=== PATIENT | female | born 1960 | race Caucasian/White ===

== ENCOUNTER 2019-11-30 13:36 | Outpatient (CLI) | payer OTHER, SELFPAY ==
--- NOTE | ~2019-11-30 | XR_ITS ---
XR thoracic spine 3V DATE: 11/30/2019 14:07 INDICATION: Chronic mid back pain TECHNIQUE: AP, lateral, swimmer views COMPARISON: None FINDINGS: No fracture or dislocation is evident. There is degenerative spurring of the thoracic spine . No paraspinal soft tissue thickening. Status post cholecystectomy. IMPRESSION: Degenerative spurring of the thoracic spine Reviewed, dictated and finalized at location A.
== END 2019-11-30 13:37 | disposition home or self-care (01) ==
LOC: CHSIMG 13:38
PROVIDERS: PCP Internal Medicine; Visit Provider Internal Medicine
DX: M54.6 Pain in thoracic spine (principal)
CPT/HCPCS: 72072

== ENCOUNTER 2019-12-07 12:53 | Outpatient (CLI) | payer OTHER, SELFPAY ==
--- NOTE | ~2019-12-07 | XR_ITS ---
XR chest 2V DATE: 12/07/2019 13:07 INDICATION: Posterior Central chest pain for 2 months. COPD. TECHNIQUE: PA and lateral views COMPARISON: 04/27/2019 2 view chest FINDINGS: Normal heart size. Aortic arch calcification. No hilar or mediastinal enlargement. No pulmo nary infiltrate or consolidation, pleural effusion or pulmonary vascular congestion or pneumothorax. Diffuse osteopenia. Degenerative spurring of the thoracic spine. Status post cholecystectomy. IMPRESSION: No active cardiopulmonary disease Reviewed, dictated and finalized at location B.
== END 2019-12-07 12:54 | disposition home or self-care (01) ==
LOC: CHSIMG 12:54
PROVIDERS: PCP Internal Medicine; Visit Provider Internal Medicine
DX: J44.9 Chronic obstructive pulmonary disease, unspecified (principal)
CPT/HCPCS: 71046

== ENCOUNTER 2019-12-24 10:38 | Emergency (ER) | payer OTHER, SELFPAY ==
--- NOTE | ~2019-12-24 | XR_ITS ---
EXAMINATION: XR chest 2V DATE: 12/24/2019 11:56 INDICATION: Cough and shortness of breath TECHNIQUE: PA and lateral views of the chest are obtained. COMPARISON: 12/07/2019 FINDINGS: The lungs are free of acute opacities. There is no pleural effusion or pneumothorax. The ca rdiomediastinal silhouette is normal. There is mild thoracic spondylosis. Surgical clips in the upper abdomen on the lateral view are likely from prior cholecystectomy. IMPRESSION: 1. No acute cardiopulmonary abnormality. Reviewed, dictated and finalized at location A.
[2019-12-24 11:36] VITALS: BP 127/77; PULSE 58; RESP 18; TEMP 36.3; O2SAT 99
[2019-12-24] MEDS: methylPREDNISolone ACETATE 40 MG/ML VIAL 80 MG IM (12:02)
[2019-12-24 12:27] LABS: Influenza Control Valid (Valid)
--- NOTE | 2019-12-24 12:35 | ED.URI ---
HPI - URI/Sore Throat General Chief Complaint: Upper Respiratory Infection Stated Complaint: SORE THROAT HARD TIME BREATHING Source: patient Mode of arrival: ambulatory Limitations: no limitations History of Present Illness HPI Narrative: Patient presents with a 2 week history of cough congestion with dyspnea, patient is a smoker apparently she says she quit 3 days ago, was seen by her primary care physician and started on inhalers and was given a Z-Marcin. Currently no sick contacts no travel history. Patient has a history of atrial fibrillation is on Xarelto, diabetes and hypertension. Currently there is no fever chills no nausea vomiting no abdominal pain no diarrhea constipation. MD elicited complaint: cough and nasal congestion Onset (ago): week(s) Consistency: intermittent Severity: mild Associated symptoms: nasal congestion Related Data Home Medications Medication Instructions Recorded Confirmed baclofen 10 mg PO DAILY PRN 09/24/19 12/24/19 famotidine 40 mg PO DAILY 09/24/19 12/24/19 pravastatin 10 mg PO HS 09/24/19 12/24/19 rivaroxaban [Xarelto] 20 mg PO DAILY 09/24/19 12/24/19 azithromycin 250 mg PO DAILY 12/24/19 12/24/19 fluticasone propion-salmeterol 1 inh INHALATION DAILY 12/24/19 12/24/19 [Wixela Inhub] [id number] [Creon] 1 cap PO BID 12/24/19 12/24/19 multivitamin [Multiple Vitamins] 1 tablet PO DAILY 12/24/19 12/24/19 sodium bicarbonate See Rx Instructions .ROUTE .COMPLEX 12/24/19 12/24/19 Allergies Allergy/AdvReac Type Severity Reaction Status Date / Time esomeprazole Allergy Mild Hives Verified 09/24/19 12:10 omeprazole Allergy Mild Hives Verified 09/24/19 12:10 ceftriaxone [From Rocephin] Allergy Hives Verified 09/24/19 12:10 Review of Systems Review of Systems: All systems reviewed & are unremarkable except as noted in HPI and below PMFSH Past Medical History Medical History Atrial fibrillation CVA (cerebral vascular accident) Dyslipidemia Fibromyalgia GERD (gastroesophageal reflux disease) Hypertension Osteoarthritis Surgical History Surgical History H/O: hysterectomy History of cholecystectomy Social History Social History Smoking status: Current every day smoker Exam Const: General: no acute distress and alert Nutritional Appearance: well nourished Orientation/consciousness: patient oriented x3 HENMT: Head: normal to inspection Eyes: Conjunctivae: conjunctivae normal Pupils: Equal, round and reactive pupils present Neck: Neck: normal visual inspection and no lymphadenopathy Chest: Chest palpation & inspection: normal inspection of the chest Resp: Effort & Inspection: normal respiratory effort Cardio: Rate: regular rate Rhythm: regular rhythm GI: GI Palp: Yes Soft to palpation Back/Spine/Pelvis: Back: no CVA tenderness Skin: General skin exam: normal color Rashes: no rashes Neuro: General: patient oriented x3 Extrem: General: normal to inspection Psych: Mental Status: mental status grossly normal Course Vital Signs Vital signs: Vital Signs Temperature 36.3 C L 12/24/19 11:36 Pulse Rate 58 L 12/24/19 11:36 Respiratory Rate 18 12/24/19 11:36 Blood Pressure 127/77 12/24/19 11:36 Pulse Oximetry 99 12/24/19 11:36 Temperature 36.3 C L 12/24/19 11:36 Pulse Rate 58 L 12/24/19 11:36 Respiratory Rate 18 12/24/19 11:36 Blood Pressure 127/77 12/24/19 11:36 Pulse Oximetry 99 12/24/19 11:36 MDM - URI/Sore Throat Lab Data Labs: Lab Results 12/24/19 Range/Units 12:01 Influenza Type A Ag Negative (Negative) Influenza Type B Ag Negative (Negative) Critical Care Time Critical Care Time Critical Care Time: No Discharge Plan Discharge Clinical Impression: Upper respiratory infection Patient Disposition: Home, Self
[2019-12-24 12:52] VITALS: RESP 18; O2SAT 99
== END 2019-12-24 12:53 | disposition home or self-care (01) ==
PROVIDERS: Emergency Provider Emergency Medicine; PCP Internal Medicine
DX: J06.9 Acute upper respiratory infection, unspecified (principal)
CPT/HCPCS: 71046; 87804; 96372; 99283; J1030

== ENCOUNTER 2020-01-21 17:36 | Observation (INO) | payer OTHER, SELFPAY ==
--- NOTE | ~2020-01-21 | XR_ITS ---
EXAMINATION: XR chest 1V portable 01/21/2020 17:53 INDICATION: Mid chest pain PROCEDURE: AP portable chest COMPARISON: Comparison to multiple prior studies sequentially, with oldest reviewed study dated 10/19. FINDINGS: The lungs are clear. The cardiomediastinal silhouette is within normal limits. There are no pleural effusions. There is no pneumothorax suspected. IMPRESSION: 1: NO ACUTE CARDIOPULMONARY DISEASE. Reviewed, dictated and finalized at location A.
[2020-01-21 17:37] VITALS: BP 161/70; PULSE 60; RESP 16; TEMP 36.6; O2SAT 100
--- NOTE | 2020-01-21 17:40 | ECG_ITS ---
Measurements Intervals [place] Rate: 56 P: 72 WV: 183 QRS: 75 QRSD: 98 T: 49 QT: 399 QTc: 386 Interpretive Statements SINUS BRADYCARDIA VENTRICULAR PREMATURE COMPLEX INCOMPLETE RIGHT BUNDLE BRANCH BLOCK BASELINE ARTIFACT- I, II, III, AVR, AVL, AVF BORDERLINE ECG Electronically Signed On 01-22-2020 7:16:29 CDT by iDaz Pruitt D.O.
[2020-01-21 17:41] VITALS: BP 111/65; PULSE 58; RESP 16; O2SAT 100; BMI 25.9
[2020-01-21 18:02] LABS: Basophils Absolute Auto 0.09 K/mm3 (0.00-0.10); Basophils Percent Auto 1.1 % (0.0-1.0); Eosinophils Percent Auto 1.2 % (1.0-6.0); Hematocrit 38.5 % (35.0-49.0); Immature Granulocyte Absolute 0.02 K/mm3 (0.00-0.00); Immature Granulocyte Percent A 0.2 % (0.0-0.0); Lymphocytes Absolute Auto 2.87 K/mm3 (1.10-4.50); Lymphocytes Percent Auto 34.5 % (18.0-42.0); Mean Corpuscular HGB Conc 33.8 g/dL (32.0-36.0); Mean Corpuscular Hemoglobin 30.4 pg (27.0-31.0); Mean Platelet Volume 9.2 fl (9.2-11.8); Monocytes Absolute Auto 0.43 K/mm3 (0.10-0.90); Monocytes Percent Auto 5.2 % (2.0-11.0); Neutrophils Absolute Auto 4.8 K/mm3 (1.7-7.2); Neutrophils Percent Auto 57.8 % (50.0-70.0); Platelet Count Result 264 K/mm3 (150-420); Red Blood Count 4.28 M/mm3 (4.20-5.40); Red Cell Distribution Width 12.3 % (11.6-14.4); White Blood Count 8.3 K/mm3 (4.8-10.8)
[2020-01-21 18:16] LABS: D Dimer 0.19 mg/L (0.19-0.50); INR 1.3; Partial Thromboplastin Time 42.7 SEC (22.3-31.6); Prothrombin Time 13.7 Seconds (9.64-11.0)
[2020-01-21 18:19] LABS: Alanine Aminotransferase 17 U/L (14-59); Alkaline Phosphatase 67 U/L (46-116); Anion Gap 16.6 mmol/L (7-16); Aspartate Amino Transferase 14 U/L (15-37); Bilirubin,Total 0.3 mg/dL (0.00-1.00); Blood Urea Nitrogen 6 mg/dL (7-18); Calcium 8.8 mg/dL (8.5-10.1); Carbon Dioxide 24 mmol/L (21-32); Chloride 102 mmol/L (98-108); Estimated CRCL calculation 65 ml/min; Estimated Glomerular Filt Rate > 60; Glucose 100 mg/dL (70-99); Lipase 81 U/L (73-393); Osmolality Calculated 285 mOsm/kg (285-295); Potassium 3.6 mmol/L (3.5-5.1); Sodium 139 mmol/L (136-145)
[2020-01-21 18:20] LABS: Troponin I < 0.02 ng/mL (0.00-0.056)
[2020-01-21 18:22] LABS: BNP 34.9 pg/mL (0-100)
[2020-01-21 18:25] VITALS: O2SAT 97
[2020-01-21] MEDS: methylPREDNISolone SOD SUCC 125 MG VIAL IV PUSH (18:30)
--- NOTE | 2020-01-21 18:32 | ED.GENADULT ---
HPI - General Adult General Chief complaint: Unspecified Stated complaint: Chest pain,numbness down arm Source: patient Mode of arrival: ambulatory Limitations: no limitations History of Present Illness HPI narrative: this is a 59-year-old female presents with chest pressure with radiation to her left arm started yesterday is intermittent off and on also has some throat discomfort with no diaphoresis does have a history of COPD and is feeling like she is short short of breath with no nausea or vomiting no fever chills no cough. The patient was started on Lexapro approximately 3 days ago by her primary care physician for anxiety and depression and since then feels like she may have had allergic reaction to Lexapro which she subsequently stopped. Patient has a past medical history of atrial fibrillation, COPD, hypertension, , status post CVA with left-sided weakness back in 2016. Her chest pain waxes and wanes rates it about a 6/10 which is off and on. Onset (ago): day(s) Location: chest Radiation: extremity Severity: moderate Severity scale (1-10): 5 Quality: dull Pain Consistency: intermittent Associated symptoms: chest pain and shortness of breath Treatments prior to arrival: none Related Data Home Medications Medication Instructions Recorded Confirmed baclofen 10 mg PO DAILY PRN 09/24/19 01/21/20 famotidine 40 mg PO BID 09/24/19 01/21/20 pravastatin 10 mg PO HS 09/24/19 01/21/20 fluticasone propion-salmeterol 1 inh INHALATION DAILY 12/24/19 01/21/20 [Wixela Inhub] [id number] [Creon] 1 cap PO BID 12/24/19 01/21/20 multivitamin [Multiple Vitamins] 1 tablet PO DAILY 12/24/19 01/21/20 sodium bicarbonate See Rx Instructions .ROUTE .COMPLEX 12/24/19 01/21/20 escitalopram oxalate [Lexapro] 20 mg PO DAILY 01/21/20 01/21/20 hydrocodone-acetaminophen [Lorcet 1 tablet PO Q4H PRN 01/21/20 01/21/20 (hydrocodone)] rivaroxaban [Xarelto] mg 01/21/20 Allergies Allergy/AdvReac Type Severity Reaction Status Date / Time esomeprazole Allergy Mild Hives Verified 09/24/19 12:10 omeprazole Allergy Mild Hives Verified 09/24/19 12:10 ceftriaxone [From Rocephin] Allergy Hives Verified 09/24/19 12:10 Review of Systems Review of Systems: All systems reviewed & are unremarkable except as noted in HPI and below PMFSH Social History Social History Smoking status: Current every day smoker Gender identity (if verbalized by the patient): Female Exam Const: General: no acute distress and alert Orientation/consciousness: patient oriented x3 HENMT: Head: normal to inspection Eyes: Conjunctivae: conjunctivae normal Pupils: Equal, round and reactive pupils present Neck: Neck: normal visual inspection and no lymphadenopathy Chest: Chest palpation & inspection: normal inspection of the chest Resp: Effort & Inspection: normal respiratory effort Auscultation: clear to auscultation bilaterally Cardio: Rate: regular rate Rhythm: regular rhythm GI: GI Palp: Yes Soft to palpation Percussion: Yes normal to percussion Auscultation: normal bowel sounds : General: Yes no CVA tenderness Skin: General skin exam: normal color Rashes: no rashes Neuro: General: patient oriented x3, moves all extremities, no meningeal signs and no focal motor deficits Extrem: General: normal to inspection Psych: Appearance: grossly normal Mental Status: mental status grossly normal Course Vital Signs Vital signs: Vital Signs Temperature 36.6 C 01/21/20 17:37 Pulse Rate 60 01/21/20 17:37 Respiratory Rate 16 01/21/20 17:37 Blood Pressure 161/70 H 01/21/20 17:37 Pulse Oximetry 100 01/21/20 17:37 Temperature 36.6 C 01/21/20 17:37 Pulse Rate 58 L 01/21/20 17:41 Respiratory Rate 16 01/21/20 17:41 Blood Pressure 111/65 01/21/20 17:41 Pulse Oximetry 100 01/21/20 17:41 Medical Decision Making Vital Signs Vital Signs: Vital Signs Tempera
[2020-01-21 18:34] LABS: Add Urine Microscopic? YES; Appearance Urine Clear (Clear); Bilirubin Urine Negative (Negative); Blood Urine 2+ (Negative); Color Urine Yellow (Yellow); Glucose Urine UA Negative (Negative); Ketones Urine Negative (Negative); Leukocyte Esterase Ur Negative LEU/UL (Negative); Nitrate Urine Negative (Negative); Protein Urine Negative (Negative); Specific Grav Ur <= 1.005 (1.010-1.020); Urobilinogen Urine 0.2 mg/dL (0.2-1.0)
[2020-01-21 18:40] LABS: Bacteria Urine Trace /hpf; Squamous Epithelial Cell Urine Rare /hpf (Few); WBC Urine 0-3 /hpf (0-3)
[2020-01-21 19:03] VITALS: BP 110/60; PULSE 58; RESP 18; TEMP 36.6; O2SAT 100
[2020-01-21 19:34] VITALS: BP 112/60; PULSE 57; RESP 16; TEMP 36.7; O2SAT 100
[2020-01-21 20:00] VITALS: PULSE 60
--- NOTE | 2020-01-21 20:10 | PC.NURSE ---
Patient arrived from ER in wheelchair. Oriented to room. Call light in reach. Placed on telemetry
[2020-01-21] MEDS: ALBUTEROL SULFATE (*SP) INHALER 2 PUFF INHALATION (20:35)
[2020-01-21] MEDS: SODIUM CHLORIDE 0.9% IV 1,000 ML 100 ML IV CONT (20:39)
--- NOTE | 2020-01-21 21:08 | PC.NURSE ---
Patient continues on sinus rhythm showing sinus michael and a-fib
[2020-01-21 21:31] LABS: Troponin I < 0.02 ng/mL (0.00-0.056)
--- NOTE | 2020-01-21 22:09 | PC.NURSE ---
Patient continues on telemetry showing sinus rhythm and a-fib
--- NOTE | 2020-01-21 23:20 | PC.NURSE ---
Patient continues on telemetry showing a-fib and sinus michael.
[2020-01-22] VITALS: BP 115/68; PULSE 52; PULSE 58; RESP 16; TEMP 36.9; O2SAT 98
--- NOTE | 2020-01-22 00:05 | PC.NURSE ---
Patient continues on telemetry showing sinus michael with a-fib.
[2020-01-22 00:45] LABS: Troponin I < 0.02 ng/mL (0.00-0.056)
--- NOTE | 2020-01-22 01:05 | PC.NURSE ---
Patient continues on telemetry showing sinus rhythm and a-fib
--- NOTE | 2020-01-22 02:55 | PC.NURSE ---
Patient remains on telemetry showing sinus tach with a-fib.
--- NOTE | 2020-01-22 03:03 | PC.NURSE ---
Patient remains on telemetry showing sinus michael and a-fib
[2020-01-22 04:00] VITALS: BP 100/39; PULSE 52; PULSE 67; RESP 20; TEMP 37.1; O2SAT 98
[2020-01-22] MEDS: ACETAMINOPHEN 325 MG TABLET 650 MG PO (04:31)
[2020-01-22] MEDS: SODIUM CHLORIDE 0.9% IV 1,000 ML 100 ML IV CONT (04:32)
--- NOTE | 2020-01-22 06:44 | PC.NURSE ---
Dr. Veloz notified of pt's low heart rate. No new orders at this time.
--- NOTE | 2020-01-22 06:51 | PC.NURSE ---
Dr. Veloz called for a TSH to be added to pt's labs for this AM.
[2020-01-22 07:55] VITALS: BP 110/60; PULSE 45; PULSE 51; RESP 18; TEMP 37; O2SAT 100
[2020-01-22 08:53] LABS: Basophils Absolute Auto 0.01 K/mm3 (0.00-0.10); Basophils Percent Auto 0.1 % (0.0-1.0); Eosinophils Absolute Auto 0.01 K/mm3 (0.02-0.50); Eosinophils Percent Auto 0.1 % (1.0-6.0); Hematocrit 39.1 % (35.0-49.0); Hemoglobin 13.2 g/dL (12.0-15.0); Immature Granulocyte Absolute 0.03 K/mm3 (0.00-0.00); Immature Granulocyte Percent A 0.3 % (0.0-0.0); Lymphocytes Absolute Auto 1.46 K/mm3 (1.10-4.50); Lymphocytes Percent Auto 15.9 % (18.0-42.0); Mean Corpuscular HGB Conc 33.8 g/dL (32.0-36.0); Mean Corpuscular Hemoglobin 30.6 pg (27.0-31.0); Mean Corpuscular Volume 90.7 fL (78.0-102.0); Mean Platelet Volume 9.1 fl (9.2-11.8); Monocytes Percent Auto 4.4 % (2.0-11.0); Neutrophils Absolute Auto 7.3 K/mm3 (1.7-7.2); Neutrophils Percent Auto 79.2 % (50.0-70.0); Platelet Count Result 258 K/mm3 (150-420); Red Blood Count 4.31 M/mm3 (4.20-5.40); Red Cell Distribution Width 12.3 % (11.6-14.4); White Blood Count 9.2 K/mm3 (4.8-10.8)
[2020-01-22] MEDS: FAMOTIDINE 20 MG TABLET 40 MG PO (08:53)
[2020-01-22] MEDS: ALBUTEROL SULFATE (*SP) INHALER 2 PUFF INHALATION (08:55)
--- NOTE | 2020-01-22 08:59 | PM.IMPN ---
Progress Note: A&P Assessment and Plan (1) Chest pain: Onset Date: ~01/20/20 Qualifiers: Chest pain type: unspecified Qualified Code(s): R07.9 - Chest pain, unspecified Code(s): R07.9 - Chest pain, unspecified Status: Acute Assessment and Plan: Patient denies having chest pain since last night. He denies shortness of breath, leg swelling, cough, cold symptoms, or fever. The numbness that affected the entirety of her left arm down to her fingertips that has resolved. Patient states that she had a stress test a few years ago after she had a CVA. Will discharge her home today to follow-up with her PCP. (2) Atrial fibrillation: Code(s): I48.91 - Unspecified atrial fibrillation Status: Chronic Assessment and Plan: Continue her current treatment strategies. (3) GERD (gastroesophageal reflux disease): Code(s): K21.9 - Gastro-esophageal reflux disease without esophagitis Status: Acute Assessment and Plan: Continue current treatment strategies. (4) Hypertension: Code(s): I10 - Essential (primary) hypertension Status: Acute Assessment and Plan: Continue current treatments that he has. (5) Bradycardia: Code(s): R00.1 - Bradycardia, unspecified Status: Chronic Assessment and Plan: Monitor showed a reading as low as 38 overnight however patient was asymptomatic. this is a chronic finding and is found on her EKGs as far back as October of 2015. (6) Dyspnea: Code(s): R06.00 - Dyspnea, unspecified Status: Acute Additional Plan Patient has a pending COVID test however she has been afebrile and denies shortness of breath this morning. Will encourage her to self distance at home until her test is back and she follows up with her primary care doctor. Time Spent With Patient Time with patient: less than 15 minutes Subjective Date/time seen: 01/22/20 0745 Patient states that she has no chest pain, shortness of breath, left arm numbness, tingling or pain, and feels better today. She is amenable to going home and having follow up with her primary care doctor. Patient states that she has had a stress test the last 2 years that was negative. Review of Systems Constitutional: Constitutional: Denies fatigue and Denies weakness ENT: Denies dysphagia, Denies nasal congestion and Denies nasal discharge Cardiovascular: Cardiovascular: Denies chest pain, Denies leg edema, Denies lightheadedness and Denies palpitations Respiratory: Respiratory: Denies cough, Denies dyspnea and Denies dyspnea on exertion Gastrointestinal: Gastrointestinal: Denies abdominal pain, Denies nausea and Denies vomiting Musculoskeletal: Musculoskeletal: Reports back pain Neurologic: Denies Abnormal speech present, Denies headache(s) and Denies numbness Psychiatric: Psychiatric: Denies anxiety, Denies confusion and Denies depression Exam Const: General: no acute distress HENMT: Mouth: Yes moist mucous membranes Eyes: Sclera: sclerae normal Pupils: Equal, round and reactive pupils present EOM: EOMs intact bilaterally Resp: Effort & Inspection: normal respiratory effort Auscultation: no crackles, no rales, no rhonchi and wheezes (Few late expiratory wheezes, no inc WOB, good air movement throughout) Cardio: Rate: bradycardic Rhythm: regular rhythm Heart sounds: no gallops and no murmurs GI: Inspection: non-distended Auscultation: normal bowel sounds Neuro: Speech: normal speech Motor exam (neuro): 5/5 motor strength present throughout and Normal motor muscle tone present throughout Extrem: General: normal exam except as noted and no edema Other: Warm, dry and pink Psych: Mental Status: mental status grossly normal Affect: normal affect Objective Data Vital Signs Vital Signs: Vital Signs - 24 hr 01/21/20 17:37 01/21/20 17:41 01/21/20 19:03 Temperature 36.6 C 36.6 C Pulse Rate 60 58 L 58 L Respi
[2020-01-22 09:21] LABS: Alanine Aminotransferase 15 U/L (14-59); Albumin Level 3.7 g/dL (3.4-5.0); Alkaline Phosphatase 59 U/L (46-116); Anion Gap 13.1 mmol/L (7-16); Aspartate Amino Transferase 12 U/L (15-37); Bilirubin,Total 0.5 mg/dL (0.00-1.00); Blood Urea Nitrogen 7 mg/dL (7-18); Calcium 8.9 mg/dL (8.5-10.1); Carbon Dioxide 25 mmol/L (21-32); Chloride 107 mmol/L (98-108); Estimated CRCL calculation 85 ml/min; Estimated Glomerular Filt Rate > 60; Glucose 113 mg/dL (70-99); Osmolality Calculated 291 mOsm/kg (285-295); Potassium 4.1 mmol/L (3.5-5.1); Sodium 141 mmol/L (136-145); Total Protein 6.7 g/dL (6.4-8.2)
[2020-01-22 12:00] VITALS: PULSE 48
--- NOTE | 2020-01-22 12:30 | PC.NURSE ---
Patient to be discharged home. IV fluids stopped. IV site removed, tip intact. Dressing applied to site and pressure held for 1 minnute. All discharge instructions and education reviewed with patient. Patient states understanding. Denies any questions at this time. All belongings sent home with patient. Patient accompanied to front door via wheelchair. Left in private vehicle with friend.
[2020-01-23 04:03] LABS: SARS-CoV-2 RNA PCR Negative
== END 2020-01-22 12:30 | disposition home or self-care (01) ==
LOC: CHSED 18:37 → CHS2ND 18:47
PROVIDERS: Admitting Provider Emergency Medicine; Emergency Provider Emergency Medicine; PCP Internal Medicine; Visit Provider Emergency Medicine
DX: R07.9 Chest pain, unspecified (principal); J44.9 Chronic obstructive pulmonary disease, unspecified; R06.02 Shortness of breath; F41.9 Anxiety disorder, unspecified; F32.9 Major depressive disorder, single episode, unspecified; I10 Essential (primary) hypertension; I48.20 Chronic atrial fibrillation, unspecified; K21.9 Gastro-esophageal reflux disease without esophagitis; R00.1 Bradycardia, unspecified; Z20.828 Contact with and (suspected) exposure to other viral communicable diseases; Z86.73 Personal history of transient ischemic attack (TIA), and cerebral infarction without residual deficits
CPT/HCPCS: 36415; 71045; 80053; 81001; 83690; 83735; 83880; 84443; 84484; 85025; 85380; 85610; 85730; 87635; 93005; 96360; 96361; 96374; 99285; A9270; C9803; G0378; G0379; J2930; J7030; U0003

== ENCOUNTER 2020-04-01 09:24 | Outpatient (CLI) | payer OTHER, SELFPAY ==
--- NOTE | ~2020-04-01 | US_ITS ---
EXAMINATION: US carotid duplex BI DATE: 04/01/2020 10:04 INDICATION: Carotid stenosis. TECHNIQUE: Grayscale, color Doppler, and pulsed Doppler images of the cervical carotid arteries were obtained. The degree of vessel stenosis is placed in one of the following categories: normal, <50%, 5 0-69%, >=70% but less than near-occlusion, near-occlusion, or total occlusion. Note that percent sten osis relative to normal distal artery lumen diameter is indirectly measured from velocity measurement s as described by Spenser, et al. Radiology 2003; 229:340-346. COMPARISON: Ultrasound 03/20/2019 FINDINGS: RIGHT: The right common carotid artery (CCA) peak systolic velocity (PSV) is 97 cm/s. The right internal car otid artery (ICA) PSV is 84 cm/s. The right ICA end-diastolic velocity (EDV) is 35 cm/s. The right IC A/CCA PSV ratio is 0.9. Grayscale and color Doppler images yield an estimate of <50% diameter reducti on from plaque in the ICA. There is antegrade flow in the right vertebral artery. LEFT: The left CCA PSV is 101 cm/s. The left ICA PSV is 84 cm/s. The left ICA EDV is 32 cm/s. The left ICA/ CCA PSV ratio is 0.8. Grayscale and color Doppler images yield an estimate of <50% diameter reduction from plaque in the ICA. There is antegrade flow in the left vertebral artery. IMPRESSION: 1. <50% stenosis in the right internal carotid artery. 2. <50% stenosis in the left internal carotid artery. Reviewed, dictated and finalized at location A.
== END 2020-04-01 09:25 | disposition home or self-care (01) ==
PROVIDERS: PCP Internal Medicine; Visit Provider Internal Medicine
DX: I65.29 Occlusion and stenosis of unspecified carotid artery (principal)
CPT/HCPCS: 93880

== ENCOUNTER 2020-06-30 14:46 | Outpatient (CLI) | payer OTHER, SELFPAY ==
--- NOTE | 2020-07-20 08:24 | WPDHOLTEREM ---
Holter/Event Monitor Holter/Event Monitor Date of procedure: 07/20/20 Procedure Type: 30 day event monitor Indications: Palpitations Conclusion: 1. 15 days event monitor between 06/30/20-07/18/20. There are 12 available transmissions for analysis. 2. Underlying rhythm is sinus rhythm. HR range 33-120 bpm; average HR 65 bpm. The slowest HR is at 02:33. 3. There are occasional premature supraventricular complexes with total burden of 1%. No supraventricular tachycardia. 4. There are occasional premature ventricular complexes with total burden of 2%. No ventricular tachycardia. 5. No significant pauses greater than 2 seconds. 6. Patient reports 1 episode of symptoms of symptom other than listed which demonstrate sinus rhythm at 67 bpm.
== END 2020-06-30 14:47 | disposition home or self-care (01) ==
LOC: CHSCARD 14:48
PROVIDERS: PCP Internal Medicine; Visit Provider Internal Medicine
DX: R00.2 Palpitations (principal)
CPT/HCPCS: 93270

== ENCOUNTER 2020-08-01 08:09 | Outpatient (CLI) | payer OTHER, SELFPAY ==
--- NOTE | ~2020-08-01 | MM_ITS ---
EXAMINATION: MM screening [facility] BI w kyara HISTORY: Screening mammogram TECHNIQUE: Craniocaudal and mediolateral oblique 3-D tomosynthesis images were obtained and synthetic 2-D images were generated. CAD analysis was submitted and interpreted. COMPARISON: 07/20/2019, 06/23/2018, 06/10/2017 BREAST PARENCHYMAL COMPOSITION: The breasts are almost entirely fatty. FINDINGS: There is no evidence of suspicious mass, calcification, or architectural distortion to sugg est malignancy in either breast. There has been no suspicious interval change. IMPRESSION: 1. No mammographic evidence of malignancy. 2. Recommend routine screening mammography in one year. BI-RADS Category 1: Negative Reviewed, dictated and finalized at location A. R SAFETY TEACHER
== END 2020-08-01 08:10 | disposition home or self-care (01) ==
LOC: CHSIMG 08:10
PROVIDERS: PCP Internal Medicine; Visit Provider Internal Medicine
DX: Z12.31 Encounter for screening mammogram for malignant neoplasm of breast (principal)
CPT/HCPCS: 77063; 77067

== ENCOUNTER 2020-08-08 14:31 | Outpatient (CLI) | payer OTHER, SELFPAY ==
--- NOTE | ~2020-08-08 | XR_ITS ---
EXAMINATION: XR knee LT min 4V DATE: 08/08/2020 15:00 INDICATION: Left knee pain. TECHNIQUE: 4 views of left knee were obtained. COMPARISON: Left knee radiographs 05/23/2009 FINDINGS: Bone alignment is normal. No fracture. There is moderate osteoarthritis of medial compartme nt and mild osteoarthritis of lateral and patellofemoral compartments. There is chondrocalcinosis of the [place]isci. There is a small knee joint effusion. There are dystrophic calcifications of the joint c apsule. IMPRESSION: 1. Moderate left knee osteoarthritis. 2. Small left knee joint effusion. Reviewed, dictated and finalized at location A. YST PROGRAMMER
== END 2020-08-08 14:32 | disposition home or self-care (01) ==
PROVIDERS: PCP Internal Medicine; Visit Provider Internal Medicine
DX: M25.562 Pain in left knee (principal); M17.12 Unilateral primary osteoarthritis, left knee
CPT/HCPCS: 73564

== ENCOUNTER 2020-08-12 15:49 | Outpatient (CLI) | payer OTHER, SELFPAY ==
[2020-08-15 16:41] LABS: SARS-CoV-2 RNA PCR Negative
== END 2020-08-12 15:50 | disposition home or self-care (01) ==
LOC: CHSLAB 15:52
PROVIDERS: PCP Internal Medicine; Visit Provider Internal Medicine
DX: Z20.828 Contact with and (suspected) exposure to other viral communicable diseases (principal)
CPT/HCPCS: 87635; C9803; U0003

== ENCOUNTER 2020-09-07 16:03 | Outpatient (CLI) | payer OTHER, SELFPAY ==
--- NOTE | ~2020-09-07 | XR_ITS ---
EXAMINATION: XR ribs BI 3V w CXR 2V EXAM DATE: 09/07/2020 16:28 INDICATION: Bilateral anterior/posterior rib pain s/p fall downstairs. Initial encounter. TECHNIQUE: Frontal projection of the upper left ribs, frontal projection of the lower left ribs, obli que projection of the left ribs. Frontal projection of the upper right ribs, frontal projection of t he lower right ribs, oblique projection of the right ribs, frontal and lateral chest x-ray(s) for int erpretation. Comparison is made to prior examination from 01/21/2020. FINDINGS: There are no displaced acute rib fractures identified. No confluent consolidation, pneumo thorax or pleural effusion suspected. There are cholecystectomy clips and also probably pneumobilia. IMPRESSION: No acute displaced rib fractures bilaterally. Reviewed, dictated and finalized at location A. ERECTOR AND REPAIRER
== END 2020-09-07 16:04 | disposition home or self-care (01) ==
LOC: CHSIMG 16:05
PROVIDERS: PCP Internal Medicine; Visit Provider Internal Medicine
DX: R07.89 Other chest pain (principal)
CPT/HCPCS: 71046; 71110

== ENCOUNTER 2020-09-26 15:36 | Outpatient (CLI) | payer OTHER, SELFPAY ==
--- NOTE | ~2020-09-26 | XR_ITS ---
EXAMINATION: XR abdomen obstructive series DATE: 09/26/2020 16:00 INDICATION: Right-sided abdominal pain. Constipation. TECHNIQUE: Upright and supine views of the abdomen on 3 radiographs were obtained. COMPARISON: CT abdomen and pelvis 11/12/2017 FINDINGS: There are no dilated loops of bowel. There is a moderate volume of stool in the colon. No f ree intraperitoneal gas. Calcifications in the pelvis are likely phleboliths. Surgical clips in the r ight upper quadrant are likely from cholecystectomy. There is a staple line in the rectosigmoid colon . IMPRESSION: 1. Normal bowel gas pattern. Reviewed, dictated and finalized at location A. LABORER
[2020-09-26 15:50] LABS: Basophils Percent Auto 1.1 % (0.0-1.0); Eosinophils Absolute Auto 0.25 K/mm3 (0.02-0.50); Eosinophils Percent Auto 2.6 % (1.0-6.0); Hematocrit 41.6 % (35.0-49.0); Hemoglobin 13.7 g/dL (12.0-15.0); Immature Granulocyte Absolute 0.02 K/mm3 (0.00-0.00); Immature Granulocyte Percent A 0.2 % (0.0-0.0); Lymphocytes Absolute Auto 3.17 K/mm3 (1.10-4.50); Lymphocytes Percent Auto 33.5 % (18.0-42.0); Mean Corpuscular HGB Conc 32.9 g/dL (32.0-36.0); Mean Corpuscular Hemoglobin 30.4 pg (27.0-31.0); Mean Corpuscular Volume 92.4 fL (78.0-102.0); Mean Platelet Volume 9.1 fl (9.2-11.8); Monocytes Absolute Auto 0.47 K/mm3 (0.10-0.90); Neutrophils Absolute Auto 5.5 K/mm3 (1.7-7.2); Neutrophils Percent Auto 57.6 % (50.0-70.0); Platelet Count Result 257 K/mm3 (150-420); Red Cell Distribution Width 11.9 % (11.6-14.4); White Blood Count 9.5 K/mm3 (4.8-10.8)
[2020-09-26 15:51] LABS: Add Urine Microscopic? YES; Appearance Urine Clear (Clear); Bilirubin Urine Negative (Negative); Blood Urine 1+ (Negative); Color Urine Yellow (Yellow); Glucose Urine UA Negative (Negative); Ketones Urine Negative (Negative); Leukocyte Esterase Ur Negative (Negative); Nitrate Urine Negative (Negative); Protein Urine Negative (Negative); Urobilinogen Urine 0.2 mg/dL (0.2-1.0)
[2020-09-26 15:56] LABS: RBC Urine 0-2 /hpf (0-2); Squamous Epithelial Cell Urine Few /hpf (Few); WBC Urine 0-3 /hpf (0-3)
[2020-09-26 15:57] LABS: Bacteria Urine Trace /hpf
[2020-09-26 16:07] LABS: Alanine Aminotransferase 15 U/L (14-59); Albumin Level 4.5 g/dL (3.4-5.0); Alkaline Phosphatase 64 U/L (46-116); Amylase 55 U/L (25-115); Anion Gap 7 mmol/L (8-16); Aspartate Amino Transferase < 10 U/L (15-37); Bilirubin,Total 0.3 mg/dL (0.00-1.00); Blood Urea Nitrogen 7 mg/dL (7-18); Calcium 9.3 mg/dL (8.5-10.1); Carbon Dioxide 28 mmol/L (21-32); Chloride 101 mmol/L (98-108); Estimated Glomerular Filt Rate > 60; Glucose 95 mg/dL (70-99); Lipase 74 U/L (73-393); Osmolality Calculated 280 mOsm/kg (285-295); Potassium 3.9 mmol/L (3.5-5.1); Sodium 136 mmol/L (136-145); Total Protein 7.8 g/dL (6.4-8.2)
== END 2020-09-26 15:37 | disposition home or self-care (01) ==
LOC: CHSLAB 15:37
PROVIDERS: PCP Internal Medicine; Visit Provider Internal Medicine
DX: R10.9 Unspecified abdominal pain (principal); R11.0 Nausea; K59.00 Constipation, unspecified
CPT/HCPCS: 36415; 74019; 80053; 81001; 82150; 83690; 85025; 87086

== ENCOUNTER 2020-10-25 15:28 | Outpatient (CLI) | payer OTHER, SELFPAY ==
[2020-10-25 16:19] LABS: SARS-CoV-2 Ag Negative (Negative)
== END 2020-10-25 15:29 | disposition home or self-care (01) ==
LOC: CHSLAB 15:31
PROVIDERS: PCP Internal Medicine; Visit Provider Internal Medicine
DX: Z20.822 Contact with and (suspected) exposure to COVID-19 (principal)
CPT/HCPCS: 87426; C9803

== ENCOUNTER 2021-01-16 14:23 | Outpatient (CLI) | payer OTHER, SELFPAY ==
[2021-01-16 14:40] LABS: Basophils Percent Auto 0.9 % (0.0-1.0); Eosinophils Absolute Auto 0.18 K/mm3 (0.02-0.50); Eosinophils Percent Auto 1.6 % (1.0-6.0); Hematocrit 40.9 % (35.0-49.0); Hemoglobin 13.7 g/dL (12.0-15.0); Immature Granulocyte Absolute 0.03 K/mm3 (0.00-0.00); Immature Granulocyte Percent A 0.3 % (0.0-0.0); Lymphocytes Absolute Auto 3.07 K/mm3 (1.10-4.50); Lymphocytes Percent Auto 27.4 % (18.0-42.0); Mean Corpuscular HGB Conc 33.5 g/dL (32.0-36.0); Mean Corpuscular Hemoglobin 30.5 pg (27.0-31.0); Mean Corpuscular Volume 91.1 fL (78.0-102.0); Mean Platelet Volume 8.8 fl (9.2-11.8); Monocytes Absolute Auto 0.65 K/mm3 (0.10-0.90); Monocytes Percent Auto 5.8 % (2.0-11.0); Neutrophils Absolute Auto 7.2 K/mm3 (1.7-7.2); Platelet Count Result 288 K/mm3 (150-420); Red Blood Count 4.49 M/mm3 (4.20-5.40); Red Cell Distribution Width 12.2 % (11.6-14.4); White Blood Count 11.2 K/mm3 (4.8-10.8)
== END 2021-01-16 14:24 | disposition home or self-care (01) ==
LOC: CHSLAB 14:25
PROVIDERS: PCP Internal Medicine; Visit Provider Internal Medicine
DX: J02.9 Acute pharyngitis, unspecified (principal)
CPT/HCPCS: 85025; 87081; 87880

== ENCOUNTER 2021-01-21 11:49 | Outpatient (CLI) | payer OTHER, SELFPAY | END 2021-01-21 11:50 | disposition home or self-care (01) | LOC: CHSCOVIDVC 11:49 | PROVIDERS: PCP Internal Medicine | DX: Z23 Encounter for immunization (principal) | CPT/HCPCS: 0011A; 91301 ==

== ENCOUNTER 2021-02-16 16:58 | Outpatient (CLI) | payer OTHER, SELFPAY ==
[2021-02-16 17:37] LABS: Basophils Absolute Auto 0.08 K/mm3 (0.00-0.10); Eosinophils Percent Auto 1.3 % (1.0-6.0); Hematocrit 40.1 % (35.0-49.0); Hemoglobin 13.3 g/dL (12.0-15.0); Immature Granulocyte Absolute 0.02 K/mm3 (0.00-0.00); Immature Granulocyte Percent A 0.3 % (0.0-0.0); Lymphocytes Absolute Auto 2.73 K/mm3 (1.10-4.50); Lymphocytes Percent Auto 35.5 % (18.0-42.0); Mean Corpuscular HGB Conc 33.2 g/dL (32.0-36.0); Mean Corpuscular Hemoglobin 30.6 pg (27.0-31.0); Mean Corpuscular Volume 92.2 fL (78.0-102.0); Mean Platelet Volume 9.1 fl (9.2-11.8); Monocytes Absolute Auto 0.41 K/mm3 (0.10-0.90); Monocytes Percent Auto 5.3 % (2.0-11.0); Neutrophils Absolute Auto 4.4 K/mm3 (1.7-7.2); Neutrophils Percent Auto 56.6 % (50.0-70.0); Platelet Count Result 277 K/mm3 (150-420); Red Blood Count 4.35 M/mm3 (4.20-5.40); Red Cell Distribution Width 12.1 % (11.6-14.4); White Blood Count 7.7 K/mm3 (4.8-10.8)
[2021-02-16 17:52] LABS: Partial Thromboplastin Time 29.4 SEC (23.90-30.70); Prothrombin Time 10.7 Seconds (9.50-12.10)
[2021-02-16 17:55] LABS: Alanine Aminotransferase 21 U/L (14-59); Albumin Level 4.1 g/dL (3.4-5.0); Alkaline Phosphatase 61 U/L (46-116); Anion Gap 9 mmol/L (8-16); Aspartate Amino Transferase 10 U/L (15-37); Bilirubin,Total 0.5 mg/dL (0.00-1.00); Blood Urea Nitrogen 7 mg/dL (7-18); Carbon Dioxide 27 mmol/L (21-32); Chloride 101 mmol/L (98-108); Estimated Glomerular Filt Rate > 60; Glucose 97 mg/dL (70-99); Magnesium 2.1 mg/dL (1.8-2.4); Osmolality Calculated 282 mOsm/kg (285-295); Potassium 3.6 mmol/L (3.5-5.1); Sodium 137 mmol/L (136-145); Total Protein 7.1 g/dL (6.4-8.2)
[2021-02-16 18:34] LABS: SARS-CoV-2 RNA PCR Negative (Negative)
[2021-02-16 18:42] LABS: SARS-CoV-2 Ag Negative (Negative)
== END 2021-02-16 16:59 | disposition home or self-care (01) ==
LOC: CHSLAB 17:01
PROVIDERS: PCP Internal Medicine; Visit Provider Internal Medicine
DX: R25.2 Cramp and spasm (principal); T14.8XXA Other injury of unspecified body region, initial encounter; Z20.822 Contact with and (suspected) exposure to COVID-19
CPT/HCPCS: 36415; 80053; 83735; 85025; 85610; 85730; 87426; C9803; U0003; U0005

== ENCOUNTER 2021-02-18 11:08 | Outpatient (CLI) | payer OTHER, SELFPAY | END 2021-02-18 11:09 | disposition home or self-care (01) | LOC: CHSCOVIDVC 11:08 | PROVIDERS: PCP Internal Medicine | DX: Z23 Encounter for immunization (principal) | CPT/HCPCS: 0012A; 91301 ==

== ENCOUNTER 2021-02-22 14:14 | Outpatient (CLI) | payer OTHER, SELFPAY ==
--- NOTE | 2021-02-22 14:26 | ECHO_ITS ---
Patient Info Name: Claudine Cruz Age: 60 years : 1960 Gender: Female Ht: 65 in Wt: 138 lbs BSA: 1.70 m2 HR: 65 bpm BP: 116 / 68 mmHg Technical Quality: Fair Exam Date: 02/22/2021 2:44 PM Exam Location: [facility] Patient Status: Outpatient Admit Date: 02/22/2021 Staff Ordering Physician: Diaz Pruitt DO Security Operations Specialist: Pearl Palm RDCS Attending Provider: Diaz Pruitt DO Referring Physician: Edmond APONTE; Exam Type: CA echo doppler color flow Study Info Indications I48.1 - Persistent atrial fibrillation Complete two-dimensional, color flow and Doppler transthoracic echocardiogram is performed. Strain analysis performed. History/Risk Factors Hypertension: No Dyslipidemia: Yes Peripheral Arterial Disease (PAD): No Obesity: No Renal Disease: No Diabetes Mellitus: No COPD: On Meds Tobacco Use: Current - Every Day If Any Current, Tobacco Type: Cigarettes If Current - Every Day \T\ Cigarettes, Amount: Heavy Tobacco Use (>=10/day) Family History: Diabetes Mellitus, Coronary Artery Disease DVT Treatment: Rivaroxaban Deep Vein Thrombosis (DVT): None Dialysis: None Frailty Scale (CSHA): 2: Well Summary 1. Complete two-dimensional, color flow and Doppler transthoracic echocardiogram is performed. 2. Left ventricular chamber dimension is normal. 3. Left ventricular systolic function is normal, estimated at 65-70%. 4. There is mildly increased left ventricular wall thickness. 5. The left ventricular diastolic function is normal. 6. E/e' 8 is minimally elevated. 7. Global longitudinal strain is normal at -22.7%. 8. Left atrial chamber dimension is moderately enlarged. 9. There is mild mitral valve regurgitation. 10. There is mild tricuspid valve regurgitation. 11. No pulmonary hypertension, estimated pulmonary arterial systolic pressure is 31 mmHg. Recommendations * Smoking cessation counseling is recommended for this patient. Left Ventricle E/e' 8 is minimally elevated. Global longitudinal strain is normal at -22.7%. Left ventricular chamber dimension is normal. Left ventricular systolic function is normal, estimated at 65-70%. There is mildly increased left ventricular wall thickness. The left ventricular diastolic function is normal. Right Ventricle Right ventricular systolic function is normal with normal TAPSE at 2.2 cm. Right ventricular chamber dimension is normal. Left Atria Left atrial chamber dimension is moderately enlarged. Right Atria Right atrial chamber dimension is normal. Aortic Valve The aortic valve is trileaflet. There is no aortic valve stenosis. There is no aortic valve regurgitation. Pulmonic Valve There is no pulmonic regurgitation. Mitral Valve There is no mitral valve stenosis. There is mild mitral valve regurgitation. Tricuspid Valve There is mild tricuspid valve regurgitation. No pulmonary hypertension, estimated pulmonary arterial systolic pressure is 31 mmHg. Pericardium/Pleural There is no pericardial effusion. Inferior Vena Cava Normal inferior vena cava with >50% collapse upon inspiration consistent with normal right atrial pressure, 5 mmHg. Aorta The aortic root size at the sinus of Valsalva is normal. Left Ventricular Outflow Tract Name Value Normal
== END 2021-02-22 14:15 | disposition home or self-care (01) ==
LOC: CHSIMG 14:15
PROVIDERS: PCP Internal Medicine; Visit Provider Internal Medicine Cardiovascular Disease
DX: I48.91 Unspecified atrial fibrillation (principal)
CPT/HCPCS: 93306

== ENCOUNTER 2021-03-30 01:07 | Day surgery (SDC) | payer OTHER, SELFPAY ==
[2021-03-21 16:25] VITALS: BMI 23.4
[2021-03-30] MEDS: LACTATED RINGERS 1,000 ML 30 ML IV CONT (06:10)
--- NOTE | 2021-03-30 06:44 | WPDANESEPPF ---
Anes - Initial Pre Proc Eval Procedure: Operation Date: 03/30/21 07:30 Proposed Procedures p Right Open Carpal Tunnel Release - Kyle Alicia MD Date/Time: 03/30/21 06:44 Surgeon: Kyle Alicia MD Pre Op Diagnosis: right carpal tunnel syndrome Patient Data Age: 60 Gender: F Height: 1.65 m Weight: 62.4 kg Allergies Allergy/AdvReac Type Severity Reaction Status Date / Time ceftriaxone [From Rocephin] Allergy Intermediate Hives Verified 03/30/21 06:02 esomeprazole Allergy Intermediate Hives Verified 03/30/21 06:02 omeprazole Allergy Intermediate Hives Verified 03/30/21 06:02 trazodone Allergy Intermediate Dizziness Verified 03/30/21 06:02 hydromorphone [From Dilaudid] AdvReac Intermediate Anxiety Verified 03/30/21 06:02 Home Medications Medication Instructions Recorded Confirmed Type baclofen 10 mg PO DAILY PRN 09/24/19 03/21/21 History famotidine 40 mg PO BID 09/24/19 03/21/21 History pravastatin 10 mg PO HS 09/24/19 03/21/21 History Creon 1 cap PO BID 12/24/19 03/21/21 History fluticasone propion-salmeterol 1 inh INHALATION DAILY PRN 12/24/19 03/21/21 History [Wixela Inhub] multivitamin [Multiple Vitamins] 1 tablet PO DAILY 12/24/19 03/21/21 History albuterol sulfate [ProAir HFA] 2 puff INHALATION QID PRN 01/21/20 03/21/21 History hyoscyamine sulfate [Levsin/SL] 0.125 mg SUBLINGUAL QID PRN 01/21/20 03/21/21 History ascorbate calcium (vitamin C) 500 500 mg PO DAILY 01/23/21 03/21/21 History mg tablet cholecalciferol (vitamin D3) 25 25 mcg PO DAILY 01/23/21 03/21/21 History mcg (1,000 unit) capsule vitamin B12 500 mcg-folic acid 400 1 tablet PO DAILY 01/23/21 03/21/21 History mcg tablet ondansetron HCl [Zofran] 4 mg PO PRN PRN 03/21/21 03/21/21 History potassium chloride 10 meq PO DAILY 03/21/21 03/21/21 History rivaroxaban [Xarelto] 20 mg PO HS 03/21/21 03/21/21 History Patient hx anesthesia problems: none Family hx anesthesia problems: none [facility] Past Medical History Medical History Atrial fibrillation CVA (cerebral vascular accident) Dyslipidemia Fibromyalgia GERD (gastroesophageal reflux disease) Hypertension Osteoarthritis Surgical History Surgical History H/O: hysterectomy History of cholecystectomy Social History Social History Smoking packs per day: 1 Smoking cigarettes per day: 20.0 Years smoked: 46 Smoking pack-years: 46.00 Smoking status: Current every day smoker Tobacco type: cigarettes Second hand tobacco smoke exposure: Yes Alcohol intake: former Gender identity (if verbalized by the patient): Female Spiritual care concerns: No Agree to blood products: Yes Anes - Eval Final PreProcedure Day of Procedure 03/30/21 06:44 Patient weight: normal Heart: regular rate and rhythm (hx of a-fib) Lungs: clear to auscultation Airway: Mallampati scale class 1 Neurological: alert and oriented Last oral intake: >/= 8 hours ASA classification: III Emergent: no Anesthetic plan: proceed Anesthesia type and monitoring: general GIVS and standard monitoring Informed Consent: The patient's anesthetic plan and its attendant risks and benefits were discussed with the patient/family/POA. Questions were solicited and answers provided to the satisfaction of the patient/family/POA.
--- NOTE | 2021-03-30 07:06 | WPDHPUPDATE1 ---
History and Physical Update Update Date/Time: 03/30/21 07:06 History and Physical has been reviewed, including an updated exam of the patient. There are NO changes in the patient's condition. Risks, benefits, and alternatives have been discussed and questions answered. Patient agrees to proceed with procedure.
[2021-03-30] MEDS: LIDO 1%/EPINEPHRINE 1:100,000 50 ML VIAL INFILTRATE (07:44)
[2021-03-30 07:53] VITALS: BP 91/46; PULSE 62; RESP 18; O2SAT 96
--- NOTE | 2021-03-30 08:11 | PM.OP ---
Procedure Note - Brief Procedure Note - Brief Date of procedure: 03/30/21 Pre-op diagnosis: right carpal tunnel syndrome Post-op diagnosis: same Procedure performed: Right open carpal tunnel release Anesthesia: MAC Surgeon: Kyle Alicia MD Estimated blood loss (mL): 0 Tourniquet time (min): 8 Drains: No Packing: No Pathology: none sent Complications: No immediate complications Condition: stable Disposition: same day
--- NOTE | 2021-03-30 08:13 | P.OP_ITS ---
Procedure Note - Detailed Date of Procedure 03/30/21 Pre-op Diagnosis right carpal tunnel syndrome Post-op Diagnosis same Procedure Performed right open carpal tunnel release Surgeon Kyle Alicia MD Anesthesia MAC Indications carpal tunnel syndrome failing conservative treatment Description of Procedure The right wrist was marked in the holding area. She was taken to the operating room and placed supine on the operating table. A time-out was held and c onfirmed. She was given IV sedation. The extremity was prepped and draped in usual fashion. The site was remarked and locally infiltrated with 1% lidocaine with epinephrine. The tourniquet inflated to 250 mmHg. The incision was made as marked and dissected through the subcutaneous tissue to the palmar aponeurosis. This and the transverse carpal ligament were incised with a 15. Blade. The carpal tunnel was visualized. Under 3 point retraction the ligament was divided distally and proximally to completely release it. There was no unusual anatomy. The skin was closed with interrupted 5 0 nylon suture. Small bandage was applied the tourniquet was released. She is discharge instructions in wound care and follow-up. She has a prescription for hydrocodone 5/325, 8.
[2021-03-30 08:30] VITALS: BP 97/46; PULSE 49; RESP 16
== END 2021-03-30 08:47 | disposition home or self-care (01) ==
PROVIDERS: PCP Internal Medicine; Visit Provider Plastic Surgery
PROC: (CPT 64721; principal; 2021-03-30 07:30)
DX: G56.01 Carpal tunnel syndrome, right upper limb (principal); I48.91 Unspecified atrial fibrillation; E78.5 Hyperlipidemia, unspecified; I10 Essential (primary) hypertension; K21.9 Gastro-esophageal reflux disease without esophagitis; M79.7 Fibromyalgia; M19.90 Unspecified osteoarthritis, unspecified site; Z86.73 Personal history of transient ischemic attack (TIA), and cerebral infarction without residual deficits; Z79.01 Long term (current) use of anticoagulants; Z79.51 Long term (current) use of inhaled steroids; F17.210 Nicotine dependence, cigarettes, uncomplicated
CPT/HCPCS: 64721; A9270; J2250; J2704; J3010; J7120

== ENCOUNTER 2021-05-01 12:20 | Outpatient (CLI) | payer OTHER, SELFPAY ==
--- NOTE | ~2021-05-01 | US_ITS ---
EXAMINATION: US carotid duplex BI DATE: 05/01/2021 12:44 INDICATION: Bilateral carotid stenosis. TECHNIQUE: Grayscale, color Doppler, and pulsed Doppler images of the cervical carotid arteries were obtained. The degree of vessel stenosis is placed in one of the following categories: normal, <50%, 5 0-69%, >=70% but less than near-occlusion, near-occlusion, or total occlusion. Note that percent sten osis relative to normal distal artery lumen diameter is indirectly measured from velocity measurement s as described by Spenser, et al. Radiology 2003; 229:340-346. COMPARISON: Ultrasound 04/01/2020 FINDINGS: RIGHT: The right common carotid artery (CCA) peak systolic velocity (PSV) is 105 cm/s. The right internal ca rotid artery (ICA) PSV is 89 cm/s. The right ICA end-diastolic velocity (EDV) is 27 cm/s. The right I CA/CCA PSV ratio is 0.9. Grayscale and color Doppler images yield an estimate of <50% diameter reduct ion from plaque in the ICA. There is antegrade flow in the right vertebral artery. LEFT: The left CCA PSV is 110 cm/s. The left ICA PSV is 105 cm/s. The left ICA EDV is 26 cm/s. The left ICA /CCA PSV ratio is 1.0. Grayscale and color Doppler images yield an estimate of <50% diameter reductio n from plaque in the ICA. There is antegrade flow in the left vertebral artery. IMPRESSION: 1. <50% stenosis in the right internal carotid artery. 2. <50% stenosis in the left internal carotid artery. Reviewed, dictated and finalized at location A.
== END 2021-05-01 12:21 | disposition home or self-care (01) ==
LOC: CHSIMG 12:21
PROVIDERS: PCP Internal Medicine; Visit Provider Internal Medicine
DX: I65.23 Occlusion and stenosis of bilateral carotid arteries (principal)
CPT/HCPCS: 93880

== ENCOUNTER 2021-06-05 10:56 | Outpatient (CLI) | payer OTHER, SELFPAY ==
[2021-06-05 12:05] LABS: SARS-CoV-2 RNA PCR Negative (Negative)
== END 2021-06-05 10:57 | disposition home or self-care (01) ==
LOC: CHSLAB 10:58
PROVIDERS: PCP Internal Medicine; Visit Provider Nurse Practitioner Family
DX: Z20.822 Contact with and (suspected) exposure to COVID-19 (principal)
CPT/HCPCS: C9803; U0003; U0005

== ENCOUNTER 2021-07-31 07:22 | Outpatient (CLI) | payer OTHER, SELFPAY ==
[2021-07-31 08:49] LABS: Cholesterol 214 mg/dL (0-200); HDL Direct 62 mg/dL (40-60); LDL Cholesterol Calculated 138 mg/dL (<130); Potassium 4.4 mmol/L (3.5-5.1); Triglycerides 69 mg/dL (0-150)
== END 2021-07-31 07:23 | disposition home or self-care (01) ==
LOC: CHSLAB 07:24
PROVIDERS: PCP Internal Medicine Cardiovascular Disease; Visit Provider Internal Medicine Cardiovascular Disease
DX: E87.6 Hypokalemia (principal); E78.5 Hyperlipidemia, unspecified
CPT/HCPCS: 36415; 80061; 84132

== ENCOUNTER 2021-08-07 07:47 | Outpatient (CLI) | payer OTHER, SELFPAY ==
--- NOTE | ~2021-08-07 | MM_ITS ---
EXAMINATION: MM screening [facility] BI w kyara HISTORY: Screening mammogram TECHNIQUE: Craniocaudal and mediolateral oblique 3-D tomosynthesis images were obtained and synthetic 2-D images were generated. CAD analysis was submitted and interpreted. COMPARISON: 08/01/2020, 07/12/2019 BREAST PARENCHYMAL COMPOSITION: There are scattered areas of fibroglandular density. FINDINGS: RIGHT BREAST: There is a possible mass in the middle third outer breast 7.5 cm from the nipple. LEFT BREAST: There is no evidence of suspicious mass, calcification, or architectural distortion to s uggest malignancy. There has been no significant interval change. IMPRESSION: 1. Possible right breast mass. 2. Additional mammographic views and possible breast ultrasound are recommended. BI-RADS Category 0: Incomplete: Needs additional imaging evaluation. Reviewed, dictated and finalized at location A. HER TRIMMER IMPRESSION: 1. Possible right breast mass. 2. Additional mammographic views and possible breast ultrasound are recommended . BI-RADS Category 0: Incomplete: Needs additional imaging evaluation.
== END 2021-08-07 07:48 | disposition home or self-care (01) ==
LOC: CHSIMG 07:47
PROVIDERS: PCP Internal Medicine; Visit Provider Internal Medicine
DX: Z12.31 Encounter for screening mammogram for malignant neoplasm of breast (principal)
CPT/HCPCS: 77063; 77067

== ENCOUNTER 2021-08-28 09:34 | Outpatient (CLI) | payer OTHER, SELFPAY ==
--- NOTE | ~2021-08-28 | MMUS_ITS ---
EXAMINATION: MM diagnostic [facility] RT w kyara, US breast RT limited HISTORY: Follow-up right breast asymmetry TECHNIQUE: Additional 3-D tomosynthesis images of the right breast were performed and synthetic 2-D i mages were generated. CAD analysis was submitted and interpreted. High resolution Limited right breas t ultrasound was performed. COMPARISON: Comparison to multiple prior studies sequentially, with oldest reviewed study dated 05/07. BREAST PARENCHYMAL COMPOSITION: Breast composed of scattered areas of fibroglandular density. FINDINGS: MAMMOGRAPHIC FINDINGS: There is a focal asymmetry in the lateral aspect of the right breast, although no discrete mass is id entified. No suspicious calcifications or architectural distortion. ULTRASOUND: Limited right breast ultrasound: Normal heterogeneous echotexture without focal solid or cystic mass. IMPRESSION: 1. Probable benign right breast asymmetry lateral aspect of the right breast on CC view. No sonograph ic correlate. 2. Recommend 6 month follow-up diagnostic right mammogram BI-RADS category 3, probably benign findings. Reviewed, dictated and finalized at location A. INE SHORTHAND REPORTER IMPRESSION: 1. Probable benign right breast asymmetry lateral aspect of the right breast on CC view. No sonographic correlate. 2. Recommend 6 month follow-up diagnostic right mammogram BI-RADS category 3, probably benign findings.
== END 2021-08-28 09:35 | disposition home or self-care (01) ==
LOC: CHSIMG 09:36
PROVIDERS: PCP Internal Medicine; Visit Provider Internal Medicine
DX: R92.8 Other abnormal and inconclusive findings on diagnostic imaging of breast (principal)
CPT/HCPCS: 76642; 77061; 77065; G0279

== ENCOUNTER 2021-09-05 16:04 | Outpatient (CLI) | payer OTHER, SELFPAY ==
[2021-09-05 17:01] LABS: SARS-CoV-2 RNA PCR Negative (Negative)
== END 2021-09-05 16:05 | disposition home or self-care (01) ==
LOC: CHSLAB 16:05
PROVIDERS: PCP Internal Medicine; Visit Provider Internal Medicine
DX: J06.9 Acute upper respiratory infection, unspecified (principal); Z20.822 Contact with and (suspected) exposure to COVID-19
CPT/HCPCS: C9803; U0003; U0005

== ENCOUNTER 2021-09-20 17:35 | Outpatient (CLI) | payer OTHER, SELFPAY ==
--- NOTE | ~2021-09-20 | XR_ITS ---
EXAMINATION: XR chest 2V DATE: 09/20/2021 17:46 INDICATION: Shortness of breath with chest tightness TECHNIQUE: PA and lateral views of the chest are obtained. COMPARISON: 09/07/2020 FINDINGS: The lungs are free of acute opacities. There is no pleural effusion or pneumothorax. The ca rdiomediastinal silhouette is normal. There is moderate thoracic spondylosis. Surgical clips in the r ight upper quadrant are likely from prior cholecystectomy. IMPRESSION: 1. No acute cardiopulmonary abnormality. Reviewed, dictated and finalized at location F. INSTRUCTOR
[2021-09-20 17:55] LABS: Hematocrit 42.7 % (35.0-49.0); Hemoglobin 14.2 g/dL (12.0-15.0); Mean Corpuscular HGB Conc 33.3 g/dL (32.0-36.0); Mean Corpuscular Hemoglobin 31.1 pg (27.0-31.0); Mean Corpuscular Volume 93.4 fL (78.0-102.0); Platelet Count Result 267 K/mm3 (150-420); Red Blood Count 4.57 M/mm3 (4.20-5.40); Red Cell Distribution Width 11.9 % (11.6-14.4); White Blood Count 10.6 K/mm3 (4.8-10.8)
[2021-09-20 18:34] LABS: Alanine Aminotransferase 22 U/L (14-59); Albumin Level 4.4 g/dL (3.4-5.0); Alkaline Phosphatase 64 U/L (46-116); Anion Gap 12 mmol/L (8-16); Aspartate Amino Transferase 13 U/L (15-37); Bilirubin,Total 0.4 mg/dL (0.00-1.00); Blood Urea Nitrogen 8 mg/dL (7-18); Calcium 9.3 mg/dL (8.5-10.1); Carbon Dioxide 28 mmol/L (21-32); Chloride 100 mmol/L (98-108); Estimated Glomerular Filt Rate > 60; Glucose 95 mg/dL (70-99); Osmolality Calculated 288 mOsm/kg (285-295); Sodium 140 mmol/L (136-145); Total Protein 7.2 g/dL (6.4-8.2)
== END 2021-09-20 17:36 | disposition home or self-care (01) ==
LOC: CHSLAB 17:36
PROVIDERS: PCP Internal Medicine; Visit Provider Internal Medicine
DX: J44.1 Chronic obstructive pulmonary disease with (acute) exacerbation (principal)
CPT/HCPCS: 36415; 71046; 80053; 85027

== ENCOUNTER 2021-10-09 14:39 | Outpatient (CLI) | payer OTHER, SELFPAY ==
--- NOTE | ~2021-10-09 | XR_ITS ---
EXAMINATION: XR ankle RT min 3V, XR foot RT min 3V DATE: 10/09/2021 15:08 INDICATION: Acute onset right foot and ankle pain with swelling and erythema TECHNIQUE: 1. Anteroposterior, mortise, additional oblique and lateral view of the right ankle were obtained. 2. Dorsoplantar, two oblique and lateral views of the right foot were obtained. COMPARISON: None. FINDINGS: Alignment of the foot and ankle is normal. No fracture. Mild polyarticular osteoarthritis at the firs t metatarsophalangeal and multiple tarsometatarsal and interphalangeal joints. Moderate-sized plantar calcaneal spur. Dystrophic calcifications at the anterior ossifications at the distal Achilles tendo n, along the proximal plantar aponeurosis, the medial hindfoot extending along the course of the post erior tibial artery and into the distal peroneus brevis tendon near its fifth metatarsal insertion. S oft tissues are otherwise unremarkable. No ankle joint effusion. IMPRESSION: 1. No acute osseous abnormality. 2. Extensive dystrophic soft tissue calcifications and ossifications associated with the plantar apon eurosis as well as the Achilles, tibialis posterior and peroneus brevis tendons which could be due to chronic trauma/degeneration, rheumatologic disease including autoimmune and inflammatory etiologies, crystal deposition diseases such as gout or hydroxyapatite or diffuse idiopathic skeletal hyperostos is (DISH). Reviewed, dictated and finalized at location A. DRAWING MACHINE TENDER IMPRESSION: 1. No acute osseous abnormality. 2. Extensive dystrophic soft tissue calcifications and ossifications associated with the plantar aponeurosis as well as the Achilles, tibialis posterior and p eroneus brevis tendons which could be due to chronic trauma/degeneration, rheum atologic disease including autoimmune and inflammatory etiologies, crystal depo sition diseases such as gout or hydroxyapatite or diffuse idiopathic skeletal h yperostosis (DISH).
[2021-10-09 15:03] LABS: Basophils Absolute Auto 0.06 K/mm3 (0.00-0.10); Basophils Percent Auto 0.6 % (0.0-1.0); Eosinophils Absolute Auto 0.01 K/mm3 (0.02-0.50); Eosinophils Percent Auto 0.1 % (1.0-6.0); Hematocrit 42.3 % (35.0-49.0); Immature Granulocyte Absolute 0.03 K/mm3 (0.00-0.00); Immature Granulocyte Percent A 0.3 % (0.0-0.0); Lymphocytes Percent Auto 9.4 % (18.0-42.0); Mean Corpuscular HGB Conc 33.1 g/dL (32.0-36.0); Mean Corpuscular Hemoglobin 30.9 pg (27.0-31.0); Mean Corpuscular Volume 93.4 fL (78.0-102.0); Mean Platelet Volume 9.6 fl (9.2-11.8); Monocytes Absolute Auto 0.13 K/mm3 (0.10-0.90); Monocytes Percent Auto 1.4 % (2.0-11.0); Neutrophils Absolute Auto 8.5 K/mm3 (1.7-7.2); Neutrophils Percent Auto 88.2 % (50.0-70.0); Platelet Count Result 256 K/mm3 (150-420); Red Blood Count 4.53 M/mm3 (4.20-5.40); White Blood Count 9.6 K/mm3 (4.8-10.8)
[2021-10-09 15:59] LABS: Anion Gap 12 mmol/L (8-16); Blood Urea Nitrogen 7 mg/dL (7-18); Calcium 9.3 mg/dL (8.5-10.1); Carbon Dioxide 25 mmol/L (21-32); Chloride 104 mmol/L (98-108); Estimated Glomerular Filt Rate > 60; Glucose 120 mg/dL (70-99); Osmolality Calculated 291 mOsm/kg (285-295); Potassium 4.3 mmol/L (3.5-5.1); Sodium 141 mmol/L (136-145); Uric Acid 2.5 mg/dL (2.6-6.0)
[2021-10-09 16:05] LABS: Rheumatoid Factor Screen Negative (Negative)
[2021-10-09 16:16] LABS: Erythrocyte Sedimentation Rate 5 mm/hr (0-20)
[2021-10-09 16:37] LABS: CRP < 0.2 mg/dL (0.0-0.9)
== END 2021-10-09 14:40 | disposition home or self-care (01) ==
LOC: CHSLAB 14:41
PROVIDERS: PCP Internal Medicine; Visit Provider Internal Medicine
DX: M25.571 Pain in right ankle and joints of right foot (principal); M79.671 Pain in right foot
CPT/HCPCS: 36415; 73610; 73630; 80048; 84550; 85025; 85652; 86140; 86430

== ENCOUNTER 2021-10-23 08:30 | Outpatient (CLI) | payer OTHER, SELFPAY ==
--- NOTE | ~2021-10-23 | XR_ITS ---
EXAMINATION: XR ankle RT min 3V, XR foot RT min 3V DATE: 10/23/2021 08:54 INDICATION: Right foot and ankle pain TECHNIQUE: 1. Standing anteroposterior, mortise, additional oblique and lateral view of the right ankle were obt ained. 2. Standing dorsal plantar, two oblique and lateral views of the right foot were obtained. COMPARISON: None. FINDINGS: Mild hindfoot valgus. Valgus. Alignment of the foot and ankle is otherwise normal. No fracture or ost eochondral lesion. Mild polyarticular osteoarthritis at the right ankle and majority of the joints th roughout the foot. No cortical erosions or periosteal reaction. No ankle joint effusion. Achilles and plantar calcaneal spurs. There is enthesopathic ossification along the distal Achilles tendon, the p lantar aponeurosis and along the distal tibialis posterior and peroneus brevis tendons. Additional dy strophic calcification medial to the head of the first metatarsal likely involving the medial collate ral ligament. IMPRESSION: 1. Mild polyarticular osteoarthritis throughout the right foot and ankle no acute osseous abnormality . 2. Extensive dystrophic calcifications/ossifications along ligaments and tendons in the right foot as detailed above which could be due to chronic trauma/degeneration, rheumatologic disease including au toimmune and inflammatory etiologies, diffuse idiopathic skeletal hyperostosis (DISH) or crystal depo sition diseases such as gout or hydroxyapatite. Reviewed, dictated and finalized at location A. X EDITOR IMPRESSION: 1. Mild polyarticular osteoarthritis throughout the right foot and ankle no acu te osseous abnormality. 2. Extensive dystrophic calcifications/ossifications along ligaments and tendon s in the right foot as detailed above which could be due to chronic trauma/dege neration, rheumatologic disease including autoimmune and inflammatory etiologie s, diffuse idiopathic skeletal hyperostosis (DISH) or crystal deposition diseas es such as gout or hydroxyapatite.
== END 2021-10-23 08:31 | disposition home or self-care (01) ==
LOC: CHSLAB 08:33
PROVIDERS: PCP Internal Medicine; Visit Provider Orthopaedic Surgery
DX: M79.671 Pain in right foot (principal); M25.571 Pain in right ankle and joints of right foot
CPT/HCPCS: 73610; 73630

== ENCOUNTER 2021-11-27 09:43 | Emergency (ER) | payer OTHER, SELFPAY ==
--- NOTE | ~2021-11-27 | XR_ITS ---
EXAMINATION: XR chest 2V DATE: 11/27/2021 10:42 INDICATION: Left anterior chest pain. TECHNIQUE: Frontal and lateral views of the chest were obtained. COMPARISON: Chest 2 views 09/20/2021 FINDINGS: The chest demonstrates clear lungs without pneumonia, pleural effusion, or pneumothorax. Th e heart size is normal. Surgical clips in the right upper quadrant are likely from cholecystectomy. IMPRESSION: 1. No acute cardiopulmonary disease. Reviewed, dictated and finalized at location A. TANT GENERAL
--- NOTE | 2021-11-27 09:49 | ECG_ITS ---
Measurements Intervals [place] Rate: 58 P: 24 [place]: 145 QRS: 105 QRSD: 108 T: 72 QT: 383 QTc: 376 Interpretive Statements SINUS BRADYCARDIA RIGHT AXIS DEVIATION COMPARED TO ECG 01/21/2020 17:44:22 NO SIGNIFICANT CHANGES Electronically Signed On 11-28-2021 12:14:39 MANUFACTURING ENGINEER MACHINING by Woody Mclean M.D.
--- NOTE | 2021-11-27 09:50 | ED.CHESTPAIN ---
HPI - Chest Pain General Chief Complaint: Chest Pain Stated Complaint: pain shooting from chest to neck, nausea, headache Time Seen by Provider: 11/27/21 09:53 Source: patient and RN notes reviewed Mode of arrival: ambulatory Limitations: no limitations History of Present Illness HPI narrative: Patient states that she has been having off and on left upper chest pain. Says it goes into her neck. She is not sure if it is coming from her neck because she has a history cervical spine issues. She states they wanted her to have surgery to decompress her spine and possibly put rods in. Said that she has been having some nausea sometimes feels short of breath. She has had a history of atrial fibrillation. MD complaint: chest pain Onset (ago): week(s) (1) Timing of current episode: episodic Onset: during rest Pain location: substernal Pain radiation: neck Severity: moderate Quality: aching and dull Relieving factors: nothing Exacerbating factors: exertion Associated symptoms: nausea, dyspnea and other (headache) Treatment prior to arrival: none Risk Factors Coronary artery disease risk factors: diabetes, smoking history and hyperlipidemia Related Data Home Medications Medication Instructions Recorded Confirmed baclofen 10 mg PO DAILY PRN 09/24/19 10/23/21 famotidine 40 mg PO BID 09/24/19 10/23/21 Creon 1 cap PO BID 12/24/19 10/23/21 multivitamin [Multiple Vitamins] 1 tablet PO DAILY 12/24/19 10/23/21 albuterol sulfate [ProAir HFA] 2 puff INHALATION QID PRN 01/21/20 10/23/21 hyoscyamine sulfate [Levsin/SL] 0.125 mg SUBLINGUAL QID PRN 01/21/20 10/23/21 ascorbate calcium (vitamin C) 500 500 mg PO DAILY 01/23/21 10/23/21 mg tablet cholecalciferol (vitamin D3) 25 25 mcg PO DAILY 01/23/21 10/23/21 mcg (1,000 unit) capsule vitamin B12 500 mcg-folic acid 400 1 tablet PO DAILY 01/23/21 10/23/21 mcg tablet ondansetron HCl [Zofran] 4 mg PO PRN PRN 03/21/21 10/23/21 potassium chloride 10 meq PO DAILY 03/21/21 10/23/21 Allergies Allergy/AdvReac Type Severity Reaction Status Date / Time ceftriaxone [From Rocephin] Allergy Intermediate Hives Verified 10/23/21 10:06 esomeprazole Allergy Intermediate Hives Verified 10/23/21 10:06 omeprazole Allergy Intermediate Hives Verified 10/23/21 10:06 trazodone Allergy Intermediate Dizziness Verified 10/23/21 10:06 hydromorphone [From Dilaudid] AdvReac Intermediate Anxiety Verified 10/23/21 10:06 Review of Systems Review of Systems: All systems reviewed & are unremarkable except as noted in HPI and below Constitutional: Constitutional: Denies chills and Denies fever(s) ENT: Denies sore throat Cardiovascular: Cardiovascular: Denies diaphoresis and Reports other Respiratory: Respiratory: Denies cough Gastrointestinal: Gastrointestinal: Denies diarrhea and Denies vomiting PMFSH Past Medical History Medical History (Updated 11/27/21 @ 11:10 by Ilya Justin MD) Anxiety Arthritis Arthritis of foot, right, degenerative Atrial fib/flutter, transient Atrial fibrillation COPD (chronic obstructive pulmonary disease) CVA (cerebral vascular accident) Dizziness Dyslipidemia Fibromyalgia GERD (gastroesophageal reflux disease) Hair loss Hypertension IBS (irritable bowel syndrome) Osteoarthritis Plantar fasciitis, bilateral Wears glasses Surgical History Surgical History (Updated 10/23/21 @ 11:25 by Isatu Mejias) H/O: hysterectomy History of carpal tunnel surgery 03/2021 per patient questionnaire History of cholecystectomy History of colon surgery History of knee surgery 32 years ago per patient questionnaire Family History Family History (Updated 10/23/21 @ 11:25 by Isatu Mejias) Other Arthritis Cerebrovascular accident Social History Social History (Updated 10/23/21 @ 11:26 by Isatu Mejias) Smoking packs per day: 0.5 Smoking cigarettes per day: 10.0 Years smoked: 46 Smoking pack-years: 23.00 Smoking status: Current every day smo
[2021-11-27 09:52] VITALS: BP 129/67; PULSE 83; RESP 18; TEMP 36.2; O2SAT 99
[2021-11-27 10:07] LABS: Basophils Absolute Auto 0.08 K/mm3 (0.00-0.10); Basophils Percent Auto 1.1 % (0.0-1.0); Eosinophils Absolute Auto 0.31 K/mm3 (0.02-0.50); Eosinophils Percent Auto 4.4 % (1.0-6.0); Hematocrit 42.6 % (35.0-49.0); Hemoglobin 14.1 g/dL (12.0-15.0); Immature Granulocyte Absolute 0.01 K/mm3 (0.00-0.00); Immature Granulocyte Percent A 0.1 % (0.0-0.0); Lymphocytes Absolute Auto 2.45 K/mm3 (1.10-4.50); Mean Corpuscular HGB Conc 33.1 g/dL (32.0-36.0); Mean Corpuscular Hemoglobin 30.9 pg (27.0-31.0); Mean Corpuscular Volume 93.4 fL (78.0-102.0); Mean Platelet Volume 9.2 fl (9.2-11.8); Monocytes Absolute Auto 0.43 K/mm3 (0.10-0.90); Monocytes Percent Auto 6.1 % (2.0-11.0); Neutrophils Absolute Auto 3.7 K/mm3 (1.7-7.2); Neutrophils Percent Auto 53.3 % (50.0-70.0); Platelet Count Result 259 K/mm3 (150-420); Red Blood Count 4.56 M/mm3 (4.20-5.40); Red Cell Distribution Width 12.1 % (11.6-14.4)
[2021-11-27 10:18] LABS: D Dimer 0.19 mg/L (0.19-0.50); Prothrombin Time 10.6 Seconds (9.50-12.10)
[2021-11-27 10:43] LABS: Alanine Aminotransferase 21 U/L (14-59); Alkaline Phosphatase 76 U/L (46-116); Anion Gap 14 mmol/L (8-16); Aspartate Amino Transferase < 10 U/L (15-37); Bilirubin,Total 0.3 mg/dL (0.00-1.00); Blood Urea Nitrogen 8 mg/dL (7-18); Calcium 8.8 mg/dL (8.5-10.1); Carbon Dioxide 23 mmol/L (21-32); Chloride 106 mmol/L (98-108); Estimated CRCL calculation 67 ml/min; Estimated Glomerular Filt Rate > 60; Glucose 99 mg/dL (70-99); Osmolality Calculated 294 mOsm/kg (285-295); Potassium 3.5 mmol/L (3.5-5.1); Sodium 143 mmol/L (136-145); Total Protein 7.5 g/dL (6.4-8.2)
[2021-11-27 10:54] LABS: Troponin I 6.1 ng/L (0.00-60.4)
[2021-11-27 11:00] VITALS: BP 103/53; PULSE 52; RESP 18; O2SAT 99
[2021-11-27] MEDS: KETOROLAC (*BKC) 60 MG/2 ML VIAL IM (11:09)
== END 2021-11-27 11:14 | disposition home or self-care (01) ==
PROVIDERS: Emergency Provider Emergency Medicine; PCP Internal Medicine
DX: R07.89 Other chest pain (principal); M54.2 Cervicalgia
CPT/HCPCS: 36415; 71046; 80053; 84484; 85025; 85380; 85610; 93005; 96372; 99284; J1885

== ENCOUNTER 2021-11-28 08:41 | Emergency (ER) | payer OTHER, SELFPAY ==
--- NOTE | ~2021-11-28 | CT_ITS ---
EXAMINATION: CT cervical spine wo con DATE: 11/28/2021 09:33 INDICATION: Neck pain. TECHNIQUE: Computed tomography (CT) of the cervical spine was performed without intravenous contrast. Automated exposure control and iterative reconstruction technique were employed. The dose-length pro duct was 183.31 mGy-cm. COMPARISON: None FINDINGS: Bone alignment is normal. Vertebral body heights are normal. There is mildly decreased disc height at C3-C4 and C4-C5. There is moderate osteoarthritis of anterior atlantoaxial joint. There is degenerative pseudopannus around the dens with mild central canal stenosis at C1. The following disc levels are specifically discussed: C2-C3: There is mild bilateral uncovertebral joint osteoarthritis. There is mild bilateral facet join t osteoarthritis. There is no neural foraminal stenosis. There is no central canal stenosis. C3-C4: There is moderate bilateral uncovertebral joint osteoarthritis. There is moderate right and mi ld left facet joint osteoarthritis. There is mild bilateral neural foraminal stenosis. There is mild central canal stenosis. C4-C5: There is severe bilateral uncovertebral joint osteoarthritis. There is severe right facet join t osteoarthritis. There is moderate right and mild left neural foraminal stenosis. There is mild cent ral canal stenosis. C5-C6: There is mild bilateral uncovertebral joint osteoarthritis. There is moderate right and mild l eft facet joint osteoarthritis. There is mild bilateral neural foraminal stenosis. There is mild cent ral canal stenosis. C6-C7: There is mild bilateral uncovertebral joint osteoarthritis. There is mild bilateral facet join t osteoarthritis. There is mild left neural foraminal stenosis. There is mild central canal stenosis. C7-T1: There is no uncovertebral joint osteoarthritis. There is severe bilateral facet joint osteoart hritis. There is mild bilateral neural foraminal stenosis. There is no central canal stenosis. IMPRESSION: 1. Moderate cervical spondylosis. Reviewed, dictated and finalized at location A. 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
--- NOTE | ~2021-11-28 | CT_ITS ---
EXAMINATION:CT diagnostic chest wo con DATE: 11/28/2021 09:34 INDICATION: Bilateral pleuritic chest pain. TECHNIQUE: Computed tomography (CT) of the chest was performed without intravenous contrast. Automate d exposure control and iterative reconstruction technique were employed. The dose-length product (DLP ) was 254.44 mGy-cm. COMPARISON: CT abdomen and pelvis 11/12/2017 FINDINGS: There is mild atelectasis bilaterally. No pleural effusion. The heart size is normal. There are coronary artery calcifications. No pericardial effusion. There are changes of cholecystectomy. T here are bridging endplate osteophytes at multiple levels in the spine, consistent with diffuse idiop athic skeletal hyperostosis (DISH). There is mild thoracic spondylosis. IMPRESSION: 1. No acute cardiopulmonary disease. Reviewed, dictated and finalized at location A. TICAL DIRECTOR
[2021-11-28 08:45] VITALS: BP 122/57; PULSE 73; RESP 20; TEMP 36.9; O2SAT 98
--- NOTE | 2021-11-28 08:52 | ECG_ITS ---
Measurements Intervals [place] Rate: 67 P: 12 [place]: 172 QRS: 115 QRSD: 95 T: 59 QT: 365 QTc: 387 Interpretive Statements SINUS RHYTHM WITH SINUS ARRHYTHMIA LOW QRS VOLTAGE IN PRECORDIAL LEADS LEFT POSTERIOR FASCICULAR BLOCK Electronically Signed On 11-28-2021 11:32:32 EVENT COORDINATOR MARKETING AND SALES by Woody Mclean M.D.
[2021-11-28 09:16] LABS: Basophils Absolute Auto 0.05 K/mm3 (0.00-0.10); Basophils Percent Auto 0.4 % (0.0-1.0); Eosinophils Absolute Auto 0.04 K/mm3 (0.02-0.50); Eosinophils Percent Auto 0.3 % (1.0-6.0); Hematocrit 43.1 % (35.0-49.0); Hemoglobin 14.4 g/dL (12.0-15.0); Immature Granulocyte Absolute 0.05 K/mm3 (0.00-0.00); Immature Granulocyte Percent A 0.4 % (0.0-0.0); Lymphocytes Absolute Auto 1.07 K/mm3 (1.10-4.50); Lymphocytes Percent Auto 7.8 % (18.0-42.0); Mean Corpuscular HGB Conc 33.4 g/dL (32.0-36.0); Mean Corpuscular Volume 92.9 fL (78.0-102.0); Monocytes Absolute Auto 0.47 K/mm3 (0.10-0.90); Monocytes Percent Auto 3.4 % (2.0-11.0); Neutrophils Absolute Auto 12.1 K/mm3 (1.7-7.2); Neutrophils Percent Auto 87.7 % (50.0-70.0); Platelet Count Result 237 K/mm3 (150-420); Red Blood Count 4.64 M/mm3 (4.20-5.40); Red Cell Distribution Width 12.1 % (11.6-14.4); White Blood Count 13.8 K/mm3 (4.8-10.8)
[2021-11-28] MEDS: ONDANSETRON INJ 4 MG/2 ML VIAL IV PUSH (09:23)
[2021-11-28] MEDS: KETOROLAC (*BKC) 60 MG/2 ML VIAL IM (09:23)
[2021-11-28 09:35] LABS: Alanine Aminotransferase 15 U/L (14-59); Alkaline Phosphatase 66 U/L (46-116); Anion Gap 12 mmol/L (8-16); Aspartate Amino Transferase < 10 U/L (15-37); Bilirubin,Total 0.7 mg/dL (0.00-1.00); Blood Urea Nitrogen 8 mg/dL (7-18); Carbon Dioxide 24 mmol/L (21-32); Chloride 104 mmol/L (98-108); Estimated CRCL calculation 80 ml/min; Estimated Glomerular Filt Rate > 60; Glucose 108 mg/dL (70-99); Osmolality Calculated 289 mOsm/kg (285-295); Potassium 4.2 mmol/L (3.5-5.1); Sodium 140 mmol/L (136-145); Total Protein 7.1 g/dL (6.4-8.2); Troponin I 6.1 ng/L (0.00-60.4)
--- NOTE | 2021-11-28 10:28 | ED.NECK ---
HPI - Neck Pain/Injury General Chief Complaint: Neck Pain/Injury Stated Complaint: AMBULANCE Time Seen by Provider: 11/28/21 08:43 Source: patient, EMS and RN notes reviewed Mode of arrival: EMS Limitations: no limitations History of Present Illness MD complaint: neck pain Onset (ago): day(s) (2) Severity: moderate Severity scale (1-10): 4 Quality: dull Relieving factors: none Exacerbating factors: none Associated symptoms: other (also mild pleuritic chest pain.) Treatments prior to arrival: none Related Data Home Medications Medication Instructions Recorded Confirmed baclofen 10 mg PO DAILY PRN 09/24/19 11/28/21 famotidine 40 mg PO BID 09/24/19 11/28/21 Creon 1 cap PO BID 12/24/19 11/28/21 multivitamin [Multiple Vitamins] 1 tablet PO DAILY 12/24/19 11/28/21 albuterol sulfate [ProAir HFA] 2 puff INHALATION QID PRN 01/21/20 11/28/21 hyoscyamine sulfate [Levsin/SL] 0.125 mg SUBLINGUAL QID PRN 01/21/20 11/28/21 ascorbate calcium (vitamin C) 500 500 mg PO DAILY 01/23/21 11/28/21 mg tablet cholecalciferol (vitamin D3) 25 25 mcg PO DAILY 01/23/21 11/28/21 mcg (1,000 unit) capsule vitamin B12 500 mcg-folic acid 400 1 tablet PO DAILY 01/23/21 11/28/21 mcg tablet ondansetron HCl [Zofran] 4 mg PO PRN PRN 03/21/21 11/28/21 potassium chloride 10 meq PO DAILY 03/21/21 11/28/21 Allergies Allergy/AdvReac Type Severity Reaction Status Date / Time ceftriaxone [From Rocephin] Allergy Intermediate Hives Verified 10/23/21 10:06 esomeprazole Allergy Intermediate Hives Verified 10/23/21 10:06 omeprazole Allergy Intermediate Hives Verified 10/23/21 10:06 trazodone Allergy Intermediate Dizziness Verified 10/23/21 10:06 hydromorphone [From Dilaudid] AdvReac Intermediate Anxiety Verified 10/23/21 10:06 Review of Systems Review of Systems: All systems reviewed & are unremarkable except as noted in HPI and below PMFSH Past Medical History Medical History Anxiety Arthritis Arthritis of foot, right, degenerative Atrial fib/flutter, transient Atrial fibrillation COPD (chronic obstructive pulmonary disease) CVA (cerebral vascular accident) Disc disorder of cervical region Dizziness Dyslipidemia Fibromyalgia GERD (gastroesophageal reflux disease) Hair loss Hypertension IBS (irritable bowel syndrome) Osteoarthritis Plantar fasciitis, bilateral Pleurisy Wears glasses Surgical History Surgical History H/O: hysterectomy History of carpal tunnel surgery 03/2021 per patient questionnaire History of cholecystectomy History of colon surgery History of knee surgery 32 years ago per patient questionnaire Family History Family History Other Arthritis Cerebrovascular accident Social History Social History Smoking packs per day: 0.5 Smoking cigarettes per day: 10.0 Years smoked: 46 Smoking pack-years: 23.00 Smoking status: Current every day smoker Tobacco type: cigarettes Second hand tobacco smoke exposure: Yes Alcohol intake: former Substance use: never Substance use type: does not use Gender identity (if verbalized by the patient): Female Spiritual care concerns: No Agree to blood products: Yes Exam Const: General: no acute distress and alert Nutritional Appearance: well nourished Orientation/consciousness: patient oriented x3 HENMT: Head: normal to inspection Ears: external ears normal, TM's normal bilaterally and EAC's normal General nose exam: Normal external nose present and Normal nares present Face and sinus: sinuses nontender Mouth: Yes lip normal and Yes moist mucous membranes Eyes: Conjunctivae: conjunctivae normal Pupils: Equal, round and reactive pupils present EOM: EOMs intact bilaterally Neck: Neck: normal visual inspection and no lymphadenopathy Saida
[2021-11-28] MEDS: MORPHINE SULFATE (*CRX) 4 MG/ML INJ IM (10:53)
[2021-11-28 11:09] VITALS: BP 104/58; PULSE 84; RESP 20; TEMP 37.1; O2SAT 98
== END 2021-11-28 11:17 | disposition home or self-care (01) ==
PROVIDERS: Emergency Provider Emergency Medicine; PCP Internal Medicine
DX: M50.80 Other cervical disc disorders, unspecified cervical region (principal); R09.1 Pleurisy; S16.1XXA Strain of muscle, fascia and tendon at neck level, initial encounter
CPT/HCPCS: 36415; 71250; 72125; 80053; 84484; 85025; 93005; 96372; 96374; 99284; J1885; J2270; J2405

== ENCOUNTER 2022-02-26 08:45 | Outpatient (CLI) | payer OTHER, SELFPAY ==
--- NOTE | ~2022-02-26 | MMUS_ITS ---
EXAMINATION: MM diagnostic nette RT w kyara, US breast RT limited HISTORY: Six-month follow-up for probably asymmetry of the right breast TECHNIQUE: Craniocaudal, mediolateral, and mediolateral oblique 3-D tomosynthesis images of the right breast were performed and synthetic 2-D images were generated. CAD analysis was submitted and interp reted. High resolution limited right breast ultrasound was performed. COMPARISON: 08/28/2021, 08/05/2021, 08/01/2020, 07/12/2019, 06/23/2018 BREAST PARENCHYMAL COMPOSITION: There are scattered areas of fibroglandular density. FINDINGS: MAMMOGRAPHIC FINDINGS: An asymmetry posterior third of the outer right breast is stable. No mass or suspicious calcification are identified. ULTRASOUND: There is no evidence of focal abnormal solid or cystic mass in the vicinity of the mammographic findi ng in question. IMPRESSION: 1. Stable, probably benign right breast asymmetry. 2. Recommend 6 month follow-up right diagnostic mammogram and possible ultrasound. BI-RADS category 3, probably benign findings. Reviewed, dictated and finalized at location A. IMPRESSION: 1. Stable, probably benign right breast asymmetry. 2. Recommend 6 month follow-up right diagnostic mammogram and possible ultrasou nd. BI-RADS category 3, probably benign findings.
== END 2022-02-26 08:46 | disposition home or self-care (01) ==
LOC: CHSIMG 08:47
PROVIDERS: PCP Internal Medicine; Visit Provider Internal Medicine
DX: R92.8 Other abnormal and inconclusive findings on diagnostic imaging of breast (principal)
CPT/HCPCS: 76642; 77061; 77065; G0279

== ENCOUNTER 2022-03-16 01:54 | Inpatient (IN) | payer OTHER, SELFPAY ==
[2022-03-16] VITALS (16 sets, daily range): BP systolic 92–126; BP diastolic 53–73; PULSE 62–124; RESP 15–66; TEMP 36.4–37.1; O2SAT 97–100; BMI 24.4
--- NOTE | ~2022-03-16 | NM_ITS ---
EXAMINATION: NM catie stress w perfusion DATE: 03/20/2022 12:34 INDICATION: Dyspnea on exertion TECHNIQUE: Rest images were obtained following intravenous administration of 9.7 mCi Tc99m tetrofosmi n (Myoview). The patient was infused intravenously with Lexiscan (Regadenoson). Then, 32.0 mCi Tc99m tetrofosmin (Myoview) was administered intravenously, and stress images were obtained in supine posit ion. Repeat post stress images were obtained in the prone position.. Data was reconstructed into shor t axis and horizontal and vertical long axis SPECT images. Gated SPECT images were also obtained. COMPARISON: None. FINDINGS: There is no definite reversible or fixed perfusion abnormality to suggest ischemia or infar ction. There is normal left ventricular chamber size, wall motion and ejection fraction. Left ventr icular ejection fraction measures 66%. IMPRESSION: 1. Normal myocardial perfusion at rest and during stress. 2. Left ventricular ejection fraction measuring 66%. Reviewed, dictated and finalized at location A.
--- NOTE | ~2022-03-16 | US_ITS ---
EXAMINATION: US carotid duplex BI DATE: 03/16/2022 09:35 INDICATION: Carotid stenosis. Syncope. TECHNIQUE: Grayscale, color Doppler, and pulsed Doppler images of the cervical carotid arteries were obtained. The degree of vessel stenosis is placed in one of the following categories: normal, <50%, 5 0-69%, >=70% but less than near-occlusion, near-occlusion, or total occlusion. Note that percent sten osis relative to normal distal artery lumen diameter is indirectly measured from velocity measurement s as described by Spenser, et al. Radiology 2003; 229:340-346. COMPARISON: 05/11/2021 FINDINGS: RIGHT: The right common carotid artery (CCA) peak systolic velocity (PSV) is 72 cm/s. The right internal car otid artery (ICA) PSV is 78 cm/s. The right ICA end-diastolic velocity (EDV) is 31 cm/s. The right IC A/CCA PSV ratio is 1.1. Grayscale and color Doppler images yield an estimate of <50% diameter reducti on from plaque in the ICA. The external carotid artery (ECA) PSV is 74 cm/s. There is antegrade flow in the right vertebral artery. LEFT: The left CCA PSV is 79 cm/s. The left ICA PSV is 73 cm/s. The left ICA EDV is 38 cm/s. The left ICA/C CA PSV ratio is 0.9. Grayscale and color Doppler images yield an estimate of <50% diameter reduction from plaque in the ICA. The ECA PSV is 76 cm/s. There is antegrade flow in the left vertebral artery. IMPRESSION: 1. <50% stenosis in the right internal carotid artery. 2. <50% stenosis in the left internal carotid artery. 3. Cardiac arrhythmias present. Correlate with EKG. Reviewed, dictated and finalized at location B.
--- NOTE | 2022-03-16 01:50 | PC.NURSE ---
This patient, Claudine Cruz, was admitted to IMU Room 207-01. Patient/family oriented to hospital policies and general routines including ID bracelet, bed and alarms, visiting hours, pain management, procedures, bathroom and other care routines, personal items, smoking policy, room service/diet, and visiting hours. Information on how to activate the Rapid Response Team has been discussed. Patient/Family are encouraged to report perceived risks to care and to ask questions if they do not understand what they are told or what they should do.
--- NOTE | 2022-03-16 05:37 | PM.IMHP ---
H&P: HPI History of Present Illness Date/Time: 03/16/22 05:37 Chief Complaint: Palpitations Narrative: Greater than 30 minutes spent reviewing chart, evaluating, counseling, treating patient. Anticipate less than 48 hours of admission, will admit under observation. Past medical history of anxiety, stroke (TIA in 2016, suspected secondary to atrial fibrillation also found to have greater than 60% stenosis of carotid arteries), paroxysmal AFib on Xarelto, COPD, GERD, IBS (primarily diarrhea), history of colon resection secondary to diverticulitis, hypertension/hyperlipidemia. Presented to outside hospital with palpitations. Patient reports she was sitting at home watching TV when all the sudden she felt like her heart was racing. Admits to some shortness of breath with the vent. States she has chronic pain in her neck that sometimes radiates to her upper chest, so she was unclear whether not she had chest pain. Admits to nausea, but no vomiting. States she typically has diarrhea, however since starting [place] she has been having more constipation. Denies dysuria, hematuria. Denies blood in stool. Patient reports the day prior to this event, she had an episode where she was nauseous and felt like she was going to have an episode of diarrhea. When she got to the restroom, she passed out. States she thinks she was down for about 10 minutes. States this has only happened once before. At outside hospital, patient was found to be in AFib with RVR heart rate in 140s. Patient was started on diltiazem drip with good response. Lab workup at outside hospital grossly unremarkable, including normal TSH, troponin. Patient was transferred to [place] for further evaluation. By the time she arrived here, she was taken off the diltiazem drip with heart rate and 60s. Patient still and atrial fibrillation on tele. Review of Systems Review of Systems: Ten point review of systems performed, negative unless otherwise specified per HPI [facility] Past Medical History Medical History (Updated 03/16/22 @ 05:53 by Joe Reyes DO) Anxiety Arthritis Arthritis of foot, right, degenerative Atrial fib/flutter, transient Atrial fibrillation COPD (chronic obstructive pulmonary disease) CVA (cerebral vascular accident) Disc disorder of cervical region Dizziness Dyslipidemia Fibromyalgia GERD (gastroesophageal reflux disease) Hair loss Hypertension IBS (irritable bowel syndrome) Osteoarthritis Plantar fasciitis, bilateral Pleurisy Wears glasses Surgical History Surgical History H/O: hysterectomy History of carpal tunnel surgery 03/2021 per patient questionnaire History of cholecystectomy History of colon surgery History of knee surgery 32 years ago per patient questionnaire Family History Family History Other Arthritis Cerebrovascular accident Social History Social History Smoking packs per day: 0.5 Smoking cigarettes per day: 10.0 Years smoked: 44 Smoking pack-years: 22.00 Smoking status: Current every day smoker Tobacco type: cigarettes Second hand tobacco smoke exposure: Yes Alcohol intake: never Substance use: never Substance use type: does not use Gender identity (if verbalized by the patient): Female Spiritual care concerns: No Agree to blood products: Yes Meds Home Medications and Allergies Home Medications Medication Instructions Recorded Confirmed Type baclofen 10 mg tablet 20 mg PO DAILY PRN Pain 09/24/19 03/16/22 History famotidine 40 mg tablet 40 mg PO BID 09/24/19 03/16/22 History mrlylq-[id number]-emsnqxj 2 cap PO TIDWMEAL 12/24/19 03/16/22 History 36,000-114,000-180,000 unit capsule,delay rel (Creon) multivitamin (Multiple Vitamins 1 tablet PO BID 12/24/19 03/16/22 History tablet) albuterol sulfate 90 mcg/act
[2022-03-16] MEDS: HYDROcodone/acetaminophen (*CRX) 5-325 MG TABLET 1 TAB PO ×3 (05:53→21:10)
[2022-03-16 06:24] LABS: Anion Gap 3 mmol/L (8-16); Blood Urea Nitrogen 7 mg/dL (7-17); Calcium 8.9 mg/dL (8.4-10.2); Carbon Dioxide 24 mmol/L (22-30); Chloride 113 mmol/L (98-107); Cholesterol 197 mg/dL (0-200); Estimated CRCL calculation 79 ml/min; Estimated Glomerular Filt Rate > 60; Glucose 96 mg/dL (65-110); HDL Direct 49 mg/dL; Potassium 3.8 mmol/L (3.4-5.0); Sodium 140 mmol/L (137-145); Triglycerides 120 mg/dL (<150)
[2022-03-16 06:34] LABS: LDL Cholesterol Direct 112 mg/dL
--- NOTE | 2022-03-16 08:26 | PM.IMPN ---
Progress Note: A&P Assessment and Plan (1) Atrial fibrillation: Code(s): I48.91 - Unspecified atrial fibrillation Status: Chronic (2) GERD (gastroesophageal reflux disease): Code(s): K21.9 - Gastro-esophageal reflux disease without esophagitis Status: Acute (3) Hypertension: Code(s): I10 - Essential (primary) hypertension Status: Acute Additional Plan See h&p for complete note. H&P completed after midnight. Subjective Date/time seen: 03/16/22 08:26 Patient denies chest pain. She says she always has shortness of breath related to her neck pain. Denies palpitations since ED. Denies lightheadedness. Review of Systems Cardiovascular: Cardiovascular: Denies chest pain, Denies lightheadedness and Denies palpitations Respiratory: Respiratory: Reports dyspnea Exam Narrative: GENERAL: NAD, cooperative HEENT: Normocephalic, atraumatic, anicteric, nares clear, oropharynx moist and clear, dentition normal NECK:Supple CV: Normal S1, S2, RRR, No MRG RESP: CTAB, No wheezes or rhonchi EXTREMITIES: Warm and well perfused, no clubbing, cyanosis, or edema. +2 Distal pulses bilaterally. SKIN: warm, dry and intact. NEURO: CN 2-12 grossly intact Objective Data Vital Signs Vital Signs: Vital Signs - 24 hr 03/16/22 01:50 03/16/22 02:00 03/16/22 02:30 Temperature 97.8 F Pulse Rate 68 77 Respiratory Rate 18 Blood Pressure 108/57 L Pulse Oximetry 100 Oxygen Delivery Room Air 03/16/22 04:00 03/16/22 04:00 03/16/22 04:00 Temperature 98 F Pulse Rate 98 68 Respiratory Rate 66 H Blood Pressure 101/58 L Pulse Oximetry 99 Oxygen Delivery Room Air 03/16/22 06:00 03/16/22 07:54 03/16/22 07:55 Temperature 98.7 F Pulse Rate 62 80 Respiratory Rate 16 Blood Pressure 109/53 L 109/53 L Pulse Oximetry 99 Oxygen Delivery 03/16/22 07:54 03/16/22 07:54 Temperature Pulse Rate Respiratory Rate Blood Pressure 102/70 113/73 Pulse Oximetry Oxygen Delivery Intake/Output Intake/Output: Intake & Output 03/13/22 03/14/22 03/15/2224/22 23:59 23:59 23:59 23:59 Intake Total 100 Output Total 700 Balance -600 Meds/Results Medications: Active Medications Generic Name Dose Route Start Last Admin Trade Name Freq PRN Reason Stop Dose Admin Hydrocodone Bitart/Acetaminophen 1 tab 03/16/22 05:28 03/16/22 05:53 Hydrocodone/Acetaminophen (*Crx) 5-325 Mg Tablet PO 1 tab Q4H PRN Administration Moderate Pain (4-6) Albuterol 2.5 mg 03/16/22 05:32 Albuterol Sulfate Neb 2.5 Mg/3 Ml Inh INHALATION Q6HRT PRN Shortness Of Breath Lipase/Protease/Amylase 6 cap 03/16/22 08:00 Lipase/Amylase/Protease 12,000 Units Cap PO TIDWM [facility] Aspirin 81 mg 03/16/22 09:00 Aspirin 81 Mg Enteric Tablet PO QAM [facility] Atorvastatin Calcium 40 mg 03/16/22 09:00 Atorvastatin 40 Mg Tablet PO DAILY [facility] Baclofen 20 mg 03/16/22 05:36 Baclofen 10 Mg Tablet PO DAILY PRN Muscle Pain/tightness Cyanocobalamin 500 mcg 03/16/22 09:00 Cyanocobalamin 500 Mcg Tablet PO QAM [facility] Famotidine 40 mg 03/16/22 09:00 Famotidine 20 Mg Tablet PO BID [facility] Folic Acid 0.4 mg 03/16/22 09:00 Folic Acid 0.4 Mg Tablet PO QAM [facility] Ipratropium [place] 0.5 mg 03/16/22 05:32 Ipratropium Br 0.02% Inh Soln 0.5 Mg/2.5 Ml Vial INHALATION Q6HRT PRN Shortness Of Breath Rivaroxaban 20 mg 03/16/22 17:00 Rivaroxaban 20 Mg Tablet PO DAILY@1700 [facility] Labs Labs: Laboratory Results - last 24 hr 03/16/22 03/16/22 05:55 05:55 Sodium 140 Potassium 3.8 Chloride 113 H Carbon Dioxide 24 Anion Gap 3 L BUN 7 Creatinine 0.60 L Estim Creat Clear Calc 79 Estimated GFR > 60 Glucose 96 Calcium 8.9 Triglycerides 120 Cancelled Cholesterol 197 Cancelled LDL Cholesterol Direct 112 Cancelled HDL Direct 49 Cancelled
[2022-03-16] MEDS: ASPIRIN 81 MG ENTERIC TABLET PO (09:45)
[2022-03-16] MEDS: FOLIC ACID 0.4 MG TABLET PO (09:45)
[2022-03-16] MEDS: ATORVASTATIN 40 MG TABLET PO (09:46)
[2022-03-16] MEDS: FAMOTIDINE 20 MG TABLET 40 MG PO ×2 (09:46→17:55)
[2022-03-16] MEDS: CYANOCOBALAMIN 500 MCG TABLET PO (09:46)
--- NOTE | 2022-03-16 13:24 | ECG_ITS ---
Measurements Intervals [place] Rate: 65 P: [place]: 0 QRS: 71 QRSD: 99 T: 38 QT: 359 QTc: 374 Interpretive Statements ATRIAL FIBRILLATION LOW QRS VOLTAGE IN EXTREMITY LEADS [QRS DEFLECTION < 0.5 mV IN LIMB LEADS] ABNORMAL RHYTHM ECG COMPARED TO ECG 11/28/2021 09:04:43 ATRIAL FIBRILLATION NOW PRESENT Electronically Signed On 03-16-2022 16:53:28 CDT by Ari Nieves M.D.
--- NOTE | 2022-03-16 13:25 | PM.CNCAR ---
Assessment and Plan Assessment and plan (1) Atrial fibrillation: Code(s): I48.91 - Unspecified atrial fibrillation Status: Chronic Plan This is a 61-year-old woman with longstanding history of smoking who had an episode of atrial fibrillation in 2016. She now has an episode that symptomatic Kya began yesterday afternoon and persists at this time. She is currently not tachycardic she is anticoagulated with Xarelto and has been faithful with her doses of that. I am going to start her on antiarrhythmic therapy in the form of sotalol at this time and observe her telemetry. Hopefully she will medically convert back to sinus rhythm. If she does not she will need to be elective he converted before discharge. I will cover for Dr. Pruitt today and through the weekend. Hopefully she will medically convert before Saturday Ari Nieves MD [facility] History of Present Illness History of Present Illness Consult date/time: 03/16/22 13:25 Consult reason: atrial fibrillation Reason For Visit: CP & Atrial Fib with RVR Narrative: This is a 61-year-old woman I am seeing at the request of the hospitalist for assistance with the management of atrial fibrillation. This is a patient that I do not have any previous contact with but she does follow actively with Dr. Pruitt and has a diagnosis of paroxysmal atrial fibrillation. According to his notes that are in the record she had an episode of atrial fibrillation in 2016 that was presumed to be the reason for a stroke at that time. Since then she has been systemically anticoagulated. First she has been on apixaban and now she is taking Xarelto. She takes her Xarelto regularly and does not miss doses. Without any specific antiarrhythmic medication she has been successfully maintaining sinus rhythm in follow-up with him in the office. She does have electrocardiograms as recently as November of this year that I see in the record that demonstrate sinus rhythm. She has not had any other car react problem she is not known to have coronary heart disease or significant valvular heart disease. She does have a history of hypertension, dyslipidemia and previous history of obesity although she has lost a lot of weight. Her current BMI is normal. The patient states that she was in her usual state of health yesterday and in the middle of the afternoon about 3:00 p.m. she noticed the abrupt onset of tachycardia/palpitations while she was sitting at home watching television. She was not exerting herself and other than the palpitation she did not have any other symptoms. She came to the emergency room in [place] where apparently she was found to be in atrial fib and placed on diltiazem. She was transferred to [facility] for further evaluation and management. She says the diltiazem infusion was stopped after she got here because of hypotension. She is currently in atrial fibrillation with a heart rate in the 80s and is aware of her arrhythmia but otherwise in no distress of any kind. Her only complaint now is being held NPO. She is a cigarette smoker and continues to smoke although she has cut down from 2 packs per day down to currently about 2 packs per week. 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 Her neurosurgeon is up in [place] Review of Systems Constitutional: Constitutional: Reports no additional constitutional complaints Eyes: Eyes: Reports no additional eye complaints ENT: Reports system reviewed and no additional complaints, except as documented Cardiovascular: Cardiovascular: Reports as per HPI Respiratory: Respiratory: Reports no additional respiratory complaints Gastrointestinal: Gastrointestinal: Reports no additional gastrointestinal complaints Musculoskeletal: Musculoskeletal: Reports no additional musculoskeletal complaints Integumentary
[2022-03-16] MEDS: LIPASE/AMYLASE/PROTEASE 12,000 UNITS CAP 6 CAP PO (14:25)
[2022-03-16] MEDS: SOTALOL HCL 80 MG TABLET PO ×2 (14:25→21:05)
--- NOTE | 2022-03-16 16:30 | ECG_ITS ---
Measurements Intervals [place] Rate: 66 P: [place]: 0 QRS: 71 QRSD: 97 T: 23 QT: 386 QTc: 407 Interpretive Statements ATRIAL FIBRILLATION LOW QRS VOLTAGE IN EXTREMITY LEADS [QRS DEFLECTION < 0.5 mV IN LIMB LEADS] ABNORMAL RHYTHM ECG COMPARED TO ECG 03/16/2022 13:46:54 NO SIGNIFICANT CHANGES Electronically Signed On 03-16-2022 16:59:10 CDT by Ari Nieves M.D.
[2022-03-16] MEDS: RIVAROXABAN 20 MG TABLET PO (17:55)
--- NOTE | 2022-03-16 23:11 | ECG_ITS ---
Measurements Intervals [place] Rate: 66 P: [place]: 0 QRS: 38 QRSD: 90 T: 28 QT: 364 QTc: 381 Interpretive Statements ATRIAL FIBRILLATION LOW QRS VOLTAGE [QRS DEFLECTION < 0.5/1.0 mV IN LIMB/CHEST LEADS] COMPARED TO ECG 03/16/2022 16:26:57 NO SIGNIFICANT CHANGES Electronically Signed On 03-17-2022 7:52:29 CDT by Ari Nieves M.D.
[2022-03-17] VITALS (13 sets, daily range): BP systolic 82–92; BP diastolic 44–58; PULSE 40–71; RESP 15–16; TEMP 36.1–36.7; O2SAT 97–100
[2022-03-17 05:20] LABS: Basophils Absolute Auto 0.1 K/mm3 (0.0-0.1); Basophils Percent Auto 1.6 % (0.2-1.2); Eosinophils Absolute Auto 0.4 K/mm3 (0-0.3); Eosinophils Percent Auto 5.1 % (0-4.4); Hematocrit 41.9 % (37.0-47.0); Immature Granulocyte Absolute 0.01 K/mm3 (0.00-0.031); Immature Granulocyte Percent A 0.1 % (0-0.5); Lymphocytes Absolute Auto 3.53 K/mm3 (0.9-3.2); Lymphocytes Percent Auto 42.9 % (18.3-44.2); Mean Corpuscular HGB Conc 33.4 g/dl (32-36); Mean Corpuscular Hemoglobin 30.7 pg (26-34); Mean Corpuscular Volume 91.9 fl (80-100); Mean Platelet Volume 9.5 fl (7.4-10.4); Monocytes Absolute Auto 0.6 K/mm3 (0.1-0.6); Monocytes Percent Auto 7.8 % (2.6-8.5); Neutrophils Absolute Auto 3.5 K/mm3 (1.3-6.7); Neutrophils Percent Auto 42.5 % (45.5-73.1); Platelet Count Result 278 k/mm3 (150-375); Red Blood Count 4.56 M/mm3 (4.2-5.4); Red Cell Distribution Width 12.2 % (11.5-14.5); White Blood Count 8.2 K/mm3 (4.5-10.0)
[2022-03-17 05:30] LABS: Anion Gap 4 mmol/L (8-16); Blood Urea Nitrogen 12 mg/dL (7-17); Carbon Dioxide 25 mmol/L (22-30); Chloride 110 mmol/L (98-107); Estimated CRCL calculation 69 ml/min; Estimated Glomerular Filt Rate > 60; Glucose 93 mg/dL (65-110); Potassium 4.3 mmol/L (3.4-5.0); Sodium 139 mmol/L (137-145)
[2022-03-17] MEDS: HYDROcodone/acetaminophen (*CRX) 5-325 MG TABLET 1 TAB PO ×4 (06:19→22:18)
[2022-03-17] MEDS: SOTALOL HCL 80 MG TABLET PO (08:23)
[2022-03-17] MEDS: FAMOTIDINE 20 MG TABLET 40 MG PO ×2 (08:24→17:22)
[2022-03-17] MEDS: LIPASE/AMYLASE/PROTEASE 12,000 UNITS CAP 6 CAP PO ×3 (08:24→17:34)
[2022-03-17] MEDS: CYANOCOBALAMIN 500 MCG TABLET PO (08:24)
[2022-03-17] MEDS: FOLIC ACID 0.4 MG TABLET PO (08:24)
[2022-03-17] MEDS: ASPIRIN 81 MG ENTERIC TABLET PO (08:24)
[2022-03-17] MEDS: ATORVASTATIN 40 MG TABLET PO (08:24)
--- NOTE | 2022-03-17 08:47 | PM.IMPN ---
Progress Note: A&P Assessment and Plan (1) Atrial fibrillation: Code(s): I48.91 - Unspecified atrial fibrillation Status: Chronic Assessment and Plan: Patient now rate controlled off diltiazem drip. Started sotalol per Cardiology yesterday. Still rate controlled. -Continue sotalol -Appreciate recommendations for Cardiology -Continue rivaroxaban (2) GERD (gastroesophageal reflux disease): Code(s): K21.9 - Gastro-esophageal reflux disease without esophagitis Status: Acute Assessment and Plan: Continue Pepcid (3) Hypertension: Code(s): I10 - Essential (primary) hypertension Status: Acute Assessment and Plan: Continue sotalol. (4) Dyslipidemia: Code(s): E78.5 - Hyperlipidemia, unspecified Status: Acute Assessment and Plan: Continue statin and ASA. (5) CVA (cerebral vascular accident): Code(s): I63.9 - Cerebral infarction, unspecified Status: Acute Assessment and Plan: Hx of CVA 2/2 to atrial fibrillation in the past. On rivaroxban at home. Continue rivaroxaban and sotalol. (6) COPD (chronic obstructive pulmonary disease): Code(s): J44.9 - Chronic obstructive pulmonary disease, unspecified Status: Acute Assessment and Plan: Ipratropium and albuterol PRN. Subjective Date/time seen: 03/17/22 08:47 Patient denies having any episodes of palpitations overnight. Says her BP is normal 110s/60s. Denies feeling lightheadedness, chest pain, sob. Exam Narrative: GENERAL: NAD, cooperative HEENT: Normocephalic, atraumatic, anicteric, nares clear, oropharynx moist and clear, dentition normal NECK:Supple CV: Normal S1, S2, RRR, No MRG RESP: CTAB, No wheezes or rhonchi EXTREMITIES: Warm and well perfused, no clubbing, cyanosis, or edema. +2 Distal pulses bilaterally. SKIN: warm, dry and intact. NEURO: CN 2-12 grossly intact Objective Data Vital Signs Vital Signs: Vital Signs - 24 hr 03/16/22 12:00 03/16/22 12:00 03/16/22 10:00 Temperature 98.4 F Pulse Rate 117 H 70 Respiratory Rate 20 Blood Pressure 126/70 Pulse Oximetry 99 Oxygen Delivery Room Air 03/16/22 12:00 03/16/22 14:00 03/16/22 16:00 Temperature Pulse Rate 65 89 Respiratory Rate Blood Pressure Pulse Oximetry Oxygen Delivery Room Air 03/16/22 16:00 03/16/22 16:00 03/16/22 18:00 Temperature 98.5 F Pulse Rate 67 82 92 Respiratory Rate 16 Blood Pressure 94/58 L Pulse Oximetry 97 Oxygen Delivery 03/16/22 20:00 03/16/22 21:05 03/16/22 20:00 Temperature 98.2 F Pulse Rate 64 80 Respiratory Rate 15 Blood Pressure 92/56 L Pulse Oximetry 99 Oxygen Delivery Room Air 03/16/22 20:00 03/16/22 22:00 03/16/22 23:47 Temperature 97.5 F L Pulse Rate 124 H 62 72 Respiratory Rate 15 Blood Pressure 93/54 L Pulse Oximetry 98 Oxygen Delivery 03/17/22 02:00 03/17/22 00:00 03/17/22 00:00 Temperature Pulse Rate 46 L 71 Respiratory Rate Blood Pressure Pulse Oximetry Oxygen Delivery Room Air 03/17/22 04:00 03/17/22 04:00 03/17/22 04:00 Temperature 97.4 F L Pulse Rate 63 52 L Respiratory Rate 15 Blood Pressure 92/52 L Pulse Oximetry 97 Oxygen Delivery Room Air 03/17/22 06:00 03/17/22 08:00 Temperature 98.1 F Pulse Rate 52 L 47 L Respiratory Rate 16 Blood Pressure 82/58 L Pulse Oximetry 98 Oxygen Delivery Intake/Output Intake/Output: Intake & Output 03/14/22 03/15/22 03/16/22 03/17/22 23:59 23:59 23:59 23:59 Intake Total 110 500 Output Total 1025 1500 Balance -915 -1000 Meds/Results Medications: Active Medications Generic Name Dose Route Start Last Admin Trade Name Freq PRN Reason Stop Dose Admin Hydrocodone Bitart/Acetaminophen 1 tab 03/16/22 05:28 03/17/22 06:19 Hydrocodone/Acetaminophen (*Crx) 5-325 Mg Tablet PO 1 tab Q4H PRN Administration Moderate Pain (4-6)
--- NOTE | 2022-03-17 10:37 | ECG_ITS ---
Measurements Intervals [place] Rate: 46 P: 52 CA: 198 QRS: 76 QRSD: 93 T: 8 QT: 450 QTc: 394 Interpretive Statements SINUS BRADYCARDIA LOW QRS VOLTAGE IN EXTREMITY LEADS [QRS DEFLECTION < 0.5 mV IN LIMB LEADS] NONSPECIFIC T-WAVE ABNORMALITY COMPARED TO ECG 03/16/2022 22:16:58 SINUS RHYTHM REPLACES ATRIAL FIBRILLATION Electronically Signed On 03-18-2022 7:05:56 CDT by Ari Nieves M.D.
[2022-03-17] MEDS: RIVAROXABAN 20 MG TABLET PO (17:22)
[2022-03-17] MEDS: SOTALOL HCL 40 MG TABLET PO (20:32)
--- NOTE | 2022-03-17 22:30 | ECG_ITS ---
Measurements Intervals [place] Rate: 44 P: 43 [place]: 205 QRS: 76 QRSD: 101 T: 38 QT: 470 QTc: 404 Interpretive Statements SINUS BRADYCARDIA COMPARED TO ECG 03/17/2022 11:10:53 NO SIGNIFICANT CHANGES Electronically Signed On 03-18-2022 7:12:42 CDT by Ari Nieves M.D.
[2022-03-18] VITALS (13 sets, daily range): BP systolic 82–102; BP diastolic 43–65; PULSE 43–59; RESP 12–18; TEMP 36.1–37.1; O2SAT 98–100
[2022-03-18] MEDS: HYDROcodone/acetaminophen (*CRX) 5-325 MG TABLET 1 TAB PO ×4 (03:53→20:11)
[2022-03-18 04:48] LABS: Basophils Absolute Auto 0.1 K/mm3 (0.0-0.1); Basophils Percent Auto 1.1 % (0.2-1.2); Eosinophils Absolute Auto 0.5 K/mm3 (0-0.3); Eosinophils Percent Auto 5.6 % (0-4.4); Hematocrit 37.8 % (37.0-47.0); Hemoglobin 12.6 g/dL (12.0-15.0); Immature Granulocyte Absolute 0.02 K/mm3 (0.00-0.031); Immature Granulocyte Percent A 0.2 % (0-0.5); Lymphocytes Absolute Auto 3.68 K/mm3 (0.9-3.2); Lymphocytes Percent Auto 43.6 % (18.3-44.2); Mean Corpuscular HGB Conc 33.3 g/dl (32-36); Mean Corpuscular Hemoglobin 30.7 pg (26-34); Mean Corpuscular Volume 92.2 fl (80-100); Mean Platelet Volume 9.4 fl (7.4-10.4); Monocytes Absolute Auto 0.6 K/mm3 (0.1-0.6); Monocytes Percent Auto 7.5 % (2.6-8.5); Neutrophils Absolute Auto 3.6 K/mm3 (1.3-6.7); Platelet Count Result 237 k/mm3 (150-375); Red Cell Distribution Width 12.3 % (11.5-14.5); White Blood Count 8.5 K/mm3 (4.5-10.0)
[2022-03-18 05:01] LABS: Anion Gap 3 mmol/L (8-16); Blood Urea Nitrogen 16 mg/dL (7-17); Calcium 8.6 mg/dL (8.4-10.2); Carbon Dioxide 24 mmol/L (22-30); Chloride 110 mmol/L (98-107); Estimated CRCL calculation 69 ml/min; Estimated Glomerular Filt Rate > 60; Glucose 87 mg/dL (65-110); Potassium 3.9 mmol/L (3.4-5.0); Sodium 137 mmol/L (137-145)
--- NOTE | 2022-03-18 08:27 | PM.IMPN ---
Progress Note: A&P Assessment and Plan (1) Atrial fibrillation: Code(s): I48.91 - Unspecified atrial fibrillation Status: Chronic Assessment and Plan: Patient now rate controlled off diltiazem drip. Started sotalol per Cardiology yesterday. NSR on EKG. -Sotalol may need adjusting again as patient reporting some lightheadedness -Appreciate recommendations for Cardiology -Continue rivaroxaban (2) GERD (gastroesophageal reflux disease): Code(s): K21.9 - Gastro-esophageal reflux disease without esophagitis Status: Acute Assessment and Plan: Continue Pepcid (3) Hypertension: Code(s): I10 - Essential (primary) hypertension Status: Acute Assessment and Plan: Continue sotalol. (4) Dyslipidemia: Code(s): E78.5 - Hyperlipidemia, unspecified Status: Acute Assessment and Plan: Continue statin and ASA. (5) CVA (cerebral vascular accident): Code(s): I63.9 - Cerebral infarction, unspecified Status: Acute Assessment and Plan: Hx of CVA 2/2 to atrial fibrillation in the past. On rivaroxban at home. Continue rivaroxaban and sotalol. (6) COPD (chronic obstructive pulmonary disease): Code(s): J44.9 - Chronic obstructive pulmonary disease, unspecified Status: Acute Assessment and Plan: Ipratropium and albuterol PRN. Additional Plan See h&p for complete note. H&P completed after midnight. Subjective Date/time seen: 03/18/22 08:27 Patient reporting some lightheadedness when standing. Says she is ready to go home as she is starting to feel depressed. Denies chest pain, shortness of breath, palpitations. Review of Systems Cardiovascular: Cardiovascular: Denies chest pain, Reports lightheadedness and Denies palpitations Respiratory: Respiratory: Denies dyspnea Exam Narrative: GENERAL: NAD, cooperative HEENT: Normocephalic, atraumatic, anicteric, nares clear, oropharynx moist and clear, dentition normal NECK:Supple CV: Normal S1, S2, RRR, No MRG HR in the 40s RESP: CTAB, No wheezes or rhonchi EXTREMITIES: Warm and well perfused, no clubbing, cyanosis, or edema. SKIN: warm, dry and intact. NEURO: CN 2-12 grossly intact Objective Data Vital Signs Vital Signs: Vital Signs - 24 hr 03/17/22 10:00 03/17/22 12:00 03/17/22 12:00 Temperature 97 F L Pulse Rate 47 L 44 L 45 L Respiratory Rate 16 Blood Pressure 90/57 L Pulse Oximetry 98 Oxygen Delivery 03/17/22 14:00 03/17/22 16:00 03/17/22 16:00 Temperature 97.3 F L Pulse Rate 41 L 40 L 44 L Respiratory Rate 16 Blood Pressure 90/51 L Pulse Oximetry 100 Oxygen Delivery 03/17/22 18:00 03/17/22 20:32 03/17/22 20:00 Temperature 97.5 F L Pulse Rate 44 L 53 L 44 L Respiratory Rate 16 Blood Pressure 85/44 L Pulse Oximetry 97 Oxygen Delivery 03/17/22 20:00 03/17/22 20:00 03/17/22 22:00 Temperature Pulse Rate 45 L 45 L 47 L Respiratory Rate Blood Pressure Pulse Oximetry 98 Oxygen Delivery Room Air 03/18/22 00:00 03/18/22 00:00 03/18/22 00:00 Temperature 98.0 F Pulse Rate 43 L 46 L 46 L Respiratory Rate 14 Blood Pressure 82/53 L Pulse Oximetry 98 99 Oxygen Delivery Room Air 03/18/22 02:00 03/18/22 04:00 03/18/22 04:00 Temperature Pulse Rate 48 L 48 L 48 L Respiratory Rate Blood Pressure Pulse Oximetry Oxygen Delivery Room Air 03/18/22 04:00 03/18/22 06:00 03/18/22 08:00 Temperature 97.8 F 97 F L Pulse Rate 48 L 47 L 46 L Respiratory Rate 12 16 Blood Pressure 100/46 L 91/43 L Pulse Oximetry 99 99 Oxygen Delivery Intake/Output Intake/Output: Intake & Output 03/15/22 03/16/22 03/17/22 03/18/22 23:59 23:59 23:59 23:59 Intake Total 110 1060 300 Output Total 1025 1500 Balance -917 -412 300 Meds/Results Medications: Active Medications Generic Name Dose Route Start Last Admin Trade Name Freq PRN Reason Stop Do
[2022-03-18] MEDS: LIPASE/AMYLASE/PROTEASE 12,000 UNITS CAP 2 CAP PO ×3 (09:20→17:29)
[2022-03-18] MEDS: SOTALOL HCL 40 MG TABLET PO ×2 (09:20→20:13)
[2022-03-18] MEDS: FOLIC ACID 0.4 MG TABLET PO (09:21)
[2022-03-18] MEDS: ASPIRIN 81 MG ENTERIC TABLET PO (09:21)
[2022-03-18] MEDS: ATORVASTATIN 40 MG TABLET PO (09:21)
[2022-03-18] MEDS: CYANOCOBALAMIN 500 MCG TABLET PO (09:21)
[2022-03-18] MEDS: FAMOTIDINE 20 MG TABLET 40 MG PO ×2 (09:21→17:30)
[2022-03-18] MEDS: POTASSIUM CHLORIDE 10 MEQ TABLET 20 MEQ PO (09:22)
[2022-03-18] MEDS: RIVAROXABAN 20 MG TABLET PO (17:30)
--- NOTE | 2022-03-18 22:00 | ECG_ITS ---
Measurements Intervals [place] Rate: 43 P: 25 [place]: 172 QRS: 79 QRSD: 94 T: 33 QT: 457 QTc: 391 Interpretive Statements SINUS BRADYCARDIA LOW QRS VOLTAGE IN PRECORDIAL LEADS [QRS DEFLECTION < 1.0 mV IN CHEST LEADS] COMPARED TO ECG 03/17/2022 21:34:34 NO SIGNIFICANT CHANGES Electronically Signed On 03-19-2022 7:17:08 CDT by Ari Nieves M.D.
[2022-03-19] VITALS (17 sets, daily range): BP systolic 87–121; BP diastolic 44–62; PULSE 39–62; RESP 12–18; TEMP 36.1–37; O2SAT 96–100
[2022-03-19 04:45] LABS: Basophils Absolute Auto 0.1 K/mm3 (0.0-0.1); Basophils Percent Auto 1.3 % (0.2-1.2); Eosinophils Absolute Auto 0.4 K/mm3 (0-0.3); Eosinophils Percent Auto 5.3 % (0-4.4); Hematocrit 36.1 % (37.0-47.0); Hemoglobin 12.2 g/dL (12.0-15.0); Immature Granulocyte Absolute 0.01 K/mm3 (0.00-0.031); Immature Granulocyte Percent A 0.1 % (0-0.5); Lymphocytes Absolute Auto 3.69 K/mm3 (0.9-3.2); Lymphocytes Percent Auto 46.8 % (18.3-44.2); Mean Corpuscular HGB Conc 33.8 g/dl (32-36); Mean Corpuscular Volume 91.9 fl (80-100); Mean Platelet Volume 9.6 fl (7.4-10.4); Monocytes Absolute Auto 0.6 K/mm3 (0.1-0.6); Monocytes Percent Auto 7.6 % (2.6-8.5); Neutrophils Absolute Auto 3.1 K/mm3 (1.3-6.7); Neutrophils Percent Auto 38.9 % (45.5-73.1); Platelet Count Result 217 k/mm3 (150-375); Red Blood Count 3.93 M/mm3 (4.2-5.4); White Blood Count 7.9 K/mm3 (4.5-10.0)
[2022-03-19] MEDS: HYDROcodone/acetaminophen (*CRX) 5-325 MG TABLET 1 TAB PO ×3 (06:20→19:15)
[2022-03-19] MEDS: FAMOTIDINE 20 MG TABLET 40 MG PO ×2 (09:16→17:08)
[2022-03-19] MEDS: LIPASE/AMYLASE/PROTEASE 12,000 UNITS CAP 2 CAP PO ×3 (09:16→17:10)
[2022-03-19] MEDS: FOLIC ACID 0.4 MG TABLET PO (09:19)
[2022-03-19] MEDS: ATORVASTATIN 40 MG TABLET PO (09:19)
[2022-03-19] MEDS: CYANOCOBALAMIN 500 MCG TABLET PO (09:19)
[2022-03-19] MEDS: ASPIRIN 81 MG ENTERIC TABLET PO (09:19)
--- NOTE | 2022-03-19 11:58 | PM.PNCARD ---
Progress Note: A&P Assessment and Plan (1) PAF (paroxysmal atrial fibrillation): Code(s): I48.0 - Paroxysmal atrial fibrillation Status: Acute Assessment and Plan: Decrease Sotalol 40 mg daily given bradycardia with HR 39-50 bpm. On Xarelto. (2) Bradycardia: Code(s): R00.1 - Bradycardia, unspecified Status: Acute (3) Preop cardiovascular exam: Code(s): Z01.810 - Encounter for preprocedural cardiovascular examination Status: Acute Assessment and Plan: Obtain lexiscan myoview stress test in AM. (4) Dyslipidemia: Code(s): E78.5 - Hyperlipidemia, unspecified Status: Acute Assessment and Plan: On Pravastatin. (5) Tobacco abuse: Code(s): Z72.0 - Tobacco use Status: Acute Assessment and Plan: Counseled regarding smoking cessation. Subjective Date/time seen: 03/19/22 11:58 61 yr old woman who is my regular cardiology patient and a patient of Dr. Sullivan presented to ER at [place] for rapid HR and found to be in rapid atrial fib. She was then transferred to [facility]. [facility] was covering for me. She has a history of atrial fibrillation, dyslipidemia, fibromyalgia, COPD, TIA where she could not move at all in 2016 when she had episode of atrial fib and found she had left carotid stenosis per patient. She has been receiving Sotalol loading. She would like to have neck surgery with debra placement for arthritis. Reports she can walk 1 block then she would have HOOKER. She smokes 1/2 pp week. Denies chest pain, sob, orthopnea, PND, edema, palpitations, dizziness. Cardiovascular Procedures Echo/MUGA:: 02/22/21 Echo: EF 65-70%, mild LVH, mod LAE, mild MR/TR. Electrophysiology:: 11/28/21 EKG: Sinus rhythm with sinus arrhythmia, LPFB, low voltage- precordial leads. 07/07/20 15 days event monitor: Sinus rhythm, HR range 33-120 bpm; (HR at 33 bpm was at 02:33)average 65 bpm, 1% PAC's and 2% PVC;s. 01/21/20 EKG: Sinus bradycardia at 56 bpm, PVC, IRBBB. Stress Tests:: 11/28/21 CTA of chest: Coronary calcifications. 05/01/21 Carotid duplex: <50% bilateral ICA stenosis. 04/01/20 Carotid duplex: <50% bilateral ICA stenosis. Exam Const: General: cooperative, healthy appearing and comfortable Resp: Auscultation: clear to auscultation bilaterally, no crackles, no rales, no rhonchi and no wheezes Cardio: Jugular venous distension: no JVD Rate: bradycardic Rhythm: regular rhythm Heart sounds: no murmurs Peripheral pulses: dorsalis pedis present GI: GI Palp: No abdominal tenderness and Yes Soft to palpation Neuro: General: oriented to person, oriented to place and oriented to time Extrem: Right lower extremity: no edema Left lower extremity: no edema Objective Data Vital Signs Vital Signs: Vital Signs - 24 hr 03/18/22 12:00 03/18/22 16:00 03/18/22 12:00 Temperature 98.8 F 98.4 F Pulse Rate 43 L 43 L 51 L Respiratory Rate 16 18 Blood Pressure 98/53 L 94/65 L Pulse Oximetry 100 100 Oxygen Delivery 03/18/22 14:00 03/18/22 16:00 03/18/22 18:00 Temperature Pulse Rate 48 L 45 L 48 L Respiratory Rate Blood Pressure Pulse Oximetry Oxygen Delivery 03/18/22 20:13 03/18/22 20:00 03/18/22 20:00 Temperature 96.9 F L Pulse Rate 59 L 43 L 56 L Respiratory Rate 16 Blood Pressure 102/51 L Pulse Oximetry 100 Oxygen Delivery 03/18/22 21:59 03/19/22 00:00 03/19/22 00:00 Temperature 97.0 F L Pulse Rate 44 L 44 L 44 L Respiratory Rate 16 16 Blood Pressure 87/44 L Pulse Oximetry 100 100 Oxygen Delivery Room Air 03/19/22 00:00 03/19/22 02:00 03/19/22 04:00 Temperature Pulse Rate 39 L 40 L 56 L Respiratory Rate Blood Pressure Pulse Oximetry Oxygen Delivery 03/19/22 04:00 03/19/22 04:00 03/19/22 06:00 Temperature 97.2 F L Pulse Rate 56 L 48 L 44 L Respiratory Rate 16 18 Blood Pressure 97/49 L Pulse Oximetry 100 98 Oxygen Delivery Room Air 03/19/22 07:38 03/19/22 08:
[2022-03-19] MEDS: polyethylene glycoL 3350 17 GM POWD.PACK PO (12:23)
--- NOTE | 2022-03-19 15:10 | PM.IMPN ---
Progress Note: A&P Assessment and Plan (1) Atrial fibrillation: Code(s): I48.91 - Unspecified atrial fibrillation Status: Chronic Assessment and Plan: Patient now rate controlled off diltiazem drip. Started sotalol per Cardiology yesterday. NSR on EKG. -Sotalol may need adjusting again as patient reporting some lightheadedness -Appreciate recommendations for Cardiology -Continue rivaroxaban 03/19/2022 interval history: patient stats she feels somewhat dizzy, most likely due to bradycardia HR 30-40, Dr Pruitt her receiving clerk reduce Sotalol 40mg to once a day and on Xarelto, will monitor, patient is scheduled for Lexiscan test tomorrow, will follow up (2) GERD (gastroesophageal reflux disease): Code(s): K21.9 - Gastro-esophageal reflux disease without esophagitis Status: Acute Assessment and Plan: Continue Pepcid (3) Hypertension: Code(s): I10 - Essential (primary) hypertension Status: Acute Assessment and Plan: Continue sotalol. (4) Dyslipidemia: Code(s): E78.5 - Hyperlipidemia, unspecified Status: Acute Assessment and Plan: Continue statin and ASA. (5) CVA (cerebral vascular accident): Code(s): I63.9 - Cerebral infarction, unspecified Status: Acute Assessment and Plan: Hx of CVA 2/2 to atrial fibrillation in the past. On rivaroxban at home. Continue rivaroxaban and sotalol. (6) COPD (chronic obstructive pulmonary disease): Code(s): J44.9 - Chronic obstructive pulmonary disease, unspecified Status: Acute Assessment and Plan: Ipratropium and albuterol PRN. Additional Plan See h&p for complete note. H&P completed after midnight. Subjective Date/time seen: 03/19/22 15:10 Patient now rate controlled off diltiazem drip. Started sotalol per Cardiology yesterday. NSR on EKG. -Sotalol may need adjusting again as patient reporting some lightheadedness -Appreciate recommendations for Cardiology -Continue rivaroxaban 03/19/2022 interval history: patient stats she feels somewhat dizzy, most likely due to bradycardia HR 30-40, Dr Pruitt her receiving clerk reduce Sotalol 40mg to once a day and on Xarelto, will monitor, patient is scheduled for Lexiscan test tomorrow, will follow up Review of Systems Cardiovascular: Cardiovascular: Denies chest pain, Denies palpitations and Denies dyspnea Respiratory: Respiratory: Denies dyspnea Exam Narrative: Patient is comfortable, NAD HEENT: eyes are clear and none icteric LUNGS: normal respiratory effort ABD: not distended Lower extremities: no edema SKIN: nonjaundiced Neuro: grossly intact. Objective Data Vital Signs Vital Signs: Vital Signs - 24 hr 03/18/22 16:00 03/18/22 16:00 03/18/22 18:00 Temperature 98.4 F Pulse Rate 43 L 45 L 48 L Respiratory Rate 18 Blood Pressure 94/65 L Pulse Oximetry 100 Oxygen Delivery 03/18/22 20:13 03/18/22 20:00 03/18/22 20:00 Temperature 96.9 F L Pulse Rate 59 L 43 L 56 L Respiratory Rate 16 Blood Pressure 102/51 L Pulse Oximetry 100 Oxygen Delivery 03/18/22 21:59 03/19/22 00:00 03/19/22 00:00 Temperature 97.0 F L Pulse Rate 44 L 44 L 44 L Respiratory Rate 16 16 Blood Pressure 87/44 L Pulse Oximetry 100 100 Oxygen Delivery Room Air 03/19/22 00:00 03/19/22 02:00 03/19/22 04:00 Temperature Pulse Rate 39 L 40 L 56 L Respiratory Rate Blood Pressure Pulse Oximetry Oxygen Delivery 03/19/22 04:00 03/19/22 04:00 03/19/22 06:00 Temperature 97.2 F L Pulse Rate 56 L 48 L 44 L Respiratory Rate 16 18 Blood Pressure 97/49 L Pulse Oximetry 100 98 Oxygen Delivery Room Air 03/19/22 07:38 03/19/22 08:00 03/19/22 09:20 Temperature 98.1 F Pulse Rate 48 L 43 L 43 L Respiratory Rate 12 Blood Pressure 92/44 L Pulse Oximetry 99 Oxygen Delivery 03/19/22 12:00 03/19/22 10:00 03/19/22 12:00 Temperature 98.2 F Pulse R
[2022-03-19] MEDS: RIVAROXABAN 20 MG TABLET PO (17:10)
[2022-03-20] VITALS (7 sets, daily range): BP systolic 94–115; BP diastolic 50–64; PULSE 41–56; RESP 14–16; TEMP 36.1–36.9; O2SAT 100
--- NOTE | 2022-03-20 08:00 | EST_ITS ---
Patient Info Name: Claudine Cruz Age: 61 years : 1960 Gender: Female Ht: 66 in Wt: 152 lbs BSA: 1.80 m2 HR: 49 bpm BP: 102 / 75 mmHg Heart Rhythm: Sinus Rhythm Exam Date: 03/20/2022 11:11 AM Exam Location: [facility] Stress Patient Status: Inpatient Admit Date: 03/17/2022 Staff Ordering Physician: Diaz Pruitt DO Attending Provider: Arik Nieto MD Exercise Technologist: Hansa Hernandez CT Exercise Physician: Diaz Pruitt DO Exam Type: CA stress catie w NM Study Info Indications Z01.810 - Encounter for preprocedural cardiovascular examination R06.09 - Other forms of dyspnea A regadenoson stress test was performed. History/Risk Factors Hypertension: No Dyslipidemia: Yes Peripheral Arterial Disease (PAD): No Obesity: No Renal Disease: No Diabetes Mellitus: No COPD: On Meds Tobacco Use: Current - Every Day If Any Current, Tobacco Type: Cigarettes If Current - Every Day \T\ Cigarettes, Amount: Heavy Tobacco Use (>=10/day) Family History: Diabetes Mellitus, Coronary Artery Disease DVT Treatment: Rivaroxaban Deep Vein Thrombosis (DVT): None Dialysis: None Frailty Scale (CSHA): 2: Well Summary 1. 1. Negative lexiscan stress test for ischemic ST changes by ECG criteria. 2. 2. Stable hemodynamics throughout the test. 3. 3. Nuclear scan to follow and will be reported separately. Please correlate with it. 4. 4. Patient informed of the above results. Protocol: Lexiscan Stress ECG Details Stage: REST Duration (min): 1 min : 4 sec HR (bpm): 47 SBP (mmHg): 102 DBP (mmHg): 75 Stage: REST Duration (min): 8 min : 57 sec HR (bpm): 54 SBP (mmHg): 102 DBP (mmHg): 75 Stage: STAGE 1 Duration (min): 1 min : 0 sec HR (bpm): 79 SBP (mmHg): 152 DBP (mmHg): 66 Stage: RECOVERY Duration (min): 1 min : 0 sec HR (bpm): 84 SBP (mmHg): 152 DBP (mmHg): 66 Stage: RECOVERY Duration (min): 2 min : 0 sec HR (bpm): 81 SBP (mmHg): 152 DBP (mmHg): 66 Stage: RECOVERY Duration (min): 3 min : 0 sec HR (bpm): 74 SBP (mmHg): 131 DBP (mmHg): 72 Stage: RECOVERY Duration (min): 3 min : 7 sec HR (bpm): 71 SBP (mmHg): 131 DBP (mmHg): 72 Rest HR: 54 bpm Peak HR: 84 bpm Rest Sys BP: 102 mmHg Peak Sys BP: 152 mmHg Max Pred HR: 160 bpm % Max Pred HR: 53 % Target HR: 136 bpm Max RPP: 12,768 bpm*mmHg Termination Reason: Completed protocol Cardiac Symptoms: Shortness of breath Total Time: 1 min : 0 sec Rest Luna BP: 75 mmHg Peak Luna BP: 66 mmHg Total Dose: 0.4 mg Resting ECG Sinus bradycardia. Stress ECG No ST changes. Arrhythmias None. Report Signatures
[2022-03-20] MEDS: HYDROcodone/acetaminophen (*CRX) 5-325 MG TABLET 1 TAB PO ×2 (08:59→12:59)
[2022-03-20] MEDS: CYANOCOBALAMIN 500 MCG TABLET PO (08:59)
[2022-03-20] MEDS: SOTALOL HCL 40 MG TABLET PO (09:00)
[2022-03-20] MEDS: ASPIRIN 81 MG ENTERIC TABLET PO (09:00)
[2022-03-20] MEDS: FAMOTIDINE 20 MG TABLET 40 MG PO (09:00)
[2022-03-20] MEDS: FOLIC ACID 0.4 MG TABLET PO (09:01)
[2022-03-20] MEDS: ATORVASTATIN 40 MG TABLET PO (09:01)
--- NOTE | 2022-03-20 11:49 | PM.PNCARD ---
Progress Note: A&P Assessment and Plan (1) PAF (paroxysmal atrial fibrillation): Code(s): I48.0 - Paroxysmal atrial fibrillation Status: Acute Assessment and Plan: Decrease Sotalol 40 mg daily given bradycardia with HR 39-50 bpm. On Xarelto. May d/c home from cardiology standpoint and f/u with me in 1 week. (2) Bradycardia: Code(s): R00.1 - Bradycardia, unspecified Status: Acute (3) Preop cardiovascular exam: Code(s): Z01.810 - Encounter for preprocedural cardiovascular examination Status: Acute Assessment and Plan: Obtain lexiscan myoview stress test in AM. If negative may proceed to neck surgery without further cardiac workup. (4) Dyslipidemia: Code(s): E78.5 - Hyperlipidemia, unspecified Status: Acute Assessment and Plan: On Pravastatin. (5) Tobacco abuse: Code(s): Z72.0 - Tobacco use Status: Acute Assessment and Plan: Counseled regarding smoking cessation. Subjective Date/time seen: 03/20/22 11:49 No chest pain or sob. Exam Const: General: cooperative, healthy appearing and comfortable Resp: Auscultation: clear to auscultation bilaterally, no crackles, no rales, no rhonchi and no wheezes Cardio: Jugular venous distension: no JVD Rate: bradycardic Rhythm: regular rhythm Heart sounds: no murmurs Peripheral pulses: dorsalis pedis present GI: GI Palp: No abdominal tenderness and Yes Soft to palpation Neuro: General: oriented to person, oriented to place and oriented to time Extrem: Right lower extremity: no edema Left lower extremity: no edema Objective Data Vital Signs Vital Signs: Vital Signs - 24 hr 03/19/22 12:00 03/19/22 12:00 03/19/22 14:00 Temperature 98.2 F Pulse Rate 49 L 62 46 L Respiratory Rate 12 Blood Pressure 121/60 Pulse Oximetry 100 Oxygen Delivery 03/19/22 12:00 03/19/22 16:26 03/19/22 16:00 Temperature Pulse Rate 43 L Respiratory Rate Blood Pressure Pulse Oximetry Oxygen Delivery Room Air Room Air 03/19/22 16:00 03/19/22 16:00 03/19/22 18:03 Temperature 98.6 F Pulse Rate 53 L 49 L Respiratory Rate 12 Blood Pressure 94/62 L Pulse Oximetry 99 96 Oxygen Delivery Room Air 03/19/22 18:00 03/19/22 20:00 03/19/22 20:00 Temperature 97.0 F L Pulse Rate 56 L 53 L 51 L Respiratory Rate 18 Blood Pressure 98/47 L Pulse Oximetry 100 Oxygen Delivery 03/19/22 20:00 03/19/22 22:00 03/19/22 23:29 Temperature 97.9 F Pulse Rate 45 L 53 L Respiratory Rate 16 Blood Pressure 99/56 L Pulse Oximetry 100 Oxygen Delivery Room Air 03/20/22 00:00 03/20/22 04:00 03/20/22 04:00 Temperature 97.0 F L Pulse Rate 44 L Respiratory Rate 14 Blood Pressure 104/64 Pulse Oximetry 100 Oxygen Delivery Room Air Room Air 03/20/22 00:00 03/20/22 04:00 03/20/22 06:00 Temperature Pulse Rate 41 L 49 L 48 L Respiratory Rate Blood Pressure Pulse Oximetry Oxygen Delivery 03/20/22 08:00 03/20/22 08:00 03/20/22 09:00 Temperature 98.5 F Pulse Rate 53 L 56 L Respiratory Rate 16 Blood Pressure 94/53 L Pulse Oximetry 100 Oxygen Delivery Room Air Intake/Output Intake/Output: Intake & Output 03/17/22 03/18/22 03/19/22 03/20/22 23:59 23:59 23:59 23:59 Intake Total 1060 1740 1790 300 Output Total 1500 Balance -440 1740 1790 300 Meds/Results Medications: Active Medications Generic Name Dose Route Start Last Admin Trade Name Freq PRN Reason Stop Dose Admin Hydrocodone Bitart/Acetaminophen 1 tab 03/16/22 05:28 03/20/22 08:59 Hydrocodone/Acetaminophen (*Crx) 5-325 Mg Tablet PO 1 tab Q4H PRN Administration Moderate Pain (4-6) Albuterol 2.5 mg 03/16/22 05:32 Albuterol Sulfate Neb 2.5 Mg/3 Ml Inh INHALATION Q6HRT PRN Shortness Of Breath Lipase/Protease/Amylase 2 cap 03/18/22 08:30 03/20/22 11:33 Lipase/Amylase/Protease 12,000 Units Cap
[2022-03-20] MEDS: LIPASE/AMYLASE/PROTEASE 12,000 UNITS CAP 2 CAP PO (12:58)
--- NOTE | 2022-03-20 13:09 | PM.DS ---
DS: Admitting Diagnosis Discharge Date 03/20/2022 Admitting Diagnosis palpitation DS: Discharge Diagnosis Discharge Diagnosis (1) Atrial fibrillation: Code(s): I48.91 - Unspecified atrial fibrillation Status: Chronic Assessment and Plan: Patient now rate controlled off diltiazem drip. Started sotalol per Cardiology yesterday. NSR on EKG. -Sotalol may need adjusting again as patient reporting some lightheadedness -Appreciate recommendations for Cardiology -Continue rivaroxaban 03/19/2022 interval history: patient stats she feels somewhat dizzy, most likely due to bradycardia HR 30-40, Dr Pruitt her robot operator reduce Sotalol 40mg to once a day and on Xarelto, will monitor, patient is scheduled for Lexiscan test tomorrow, will follow up (2) GERD (gastroesophageal reflux disease): Code(s): K21.9 - Gastro-esophageal reflux disease without esophagitis Status: Acute Assessment and Plan: Continue Pepcid (3) Hypertension: Code(s): I10 - Essential (primary) hypertension Status: Acute Assessment and Plan: Continue sotalol. (4) Dyslipidemia: Code(s): E78.5 - Hyperlipidemia, unspecified Status: Acute Assessment and Plan: Continue statin and ASA. (5) CVA (cerebral vascular accident): Code(s): I63.9 - Cerebral infarction, unspecified Status: Acute Assessment and Plan: Hx of CVA 2/2 to atrial fibrillation in the past. On rivaroxban at home. Continue rivaroxaban and sotalol. (6) COPD (chronic obstructive pulmonary disease): Code(s): J44.9 - Chronic obstructive pulmonary disease, unspecified Status: Acute Assessment and Plan: Ipratropium and albuterol PRN. DS: Summary Hospital Course Reason for hospitalization: Chief Complaint: Palpitations Narrative: Greater than 30 minutes spent reviewing chart, evaluating, counseling, treating patient.? Anticipate less than 48 hours of admission, will admit under observation. Past medical history of anxiety, stroke (TIA in 2016, suspected secondary to atrial fibrillation also found to have greater than 60% stenosis of carotid arteries), paroxysmal AFib on Xarelto, COPD, GERD, IBS (primarily diarrhea), history of colon resection secondary to diverticulitis, hypertension/hyperlipidemia.? Presented to outside hospital with palpitations.? Patient reports she was sitting at home watching TV when all the sudden she felt like her heart was racing.? Admits to some shortness of breath with the vent.? States she has chronic pain in her neck that sometimes radiates to her upper chest, so she was unclear whether not she had chest pain.? Admits to nausea, but no vomiting.? States she typically has diarrhea, however since starting [place] she has been having more constipation.? Denies dysuria, hematuria.? Denies blood in stool.? Patient reports the day prior to this event, she had an episode where she was nauseous and felt like she was going to have an episode of diarrhea.? When she got to the restroom, she passed out.? States she thinks she was down for about 10 minutes.? States this has only happened once before. At outside hospital, patient was found to be in AFib with RVR heart rate in 140s.? Patient was started on diltiazem drip with good response.? Lab workup at outside hospital grossly unremarkable, including normal TSH, troponin.? Patient was transferred to [place] for further evaluation.? By the time she arrived here, she was taken off the diltiazem drip with heart rate and 60s.? Patient still and atrial fibrillation on tele. Hospital Course: patient stats she feels somewhat dizzy, most likely due to bradycardia HR 30-40, Dr Pruitt her robot operator reduce Sotalol 40mg to once a day and on Xarelto,? will monitor, patient is scheduled for Lexiscan test tomorrow, will follow up today patient is seen by her robot operator patient remains clinically stable and not as dizzy, will discharge the patient t
== END 2022-03-20 15:44 | disposition home or self-care (01) | DRG 201 ==
PROVIDERS: Family Medicine; Internal Medicine; Admitting Provider Family Medicine; PCP Internal Medicine; Visit Provider Family Medicine
DX: I48.0 Paroxysmal atrial fibrillation (principal); Z72.0 Tobacco use; K21.9 Gastro-esophageal reflux disease without esophagitis; E78.5 Hyperlipidemia, unspecified; K58.9 Irritable bowel syndrome, unspecified; Z79.899 Other long term (current) drug therapy; Z86.73 Personal history of transient ischemic attack (TIA), and cerebral infarction without residual deficits; J44.9 Chronic obstructive pulmonary disease, unspecified; F41.9 Anxiety disorder, unspecified; M79.7 Fibromyalgia; M19.91 Primary osteoarthritis, unspecified site; I10 Essential (primary) hypertension; Z79.01 Long term (current) use of anticoagulants; R00.1 Bradycardia, unspecified
CPT/HCPCS: 36415; 78452; 80048; 80061; 85025; 93005; 93017; 93880; A9270; A9502; G0378; G0379; J2310; J2785

== ENCOUNTER 2022-05-08 13:03 | Outpatient (CLI) | payer OTHER, SELFPAY ==
--- NOTE | ~2022-05-08 | XR_ITS ---
EXAMINATION: XR cervical spine 4-5V DATE: 05/08/2022 13:43 INDICATION: Cervical spinal cord compression. TECHNIQUE: 5 views of cervical spine were obtained. COMPARISON: CT cervical spine 11/28/2021 FINDINGS: Bone alignment is normal. Vertebral body heights are normal. There is mildly decreased disc height at C3-C4. There is multilevel mild facet joint osteoarthritis. On the right, there is mild ne ural foraminal stenosis at C4-C5. No central canal stenosis or prevertebral soft tissue swelling. IMPRESSION: 1. Mild cervical spondylosis. Reviewed, dictated and finalized at location A.
== END 2022-05-08 13:04 | disposition home or self-care (01) ==
LOC: CHSLAB 13:07
PROVIDERS: PCP Internal Medicine
DX: G95.20 Unspecified cord compression (principal)
CPT/HCPCS: 72050

== ENCOUNTER 2022-05-15 10:41 | Outpatient (CLI) | payer OTHER, SELFPAY ==
[2022-05-15 10:55] LABS: Basophils Percent Auto 1.3 % (0.0-1.0); Eosinophils Percent Auto 2.6 % (1.0-6.0); Hematocrit 39.1 % (35.0-49.0); Hemoglobin 12.9 g/dL (12.0-15.0); Immature Granulocyte Absolute 0.03 K/mm3 (0.00-0.00); Immature Granulocyte Percent A 0.4 % (0.0-0.0); Lymphocytes Absolute Auto 2.23 K/mm3 (1.10-4.50); Lymphocytes Percent Auto 28.6 % (18.0-42.0); Mean Corpuscular Hemoglobin 30.5 pg (27.0-31.0); Mean Corpuscular Volume 92.4 fL (78.0-102.0); Mean Platelet Volume 8.9 fl (9.2-11.8); Monocytes Absolute Auto 0.61 K/mm3 (0.10-0.90); Monocytes Percent Auto 7.8 % (2.0-11.0); Neutrophils Absolute Auto 4.6 K/mm3 (1.7-7.2); Neutrophils Percent Auto 59.3 % (50.0-70.0); Platelet Count Result 274 K/mm3 (150-420); Red Blood Count 4.23 M/mm3 (4.20-5.40); Red Cell Distribution Width 12.2 % (11.6-14.4); White Blood Count 7.8 K/mm3 (4.8-10.8)
[2022-05-15 10:59] LABS: Add Urine Microscopic? YES; Appearance Urine Clear (Clear); Bilirubin Urine Negative (Negative); Blood Urine 2+ (Negative); Color Urine Light Yellow (Yellow); Glucose Urine UA Negative (Negative); Ketones Urine Negative (Negative); Leukocyte Esterase Ur Trace LEU/UL (Negative); Nitrate Urine Negative (Negative); Protein Urine Negative (Negative); Urobilinogen Urine 0.2 mg/dL (0.2-1.0); pH Urine 6.5 (5.0-8.0)
[2022-05-15 11:08] LABS: Bacteria Urine None seen /hpf; D Dimer 0.26 mg/L (0.19-0.50); RBC Urine 0-2 /hpf (0-2); Squamous Epithelial Cell Urine Rare /hpf (Few); WBC Urine 0-3 /hpf (0-3)
[2022-05-15 11:33] LABS: Alanine Aminotransferase 17 U/L (14-59); Albumin Level 4.1 g/dL (3.4-5.0); Alkaline Phosphatase 73 U/L (46-116); Amylase 51 U/L (25-115); Anion Gap 7 mmol/L (8-16); Aspartate Amino Transferase 14 U/L (15-37); Bilirubin,Total 0.2 mg/dL (0.00-1.00); Blood Urea Nitrogen 9 mg/dL (7-18); Calcium 8.9 mg/dL (8.5-10.1); Carbon Dioxide 27 mmol/L (21-32); Chloride 102 mmol/L (98-108); Creatine Kinase 44 U/L (26-192); Estimated Glomerular Filt Rate > 60; Glucose 88 mg/dL (70-99); Lipase 66 U/L (73-393); Osmolality Calculated 279 mOsm/kg (285-295); Potassium 4.8 mmol/L (3.5-5.1); Sodium 136 mmol/L (136-145); Total Protein 7.1 g/dL (6.4-8.2); Troponin I 5.6 ng/L (0.00-60.4)
[2022-05-15 11:35] LABS: CRP < 0.2 mg/dL (0.0-0.9)
== END 2022-05-15 10:42 | disposition home or self-care (01) ==
LOC: CHSLAB 10:43
PROVIDERS: PCP Internal Medicine; Visit Provider Internal Medicine
DX: R10.9 Unspecified abdominal pain (principal); R06.02 Shortness of breath; R07.9 Chest pain, unspecified; R31.9 Hematuria, unspecified
CPT/HCPCS: 36415; 80053; 81001; 82150; 82550; 82553; 83690; 84484; 85025; 85380; 86140; 87086; 88112

== ENCOUNTER 2022-05-21 09:16 | Outpatient (CLI) | payer OTHER, SELFPAY ==
--- NOTE | ~2022-05-21 | CT_ITS ---
EXAMINATION: CT abdomen pelvis wo/w con DATE: 05/21/2022 09:57 INDICATION: Right-sided abdominal pain. Hematuria. Nausea and vomiting, constipation and diarrhea. TECHNIQUE: Computed tomography (CT) of the abdomen and pelvis was performed without and subsequently with 130 CC Omnipaque 350 intravenous contrast. Automated exposure control and iterative reconstructi on technique were employed. Exam dose: 1067.47 mGy-cm total exam DLP. COMPARISON: None. FINDINGS: There is minimal discoid atelectasis or scarring at the lung bases. No pulmonary infiltrat e or consolidation. Status post cholecystectomy, which likely accounts for mild pneumobilia. No bile duct dilatation. No hepatic, splenic or pancreatic space-occupying mass lesion is evident. There is minimal pancreatic calcifications suggesting chronic pancreatitis. No pancreatic duct dilatation. Normal morphology of the adrenal glands. 7 mm upper pole right renal cyst. No other renal space occupying mass lesion or intraluminal filling defect of the renal collecting systems, ureters or urinary bladder is detected. An approximately 2 mm nonobstructing lower pole right renal calculus. No other urinary tract calculus or hydroureteronephrosis. The urinary bladder is unremarkable. Status post hysterectomy. There is atherosclerotic calcification of the abdominal aorta, prominent calcification at the origin of the left renal and to a lesser extent right renal arteries. No abdominal aortic aneurysm. No intra peritoneal or retroperitoneal or pelvic mass lesion or adenopathy or ascites is detected. There is a suture line of the sigmoid colon Normal appendix. No bowel obstruction, bowel wall thickening, pneumatosis or intraperitoneal free air . Prominent bilateral hip osteoarthritis. Chronic appearing mild anterior wedging and loss of height at T11, T12 and L1. Hemangioma of L3 verte bral body. No suspicious osteolytic or osteoblastic lesions are noted. IMPRESSION: No appendicitis or urinary tract obstruction or hydronephrosis Approximately 2 mm lower pole nonobstructing right renal calculus Status post cholecystectomy Chronic pancreatitis 7 mm upper pole right renal cyst. Status post sigmoid colon resection Status post hysterectomy Reviewed, dictated and finalized at Location [facility]. Reviewed, dictated and finalized at location B.
== END 2022-05-21 09:17 | disposition home or self-care (01) ==
LOC: CHSIMG 09:18
PROVIDERS: PCP Internal Medicine; Visit Provider Nurse Practitioner Family
DX: R10.9 Unspecified abdominal pain (principal); R31.9 Hematuria, unspecified
CPT/HCPCS: 74178; Q9967

== ENCOUNTER 2022-06-02 06:55 | Outpatient (CLI) | payer OTHER, SELFPAY ==
[2022-06-02 07:16] LABS: Basophils Absolute Auto 0.09 K/mm3 (0.00-0.10); Basophils Percent Auto 1.3 % (0.0-1.0); Eosinophils Absolute Auto 0.47 K/mm3 (0.02-0.50); Eosinophils Percent Auto 6.8 % (1.0-6.0); Hematocrit 41.2 % (35.0-49.0); Hemoglobin 12.9 g/dL (12.0-15.0); Immature Granulocyte Absolute 0.01 K/mm3 (0.00-0.00); Immature Granulocyte Percent A 0.1 % (0.0-0.0); Lymphocytes Absolute Auto 3.11 K/mm3 (1.10-4.50); Lymphocytes Percent Auto 44.9 % (18.0-42.0); Mean Corpuscular HGB Conc 31.3 g/dL (32.0-36.0); Mean Corpuscular Hemoglobin 29.5 pg (27.0-31.0); Mean Corpuscular Volume 94.1 fL (78.0-102.0); Mean Platelet Volume 9.3 fl (9.2-11.8); Monocytes Absolute Auto 0.58 K/mm3 (0.10-0.90); Monocytes Percent Auto 8.4 % (2.0-11.0); Neutrophils Absolute Auto 2.7 K/mm3 (1.7-7.2); Neutrophils Percent Auto 38.5 % (50.0-70.0); Platelet Count Result 261 K/mm3 (150-420); Red Blood Count 4.38 M/mm3 (4.20-5.40); Red Cell Distribution Width 12.1 % (11.6-14.4); White Blood Count 6.9 K/mm3 (4.8-10.8)
[2022-06-02 07:23] LABS: Add Urine Microscopic? YES; Appearance Urine Clear (Clear); Bilirubin Urine Negative (Negative); Blood Urine 2+ (Negative); Color Urine Light Yellow (Yellow); Glucose Urine UA Negative (Negative); Ketones Urine Negative (Negative); Leukocyte Esterase Ur Negative (Negative); Nitrate Urine Negative (Negative); Protein Urine Negative (Negative); Specific Grav Ur 1.015 (1.010-1.020); Urobilinogen Urine 0.2 mg/dL (0.2-1.0); pH Urine 7.5 (5.0-8.0)
[2022-06-02 07:39] LABS: Alanine Aminotransferase 19 U/L (14-59); Albumin Level 3.9 g/dL (3.4-5.0); Alkaline Phosphatase 70 U/L (46-116); Anion Gap 9 mmol/L (8-16); Aspartate Amino Transferase 13 U/L (15-37); Bilirubin,Total 0.4 mg/dL (0.00-1.00); Blood Urea Nitrogen 8 mg/dL (7-18); Carbon Dioxide 27 mmol/L (21-32); Chloride 106 mmol/L (98-108); Cholesterol 194 mg/dL (0-200); Estimated Glomerular Filt Rate > 60; Free T4 Free Thyroxine 0.86 ng/dL (0.76-1.46); Glucose 95 mg/dL (70-99); HDL Direct 54 mg/dL (40-60); LDL Cholesterol Calculated 120 mg/dL (<130); Magnesium 2.2 mg/dL (1.8-2.4); Osmolality Calculated 292 mOsm/kg (285-295); Sodium 142 mmol/L (136-145); Thyroid Stimulating Hormone 1.75 uIU/mL (0.36-3.74); Total Protein 6.9 g/dL (6.4-8.2); Triglycerides 101 mg/dL (0-150)
[2022-06-02 07:54] LABS: Bacteria Urine 1+ /hpf; Squamous Epithelial Cell Urine Few /hpf (Few); WBC Urine None seen /hpf (0-3)
== END 2022-06-02 06:56 | disposition home or self-care (01) ==
LOC: CHSLAB 06:55
PROVIDERS: PCP Internal Medicine; Visit Provider Internal Medicine
DX: E78.2 Mixed hyperlipidemia (principal); I48.0 Paroxysmal atrial fibrillation; I63.233 Cerebral infarction due to unspecified occlusion or stenosis of bilateral carotid arteries
CPT/HCPCS: 36415; 80053; 80061; 81001; 83735; 84439; 84443; 85025

== ENCOUNTER 2022-06-04 12:10 | Outpatient (CLI) | payer OTHER, SELFPAY ==
--- NOTE | ~2022-06-04 | DEXA_ITS ---
Bone Density Report Name: RENO AMARO Age: 61 Sex: Female Ethnicity: White Date of : 1960 Indication: postmenopausal; screening for osteoporosis; height loss; inflammatory bowel disease; cancer; hysterectomy; rheumatoid arthritis; Referring Provider: Yasmany Sullivan Study: Bone densitometry was performed. Exam Date: June 04, 2022 Accession number: [id number] Bone Density: Region BMD T-score Z-score Classification AP Spine(L1-L4) 0.889 -1.4 0.0 Osteopenia Femoral Neck (Left) 0.644 -1.8 -0.5 Osteopenia Total Hip (Left) 0.695 -2.0 -1.0 Osteopenia Femoral Neck (Right) 0.659 -1.7 -0.4 Osteopenia Total Hip (Right) 0.716 -1.9 -0.9 Osteopenia Femoral Neck Mean 0.651 -1.8 -0.5 Osteopenia Total Hip Mean 0.705 -1.9 -0.9 Osteopenia World Health Organization criteria for BMD impression classify patients as: Normal (T-score at or above -1.0), Osteopenia (T-score between -1.0 and -2.5), or Osteoporosis (T-score at or below -2.5). 10-year Fracture Risk(1): Major Osteoporotic Fracture 12% Hip Fracture 2.4% Reported Risk Factors: [place] (), Neck BMD=0.644, BMI=28.5, smoking, rheumatoid arthritis (1) FRAX(R) Version 3.08. Fracture probability calculated for an untreated patient. Fracture probability may be lower if the patient has received treatment. Clinical Information Provided by Patient: Smokes Has rheumatoid arthritis Has used the following medications: Vitamin D, multi vit Has the following medical conditions: Cancer, Inflammatory bowel diseases, Hysterectomy Patient maximum height was 65 Menopause Age: 29 No regular weight bearing exercise Does not regularly consume dairy products Drinks caffeinated beverages Onset of menses at age 13 Number of children 1 Impression: The patient has low bone mass, based on the Left Total Hip T-score. The patient has risk factors, including: smoking. Discussion: BONE DENSITY IS LOW AT ONE OR MORE SKELETAL SITES. This patient's lowest T-score is low at one or more skeletal sites. It meets the World Health Organization's (WHO) criteria for ?low bone mass? (T-score between -1.0 and -2.5). The patient's 10-year risk of fracture as calculated by FRAX is less than the threshold where pharmacological therapy is recommended by the National Osteoporosis Foundation (NOF). However, all treatment decisions require clinical judgment and consideration of individual patient factors, including patient preferences, comorbidities, previous drug use, risk factors not captured in the FRAX model (e.g., frailty, falls, vitamin D deficiency, increased bone turnover, interval significant decline in bone density) and possible under or overestimation of fracture risk by FRAX. The patient should follow a healthful lifestyle (good nutri
== END 2022-06-04 12:11 | disposition home or self-care (01) ==
LOC: CHSIMG 12:12
PROVIDERS: PCP Internal Medicine; Visit Provider Internal Medicine
DX: M81.0 Age-related osteoporosis without current pathological fracture (principal)
CPT/HCPCS: 77080

== ENCOUNTER 2022-07-19 10:36 | Outpatient (CLI) | payer OTHER, SELFPAY ==
--- NOTE | ~2022-07-19 | XR_ITS ---
EXAMINATION: XR chest 2V 07/19/2022 10:56 INDICATION: Acute upper respiratory infection PROCEDURE: 2 view chest COMPARISON: Comparison to multiple prior studies sequentially, with oldest reviewed study dated 01/20. FINDINGS: The lungs are clear. The cardiomediastinal silhouette is within normal limits. There are no pleural effusions. There is no pneumothorax suspected. IMPRESSION: 1: NO ACUTE CARDIOPULMONARY DISEASE. Reviewed, dictated and finalized at location B.
[2022-07-19 11:03] LABS: Basophils Absolute Auto 0.09 K/mm3 (0.00-0.10); Eosinophils Absolute Auto 0.15 K/mm3 (0.02-0.50); Eosinophils Percent Auto 1.7 % (1.0-6.0); Hematocrit 41.1 % (35.0-49.0); Hemoglobin 13.5 g/dL (12.0-15.0); Immature Granulocyte Absolute 0.02 K/mm3 (0.00-0.00); Immature Granulocyte Percent A 0.2 % (0.0-0.0); Lymphocytes Absolute Auto 3.07 K/mm3 (1.10-4.50); Lymphocytes Percent Auto 33.8 % (18.0-42.0); Mean Corpuscular HGB Conc 32.8 g/dL (32.0-36.0); Mean Corpuscular Hemoglobin 29.7 pg (27.0-31.0); Mean Corpuscular Volume 90.3 fL (78.0-102.0); Mean Platelet Volume 9.2 fl (9.2-11.8); Monocytes Absolute Auto 0.51 K/mm3 (0.10-0.90); Monocytes Percent Auto 5.6 % (2.0-11.0); Neutrophils Absolute Auto 5.2 K/mm3 (1.7-7.2); Neutrophils Percent Auto 57.7 % (50.0-70.0); Platelet Count Result 267 K/mm3 (150-420); Red Blood Count 4.55 M/mm3 (4.20-5.40); Red Cell Distribution Width 12.2 % (11.6-14.4); White Blood Count 9.1 K/mm3 (4.8-10.8)
[2022-07-19 11:26] LABS: Alanine Aminotransferase 20 U/L (14-59); Alkaline Phosphatase 79 U/L (46-116); Anion Gap 9 mmol/L (8-16); Aspartate Amino Transferase 12 U/L (15-37); Bilirubin,Total 0.3 mg/dL (0.00-1.00); Blood Urea Nitrogen 6 mg/dL (7-18); Calcium 8.8 mg/dL (8.5-10.1); Carbon Dioxide 24 mmol/L (21-32); Chloride 106 mmol/L (98-108); Estimated Glomerular Filt Rate > 60; Glucose 101 mg/dL (70-99); Osmolality Calculated 285 mOsm/kg (285-295); Potassium 4.1 mmol/L (3.5-5.1); Sodium 139 mmol/L (136-145); Total Protein 7.3 g/dL (6.4-8.2)
[2022-07-19 11:28] LABS: Strep Group A RT-PCR Negative (Negative)
[2022-07-19 11:40] LABS: Influenza A QL RT-PCR Negative (Negative); Influenza B QL RT-PCR Negative (Negative); SARS-CoV-2 RNA PCR Negative (Negative)
== END 2022-07-19 10:37 | disposition home or self-care (01) ==
LOC: CHSLAB 10:37
PROVIDERS: PCP Internal Medicine; Visit Provider Internal Medicine
DX: J06.9 Acute upper respiratory infection, unspecified (principal); Z20.822 Contact with and (suspected) exposure to COVID-19
CPT/HCPCS: 36415; 71046; 80053; 85025; 87502; 87651; U0003; U0005

== ENCOUNTER 2022-07-30 09:04 | Outpatient (RCR) | payer OTHER, SELFPAY ==
--- NOTE | 2022-07-30 09:43 | PTOPEVAL1 ---
Assessment and note entered by Ari Crenshaw Evaluation Information Assessment Status Evaluation Diagnosis cervical facet syndrome, cervical spinal compression Onset 04/05/22 Subjective Information Pt. reports she underwent surgery on April 05. She states that prior to surgery she was having pain down the left arm, but it has stopped. Since surgery she has noticed increased neck pain and numbness in the right side of the face. She reports that she was informed by her doctor that she did have some sensory nerves cut during surgery that resulted in the facial numbness. She reports that since surgery her main complication is pain up the neck. She notes some stiffness with turning the head to the left and right. 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 She is doing some light lifting. She reports that her goal for therapy is to decrease neck and fatigue. Reported Pain Level Pain Score 5: Self Report Assessment PT Clinical Summary Pt. is a 62 year old female who enters the clinic with neck pain post surgery. She presents with impaired ROM, impaired strength, impaired psotural awareness, and pain. continued treatment is indicated in order to improve these areas to allow the pt. to be able to complete all IADL's with improved comfort. Plan of Care Interventions Electrical Stimulation,Hot Pack/Cold Pack,Manual Therapy,Neuro Re-education,Patient/Caregiver Educati,Therapeutic Activities,Therapeutic Exercise,Self-Care/Home Management,Ultrasound PT Services Indicated Yes Treatment Frequency and 2x/week x 10 visits Duration These treatments will address the objective and functional deficits as defined above. The patient will be advanced safely and appropriately in order for the patient to progress towards his/her prior level of function. Additional exercises will be introduced and as well as a comprehensive home exercise program upon discharge, if needed, ?to ensure carryover of functional gains achieved in the clinic. This treatment plan has been reviewed and agreement upon by the patient.
== END 2022-08-13 15:20 | disposition home or self-care (01) ==
LOC: CHSPT 09:04
DX: M47.812 Spondylosis without myelopathy or radiculopathy, cervical region (principal); G95.20 Unspecified cord compression
CPT/HCPCS: 97014; 97110; 97161; G0283

== ENCOUNTER 2022-07-30 12:31 | Emergency (ER) | payer OTHER, SELFPAY ==
[2022-07-30 12:39] VITALS: BP 126/84; PULSE 61; RESP 13; TEMP 36.6; O2SAT 100
--- NOTE | 2022-07-30 13:04 | ECG_ITS ---
Measurements Intervals [place] Rate: 52 P: 40 MI: 175 QRS: 47 QRSD: 92 T: 19 QT: 404 QTc: 377 Interpretive Statements SINUS BRADYCARDIA LOW QRS VOLTAGE IN PRECORDIAL LEADS BASELINE ARTIFACT- I, II, III, AVR, AVL, AVF, V1-V2 BORDERLINE ECG COMPARED TO ECG 03/18/2022 21:08:55 NO SIGNIFICANT CHANGES HEART RATE HAS INCREASED Electronically Signed On 07-30-2022 13:30:33 PLANNING MANAGER by Diaz Pruitt D.O.
--- NOTE | 2022-07-30 13:05 | ED.ARRPALP ---
HPI - Arrhythmia/Palpitations General Chief Complaint: Arrhythmia/Palpitations Stated Complaint: HEART RATE 30 AND BLOOD PRESSURE LOW Time Seen by Provider: 07/30/22 12:53 Source: patient Mode of arrival: ambulatory Limitations: no limitations History of Present Illness HPI narrative: 62-year-old female, ex-smoker with a history of hypertension, dyslipidemia,COPD, CVA, Flecainide, fibromyalgia, IBS, anxiety, atrial fibrillation with intermittent flecainide, intermittent bradycardia was noted to have -- bradycardia with a heart rate in the 30 and blood pressure as low as 74/44 this morning. On presentation to the ER the patient was noted to have a pulse of 61 and a blood pressure of 126/84. The patient is not on any rate limiting drugs. The patient denied any chest pain or shortness of breath. Onset (ago): hour(s) ( Transient episode 2 hours ago) Severity: mild Context: occurred during rest Arrhythmia history: other ( bradycardia and hypotension at rest.) Associated symptoms: denies other symptoms Related Data Home Medications Medication Instructions Recorded Confirmed baclofen 10 mg tablet 20 mg PO DAILY PRN Pain 09/24/19 07/02/22 famotidine 40 mg tablet 40 mg PO BID 09/24/19 07/02/22 multivitamin (Multiple Vitamins 1 tablet PO BID 12/24/19 07/02/22 tablet) ascorbate calcium (vitamin C) 500 500 mg PO DAILY 01/23/21 07/02/22 mg tablet cholecalciferol (vitamin D3) 25 25 mcg PO DAILY 01/23/21 07/02/22 mcg (1,000 unit) capsule vitamin B12 500 mcg-folic acid 400 1 tablet PO DAILY 01/23/21 07/02/22 mcg tablet ondansetron HCl 4 mg tablet 4 mg PO PRN PRN Nausea 03/21/21 07/02/22 (Zofran) acetaminophen 325 mg capsule 650 mg PO Q8H PRN Pain (Scale 03/16/22 07/02/22 (Tylenol) Score 1-3) hydrocodone 5 mg-acetaminophen 325 1 tablet PO QID PRN Pain 03/16/22 07/02/22 mg tablet pravastatin 20 mg tablet 10 mg PO DAILY 03/16/22 07/02/22 rivaroxaban 20 mg tablet (Xarelto) 20 mg PO DAILY 03/16/22 07/02/22 womdfq-[id number]-[id number] 2 cap PO TIDWMEAL 03/18/22 07/02/22 12,000-38,000-60,000 unit capsule,delayed rel (Creon) polyethylene glycol 3350 17 gram 17 g PO DAILY 03/19/22 07/02/22 oral powder packet (Miralax) albuterol sulfate 90 mcg/actuation 2 inh inhalation Q4H PRN Shortness 07/30/22 07/30/22 aerosol inhaler Of Breath diphenoxylate-atropine 2.5 1 tablet PO QID PRN Atrial 07/30/22 07/30/22 mg-0.025 mg tablet Fibrillation Allergies Allergy/AdvReac Type Severity Reaction Status Date / Time ceftriaxone [From Rocephin] Allergy Intermediate Hives Verified 07/30/22 13:23 esomeprazole Allergy Intermediate Hives Verified 07/30/22 13:23 omeprazole Allergy Intermediate Hives Verified 07/30/22 13:23 hydromorphone [From Dilaudid] AdvReac Intermediate Anxiety Verified 07/30/22 13:23 trazodone AdvReac Intermediate Dizziness Verified 07/30/22 13:23 Review of Systems Review of Systems: All systems reviewed & are unremarkable except as noted in HPI and below Constitutional: Constitutional: Reports as per HPI and Reports no additional constitutional complaints Eyes: Eyes: Reports as per HPI and Reports no additional eye complaints ENT: Reports system reviewed and no additional complaints, except as documented and Reports as per HPI Cardiovascular: Cardiovascular: Reports as per HPI and Reports no additional cardiovascular complaints Comments: Transient bradycardia/ hypotension which was asymptomatic Respiratory: Respiratory: Reports as per HPI and Reports no additional respiratory complaints Gastrointestinal: Gastrointestinal: Reports as per HPI and Reports no additional gastrointestinal complaints Genitourinary: Genitourinary: Reports no additional female genitourinary complaints and Reports as per HPI Musculoskeletal: Musculoskeletal: Reports no additional musculoskeletal complaints and Reports as per HPI Integumentary/Breasts: Skin/Breast: Reports system reviewed and no additional complaints, except as docu
[2022-07-30 13:13] VITALS: BP 126/84; PULSE 61; RESP 20; TEMP 36.6; O2SAT 100
[2022-07-30 13:27] LABS: Basophils Absolute Auto 0.09 K/mm3 (0.00-0.10); Basophils Percent Auto 1.1 % (0.0-1.0); Eosinophils Absolute Auto 0.22 K/mm3 (0.02-0.50); Eosinophils Percent Auto 2.7 % (1.0-6.0); Hematocrit 38.3 % (35.0-49.0); Hemoglobin 12.7 g/dL (12.0-15.0); Immature Granulocyte Absolute 0.02 K/mm3 (0.00-0.00); Immature Granulocyte Percent A 0.2 % (0.0-0.0); Lymphocytes Absolute Auto 2.72 K/mm3 (1.10-4.50); Mean Corpuscular HGB Conc 33.2 g/dL (32.0-36.0); Mean Corpuscular Hemoglobin 30.2 pg (27.0-31.0); Mean Corpuscular Volume 91.2 fL (78.0-102.0); Mean Platelet Volume 9.4 fl (9.2-11.8); Monocytes Absolute Auto 0.47 K/mm3 (0.10-0.90); Monocytes Percent Auto 5.7 % (2.0-11.0); Neutrophils Absolute Auto 4.7 K/mm3 (1.7-7.2); Neutrophils Percent Auto 57.3 % (50.0-70.0); Platelet Count Result 273 K/mm3 (150-420); Red Cell Distribution Width 12.4 % (11.6-14.4); White Blood Count 8.3 K/mm3 (4.8-10.8)
[2022-07-30 13:52] LABS: Alanine Aminotransferase 17 U/L (14-59); Albumin Level 3.7 g/dL (3.4-5.0); Alkaline Phosphatase 70 U/L (46-116); Anion Gap 6 mmol/L (8-16); Aspartate Amino Transferase < 10 U/L (15-37); Bilirubin,Total 0.2 mg/dL (0.00-1.00); Blood Urea Nitrogen 8 mg/dL (7-18); Calcium 8.6 mg/dL (8.5-10.1); Carbon Dioxide 27 mmol/L (21-32); Chloride 106 mmol/L (98-108); Estimated CRCL calculation 72 ml/min; Estimated Glomerular Filt Rate > 60; Glucose 98 mg/dL (70-99); NT Pro B Type Natriuretic Pept 145 pg/mL (0-125); Osmolality Calculated 286 mOsm/kg (285-295); Sodium 139 mmol/L (136-145); Total Protein 6.7 g/dL (6.4-8.2); Troponin I 4.4 ng/L (0.00-60.4)
[2022-07-30 14:37] VITALS: BP 110/65; PULSE 56; RESP 17; TEMP 37; O2SAT 98
== END 2022-07-30 14:45 | disposition home or self-care (01) ==
PROVIDERS: Emergency Provider Internal Medicine Critical Care Medicine; PCP Internal Medicine
DX: R00.1 Bradycardia, unspecified (principal); Z87.891 Personal history of nicotine dependence
CPT/HCPCS: 36415; 80053; 83880; 84443; 84484; 85025; 93005; 99284

== ENCOUNTER 2022-09-27 16:59 | Outpatient (CLI) | payer OTHER, SELFPAY ==
--- NOTE | ~2022-09-27 | XR_ITS ---
EXAMINATION: XR chest 2V 09/27/2022 17:33 INDICATION: Covid infection PROCEDURE: PA and lateral views of the chest COMPARISON: 07/19/2022 FINDINGS: The lungs are clear. The cardiomediastinal silhouette is within normal limits. There are no pleural effusions. There is no pneumothorax suspected. IMPRESSION: 1: NO ACUTE CARDIOPULMONARY DISEASE. Reviewed, dictated and finalized at location A. EWATER DESIGN ENGINEER
[2022-09-27 17:16] LABS: Basophils Absolute Auto 0.09 K/mm3 (0.00-0.10); Eosinophils Absolute Auto 0.19 K/mm3 (0.02-0.50); Eosinophils Percent Auto 2.1 % (1.0-6.0); Hematocrit 38.9 % (35.0-49.0); Hemoglobin 13.1 g/dL (12.0-15.0); Immature Granulocyte Absolute 0.01 K/mm3 (0.00-0.00); Immature Granulocyte Percent A 0.1 % (0.0-0.0); Lymphocytes Absolute Auto 3.57 K/mm3 (1.10-4.50); Lymphocytes Percent Auto 40.1 % (18.0-42.0); Mean Corpuscular HGB Conc 33.7 g/dL (32.0-36.0); Mean Corpuscular Hemoglobin 30.3 pg (27.0-31.0); Mean Platelet Volume 9.4 fl (9.2-11.8); Monocytes Absolute Auto 0.58 K/mm3 (0.10-0.90); Monocytes Percent Auto 6.5 % (2.0-11.0); Neutrophils Absolute Auto 4.5 K/mm3 (1.7-7.2); Neutrophils Percent Auto 50.2 % (50.0-70.0); Platelet Count Result 252 K/mm3 (150-420); Red Blood Count 4.32 M/mm3 (4.20-5.40); Red Cell Distribution Width 12.3 % (11.6-14.4); White Blood Count 8.9 K/mm3 (4.8-10.8)
[2022-09-27 17:32] LABS: Alanine Aminotransferase 17 U/L (14-59); Albumin Level 4.1 g/dL (3.4-5.0); Alkaline Phosphatase 78 U/L (46-116); Anion Gap 7 mmol/L (8-16); Aspartate Amino Transferase 13 U/L (15-37); Bilirubin,Total 0.4 mg/dL (0.00-1.00); Blood Urea Nitrogen 7 mg/dL (7-18); Calcium 8.9 mg/dL (8.5-10.1); Carbon Dioxide 28 mmol/L (21-32); Chloride 101 mmol/L (98-108); Estimated Glomerular Filt Rate > 60; Glucose 89 mg/dL (70-99); Osmolality Calculated 279 mOsm/kg (285-295); Potassium 3.9 mmol/L (3.5-5.1); Sodium 136 mmol/L (136-145); Total Protein 7.1 g/dL (6.4-8.2)
== END 2022-09-27 17:00 | disposition home or self-care (01) ==
LOC: CHSLAB 17:01
PROVIDERS: PCP Internal Medicine; Visit Provider Internal Medicine
DX: J06.9 Acute upper respiratory infection, unspecified (principal); U07.1 COVID-19
CPT/HCPCS: 36415; 71046; 80053; 85025

== ENCOUNTER 2022-10-22 08:53 | Outpatient (CLI) | payer OTHER, SELFPAY ==
--- NOTE | ~2022-10-22 | MM_ITS ---
EXAMINATION: MM diagnostic nette BI w kyara HISTORY: Follow-up right breast asymmetry TECHNIQUE: Additional 3-D tomosynthesis images of the breasts were performed and synthetic 2-D images were generated. CAD analysis was submitted and interpreted. COMPARISON: Comparison to multiple prior studies sequentially, with oldest reviewed study dated 09/2017. BREAST PARENCHYMAL COMPOSITION: Breast composed of scattered areas of fibroglandular density FINDINGS: The breasts are stable. No suspicious masses, calcifications or architectural distortion in either breast to suggest malignancy. Stable asymmetry of the right breast. IMPRESSION: 1. No mammographic evidence for malignancy in either breast. 2. Routine yearly screening mammogram and regular clinical breast examination are recommended. BI-RADS Category 1: Negative Reviewed, dictated and finalized at location A. UNTS PAYABLE LEAD IMPRESSION: 1. No mammographic evidence for malignancy in either breast. 2. Routine yearly screening mammogram and regular clinical breast examination a re recommended. BI-RADS Category 1: Negative
== END 2022-10-22 08:54 | disposition home or self-care (01) ==
LOC: CHSIMG 08:53
PROVIDERS: PCP Internal Medicine; Visit Provider Internal Medicine
DX: R92.8 Other abnormal and inconclusive findings on diagnostic imaging of breast (principal)
CPT/HCPCS: 77062; 77066; G0279

== ENCOUNTER 2023-01-01 09:29 | Emergency (ER) | payer OTHER, SELFPAY ==
[2023-01-01] VITALS (19 sets, daily range): BP systolic 99–138; BP diastolic 51–80; PULSE 44–62; RESP 12–30; TEMP 36–36.2; O2SAT 96–100
--- NOTE | ~2023-01-01 | CT_ITS ---
EXAMINATION: CT brain wo con DATE: 01/01/2023 10:22 INDICATION: Dizziness. Syncope. Left-sided chest pain. TECHNIQUE: Computed tomography (CT) of the head was performed without intravenous contrast. The dose- length product was 605.33 mGy-cm. Automated exposure control and iterative reconstruction technique w ere employed. COMPARISON: CT dated 03/05/2009 and MRI dated 04/16/2018 FINDINGS: Generalized brain parenchymal volume loss. There are scattered mild periventricular and sub cortical white matter changes, most likely related to small vessel ischemic disease (microangiopathy) . No ventriculomegaly or midline shift. Basilar cisterns are patent. Paranasal sinuses and mastoids a re pneumatized. No depressed skull fractures. IMPRESSION: 1. No acute intracranial abnormality. 2: Chronic age-related findings. Reviewed, dictated and finalized at location L.
--- NOTE | ~2023-01-01 | XR_ITS ---
EXAMINATION: XR chest 1V portable 01/01/2023 10:21 INDICATION: Shortness of breath. COPD. PROCEDURE: AP portable chest COMPARISON: Comparison to multiple prior studies sequentially, with oldest reviewed study dated 08/24. FINDINGS: The lungs are clear. The cardiomediastinal silhouette is within normal limits. There are no pleural effusions. There is no pneumothorax suspected. There is osteoarthritis of the left gleno humeral joint. IMPRESSION: 1: NO ACUTE CARDIOPULMONARY DISEASE. Reviewed, dictated and finalized at location L.
--- NOTE | 2023-01-01 09:34 | ED.SYNCOPE ---
HPI - Syncope General Chief Complaint: Syncope Stated Complaint: syncope Time Seen by Provider: 01/01/23 09:34 Source: patient Mode of arrival: ambulatory Limitations: no limitations History of Present Illness HPI narrative: 62-year-old female, ex-smoker with a history of CVA, hypertension, COPD, atrial fibrillation on Xarelto and p.r.n. flecainide, Negative stress test on 03/14 fibromyalgia, osteoarthritis, plantar fascitis, arthritis, IBS presents to the ER with -- syncopal spell this morning. patient was making breakfast when she felt lightheaded. She went and sat on the couch. No loss of consciousness. No urinary incontinence. currently the patient does not have any dizziness -- palpitation with bradycardia /tachycardia -- burning sensation in her chest -- chronic shortness of breath -- Numbness in left leg MD complaint: felt faint and almost passed out Onset (ago): hour(s) ( 3 hours ago) Duration of episode: 30 -: minutes(s) Prodromal symptoms: lightheaded Witnessed: No Context: at rest Injuries sustained associated with event: none Current symptoms: none History: previous syncopal episode ( previous episodes of dizziness) Treatments prior to arrival: none Related Data Home Medications Medication Instructions Recorded Confirmed baclofen 10 mg tablet 20 mg PO DAILY PRN Pain 09/24/19 10/01/22 famotidine 40 mg tablet 40 mg PO BID 09/24/19 10/01/22 multivitamin (Multiple Vitamins 1 tablet PO BID 12/24/19 10/01/22 tablet) ascorbate calcium (vitamin C) 500 500 mg PO DAILY 01/23/21 10/01/22 mg tablet cholecalciferol (vitamin D3) 25 25 mcg PO DAILY 01/23/21 10/01/22 mcg (1,000 unit) capsule vitamin B12 500 mcg-folic acid 400 1 tablet PO DAILY 01/23/21 10/01/22 mcg tablet ondansetron HCl 4 mg tablet 4 mg PO PRN PRN Nausea 03/21/21 10/01/22 (Zofran) acetaminophen 325 mg capsule 650 mg PO Q8H PRN Pain (Scale 03/16/22 10/01/22 (Tylenol) Score 1-3) hydrocodone 5 mg-acetaminophen 325 1 tablet PO QID PRN Pain 03/16/22 10/01/22 mg tablet pravastatin 20 mg tablet 10 mg PO DAILY 03/16/22 10/01/22 rivaroxaban 20 mg tablet (Xarelto) 20 mg PO DAILY 03/16/22 10/01/22 olaghg-eapkcede-cchugsq 2 cap PO TIDWMEAL 03/18/22 10/01/22 12,000-38,000-60,000 unit capsule,delayed rel (Creon) polyethylene glycol 3350 17 gram 17 g PO DAILY 03/19/22 10/01/22 oral powder packet (Miralax) albuterol sulfate 90 mcg/actuation 2 inh inhalation Q4H PRN Shortness 07/30/22 10/01/22 aerosol inhaler Of Breath diphenoxylate-atropine 2.5 1 tablet PO QID PRN Diarrhea 01/01/23 01/01/23 mg-0.025 mg tablet Allergies Allergy/AdvReac Type Severity Reaction Status Date / Time ceftriaxone [From Rocephin] Allergy Intermediate Hives Verified 01/01/23 10:00 esomeprazole Allergy Intermediate Hives Verified 01/01/23 10:00 omeprazole Allergy Intermediate Hives Verified 01/01/23 10:00 hydromorphone [From Dilaudid] AdvReac Intermediate Anxiety Verified 01/01/23 10:00 trazodone AdvReac Intermediate Dizziness Verified 01/01/23 10:00 Review of Systems Review of Systems: All systems reviewed & are unremarkable except as noted in HPI and below Constitutional: Constitutional: Reports as per HPI and Reports no additional constitutional complaints Eyes: Eyes: Reports as per HPI and Reports no additional eye complaints ENT: Reports system reviewed and no additional complaints, except as documented and Reports as per HPI Cardiovascular: Cardiovascular: Reports as per HPI and Reports no additional cardiovascular complaints Comments: chest discomfort fluctuating heart rates bradycardia alternating with tachyca Respiratory: Respiratory: Reports no additional respiratory complaints and Reports dyspnea Comments: chronic shortness of breath Gastrointestinal: Gastrointestinal: Reports as per HPI Genitourinary: Comments: had flushing this morning. History of hysterectomy with oophorectomy secondary to endometriosis Musculoskeletal: Musculosk
--- NOTE | 2023-01-01 09:37 | ECG_ITS ---
Measurements Intervals [place] Rate: 47 P: 30 LA: 177 QRS: 109 QRSD: 96 T: 1 QT: 398 QTc: 353 Interpretive Statements SINUS BRADYCARDIA RIGHT AXIS DEVIATION LOW QRS VOLTAGE IN PRECORDIAL LEADS BORDERLINE ECG COMPARED TO ECG 07/30/2022 13:24:43 NO SIGNIFICANT CHANGES Electronically Signed On 01-01-2023 15:48:13 CDT by Rickie Cunningham M.D.
[2023-01-01 10:38] LABS: Basophils Absolute Auto 0.07 K/mm3 (0.00-0.10); Basophils Percent Auto 0.6 % (0.0-1.0); Eosinophils Absolute Auto 0.24 K/mm3 (0.02-0.50); Eosinophils Percent Auto 2.2 % (1.0-6.0); Hematocrit 39.8 % (35.0-49.0); Immature Granulocyte Absolute 0.03 K/mm3 (0.00-0.00); Immature Granulocyte Percent A 0.3 % (0.0-0.0); Lymphocytes Absolute Auto 2.78 K/mm3 (1.10-4.50); Lymphocytes Percent Auto 25.8 % (18.0-42.0); Mean Corpuscular HGB Conc 32.7 g/dL (32.0-36.0); Mean Corpuscular Hemoglobin 30.1 pg (27.0-31.0); Mean Corpuscular Volume 92.1 fL (78.0-102.0); Monocytes Absolute Auto 0.74 K/mm3 (0.10-0.90); Monocytes Percent Auto 6.9 % (2.0-11.0); Neutrophils Absolute Auto 6.9 K/mm3 (1.7-7.2); Neutrophils Percent Auto 64.2 % (50.0-70.0); Platelet Count Result 265 K/mm3 (150-420); Red Blood Count 4.32 M/mm3 (4.20-5.40); Red Cell Distribution Width 12.5 % (11.6-14.4); White Blood Count 10.8 K/mm3 (4.8-10.8)
[2023-01-01 10:54] LABS: D Dimer 0.19 mg/L (0.19-0.50); Partial Thromboplastin Time 28.8 SEC (23.90-30.70); Prothrombin Time 10.9 Seconds (9.50-12.10)
[2023-01-01 11:02] LABS: Lactic Acid Reflex 0.9 mmol/L (0.4-2.0)
[2023-01-01 11:05] LABS: Alanine Aminotransferase 24 U/L (14-59); Albumin Level 3.8 g/dL (3.4-5.0); Alkaline Phosphatase 76 U/L (46-116); Anion Gap 8 mmol/L (8-16); Aspartate Amino Transferase 13 U/L (15-37); Bilirubin,Total 0.3 mg/dL (0.00-1.00); Blood Urea Nitrogen 10 mg/dL (7-18); Calcium 8.7 mg/dL (8.5-10.1); Carbon Dioxide 27 mmol/L (21-32); Chloride 106 mmol/L (98-108); Estimated Glomerular Filt Rate > 60; Glucose 95 mg/dL (70-99); NT Pro B Type Natriuretic Pept 71 pg/mL (0-125); Osmolality Calculated 291 mOsm/kg (285-295); Potassium 4.2 mmol/L (3.5-5.1); Sodium 141 mmol/L (136-145); Total Protein 6.9 g/dL (6.4-8.2); Troponin I 4.6 ng/L (0.00-60.4)
[2023-01-01 11:54] LABS: Appearance Urine Clear (Clear); Bilirubin Urine Negative (Negative); Blood Urine 1+ (Negative); Color Urine Light Yellow (Yellow); Glucose Urine UA Negative (Negative); Ketones Urine Negative (Negative); Leukocyte Esterase Ur Negative LEU/UL (Negative); Nitrate Urine Negative (Negative); Protein Urine Negative (Negative); Specific Grav Ur <= 1.005 (1.010-1.020); Urobilinogen Urine 0.2 mg/dL (0.2-1.0)
[2023-01-01 11:57] LABS: Add Urine Microscopic? YES; Bacteria Urine Trace /hpf; Squamous Epithelial Cell Urine Rare /hpf (Few); WBC Urine None seen /hpf (0-3)
== END 2023-01-01 12:10 | disposition home or self-care (01) ==
PROVIDERS: Emergency Provider Internal Medicine Critical Care Medicine; PCP Internal Medicine
DX: I48.0 Paroxysmal atrial fibrillation (principal); R55 Syncope and collapse; F41.9 Anxiety disorder, unspecified; J44.9 Chronic obstructive pulmonary disease, unspecified; I10 Essential (primary) hypertension; E78.5 Hyperlipidemia, unspecified; Z79.01 Long term (current) use of anticoagulants; Z86.73 Personal history of transient ischemic attack (TIA), and cerebral infarction without residual deficits; Z87.891 Personal history of nicotine dependence
CPT/HCPCS: 36415; 70450; 71045; 80053; 81001; 83605; 83880; 84443; 84484; 85025; 85380; 85610; 85730; 93005; 99284

== ENCOUNTER 2023-02-12 14:14 | Outpatient (CLI) | payer OTHER, SELFPAY ==
--- NOTE | ~2023-02-12 | CT_ITS ---
EXAMINATION: CT abdomen pelvis wo con DATE: 02/12/2023 14:39 INDICATION: Pelvic pain and hematuria TECHNIQUE: Computed tomography (CT) of the abdomen and pelvis was performed without intravenous contr ast. The dose-length product was 194.87 mGy-cm. Automated exposure control and iterative reconstruction technique were employed. COMPARISON: CT dated 05/21/2022 FINDINGS: Lung bases are unremarkable. Heart size normal. No significant pleural or pericardial effus ion. Status post cholecystectomy with subtle pneumobilia. The liver, spleen, pancreas, adrenal glands and kidneys are unremarkable. There is a 2 mm nonobstructing right renal stone. No ureteral stones o r hydronephrosis. There is a punctate nonobstructing left renal stone. There is atherosclerosis of th e aorta without areas. Nonobstructive bowel pattern. Bladder is unremarkable. No free air or free flu id. There is a colorectal anastomosis. There is a hemangioma of L3. Mild lumbar spondylosis. Moderate bilateral hip osteoarthritis. There are punctate calcifications of the pancreas suggesting chronic p ancreatitis. Status post hysterectomy. IMPRESSION: 1. Nonobstructing bilateral nephrolithiasis. Reviewed, dictated and finalized at location L.
== END 2023-02-12 14:15 | disposition home or self-care (01) ==
PROVIDERS: PCP Internal Medicine; Visit Provider Internal Medicine
DX: R10.2 Pelvic and perineal pain (principal); R31.9 Hematuria, unspecified; M54.50 Low back pain, unspecified; N20.0 Calculus of kidney
CPT/HCPCS: 74176

== ENCOUNTER 2023-03-27 05:50 | Day surgery (SDC) | payer OTHER, SELFPAY ==
[2023-03-25 09:21] VITALS: BMI 27.4
--- NOTE | 2023-03-25 09:31 | PC.NURSE ---
Report to the Outpatient Waiting Room, entrance under the green pavilion located off [facility], at time 6:00 on date 03/27/23. Planned Procedure Time: 7:30. Time changes happen often and if your time is changed the preop area will call you the afternoon before. - You and your visitor will be asked to self-screen and do not enter if you have any COVID symptoms. - A mask is optional within the hospital at this time. Patients may have clear liquids (water, carbonated beverages, clear teas, apple juice) until 3 hours prior to surgery with a maximum of 20 ounces. - No food from midnight until time of surgery Take the following medications with a SIP of water the morning of surgery: IF NEEDED: INHALER, FLECAINIDE, PAIN PILL DO NOT STOP ANY OF YOUR OTHER PRESCRIPTION MEDICATIONS PRIOR TO SURGERY ?EXCEPT THE FOLLOWING Medications to discontinue per physician: VITAMINS/SUPPLEMENTS Date to take last dose: NO MORE UNTIL AFTER SURGERY Please no make-up, nail [place] citizen, hairspray, perfume, deodorant, or body powder the day of surgery. No jewelry (including any body piercings) or valuables the day of surgery, leave them at home. Please take a shower or bath the night before, or the morning of, surgery with an antibacterial soap. Wear comfortable, loose fitting clothing. - Jewelry must be removed prior to entering the operating room. Rings and piercings that are not removed may be cut off. - The hospital will not accept responsibility for valuables. - Please leave all valuables, including medications, at home the day of surgery. If you are going home after surgery, a licensed hammer driver must drive you home. - NO public transportation without another adult if you receive anesthesia. - We recommend that an adult stay with you for 24 hours following discharge. - We also recommend that you do not drive, make important decision, drink alcoholic beverages, or take any drugs that were not prescribed by your health care provider for at least 24 hours after your discharge time. Follow any additional instructions given to you from your surgeon. If you or anyone in your household have experienced Covid symptoms in the past week, please notify your surgeon or the nurse liaison at the phone number below for possible testing. Telephone instructions given to PT - CHOLO AMARO and asked if any additional questions and then verbalized understanding. Patient advised to call surgeon office or pre surgery nurse liaison [phone] if any additional questions.
--- NOTE | 2023-03-25 13:32 | WPDANESEPPF ---
Anes - Initial Pre Proc Eval Procedure: Operation Date: 03/27/23 07:30 Proposed Procedures p Left Open Carpal Tunnel Release - Kyle Alicia MD Date/Time: 03/25/23 13:32 Surgeon: Kyle Alicia MD Pre Op Diagnosis: Lt Carpal Tunnel Syndrome Patient Data Age: 62 Gender: F Height: 1.63 m Weight: 72.6 kg Allergies Allergy/AdvReac Type Severity Reaction Status Date / Time ceftriaxone [From Rocephin] Allergy Intermediate Hives Verified 03/27/23 06:16 esomeprazole Allergy Intermediate Hives Verified 03/27/23 06:16 omeprazole Allergy Intermediate Hives Verified 03/27/23 06:16 hydromorphone [From Dilaudid] AdvReac Intermediate Anxiety Verified 03/27/23 06:16 trazodone AdvReac Intermediate Dizziness Verified 03/27/23 06:16 Home Medications Medication Instructions Recorded Confirmed Type baclofen 10 mg tablet 20 mg PO DAILY PRN Pain 09/24/19 03/27/23 History famotidine 40 mg tablet 40 mg PO BID 09/24/19 03/27/23 History multivitamin (Multiple Vitamins 1 tablet PO BID 12/24/19 03/27/23 History tablet) ascorbate calcium (vitamin C) 500 500 mg PO DAILY 01/23/21 03/27/23 History mg tablet cholecalciferol (vitamin D3) 25 25 mcg PO DAILY 01/23/21 03/27/23 History mcg (1,000 unit) capsule vitamin B12 500 mcg-folic acid 400 1 tablet PO DAILY 01/23/21 03/27/23 History mcg tablet ondansetron HCl 4 mg tablet 4 mg PO PRN PRN Nausea 03/21/21 03/27/23 History (Zofran) acetaminophen 325 mg capsule 650 mg PO Q8H PRN Pain (Scale 03/16/22 03/27/23 History (Tylenol) Score 1-3) hydrocodone 5 mg-acetaminophen 325 1 tablet PO QID PRN Pain 03/16/22 03/27/23 History mg tablet pravastatin 20 mg tablet 10 mg PO DAILY 03/16/22 03/27/23 History rivaroxaban 20 mg tablet (Xarelto) 20 mg PO DAILY 03/16/22 03/27/23 History [id number]-[id number] 2 cap PO TIDWMEAL 03/18/22 03/27/23 History 12,000-38,000-60,000 unit capsule,delayed rel (Creon) polyethylene glycol 3350 17 gram 17 g PO DAILY 03/19/22 03/25/23 History oral powder packet (Miralax) albuterol sulfate 90 mcg/actuation 2 inh inhalation Q4H PRN Shortness 07/30/22 03/25/23 History aerosol inhaler Of Breath flecainide 100 mg tablet 100 mg PO .prn #30 tabs 11/12/22 03/27/23 Rx diphenoxylate-atropine 2.5 1 tablet PO QID PRN Diarrhea 01/01/23 03/25/23 History mg-0.025 mg tablet Lactobacillus 1 cap PO DAILY 03/25/23 03/27/23 History acidophilus-Bifidobac.animalis 2.5 billion cell capsule (Daily Probiotic) hydrocodone 5 mg-acetaminophen 325 1 tablet PO Q6H PRN pain #6 tabs 03/27/23 Rx mg tablet Patient hx anesthesia problems: none Family hx anesthesia problems: none Results Review: All pre-operative results and documents have been reviewed as part of the pre-operative evaluation. FORMERLY [facility], [facility] Past Medical History Medical History Anxiety Arthritis Arthritis of foot, right, degenerative Atrial fib/flutter, transient Atrial fibrillation COPD (chronic obstructive pulmonary disease) CVA (cerebral vascular accident) Disc disorder of cervical region Dizziness Dyslipidemia Fibromyalgia GERD (gastroesophageal reflux disease) Hair loss Hypertension IBS (irritable bowel syndrome) Osteoarthritis Plantar fasciitis, bilateral Pleurisy Wears glasses Surgical History Surgical History H/O: hysterectomy History of carpal tunnel surgery 03/2021 per patient questionnaire History of cholecystectomy History of colon surgery History of knee surgery 32 years ago per patient questionnaire Family History Family History Other Arthritis Cerebrovascular accident Social History Social History Smoking packs per day: 0.5 Smoking cigarettes per day: 10.0 Years smoked: 44 Smoking pack-years: 22.00 Smoking status:
[2023-03-27 06:05] VITALS: BP 131/47; PULSE 76; RESP 16; TEMP 36.3; O2SAT 100
[2023-03-27] MEDS: LACTATED RINGERS 1,000 ML 30 ML IV CONT (06:42)
--- NOTE | 2023-03-27 07:12 | WPDHPUPDATE1 ---
History and Physical Update Update Date/Time: 03/27/23 07:12 History and Physical has been reviewed, including an updated exam of the patient. There are NO changes in the patient's condition. Risks, benefits, and alternatives have been discussed and questions answered. Patient agrees to proceed with procedure.
--- NOTE | 2023-03-27 07:13 | WPDANESEPPF ---
Anes - Initial Pre Proc Eval Procedure: Operation Date: 03/27/23 07:30 Proposed Procedures p Left Open Carpal Tunnel Release - Kyle Alicia MD Date/Time: 03/27/23 07:13 Surgeon: Kyle Alicia MD Pre Op Diagnosis: Lt Carpal Tunnel Syndrome Patient Data Age: 62 Gender: F Height: 1.63 m Weight: 70.2 kg Last Vital Signs Temp 36.3 C L 03/27/23 06:05 Pulse 76 03/27/23 06:05 Resp 16 03/27/23 06:05 BP 131/47 L 03/27/23 06:05 Pulse Ox 100 03/27/23 06:05 O2 Del Method Room Air 03/27/23 06:05 Allergies Allergy/AdvReac Type Severity Reaction Status Date / Time ceftriaxone [From Rocephin] Allergy Intermediate Hives Verified 03/27/23 06:16 esomeprazole Allergy Intermediate Hives Verified 03/27/23 06:16 omeprazole Allergy Intermediate Hives Verified 03/27/23 06:16 hydromorphone [From Dilaudid] AdvReac Intermediate Anxiety Verified 03/27/23 06:16 trazodone AdvReac Intermediate Dizziness Verified 03/27/23 06:16 Home Medications Medication Instructions Recorded Confirmed Type baclofen 10 mg tablet 20 mg PO DAILY PRN Pain 09/24/19 03/27/23 History famotidine 40 mg tablet 40 mg PO BID 09/24/19 03/27/23 History multivitamin (Multiple Vitamins 1 tablet PO BID 12/24/19 03/27/23 History tablet) ascorbate calcium (vitamin C) 500 500 mg PO DAILY 01/23/21 03/27/23 History mg tablet cholecalciferol (vitamin D3) 25 25 mcg PO DAILY 01/23/21 03/27/23 History mcg (1,000 unit) capsule vitamin B12 500 mcg-folic acid 400 1 tablet PO DAILY 01/23/21 03/27/23 History mcg tablet ondansetron HCl 4 mg tablet 4 mg PO PRN PRN Nausea 03/21/21 03/27/23 History (Zofran) acetaminophen 325 mg capsule 650 mg PO Q8H PRN Pain (Scale 03/16/22 03/27/23 History (Tylenol) Score 1-3) hydrocodone 5 mg-acetaminophen 325 1 tablet PO QID PRN Pain 03/16/22 03/27/23 History mg tablet pravastatin 20 mg tablet 10 mg PO DAILY 03/16/22 03/27/23 History rivaroxaban 20 mg tablet (Xarelto) 20 mg PO DAILY 03/16/22 03/27/23 History [id number]-[id number]-ehnzrwt 2 cap PO TIDWMEAL 03/18/22 03/27/23 History 12,000-38,000-60,000 unit capsule,delayed rel (Creon) polyethylene glycol 3350 17 gram 17 g PO DAILY 03/19/22 03/25/23 History oral powder packet (Miralax) albuterol sulfate 90 mcg/actuation 2 inh inhalation Q4H PRN Shortness 07/30/22 03/25/23 History aerosol inhaler Of Breath flecainide 100 mg tablet 100 mg PO .prn #30 tabs 11/12/22 03/27/23 Rx diphenoxylate-atropine 2.5 1 tablet PO QID PRN Diarrhea 01/01/23 03/25/23 History mg-0.025 mg tablet Lactobacillus 1 cap PO DAILY 03/25/23 03/27/23 History acidophilus-Bifidobac.animalis 2.5 billion cell capsule (Daily Probiotic) Patient hx anesthesia problems: none Family hx anesthesia problems: none Results Review: All pre-operative results and documents have been reviewed as part of the pre-operative evaluation. FORMERLY [facility] & [facility] Past Medical History Medical History Anxiety Arthritis Arthritis of foot, right, degenerative Atrial fib/flutter, transient Atrial fibrillation COPD (chronic obstructive pulmonary disease) CVA (cerebral vascular accident) Disc disorder of cervical region Dizziness Dyslipidemia Fibromyalgia GERD (gastroesophageal reflux disease) Hair loss Hypertension IBS (irritable bowel syndrome) Osteoarthritis Plantar fasciitis, bilateral Pleurisy Wears glasses Surgical History Surgical History H/O: hysterectomy History of carpal tunnel surgery 03/2021 per patient questionnaire History of cholecystectomy History of colon surgery History of knee surgery 32 years ago per patient questionnaire Family History Family History Other Arthritis Cerebrovascular accident Social History Social History Smoking pack
[2023-03-27] MEDS: LIDO 1%/EPINEPHRINE 1:100,000 20 ML VIAL 5 ML INFILTRATE (07:34)
[2023-03-27 07:57] VITALS: BP 97/56; PULSE 86; RESP 12; O2SAT 94
--- NOTE | 2023-03-27 08:07 | W.PM.PROC2 ---
Procedure Note - Detailed Date of Procedure 03/27/23 Pre-op Diagnosis Lt Carpal Tunnel Syndrome Post-op Diagnosis Same Procedure Performed Left open carpal tunnel release Surgeon Kyle Alicia MD Anesthesia MAC Description of Procedure The left carpal tunnel site was marked on the patient with her consent. She was taken to the operating room where she was placed supine on the operating table. Time-out was held confirmed. She was given IV sedation. The left upper extremity was prepped and draped in usual fashion. The site was remarked for the incision and locally infiltrated with 1% lidocaine with epinephrine. The tourniquet was inflated to 250 mmHg. The incision was made as marked and blunt dissection revealed the palmar fascia. This and the transverse retinaculum were incised with a 15. Blade. Under 3 point retraction the ligament was visualized and released in both directions. No unusual anatomy was noted. The skin was closed with interrupted 5 0 nylon suture. The usual bandage was applied. She has instructions in wound care and follow-up and a prescription for hydrocodone 5/325 6. Estimated Blood Loss 0 Tourniquet Time 8 Drains No Packing No Pathology None sent Complications No immediate complications Condition Stable Disposition Same day
[2023-03-27 08:20] VITALS: BP 121/88; PULSE 68; RESP 16; O2SAT 98
[2023-03-27 08:40] VITALS: BP 111/58; PULSE 59; RESP 16
== END 2023-03-27 08:54 | disposition home or self-care (01) ==
PROVIDERS: PCP Internal Medicine; Visit Provider Plastic Surgery
PROC: (CPT 64721; principal; 2023-03-27 07:30)
DX: G56.02 Carpal tunnel syndrome, left upper limb (principal); J44.9 Chronic obstructive pulmonary disease, unspecified; E78.5 Hyperlipidemia, unspecified; I10 Essential (primary) hypertension; M79.7 Fibromyalgia; I48.0 Paroxysmal atrial fibrillation; K21.9 Gastro-esophageal reflux disease without esophagitis; F41.9 Anxiety disorder, unspecified; K58.9 Irritable bowel syndrome, unspecified; Z86.73 Personal history of transient ischemic attack (TIA), and cerebral infarction without residual deficits; Z79.01 Long term (current) use of anticoagulants; Z79.51 Long term (current) use of inhaled steroids; Z79.891 Long term (current) use of opiate analgesic; F17.210 Nicotine dependence, cigarettes, uncomplicated
CPT/HCPCS: 64721; A9270; J2250; J2405; J2704; J3010; J7120

== ENCOUNTER 2023-06-25 16:15 | Outpatient (CLI) | payer OTHER, SELFPAY ==
[2023-06-25 16:54] LABS: Influenza Control Valid (Valid); SARS-CoV-2 Ag Negative (Negative)
[2023-06-25 17:14] LABS: SARS-CoV-2 RNA PCR Negative (Negative)
[2023-06-25 17:16] LABS: Strep Group A RT-PCR NOT DETECTED (Negative)
== END 2023-06-25 16:16 | disposition home or self-care (01) ==
LOC: CHSLAB 16:17
PROVIDERS: PCP Internal Medicine; Visit Provider Nurse Practitioner Family
DX: J06.9 Acute upper respiratory infection, unspecified (principal); R50.9 Fever, unspecified; J02.9 Acute pharyngitis, unspecified
CPT/HCPCS: 87426; 87635; 87651; 87804; C9803

== ENCOUNTER 2023-07-05 15:33 | Outpatient (CLI) | payer OTHER, SELFPAY ==
--- NOTE | ~2023-07-05 | CT_ITS ---
EXAMINATION: CT abdomen pelvis w con DATE: 07/05/2023 16:32 INDICATION: Abdominal pain, diarrhea and nausea TECHNIQUE: Computed tomography (CT) of the abdomen and pelvis was performed with 100 cc Omnipaque 350 intravenous contrast. The dose-length product was 454.02 mGy-cm. Automated exposure control and iter ative reconstruction technique were employed. COMPARISON: 02/12/2023. FINDINGS: Lung bases unremarkable. Size normal. No significant pleural or pericardial effusion. There is atherosclerosis of the aorta without aneurysm. There is a distal colonic anastomosis at the recto sigmoid junction. Status post cholecystectomy. Normal appendix. No evidence for diverticulitis. Nonob structive bowel pattern. No free air or free fluid. No lymphadenopathy. Small amount of pneumobilia noted, likely from prior sphincterotomy. The liver, spleen, pancreas, adr enal glands and kidneys are unremarkable. There is severe osteoarthritis of the hips. There is modera te lower thoracic and upper lumbar spondylosis. There is a hemangioma of L3. IMPRESSION: 1. No acute abdominal abnormality. Reviewed, dictated and finalized at location A.
[2023-07-05 15:48] LABS: Basophils Absolute Auto 0.07 K/mm3 (0.00-0.10); Basophils Percent Auto 0.8 % (0.0-1.0); Eosinophils Absolute Auto 0.24 K/mm3 (0.02-0.50); Eosinophils Percent Auto 2.6 % (1.0-6.0); Hematocrit 38.5 % (35.0-49.0); Immature Granulocyte Absolute 0.02 K/mm3 (0.00-0.00); Immature Granulocyte Percent A 0.2 % (0.0-0.0); Lymphocytes Absolute Auto 3.17 K/mm3 (1.10-4.50); Lymphocytes Percent Auto 34.1 % (18.0-42.0); Mean Corpuscular HGB Conc 33.8 g/dL (32.0-36.0); Mean Corpuscular Hemoglobin 31.9 pg (27.0-31.0); Mean Corpuscular Volume 94.6 fL (78.0-102.0); Mean Platelet Volume 9.1 fl (9.2-11.8); Monocytes Absolute Auto 0.69 K/mm3 (0.10-0.90); Monocytes Percent Auto 7.4 % (2.0-11.0); Neutrophils Absolute Auto 5.1 K/mm3 (1.7-7.2); Neutrophils Percent Auto 54.9 % (50.0-70.0); Platelet Count Result 235 K/mm3 (150-420); Red Blood Count 4.07 M/mm3 (4.20-5.40); Red Cell Distribution Width 12.9 % (11.6-14.4); White Blood Count 9.3 K/mm3 (4.8-10.8)
[2023-07-05 16:04] LABS: Alanine Aminotransferase 17 U/L (14-59); Albumin Level 3.8 g/dL (3.4-5.0); Alkaline Phosphatase 71 U/L (46-116); Amylase 40 U/L (25-115); Anion Gap 9 mmol/L (8-16); Aspartate Amino Transferase 10 U/L (15-37); Bilirubin,Total 0.4 mg/dL (0.00-1.00); Blood Urea Nitrogen 4 mg/dL (7-18); Calcium 9.4 mg/dL (8.5-10.1); Carbon Dioxide 27 mmol/L (21-32); Chloride 104 mmol/L (98-108); Estimated Glomerular Filt Rate > 60; Glucose 86 mg/dL (70-99); Lipase 15 U/L (16-77); Osmolality Calculated 285 mOsm/kg (285-295); Potassium 4.2 mmol/L (3.5-5.1); Sodium 140 mmol/L (136-145); Total Protein 6.9 g/dL (6.4-8.2)
== END 2023-07-05 15:34 | disposition home or self-care (01) ==
PROVIDERS: PCP Internal Medicine; Visit Provider Nurse Practitioner Family
DX: R10.9 Unspecified abdominal pain (principal); R19.7 Diarrhea, unspecified
CPT/HCPCS: 36415; 74177; 80053; 82150; 83690; 85025; Q9967

== ENCOUNTER 2023-09-03 15:24 | Outpatient (CLI) | payer OTHER, SELFPAY ==
--- NOTE | ~2023-09-03 | XR_ITS ---
EXAMINATION: XR foot RT min 3V DATE: 09/03/2023 15:54 INDICATION: Right foot pain TECHNIQUE: Dorsoplantar, lateral, and 2 oblique views of the right foot were obtained. COMPARISON: 10/23/2021 FINDINGS: There is no fracture. There is moderate osteoarthritis of multiple interphalangeal joints. There is mild osteoarthritis of the midfoot. Posterior and plantar calcaneal enthesophytes are noted. There is calcification of the plantar fascia. IMPRESSION: 1. No acute osseous abnormality. Reviewed, dictated and finalized at location L. LASS INSPECTOR
--- NOTE | ~2023-09-03 | XR_ITS ---
EXAMINATION: XR ankle RT min 3V INDICATION: Right ankle pain TECHNIQUE: Four views of the right ankle are obtained. COMPARISON: 10/23/2021 FINDINGS: Bone alignment is normal. There is no acute fracture. There is chronic heterotopic ossifica tion projecting distal to the bilateral malleoli. There is mild osteoarthritis ankle and midfoot. Pos terior and plantar calcaneal enthesophytes are noted. There is also a calcification of the plantar fa scia. IMPRESSION: 1. No acute osseous abnormality. 2. Chronic extensive dystrophic ligamentous and tendinous calcifications with differential as previou sly described. Reviewed, dictated and finalized at location L. SHADE ASSEMBLER IMPRESSION: 1. No acute osseous abnormality. 2. Chronic extensive dystrophic ligamentous and tendinous calcifications with d ifferential as previously described.
== END 2023-09-03 15:25 | disposition home or self-care (01) ==
LOC: CHSIMG 15:27
PROVIDERS: PCP Internal Medicine; Visit Provider Internal Medicine
DX: M25.571 Pain in right ankle and joints of right foot (principal); M77.31 Calcaneal spur, right foot
CPT/HCPCS: 73610; 73630

== ENCOUNTER 2023-11-04 14:40 | Outpatient (CLI) | payer OTHER, SELFPAY ==
--- NOTE | 2023-11-04 14:45 | ECG_ITS ---
Measurements Intervals [place] Rate: 52 P: 60 MI: 171 QRS: 80 QRSD: 100 T: 52 QT: 405 QTc: 378 Interpretive Statements SINUS BRADYCARDIA LOW QRS VOLTAGE IN PRECORDIAL LEADS [QRS DEFLECTION < 1.0 mV IN CHEST LEADS] BORDERLINE ECG COMPARED TO ECG 01/01/2023 09:45:31 NO SIGNIFICANT CHANGES Electronically Signed On 11-04-2023 15:19:43 TAPER AND FLOATER by Ari Nieves M.D.
== END 2023-11-04 14:41 | disposition home or self-care (01) ==
LOC: CHSCARD 14:42
PROVIDERS: PCP Internal Medicine; Visit Provider Internal Medicine Cardiovascular Disease
DX: R07.9 Chest pain, unspecified (principal); R00.1 Bradycardia, unspecified
CPT/HCPCS: 93005

== ENCOUNTER 2023-11-18 12:04 | Outpatient (CLI) | payer OTHER, SELFPAY ==
--- NOTE | ~2023-11-18 | CT_ITS ---
EXAMINATION: CT lung screening DATE: 11/18/2023 12:36 INDICATION: Personal history of nicotine dependence, current smoker with 44 pack year history TECHNIQUE: Computed tomography (CT) of the chest was performed without intravenous contrast. The dose -length product (DLP) was 83.64 mGy-cm. Automated exposure control and iterative reconstruction techn ique were employed. COMPARISON: 11/28/2021 FINDINGS: There is mild emphysema. No suspicious pulmonary nodules are identified. The lungs are free of focal airspace opacities. No pleural effusion or pneumothorax. There is calcified coronary artery atherosclerosis. There are bridging osteophytes at multiple levels in the spine, consistent with dif fuse idiopathic skeletal hyperostosis (DISH). Changes of cholecystectomy are noted. IMPRESSION: 1. Lung-RADS category 1: Negative. Continue annual screening with noncontrast low-dose chest CT in 12 months. Reviewed, dictated and finalized at location B. AGE PICK UP IMPRESSION: 1. Lung-RADS category 1: Negative. Continue annual screening with noncontrast l ow-dose chest CT in 12 months.
--- NOTE | ~2023-11-18 | MM_ITS ---
EXAMINATION: MM screening [facility] BI w kyara HISTORY: Screening TECHNIQUE: Craniocaudal and mediolateral oblique 3-D tomosynthesis images were obtained and synthetic 2-D images were generated. CAD analysis was submitted and interpreted. COMPARISON: Comparison to multiple prior studies sequentially, with oldest reviewed study dated 06/24. BREAST PARENCHYMAL COMPOSITION: Not dense: There are scattered areas of fibroglandular density. FINDINGS: There is no evidence of suspicious mass, calcification, or architectural distortion to sugg est malignancy in either breast. There has been no suspicious interval change. IMPRESSION: 1. No mammographic evidence of malignancy. 2. Recommend routine screening mammography in one year. BI-RADS Category 1: Negative Reviewed, dictated and finalized at location A. CAR OPERATOR
== END 2023-11-18 12:05 | disposition home or self-care (01) ==
LOC: CHSIMG 12:07
PROVIDERS: PCP Internal Medicine; Visit Provider Internal Medicine
DX: Z12.2 Encounter for screening for malignant neoplasm of respiratory organs (principal); Z12.31 Encounter for screening mammogram for malignant neoplasm of breast; Z87.891 Personal history of nicotine dependence
CPT/HCPCS: 71271; 77063; 77067

== ENCOUNTER 2023-11-25 15:08 | Outpatient (CLI) | payer OTHER, SELFPAY ==
[2023-11-25 16:00] LABS: CRP < 0.5 mg/dL (0.0-0.9)
[2023-11-25 16:26] LABS: Erythrocyte Sedimentation Rate 11 mm/hr (0-20)
== END 2023-11-25 15:09 | disposition home or self-care (01) ==
LOC: CHSLAB 15:09
PROVIDERS: PCP Internal Medicine; Visit Provider Internal Medicine
DX: R51.9 Headache, unspecified (principal)
CPT/HCPCS: 36415; 85652; 86140

== ENCOUNTER 2024-01-27 10:17 | Outpatient (CLI) | payer OTHER, SELFPAY ==
--- NOTE | ~2024-01-27 | XR_ITS ---
Left Shoulder Technique: AP and scapular Y views were obtained. Clinical History: Arthritis Findings: No fracture or dislocation is seen. Osseous alignment is anatomic. The glenohumeral and acr omioclavicular joint spaces are preserved. There is mild amorphous soft tissue calcification the yoly on of the labrum or rotator cuff. Impression: No fracture or dislocation. No significant degenerative change. Probable chondrocalcinosis of the labrum versus other nonspecific soft tissue constipation. Reviewed, dictated and finalized at location M. Impression: No fracture or dislocation. No significant degenerative change. Probable chondrocalcinosis of the labrum versus other nonspecific soft tissue c onstipation.
== END 2024-01-27 10:18 | disposition home or self-care (01) ==
LOC: CHSIMG 10:19
PROVIDERS: PCP Internal Medicine; Visit Provider Internal Medicine
DX: M25.512 Pain in left shoulder (principal)
CPT/HCPCS: 73030

== ENCOUNTER 2024-02-28 15:31 | Outpatient (CLI) | payer OTHER, SELFPAY ==
--- NOTE | ~2024-02-28 | XR_ITS ---
XR hip RT 2V w AP pelvis Ordering provider: Yasmany Sullivan MD History: . Rt. hip/groin pain x2 weeks . Comparison: July 09, 2016 FINDINGS: BONES: No acute fracture or dislocation. HIP JOINT SPACES: Bilateral hip osteoarthritic changes. SACROILIAC JOINT SPACES/LUMBAR SPINE: The sacroiliac joint spaces are normal. Mild degenerative taylor es of the visualized lower lumbar spine. PUBIC SYMPHYSIS: Pubic symphysitis. SOFT TISSUES: Normal. IMPRESSION: No acute osseous abnormality pelvis and right hip. Bilateral hip osteoarthritic changes. Reviewed, dictated and finalized at location A.
--- NOTE | ~2024-02-28 | XR_ITS ---
3 VIEWS LUMBAR SPINE Ordering provider: Yasmany Sullivan MD History: . low back pain x2 weeks . Comparison: None. FINDINGS: VERTEBRAL BODIES:Degenerative spine. No visible fracture or subluxation. Chronic anterior loss of vo lume is seen in L1 and T12. DISK SPACES: Normal. Facet degenerative disease seen at the level of L5-S1. SOFT TISSUES: Normal. IMPRESSION: No acute osseous abnormality lumbar spine. Reviewed, dictated and finalized at location A.
== END 2024-02-28 15:32 | disposition home or self-care (01) ==
LOC: CHSIMG 15:33
PROVIDERS: PCP Internal Medicine; Visit Provider Internal Medicine
DX: M54.50 Low back pain, unspecified (principal); M25.551 Pain in right hip
CPT/HCPCS: 72100; 73502

== ENCOUNTER 2024-03-02 11:39 | Emergency (ER) | payer OTHER, SELFPAY ==
--- NOTE | ~2024-03-02 | CT_ITS ---
EXAMINATION: CT abd pelvis lumbar wo con DATE: 03/02/2024 12:20 INDICATION: Right lower quadrant abdominal pain and right leg radiculopathy TECHNIQUE: Computed tomography (CT) of the abdomen, pelvis and lumbar spine was performed without int ravenous contrast. Automated exposure control and iterative reconstruction technique were employed. T he dose-length product was 499.68 mGy-cm. COMPARISON: CT abdomen and pelvis dated 07/05/2023 and lumbar spine radiographs dated 02/28/2024 FINDINGS: Abdomen and pelvis: Lung bases are clear. Heart size is normal. Atherosclerotic coronary artery calcification. No pericar dial or pleural effusion. Again seen is pneumobilia in the common bile duct and small amount in the n ondependent intrahepatic biliary tree of the left hepatic lobe likely related to prior sphincterotomy and cholecystectomy with surgical clips at the gallbladder fossa. Spleen, pancreas and bilateral adr enal glands are normal. 2 mm nonobstructing stone at a lower pole calyx of the right kidney. Left kid jorge is normal. No other urolithiasis or hydronephrosis. Postoperative change of prior partial colecto my with anastomotic suture line at the sigmoid colon. Small bowel and appendix are normal. Bladder is normal. The uterus is not identified and has likely been surgically resected. No free intraperitonea l gas or fluid. No pathologically enlarged abdominal or pelvic lymphadenopathy. Chondrocalcinosis and moderate osteoarthritis at the bilateral hips. Lumbar spine: 2 mm retrolisthesis L1 on L2. Lucent L3 hemangioma with central fat attenuation and thickened vertica l trabecula pattern. Chronic mild anterior wedging with up to 20% anterior vertebral body height loss at T11, T12 and L1 which could be either physiologic or sequela of chronic compression fractures. No acute fractures. There are chronic Schmorl's nodes involving the endplates of both sides of the T10- T11 through L1-L2 disc spaces. Moderate disc space loss at T10-T11 and mild disc space loss at T11-T1 2, T12-L1 and L1-L2. Degenerative changes at the abutting superior and inferior margins of the L2-L5 spinous processes consistent with Rowan's disease. The following disc levels are specifically discu ssed: T10-T11: There is mild bilateral facet joint osteoarthritis. There is mild bilateral neural foraminal stenosis. There is no central canal stenosis. T11-T12: There is moderate bilateral facet joint osteoarthritis. There is minimal left neural foramin al stenosis. There is no central canal stenosis. T12-L1: There is mild bilateral facet joint osteoarthritis. There is minimal bilateral neural foramin al stenosis. There is no central canal stenosis. L1-L2: There is mild left and moderate right facet joint osteoarthritis. There is mild left and mild to moderate right neural foraminal stenosis. There is mild central canal stenosis. L2-L3: Disc is mildly bulging. There is mild bilateral facet joint osteoarthritis. There is mild left and mild to moderate right neural foraminal stenosis. There is mild central canal stenosis. L3-L4: Disc is mildly bulging. There is mild bilateral facet joint osteoarthritis. There is mild bila teral neural foraminal stenosis. There is minimal central canal stenosis. L4-L5: Disc is mildly bulging. There is mild bilateral facet joint osteoarthritis. There is moderate bilateral neural foraminal stenosis. There is mild central canal stenosis. L5-S1: Disc is mildly bulging. There is moderate left and severe right facet joint osteoarthritis. Th ere is mild bilateral neural foraminal stenosis. There is no central canal stenosis. IMPRESSION: 1. 2 mm nonobstructing right renal stone. No acute abdominal/pelvic process. 2. Chronic mild anterior wedging at T11-L1 which could be either physiologic or sequela of chronic co mpression fractures. 3. Mild to moderate lower thoracic and mild lumbar spondylosis with Rowan's disease.
[2024-03-02 11:39] VITALS: BP 139/66; PULSE 59; RESP 18; TEMP 36.5; O2SAT 99
--- NOTE | 2024-03-02 11:53 | ED.ABDPAIN ---
HPI - Abdominal Pain General Chief Complaint: Abdominal Pain Stated Complaint: rlq pain Time Seen by Provider: 03/02/24 11:52 please see history of present illness. History of Present Illness HPI narrative: History of present illness: Informed this patient. Patient reports for the past week she has had pain shooting down into her right hip and leg. And has also developed some right lower quadrant abdominal pain. She has had no vomiting but some slight diarrhea. Some nausea. She denies any dark or bloody stool. She thought she might have had some chills. Problem located right lower abdomen and also in the back going down into the right leg like sciatica. First occurrence. His last about a week. Moderate severity. Cause uncertain. Associated symptoms: No reported cough or fever. Past medical history: Kidney stone, AFib, COPD social history: Smokes/ encouraged to stop, denies alcohol and street drugs. Family history: Positive for heart disease/diabetes/cancer past surgical history: Hysterectomy, gallbladder, C-spine, wrist . Related Data Home Medications Medication Instructions Recorded Confirmed famotidine 40 mg tablet 40 mg PO BID 09/24/19 03/02/24 multivitamin (Multiple Vitamins 1 tablet PO BID 12/24/19 03/02/24 tablet) ascorbate calcium (vitamin C) 500 500 mg PO DAILY 01/23/21 03/02/24 mg tablet cholecalciferol (vitamin D3) 25 25 mcg PO DAILY 01/23/21 03/02/24 mcg (1,000 unit) capsule vitamin B12 500 mcg-folic acid 400 1 tablet PO DAILY 01/23/21 03/02/24 mcg tablet ondansetron HCl 4 mg tablet 4 mg PO PRN PRN Nausea 03/21/21 03/02/24 (Zofran) acetaminophen 325 mg capsule 650 mg PO Q8H PRN Pain (Scale 03/16/22 03/02/24 (Tylenol) Score 1-3) hydrocodone 5 mg-acetaminophen 325 1 tablet PO QID PRN Pain 03/16/22 03/02/24 mg tablet pravastatin 20 mg tablet 10 mg PO DAILY 03/16/22 03/02/24 rivaroxaban 20 mg tablet (Xarelto) 20 mg PO DAILY 03/16/22 03/02/24 polyethylene glycol 3350 17 gram 17 g PO DAILY 03/19/22 03/02/24 oral powder packet (Miralax) albuterol sulfate 90 mcg/actuation 2 inh inhalation Q4H PRN Shortness 07/30/22 03/02/24 aerosol inhaler Of Breath diphenoxylate-atropine 2.5 1 tablet PO QID PRN Diarrhea 01/01/23 03/02/24 mg-0.025 mg tablet Lactobacillus 1 cap PO DAILY 03/25/23 03/02/24 acidophilus-Bifidobac.animalis 2.5 billion cell capsule (Daily Probiotic) Allergies Allergy/AdvReac Type Severity Reaction Status Date / Time ceftriaxone [From Rocephin] Allergy Intermediate Hives Verified 03/02/24 12:25 esomeprazole Allergy Intermediate Hives Verified 03/02/24 12:25 omeprazole Allergy Intermediate Hives Verified 03/02/24 12:25 hydromorphone [From Dilaudid] AdvReac Intermediate Anxiety Verified 03/02/24 12:25 trazodone AdvReac Intermediate Dizziness Verified 03/02/24 12:25 Review of Systems Review of Systems: REVIEW OF SYSTEMS- constitutional: No fevers, Questionable chills, no sweats eye: No recent visual problems ENT: No ear pain, no nasal congestion, no sore throat respiratory: No shortness of breath, no cough cardiovascular: No chest pain, no palpitations, no syncope gastrointestinal: some nausea, no vomiting, some diarrhea, no dark or bloody stool. bronson/lymph: No bruising tendency, no swollen lymph glands endocrine: No excessive thirst, no excessive hunger muscle skeletal: denies neck pain, does complain of some low back pain that radiates into the right thigh and into her leg like sciatica. integumentary: No rash, no pruritus, no abrasions neurologic: Alert and oriented x4 psychiatric: No anxiety, no depression PMFSH Past Medical History Medical History Anxiety Arthritis Arthritis of foot, right, degenerative Atrial fib/flutter, transient Atrial fibrillation COPD (chronic obstructive pulmonary disease) CVA (cerebral vascular accident) Disc disorder of
[2024-03-02 12:55] LABS: Basophils Absolute Auto 0.09 K/mm3 (0.00-0.10); Eosinophils Absolute Auto 0.12 K/mm3 (0.02-0.50); Eosinophils Percent Auto 1.3 % (1.0-6.0); Hematocrit 40.7 % (35.0-49.0); Hemoglobin 13.5 g/dL (12.0-15.0); Immature Granulocyte Absolute 0.03 K/mm3 (0.00-0.00); Immature Granulocyte Percent A 0.3 % (0.0-0.0); Lymphocytes Absolute Auto 2.58 K/mm3 (1.10-4.50); Lymphocytes Percent Auto 27.5 % (18.0-42.0); Mean Corpuscular HGB Conc 33.2 g/dL (32-36); Mean Corpuscular Hemoglobin 29.9 pg (27.0-31.0); Mean Corpuscular Volume 90.2 fL (78.0-102.0); Mean Platelet Volume 8.8 fl (9.2-11.8); Monocytes Absolute Auto 0.54 K/mm3 (0.10-0.90); Monocytes Percent Auto 5.8 % (2.0-11.0); Neutrophils Absolute Auto 6.02 K/mm3 (1.70-7.20); Neutrophils Percent Auto 64.1 % (50.0-70.0); Platelet Count Result 268 K/mm3 (150-420); Red Blood Count 4.51 M/mm3 (4.20-5.40); Red Cell Distribution Width 12.3 % (11.6-14.4); White Blood Count 9.4 K/mm3 (4.8-10.8)
[2024-03-02] MEDS: SODIUM CHLORIDE 0.9% IV 1,000 ML 150 ML IV CONT (12:57)
[2024-03-02] MEDS: ONDANSETRON INJ 4 MG/2 ML VIAL IV PUSH (12:58)
[2024-03-02] MEDS: KETOROLAC 15 MG/ML VIAL (*BKC) IV PUSH (12:58)
[2024-03-02 13:01] VITALS: BP 123/71; PULSE 50; RESP 18; O2SAT 98
[2024-03-02 13:10] LABS: Alanine Aminotransferase 20 U/L (14-59); Albumin Level 3.6 g/dL (3.4-5.0); Alkaline Phosphatase 64 U/L (46-116); Anion Gap 11 mmol/L (4-12); Aspartate Amino Transferase 12 U/L (15-37); Bilirubin,Total 0.3 mg/dL (0.00-1.00); Blood Urea Nitrogen 10 mg/dL (7-18); Calcium 8.8 mg/dL (8.5-10.1); Carbon Dioxide 26 mmol/L (21-32); Chloride 101 mmol/L (98-108); Estimated CRCL calculation 75 ml/min; Estimated Glomerular Filt Rate > 60; Glucose 106 mg/dL (70-99); Osmolality Calculated 285 mOsm/kg (285-295); Potassium 4.1 mmol/L (3.5-5.1); Sodium 138 mmol/L (136-145)
[2024-03-02 13:16] LABS: Appearance Urine Clear (Clear); Bilirubin Urine Negative (Negative); Blood Urine 2+ (Negative); Color Urine Light Yellow (Yellow); Glucose Urine UA Negative (Negative); Ketones Urine Negative (Negative); Leukocyte Esterase Ur Negative LEU/UL (Negative); Nitrate Urine Negative (Negative); Protein Urine Negative (Negative); Specific Grav Ur <= 1.005 (1.010-1.020); Urobilinogen Urine 0.2 mg/dL (0.2-1.0); pH Urine 6.5 (5.0-8.0)
[2024-03-02 13:18] LABS: Amylase 44 U/L (25-115); Lipase 21 U/L (16-77)
[2024-03-02 13:27] LABS: Add Urine Microscopic? YES; Bacteria Urine Trace /hpf; Squamous Epithelial Cell Urine Few /hpf (Few); WBC Urine None seen /hpf (0-3)
--- NOTE | 2024-03-02 13:42 | PC.NURSE ---
PT REPORTS NAUSEA HAS IMPROVED AND PAIN IS BETTER POST MEDICATION ADMINISTRATION. IVF INFUSING ORDERED WITHOUT DIFFICULTY. NAD NOTED. WILL CONTINUE TO MONITOR.
[2024-03-02 14:02] VITALS: BP 116/58; PULSE 52; RESP 18; O2SAT 96
== END 2024-03-02 14:20 | disposition home or self-care (01) ==
PROVIDERS: Emergency Provider Emergency Medicine; PCP Internal Medicine
DX: S32.000A Wedge compression fracture of unspecified lumbar vertebra, initial encounter for closed fracture (principal); M54.30 Sciatica, unspecified side; M51.36 Other intervertebral disc degeneration, lumbar region; R31.9 Hematuria, unspecified; I48.91 Unspecified atrial fibrillation; J44.9 Chronic obstructive pulmonary disease, unspecified; I10 Essential (primary) hypertension; Z79.899 Other long term (current) drug therapy; Z79.891 Long term (current) use of opiate analgesic; Z86.73 Personal history of transient ischemic attack (TIA), and cerebral infarction without residual deficits; Z87.891 Personal history of nicotine dependence; X58.XXXA Exposure to other specified factors, initial encounter
CPT/HCPCS: 36415; 72131; 74176; 80053; 81001; 82150; 83605; 83690; 85025; 96361; 96374; 96375; 99284; J1885; J2405; J7030

== ENCOUNTER 2024-05-11 13:16 | Outpatient (CLI) | payer OTHER, SELFPAY ==
--- NOTE | ~2024-05-11 | XR_ITS ---
EXAMINATION: XR lg joint inject/asp w image DATE: 05/11/2024 14:03 INDICATION: Right hip arthritis. TECHNIQUE: A time-out was performed to verify the patient's name, date of , and procedure to b e performed. The procedure including the risks, benefits, and alternatives was discussed with the pat ient. Risks discussed included bleeding and infection. The patient understood the risks and agreed to proceed. The skin overlying the right hip joint was prepped and draped in usual sterile fashion. A nesthetic was administered with 1% lidocaine subcutaneously. A 22 G needle was advanced under fluoro scopic guidance into the joint. Subsequently, injectate consisting of 2 mL 0.5% bupivacaine and 1 mL 80 mg/mL Depo-Medrol was instilled. The needle was removed and the entry site was cleaned and dresse d. There were no immediate complications. Fluoroscopy exposure time was 0.1 minutes. The total numbe r of images was 1. FINDINGS: Real-time fluoroscopy demonstrates the needle in the right hip joint. Patient's pain prior to procedure:05/02. Patient's pain following the procedure: 11/30. IMPRESSION: 1. Fluoroscopy guided right hip joint injection of local anesthetic and steroid with decrease in the patient's presenting pain. Reviewed, dictated and finalized at location A.
== END 2024-05-11 13:17 | disposition home or self-care (01) ==
PROVIDERS: PCP Internal Medicine; Visit Provider Orthopaedic Surgery
DX: M16.11 Unilateral primary osteoarthritis, right hip (principal)
CPT/HCPCS: 20610; 77002; J1010

== ENCOUNTER 2024-06-24 08:03 | Outpatient (CLI) | payer OTHER, SELFPAY ==
--- NOTE | ~2024-06-24 | DEXA_ITS ---
Bone Density Report Name: RENO AMARO Age: 64 Sex: Female Ethnicity: White Date of : 1960 Indication: osteopenia; inflammatory bowel disease; cancer; hysterectomy; Referring Provider: Yasmany Sullivan Study: Bone densitometry was performed. Exam Date: June 24, 2024 Accession number: [id number] Bone Density: Region BMD T-score Z-score Classification AP Spine(L1-L4) 0.865 -1.7 0.0 Osteopenia Femoral Neck (Left) 0.594 -2.3 -0.9 Osteopenia Total Hip (Left) 0.741 -1.6 -0.5 Osteopenia Femoral Neck (Right) 0.611 -2.1 -0.7 Osteopenia Total Hip (Right) 0.734 -1.7 -0.6 Osteopenia Femoral Neck Mean 0.603 -2.2 -0.8 Osteopenia Total Hip Mean 0.738 -1.7 -0.6 Osteopenia World Health Organization criteria for BMD impression classify patients as: Normal (T-score at or above -1.0), Osteopenia (T-score between -1.0 and -2.5), or Osteoporosis (T-score at or below -2.5). 10-year Fracture Risk(1): Major Osteoporotic Fracture 12% Hip Fracture 3.0% Reported Risk Factors: [place] (), Neck BMD=0.594, BMI=29.3, smoking (1) FRAX(R) Version 3.08. Fracture probability calculated for an untreated patient. Fracture probability may be lower if the patient has received treatment. Previous Exams: Region Exam Age BMD T-score BMD Change BMD Change Date g/cm2 vs Baseline vs Previous AP Spine (L1-L4) 06/24/2024 64 0.865 -1.7 -0.024 (-2.7%) -0.024 (-2.7%) 06/04/2022 61 0.889 -1.4 Total Hip(Left) 06/24/2024 64 0.741 -1.6 0.046 (6.6%)* 0.046 (6.6%)* 06/04/2022 61 0.695 -2.0 Total Hip(Right) 06/24/2024 64 0.734 -1.7 0.019 (2.6%) 0.019 (2.6%) 06/04/2022 61 0.716 -1.9 *Denotes significance at 95% confidence level, LSC for AP Spine = 0.022 g/cm2, LSC for Total Hip = 0.027 g/cm2 Clinical Information Provided by Patient: Smokes Has used the following medications: Vitamin D, multi vit Has the following medical conditions: Cancer, Inflammatory bowel diseases, Hysterectomy Patient maximum height was 65 Menopause Age: 29 No regular weight bearing exercise Drinks caffeinated beverages Onset of menses at age 15 Number of children 1 Impression: The patient has low bone mass, based on the Left Femoral Neck T-score. The patient has risk factors, including: smoking. The BMD for the AP Spine (L1-L4) decreased, changing by -2.7% since the last DXA exam. Discussion: BONE DENSITY IS LOW AT ONE OR MORE
== END 2024-06-24 08:04 | disposition home or self-care (01) ==
PROVIDERS: PCP Internal Medicine; Visit Provider Internal Medicine
DX: Z78.0 Asymptomatic menopausal state (principal); M85.89 Other specified disorders of bone density and structure, multiple sites
CPT/HCPCS: 77080

== ENCOUNTER 2024-07-07 09:15 | Outpatient (CLI) | payer OTHER, SELFPAY ==
--- NOTE | ~2024-07-07 | US_ITS ---
EXAMINATION: US carotid duplex BI DATE: 07/07/2024 10:06 INDICATION: Cerebral infarction. Vertigo. TECHNIQUE: Grayscale, color Doppler, and pulsed Doppler images of the cervical carotid arteries were obtained. The degree of vessel stenosis is placed in one of the following categories: normal, <50%, 5 0-69%, >=70% but less than near-occlusion, near-occlusion, or total occlusion. Note that percent sten osis relative to normal distal artery lumen diameter is indirectly measured from velocity measurement s as described by Spenser, et al. Radiology 2003; 229:340-346. COMPARISON: None. FINDINGS: RIGHT: The right common carotid artery (CCA) peak systolic velocity (PSV) is 100 cm/s. The right internal ca rotid artery (ICA) PSV is 70 cm/s. The right ICA end-diastolic velocity (EDV) is 21 cm/s. The right I CA/CCA PSV ratio is 0.9. Grayscale and color Doppler images yield an estimate of <50% diameter reduct ion from plaque in the ICA. The external carotid artery (ECA) PSV is 86 cm/s. There is antegrade flow in the right vertebral artery. LEFT: The left CCA PSV is 98 cm/s. The left ICA PSV is 79 cm/s. The left ICA EDV is 30 cm/s. The left ICA/C CA PSV ratio is 1.0. Grayscale and color Doppler images yield an estimate of <50% diameter reduction from plaque in the ICA. The ECA PSV is 97 cm/s. There is antegrade flow in the left vertebral artery. IMPRESSION: 1. <50% stenosis in the right internal carotid artery. 2. <50% stenosis in the left internal carotid artery. Reviewed, dictated and finalized at location A.
== END 2024-07-07 09:16 | disposition home or self-care (01) ==
PROVIDERS: PCP Internal Medicine; Visit Provider Internal Medicine Cardiovascular Disease
DX: I63.9 Cerebral infarction, unspecified (principal); I65.23 Occlusion and stenosis of bilateral carotid arteries
CPT/HCPCS: 93880

== ENCOUNTER 2024-07-29 08:50 | Outpatient (CLI) | payer OTHER, SELFPAY ==
--- NOTE | ~2024-07-29 | XR_ITS ---
XR cervical spine 4-5V Ordering provider: Alice Bender, MANAGER GIFT History: . rheumatoid nodule/vertebrae,SURG X2YR AGO . Comparison: None. FINDINGS: VERTEBRAL BODIES: Normal height and alignment. No visible fracture or subluxation. The dens is intact . Degenerative changes of the spine. DISK SPACES: Well maintained. Multilevel uncovertebral joint osteoarthritic changes. PARASPINOUS SOFT TISSUES: No prevertebral soft tissue swelling. IMPRESSION: No acute osseous abnormality cervical spine. Reviewed, dictated and finalized at location A. OZOOLOGY TEACHER
[2024-07-29 09:29] LABS: Amphetamine Screen Urine Negative (Negative); Barbiturate Screen Urine Negative (Negative); Benzodiazepines Screen Urine Negative (Negative); Cannabinoid Screen Urine Negative (Negative); Cocaine Screen Urine Negative (Negative); Methadone Screen Urine Negative (Negative); Opiate Screen Urine Positive (Negative); Phencyclidine Screen Urine Negative (Negative)
== END 2024-07-29 08:51 | disposition home or self-care (01) ==
PROVIDERS: PCP Internal Medicine; Visit Provider Nurse Practitioner Family
DX: Z79.899 Other long term (current) drug therapy (principal); M06.38 Rheumatoid nodule, vertebrae
CPT/HCPCS: 72050; 80307

== ENCOUNTER 2024-10-05 07:52 | Outpatient (CLI) | payer OTHER, SELFPAY ==
--- NOTE | ~2024-10-05 | CT_ITS ---
CT brain wo con Ordering provider: Chey Napoles, DO History: 64 years Female with . communicating hydrocephalus X6MO FOLLOW UP,SMITH,DIZZY . Comparison: January 01, 2023 Technique: CT of the head without contrast. Radiation reduction technique utilized.The dose-length product was 605.33 mGy-cm. FINDINGS: BRAIN PARENCHYMA AND CSF SPACES: Mild leukoaraiosis and diffuse cortical atrophy. Mild atheromatous d isease. No midline shift, mass effect or hemorrhage. The brain parenchyma and CSF spaces are otherwi se normal. VISUALIZED PARANASAL SINUSES: Well aerated. MASTOIDS: Well aerated. BONES: The bones appear intact. SOFT TISSUES: Visualized nasopharynx is normal. Superficial soft tissues are normal. IMPRESSION: No acute intracranial findings. Reviewed, dictated and finalized at location A. SORSHIP COORDINATOR
== END 2024-10-05 07:53 | disposition home or self-care (01) ==
LOC: CHSIMG 07:54
PROVIDERS: PCP Internal Medicine; Visit Provider Psychiatry & Neurology Neurology
DX: G91.0 Communicating hydrocephalus (principal)
CPT/HCPCS: 70450

== ENCOUNTER 2024-11-07 11:49 | Emergency (ER) | payer OTHER, SELFPAY ==
[2024-11-07] VITALS (12 sets, daily range): BP systolic 108–147; BP diastolic 53–72; PULSE 56–70; RESP 16–17; TEMP 36.6–36.7; O2SAT 98–100
--- NOTE | ~2024-11-07 | CT_ITS ---
EXAMINATION: CT cervical spine wo con DATE: 11/07/2024 12:14 INDICATION: Neck pain and posterior headache TECHNIQUE: Computed tomography (CT) of the cervical spine was performed without intravenous contrast. The dose-length product was 324.96 mGy-cm. COMPARISON: None FINDINGS: Alignment is normal. Moderate atlantoaxial osteoarthritis with surrounding calcified pannus. Cystic c hanges about the base of the dens. Vertebral body heights are normal. No fracture. There is discogeni c calcific location throughout the cervical spine. Mild disc height loss at C3-C4. Remaining disc hei ghts are normal. There are disc bulges resulting in mild central canal stenosis at C3-C4 through C5-C 6 and with minimal stenosis at C6-C7 and C7-T1. Mild to moderate cervical uncovertebral osteoarthriti s most prominent bilaterally at C3-C4 and C4-C5. Multilevel facet osteoarthritis, moderate severity b ilaterally at C7-T1 and in the visualized upper thoracic spine and mild in the cervical spine. This c ontributes to moderate neural foraminal stenosis bilaterally at C3-C4 and on the right at C4-C5. Mild neural foraminal stenosis at a few additional cervical levels. Atherosclerotic calcifications at the bilateral carotid bulbs. Cervical soft tissues are otherwise unremarkable. Visualized apices of lung s are clear. IMPRESSION: 1. Mild cervical spondylosis. No acute osseous abnormality. Reviewed, dictated and finalized at location A. AND MACHINE MAINTAINER
--- NOTE | ~2024-11-07 | CT_ITS ---
EXAMINATION: CT brain wo con DATE: 11/07/2024 12:14 INDICATION: Dizziness and posterior headache TECHNIQUE: Computed tomography (CT) of the head was performed without intravenous contrast. Sagittal and coronal reconstructions were performed. The mA was adjusted according to patient size. Iterative reconstruction technique was employed. The dose-length product was 605.33 mGy-cm. COMPARISON: head CT dated 10/05/2024 FINDINGS: No acute intracranial hemorrhage, acute infarction or abnormal extra axial fluid collection. There is mild scattered white matter hypoattenuation consistent with chronic small vessel ischemic disease. S ymmetric prominence of the sulci and subarachnoid spaces overlying the convexities consistent with mi ld age-appropriate diffuse cerebral volume loss. Ventricles are normal and symmetric. No mass/mass ef fect. The orbits, paranasal sinuses and mastoid air cells are normal. IMPRESSION: 1. No acute intracranial process. 2. Age-related changes including mild diffuse volume loss and mild scattered white matter hypoattenua tion consistent with chronic small vessel ischemic disease. Reviewed, dictated and finalized at location A. L OFFICER IMPRESSION: 1. No acute intracranial process. 2. Age-related changes including mild diffuse volume loss and mild scattered wh ite matter hypoattenuation consistent with chronic small vessel ischemic diseas e.
--- OUTSIDE RECORDS SUMMARY | 2024-11-07 11:51 | XMS_ITS | Clinical Summary ---
Author Organization [facility] Address [address] [place] [address] Care Team Providers Care Film And Video Editor Name Role Phone Rey Wadsworth MD Unavailable Yasmany Be MD Primary Care Provider [phone] Erin Mead NP Unavailable Unavailable Allergies Active Allergy Reactions Criticality Noted Date Comments Aspirin GI Upset 02/16/2020 Esomeprazole Other (see comment) 02/16/2020 Patient states it makes her feel loopy Hydromorphone Shortness of Breath High 03/15/2022 Omeprazole Other (see comment) 02/16/2020 Patient states it makes her feel loopy Ceftriaxone Rash Low 02/16/2020 Medications hyoscyamine 0.125 MG SL tablet as needed. 01/20/2010 Active Multiple Vitamin (ONCE DAILY) Tab Take 1 tablet by mouth daily. 11/09/2015 Active pravastatin 10 MG tablet Take 1 tablet by mouth daily. 11/09/2015 Active PROAIR HFA 108 (90 Base) MCG/ACT inhaler Inhale 2 puffs into the lungs as needed. 03/13/2018 Active Pancrelipase, Try-Lpey-Mvyy, (CREON) 47464 units CAPSULE ENTERIC COATED PARTICLES Take 36,000 Units by mouth. Take 2 tablets with each meal Active famotidine 40 MG tablet Take 1 tablet by mouth 2 (two) times daily. 06/09/2018 Active vitamin C 500 MG tablet Take 500 mg by mouth daily. Active Cholecalciferol (VITAMIN D) 50 MCG (2000 UT) Tab Active rivaroxaban 20 MG Tab tablet Take 1 tablet (20 mg total) by mouth daily with supper. Take with food 30 tablet 5 07/04/2020 Active Lactobacillus Acid-Pectin (ACIDOPHILUS/CI TRUS PECTIN) Tab Take 1 tablet by mouth daily. Active HYDROcodone-brigida taminophen 5-325 MG tablet Take 1 tablet by mouth every 6 (six) hours as needed for Pain. Active baclofen 20 MG tablet Take 20 mg by mouth every 8 (eight) hours as needed. Active Active Problems Problem Noted Date Diagnosed Date Tendinitis of left rotator cuff 11/10/2018 Shoulder pain, left 11/07/2018 Cervicalgia 11/18/2017 Enlarged thyroid 11/18/2017 Right hip pain 11/18/2017 Sacroiliac joint dysfunction of right side 11/18 Atrial fibrillation, persistent ([facility] ) 03/14/2017 Facial paresthesia 10/08/2016 Overview (03/25/2019): Impression - 08Oct2016 Rafael Ricardo: Exact etiology unclear, but I don't think this is due to cerebrovascular issues. There is a history of left ICA stenosis, but this should not cause left face symptoms. There is no evidence for an intracranial process (mass, demyelination) on MRI that would explain this complaint. Stenosis of left carotid artery without cerebral infarction 10/08/2016 Hyperlipidemia 12/08/2015 TIA (transient ischemic attack) 12/08/2015 Bilateral arm pain 07/27/2015 Carpal tunnel syndrome, bilateral 07/27/2015 Numbness and tingling in both hands 07/27/2015 Resolved Problems Problem Noted Date Diagnosed Date Resolved Date Encounter for preventive health examination 07/25/2015 06/03/2020 Family History Medical History Relation Comments No Known Problems Brother 1 No Known Problems Brother 2 No Known Problems Brother 3 Heart Attack Father No Known Problems Maternal Grandfather No Known Problems Maternal Grandmother CABG Mother Cancer Mother Open Heart Mother No Known Problems Paternal Grandfather No Known Problems Paternal Grandmother Diabetes Sister 1 No Known Problems Sister 2 No Known Problems Sister 3 Coronary artery disease Neg Hx Family h istory is negative for coronary artery disease. Relation Status Comments Brother 1 Alive Brother 2 Alive Brother 3 Alive Father Maternal Grandfather Maternal Grandmother Mother Paternal Grandfather Paternal Grandmother Sister 1 Alive Sister 2 Alive Sister 3 Alive Social History Tobacco Use Types Packs/Day Years Used Date Smoking Tobacco: Every Day Cigarettes 0.3 40 Smokeless Tobacco: Never Alcohol Use Standard Drinks/Week Comments No 0 (1 standard drink = 0.6 oz pur e alcohol) Comments No Sex and Gender Information Value Date Recorded Sex Assigned at Not on file Legal Sex Female 6:18 PM CDT Gender Identity Not on file Sexual Orientation Not on file 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 Not on file Not on file Last Filed Vital Signs Vital Sign Reading Time Taken Comments Blood Pressure 94/70 03/16/2022 1:00 AM CDT Pulse 65 03/16/2022 1:00 AM CDT Temperature 36.9 C (98.4 F) 03/15/2022 4:11 PM CDT Respiratory Rate 14 03/16/2022 1:00 AM CDT Oxygen Saturation 100% 03/16/2022 1:00 AM CDT Inhaled Oxygen Concentration - - Weight 69.9 kg (154 lb) 03/15/2022 4:11 PM CDT Height 165.1 cm (5' 5 ) 03/15/2022 4:11 PM CDT Body Mass Index 25.63 03/15/2022 4:11 PM CDT Plan of Treatment Health Maintenance Due Date Last Done Comments ASCVD LDL 1960 ASCVD Statin 1960 Colorectal Cancer Screening Colonoscopy (10 Years) 1960 Annual Physical 1964 Pneumococcal Vaccine: Pediatrics (0 to 5 Years) and At-Risk Patients (6 to 64 Years) (1 of 2 - PCV) 1967 Hepatitis C 1979 DTaP, Tdap and Td Vaccines ( 1 - Tdap) 1980 Mammogram Screening 2001 Zoster Vaccines (1 of 2) 2011 RSV Immunization or 60+ Years (1 - Risk 60-74 years 1-dose series) 2021 COVID-19 Vaccine (2023-2 5 season) 2024 10/20/2021, 02/18/2021, 01/21/2021 Influenza Adult (#1) 2024 Meningococcal B Vaccine Aged Out No l onger eligible based on patient's age to complete this topic Meningococcal Vaccine Aged Out No nupur nikia eligible based on patient's age to complete this topic RSV Immunizations Under 20 Months Aged Out No longer eligible b ased on patient's age to complete this topic Insurance Advance Directives Documents on File Type Date Recorded Patient Gsa Coordinator Expl anation Advance Directives and Living Will 02/19/2019 12:00 AM POWER OF INTRAMURAL DIRECTOR Advance Directives and Living Will 12/01/2018 12:00 AM POWER OF INTRAMURAL DIRECTOR Advance Directives and Living Will 11/10/2018 12:00 AM POWER OF INTRAMURAL DIRECTOR Advance Directives and Living Will 09/02/2018 12:00 AM POWER OF INTRAMURAL DIRECTOR Advance Directives and Living Will 03/11/2018 12:00 AM POWER OF INTRAMURAL DIRECTOR Advance Directives and Living Will 03/11/2018 12:00 AM POWER OF INTRAMURAL DIRECTOR Advance Directives and Living Will 01/15/2017 12:00 AM POWER OF INTRAMURAL DIRECTOR Care Teams Film And Video Editor Relationship Specialty Start Date End Date Yasmany Sullivan MD [address] [place] [phone] PCP - General INTERNAL MEDICINE 03/11/17 Rey Wadsworth MD [place] Inside Sales Executive CLINICAL CARDIAC ELECTROPHYSIOLOGY 03/11/17 Erin Mead NP [address] [place] [address] Nurse Practitioner Electrophysiology 03/13/18
--- OUTSIDE RECORDS SUMMARY | 2024-11-07 11:51 | XMS_ITS | Encounter Summary ---
Author Organization [facility] Address [address] [place] [address] Care Team Providers Care Spud Grader Name Role Phone Rey Wadsworth MD Unavailable Unavailabl e Yasmany Sullivan MD Primary Care Provider [phone] Erin Mead FRESH [employer] CAKE DECORATOR Unavailable Unavailable Encounter Details Date Type Department Care Team (Late st Contact Info) Description 12/27/2015 Abstract [facility] [address] [place] [address] Rey Wadsworth MD Social History Tobacco Use Types Packs/Day Years Used Date Smoking Tobacco: Former Comments Unknown Sex and Gender Information Value Date Recorded Sex Assigned at Not on file Legal Sex Female 6:18 PM CDT Gender Identity Not on file Sexual Orientation Not on file 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 Not on file Not on file documented as of this encounter Plan of Treatment Not on file documented as of this encounter Visit Diagnoses Not on filedocumented in this encounter Additional Health Concerns Infection Onset Date Last Indicated Resolved Time COVID-19 Rule Out 03/26/2020 03/26/2020 03/27/2020 10:24 PM CDT COVID-19 Rule Out 03/15/2022 03/15/2022 03/15/2022 8:45 PM CDT documented as of this encounter Care Teams Spud Grader Relationship Specialty Start Date End Date Yasmany Sullivan MD [address] [place] [phone] PCP - General INTERNAL MEDICINE 03/11/17 Rey Wadsworth MD [place] Internet Marketing Intern CLINICAL CARDIAC ELECTROPHYSIOLOGY 03/11/17 Erin Mead NP [address] [place] [address] Nurse Practitioner Electrophysiology 03/13/18 documented as of this encounter
--- OUTSIDE RECORDS SUMMARY | 2024-11-07 11:51 | XMS_ITS | Data Portability ---
Author Organization [facility], [address] [place] ([place]) Address [address] [place] [address] Care Team Providers Care Plug Machine Operator Name Role Phone JACQUELINE MATTSON Primary Care Provider JACQUELINE MATTSON Referring Provider Assessment Encounter Date Assessment Date Assessment LastModified by Organization Details LastModified Time 03/23/2024 03/23/2024 PLAN: Obtain CT Head without contrast in 6 months at [facility] F/U 6 months ASSESSMENT AND PLAN: Claudine Cruz is a 63-year-old female with past medical history significant for COPD, cervical spinal stenosis, history of tobacco abuse, coronary artery stenosis, gastroesophageal reflux disorder, irritable bowel syndrome, hypercholesterolem ia, paroxysmal atrial fibrillation with RVR, rheumatoid arthritis who presents today to discuss abnormal MRI. She has a greater than expected degree of diffuse atrophy which creates an appearance larger than normal ventricles. I suspect this is related to hydrocephalus ex-vacuo. I do not think this is related to MPH. We discussed her tobacco abuse is likely in part responsible for greater than appearance brain. At this point, I recommend discontinuation of tobacco. For now, she is asymptomatic we can monitor over the next 6 months. We will obtain a repeat CT head without contrast in 6 months at [facility] and have her follow up to again monitor for any occurrence of clinical symptoms. If she has any changes in the interim, she understands to call the office. I personally spent a total of 20 minutes on the patient on this date of service including both iudk-ng-cvnw and eoe-jffx-zq-face time excluding any separately reportable services. anastasia [email or web address] Not available 03/23/2024 12:36:48 04/13/2024 04/13/2024 Ms. Cruz is here for assessment regarding bilateral lower extremity symptomatic varicose veins involving right ankle and left area. We discussed the importance of intermittent leg elevation and compression therapy. Her circulation is adequate with palpable pulses at both posterior tibial artery with triphasic signals. PLAN: Will get baseline circulation assessment and bilateral Doppler exam. Will also get venous reflux study involving both lower extremities for venous insufficiency/refl ux assessment. I will see her 3 months after for reevaluation. [facility] [email or web address] Not available 04/13/2024 18:59:43 05/21/2024 05/21/2024 Ms. Cruz is here for assessment regarding bilateral lower extremity symptomatic varicose veins involving right ankle and left area. We discussed the importance of intermittent leg elevation and compression therapy. Her circulation is adequate with palpable pulses at both posterior tibial artery with triphasic signals. PLAN: Will get baseline circulation assessment and bilateral Doppler exam. Will also get venous reflux study involving both lower extremities for venous insufficiency/refl ux assessment. I will see her 3 months after for reevaluation. [facility] [email or web address] Not available 05/21/2024 18:41:17 06/01/2024 06/01/2024 Ms. Claudine Cruz is here for assessment regarding bilateral lower extremity varicose vein. Symptoms are well controlled with elevation and compression therapy. No evidence of cellulitis. Venous reflux exam shows borderline reflux at both great saphenous vein. Would be reluctant to offer laser ablation at this point. Her symptoms are well controlled at this point. No evidence of cellulitis or infection. PLAN: I will see her after [address] reassessment[address] [facility] [email or web address] Not available 06/04/2024 07:07:27 06/01/2024 06/01/2024 In terms of her chronic right sided abdominal discomfort she may take 2 of the hyoscyamine as needed, she was not aware that she will try to take 2 of these at a time when she does get the abdominal discomfort. This has been chronic as outlined in the below. Given that the dysphagia is something new since her last EGD we will set her up for repeat EGD evaluation. She is a chronic smoker as well. For her known reflux, her dyspepsia, she will continue on the famotidine 40 mg twice daily. I explained the EGD procedure in full detail. We also did provide them with a copy of the informed consent. On this form, the possible risks that are associated with doing this examination are listed on this form. This is getting scheduled at this time. Did forget to mention that she does take Xarelto chronically for history of peripheral vascular disease she does see vascular surgery for this. This will be safe to hold for just 2 days for her procedure. These instructions will be written on her prep sheet. [email or web address] Not available 06/01/2024 12:43:27 Plan of Treatment Reminders Order Date Submit Date Provider Last Modified By Organization Details Last Modified Time Details Appointments New Patient Visit 30.NEW 2024 10:00A M Hellen Ulloa Not available Not available Not available Establish ed Patient 15.EST 2024 11:00A M Dr. Karson Bright Not available Not available Not available Lab None recorded. Referral None recorded. Procedures None recorded. Surgeries None recorded. Imaging CT, head, w/o contrast 09/07/ 024 [facility], [address] [place], [address], 10/05/2024 10:49:27 Medication Orders None recorded. Patient TargetsNo targets recorded. Patient InstructionsNo instructions recorded. Reason for Referral None Reported. Results Created Date Observation Date Name Description Value Unit Range Abnormal Flag Note LastModifiedBy Organization Detail LastModifiedTime 06/10/20 24 08/05/2023 MRI, cervi benito spine , w/o contr ast No observ ation record ed. [facility] Not Available 2023 11:01:52 08/19/20 24 XR, cervi benito spine , 4 or 5 view No observ ation record ed. [facility] [address] [place], [address], 08/19/2024 17:11:19 10/05/19 25 10/05/2024 CT, head, w/o contr ast No observ ation record ed. [facility] [address] [place], [address], 10/07/2024 11:45:19 Result Notes None recorded. Problems Name Problem SNOMED Code Status Onset Date Resolution Date Notes Provider Name and Address Organization Details Recorded Time Dysphagia 45107915 Active 2023 Neva Mcdowell [facility] 4 08:59:27 Chronic abdominal pain 665234593 Active 2023 Khang Shetty APRN, DIRECTOR OF FIELD COORDINATION [address] [place] [address], [phone], [facility] 4 12:43:41 Nonulcer dyspepsia 4359136 Active 2023 Khang Shetty APRN, DIRECTOR OF FIELD COORDINATION [address] [place] [address], [address], [facility] 4 12:43:50 Peripheral vascular disease 604450762 Active 2023 Khang Shetty APRN, DIRECTOR OF FIELD COORDINATION [address] [place] [address], [address], [facility] 4 12:44:08 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 485167447 Active 2023 Lorelei Boudreaux [facility] 4 07:07:41 Compression of cervical spinal cord 0142172379 Active 2023 Irina Coyle [facility] 4 15:04:56 Spinal cord compression 79103309 Active 2023 Irina Coyle [facility] 4 15:05:09 Rheumatoid arthritis of cervical spine 759704992 Active 2023 Monse Calloway [facility] 4 14:02:00 Hydrocephalus ex vacuo 78725599 Active 2023 Chey Napoles MD [address] [place] [address], [address], [facility] 4 10:53:13 Pain due to varicose veins of lower extremity 621465396 Active 2023 Sobeida Sherman [facility] 4 08:48:52 Edema of lower extremity 478444705 Active 2023 Tiff Dillard [facility] 4 12:13:53 Problem Notes None recorded. Procedures Surgical History Date Name Laterality Status Provider Name and Address Organization Details Recorded Time 07/23 esophagogastroduodenoscopy completed Neva Mcdowell [facility] 4 08:58:52 04/05 cervical laminectomy completed Irina Coyle [facility] 4 15:01:26 Colonoscopy with biopsy completed N ot Available [facility] 4 14:23:30 Removal of gallbladder completed No t Available Health Note 4 14:23:30 Total hysterectomy completed Not Available Health Note 4 14:23:30 Imaging Results Imaging Date Name Status LastModified by Organiz ation Details LastModified Time 08/05/2023 MRI, cervical spine, w/o contrast completed [facility] Information not available 06/10/2024 11:01:52 08/19/2024 XR, cervical spine, 4 or 5 view completed [facility] [address] [place], [address], 08/19/2024 17:11:19 10/05/2024 CT, head, w/o contrast completed [facility] [address] [place], [address], 10/07/2024 11:45:19 Procedure Notes None recorded. Medical Equipment None Reported. Allergies Allergen ID Allergen Name Allergen Category Reaction Reaction Severity Criticality Documentation Date Start Date Code Code System Note Provider Name and Address Organization Details Recorded Time 9273656 Dilaudid medicatio n anaphylax is Not available Not available 10/23/20232021 95535 3 RxNorm React ion: Anaph ylaxi s; Not Available Not Available Not Available 7518828 esomepraz ole magnesium medicatio n dizziness Not available Not available 10/23/20232010 30568 2 RxNorm React ion: Dizzi ness; Not Available Not Available Not Available 407929 omeprazol e magnesium medicatio n nausea Not available Not available 10/21/20232014 38940 6 RxNorm React ion: Nause a; Other ; Not Available Not Available Not Available 405342 Rocephin medicatio n rash Not available Not available 10/21/20232016 9449 RxNorm React ion: Rash; Not Available Not Available Not Available Medications Name Sig Start Date Stop Date Status Note LastModified by Organization Details LastModified Time nystatin 100,000 unit/mL oral suspension 04/13 completed Not Available Not Available Not Available nicotine 14 mg/24 hr daily transdermal patch 04/13 completed Not Available Not Available Not Available azithromyci n 250 mg tablet active Not Available Not Available Not Available nystatin 100,000 unit/gram topical ointment active Not Available Not Available Not Available fluconazole 150 mg tablet TAKE 1 TABLET BY MOUTH AT ONSET OF SYMPTOMS MAY REPEAT IN 72 HOURS NEEDED active Not Available Not Available No t Available valacyclovi r 1 gram tablet 03/23 completed Not Available Not Available Not Available hydrocodone 5 mg-acetamin ophen 325 mg tablet active Not Available Not Available No t Available Nystop 100,000 unit/gram topical powder APPLY TO THE AFFECTED AREA TWICE DAILY active Not Available Not Available No t Available ondansetron HCl 4 mg tablet active Not Available Not Available Not Available famotidine 40 mg tablet active Not Available Not Available Not Available diphenoxyla te-atropine 2.5 mg-0.025 mg tablet active Not Available Not Available Not Available metronidazo le 500 mg tablet 03/23 completed Not Available Not Available Not Available valacyclovi r 500 mg tablet 03/23 completed Not Available Not Available Not Available ciprofloxac in 500 mg tablet 03/23 completed Not Available Not Available Not Available tramadol 50 mg tablet 03/23 completed Not Available Not Available Not Available pravastatin 10 mg tablet active Not Available Not Available Not Available baclofen 10 mg tablet active Not Available Not Available No t Available flecainide 100 mg tablet Take 1 tablet every 12 hours by oral route. active Not Available Not Available No t Available nicotine 21 mg/24 hr daily transdermal patch 04/13 completed Not Available Not Available Not Available lidocaine HCl 2 % mucosal solution active Not Available Not Available Not Available estradiol 0.01% (0.1 mg/gram) vaginal cream active Not Available Not Available Not Available methylpredn isolone 4 mg tablets in a dose pack 03/23 completed Not Available Not Available Not Available albuterol sulfate HFA 90 mcg/actuati on aerosol inhaler active Not Available Not Available Not Available cefdinir 300 mg capsule 03/23 completed Not Available Not Available Not Available amoxicillin 875 mg-potassiu m clavulanate 125 mg tablet 05/21 completed Not Available Not Available Not Available nicotine 7 mg/24 hr daily transdermal patch 04/13 completed Not Available Not Available Not Available nitrofurant oin monohydrate /macrocryst als 100 mg capsule 03/23 completed Not Available Not Available Not Available varenicline tartrate 0.5 mg (11)-1 mg (42) tablets in a dose pack 05/21 completed Not Available Not Available Not Available Creon 12,000-38,0 00-60,000 unit capsule,del ayed release active Not Available Not Available Not Available Xarelto 20 mg tablet active Not Available Not Available No t Available Vitals Date Recorded Body height Body mass index (BMI) Body weight Heart rate Respiratory rate Oxygen saturation Oxygen saturation in Arterial blood by Pulse oximetry Systolic blood pressure Diastolic blood pressure Provider Name and Address Organization Details Last Updated DateTime 4 162.56 cm 29.1 kg/m2 22598.9 1 g 64 /min 20 /min 100 % 100 % 150 mm[Hg] 82 mm[Hg] [facility] 4 10:33:09 Date Recorded Body height Body mass index (BMI) Body weight Heart rate Respiratory rate Oxygen saturation Oxygen saturation in Arterial blood by Pulse oximetry Systolic blood pressure Diastolic blood pressure Provider Name and Address Organization Details Last Updated DateTime 4 162.56 cm 29.4 kg/m2 81022.3 g 70 /min 20 /min 95 % 95 % 140 mm[Hg] 80 mm[Hg] [facility] 4 15:41:04 Date Recorded Body height Respiratory rate Oxygen saturation Oxygen saturation in Arterial blood by Pulse oximetry Systolic blood pressure Diastolic blood pressure Provider Name and Address Organization Details Last Updated DateTime 4 162.56 cm 20 /min 97 % 97 % 148 mm[Hg] 60 mm[Hg] [facility] 4 16:16:16 Date Recorded Body height Body mass index (BMI) Body weight Systolic blood pressure Diastolic blood pressure Provider Name and Address Organization Details Last Updated DateTime 06/01/2024 162.56 cm 29.9 kg/m2 67503.07 g 105 mm[Hg] 70 mm[Hg] Khang Shetty, SUPREME COURT JUDGE, DIRECTOR OF FIELD COORDINATION [address] [place] [address], [phone] [place] [address] 4 12:38:55 Date Recorded Body height Respiratory rate Heart rate Oxygen saturation Oxygen saturation in Arterial blood by Pulse oximetry Systolic blood pressure Diastolic blood pressure Provider Name and Address Organization Details Last Updated DateTime 4 162.56 cm 18 /min 52 /min 96 % 96 % 120 mm[Hg] 54 mm[Hg] [facility] 4 13:43:16 Social History Question Answer Notes LastModified by Organizat ion Details LastModified Time Tobacco Smoking Status Current Every Day Smoker [facility] 06/01/2024 13:43:55 Do You Have An Advance Directive? Yes [email or web address] Information not available 04/06/2024 What Is Your Level Of Alcohol Consumption? None [email or web address] Information not available 04/06/2024 What Is Your Level Of Caffeine Consumption? Moderate [email or web address] Information not available 04/06/2024 What Is Your Code Status? Other [email or web address] Information not available 04/06/2024 Are You Currently Employed? No [email or web address] Information not available 04/06/2024 What Is Your Occupation? Retired [email or web address] Information not available 04/06/2024 How Many Times Per Week Do You Exercise? Less Than 1 Time Per Week [email or web address] Information not available 04/06/2024 How Many Packs Per Day (PPD)? 3-5 Per Day [email or web address] Information not available 05/21/2024 How Long Have You Smoked? Since I Was 17 [email or web address] Information not available 04/06/2024 Do You Have A Medical Power Of Fancy Sewer? Yes [email or web address] Information not available 04/06/2024 What Was The Date Of Your Most Recent Tobacco Screening? 04/13/2024 [email or web address] Information not available 04/06/2024 What Is Your Relationship Status? Single [email or web address] Information not available 04/06/2024 Do You Use Any Illicit Or Recreational Drugs? No [email or web address] Information not available 04/06/2024 Sex: Unknown Functional Status Question Answer Note LastModified by Organizat ion Details LastModified Time What is your exercise level? Occasional [email or web address] Information not available 04/06/2024 Mental Status None recorded. Family History Relationship Description Onset Age of this Age Resolved Age Notes LastModified by Organization Details LastModified Time Mother Arthritis [email or web address] Not available 03/16/2024 14:23:29 Mother Family history of malignant neoplasm [email or web address] Not available 2023 14:23:29 Mother Chronic obstructive pulmonary disease [email or web address] Not available 2023 14:23:29 Mother Diabetes mellitus [email or web address] Not available 2023 14:23:29 Mother Heart disease [email or web address] Not available 2023 14:23:29 Mother Kidney disease [email or web address] Not available 2023 14:23:29 Sister Diabetes mellitus [email or web address] Not available 2023 14:23:29 Sister Kidney disease [email or web address] Not available 2023 14:23:29 Sister Arthritis [email or web address] Not available 04/06/2024 17:46:10 Sister Family history of malignant neoplasm [email or web address] Not available 2023 17:46:10 Sister Hypertensive disorder [email or web address] Not available 2023 17:46:10 Paternal Grandmother Diabetes mellitus [email or web address] Not available 2023 14:23:29 Father Heart disease [email or web address] Not available 2023 14:23:29 Father Hypertensive disorder [email or web address] Not available 2023 14:23:29 Father Cerebrovascu lar accident [email or web address] Not available 14:23:29 Unspecified Relation Alzheimer's disease [email or web address] Not available 2023 17:46:10 Paternal Grandfather Heart disease [email or web address] Not available 2023 17:46:10 Notes:Mother has arthritis M other has cancer Mother has copd (chronic obstructive lung disease) Mother has diabetes Mother has heart disease Mother has kidney disease Mother has liver disease Medical History Condition Response Anxiety Disorder N Diabetes N Bleeding Disorder N Attention-deficit Hyperactivity Disorder N High Blood Pressure N Arthritis Y Hyperlipidemia N Cancer Y Stroke Y Thyroid Problems N Asthma N COPD Y Depression N Seizures N Anemia N Heart Disease N Fibromyalgia Y Osteoporosis N Kidney Disease N Gynecological HistoryNo gynecological history recorded. Obstetrics History GPAL:G 0 P 0 0 0 0 Past Encounters Encounter ID Performer Location Encounter Start Date Encounter Closed Date Diagnosis/Indication Diagnosis SNOMED-CT Code Diagnosis ICD10 Code Diagnosis Note [id number] [facility] [place] ([place]) [facility] [place] [address] 03/23/2024 10:30:59 03/25/2024 08:33:26 Hydrocephalus ex vacuo 61793696 G91.0 [id number] Karson Bright MD [address] [place] [address] [place] ([place]) [address] [place] [address],[address] [place] [phone] 04/13/2024 15:24:08 04/13/2024 16:46:06 Pain due to varicose veins of lower extremity 826853634 I83.138 [id number] Karson Bright MD [address] [place] [address] [facility] [place] ([place]) [address] [place] [address] [address] 05/21/2024 16:02:16 05/21/2024 17:03:25 Pain due to varicose veins of lower extremity 110686591 I83.538 [id number] Khang Shetty APRN, DIRECTOR OF FIELD COORDINATION [address] [facility] ([place]) [address] [address] 06/01/2024 12:06:40 06/01/2024 15:02:22 Dysphagia 60246908 R13.10 Chronic ab dominal pain 450681604 R10.9 Nonulcer dyspepsia 39991 07 K30 Peripheral vascular disease 707040956 I73.9 [id number] Karson Bright MD [address] [facility] ([place]) [address] [place] [phone] 06/01/2024 13:21:13 06/01/2024 14:04:42 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 085313716 I83.11 I83.12 Additional diagnosis detail: Varicose veins of lower extremity with inflammati on, bilateral Health Concerns Section Related Observation LastModified by Organization Detai ls LastModified Time None Recorded Concern Status LastModified by Organization Details LastModified Time None Recorded Advance Directives Directive Y: Payers Encounter Date Sequence Insurance Name Policy Number Policy Sandoval Covered Member ID Sandoval Member ID Guarantor Name 03/23/2024 1 [facility] ON OR AFTER 03/23/21 (MEDICAID REPLACEMENT - HMO) Claudine L Nancy [id number] Claudine L Nancy 04/13/2024 1 [facility] ON OR AFTER 03/23/21 (MEDICAID REPLACEMENT - HMO) Claudine L Nancy [id number] Claudine L Nancy 05/21/2024 1 [facility] ON OR AFTER 03/23/21 (MEDICAID REPLACEMENT - HMO) Claudine L Nancy [id number] Claudine L Nancy 06/01/2024 1 [facility] ON OR AFTER 03/23/21 (MEDICAID REPLACEMENT - HMO) Claudine L Nancy [id number] Claudine L Nancy 06/01/2024 1 [facility] ON OR AFTER 03/23/21 (MEDICAID REPLACEMENT - HMO) Claudine L Nancy [id number] Claudine L Nancy Notes Date Note Type Note Provider Name and Address Organization Details Recorded Time 03/23/2024 text/html Claudine Cruz is a 63-year-old female who presents today to establish care for an abnormal MRI. She has past medical history significant for cervical myelopathy status post release in 2022, irritable bowel syndrome, paroxysmal atrial fibrillation with RVR, rheumatoid arthritis, gastroesophageal reflux disorder, coronary artery disease and newer concerns for peripheral vascular disease for which she has an upcoming vascular appointment who presents today out of concern for abnormal MRI of the internal auditory canal without contrast on December 09, 2023. This was largely unremarkable with the exception of noted prominent ventricular system and subarachnoid spaces due to diffuse cerebral atrophy. She currently does not report any neurologic symptoms that could correlate. No cognitive concerns. No gait instability. She denies bowel or urinary incontinence. When she was dealing with the cervical myelopathy, she was having a lot of gait instability with weakness within the lower extremities that resolved following her procedure. She reports some tingling and pain within the right foot. This is suspected potentially related to peripheral vascular disease for which she is seeing a vascular specialist. She has a long-term history of tobacco abuse. She has posterior aspect headaches with radiation in the neck and back of the head. She does not report additional concerns at this point. Chey Napoles MD [facility] [place] [address], [phone], [facility] 03/24/2024 12:34:04 04/13/2024 text/html This is a 63-yea r-old female who is here for assessment regarding bilateral lower extremity symptomatic varicose veins. The patient has been dealing with intermittent right ankle area swelling with heaviness, aching, pain and discoloration over last few years. She also has symptomatic moderate to large size varicose vein involving left calf area causing cramping pain. She has been wearing compression stockings with some symptom control. She continues to have some intermittent heaviness, aching, pain, irritation around varicose vein. She has longstanding history of about pack a day smoking over last 40+ years. Surgical history includes neck decompression by Dr. Marin in March 2022. Atrial fibrillation. She has also has atrial fibrillation on Xarelto. Rheumatoid arthritis, CAD, peripheral artery disease, normal pressure hydrocephalus, carpal tunnel release and cholecystectomy. She claims that she is working on quitting smoking in next few weeks. She also suffers from IBS and fibromyalgia.She denies any lower extremity ulceration or intervention in the past. Denies any previous history of [place], DVT, PE, stroke.ronny Bright MD [address] [place] [address], [phone], [facility] 04/19/2024 21:13:02 06/01/2024 text/html 63-year-old delmi n here to discuss some upper GI issues.Upon going through her chart she has chronic abdominal pain problems, we have seen her for acid reflux before, dyspeptic type of issues, epigastric pain.In 2020 I saw her for some right upper quadrant pain which she continues to have intermittently, IBS-C, GERD she had a CT scan done of the abdomen and pelvis that time which was negative.I saw her for the same exact problem in April 2022 CT scan was ordered at that time once again this was negative.She does take hyoscyamine for the chronic right-sided pain, sounds like she has to buy this [id number] because her insurance does not cover as many of them as she needs, she takes 0.125 mg sometimes this seems to help, sometimes not. She was not aware that she could take 2 of these at a time.Primary reason that she is being seen is since her last EGD which was done at the same time of a colonoscopy in March 2020 she is having some dysphagia to solids as well as liquids. She had an EGD which was her last EGD in March 2020 for epigastric pain and the reflux history. She does take famotidine 40 mg twice daily.Here in the last couple of months she is having to do a GI cocktail as needed that is being given to her by her PCP. This does seem to help when she gets the heartburn. She is on max dose of famotidine 40 mg twice daily. She has taken this chronically for a while.In terms of the dysphagia this can happen with solids as well as liquids. This is intermittent. She feels as if the eye becomes stuck in her neck area she definitely has to stop eating or drinking when this occurs. Does not sound like she ever has had to regurgitate items up because of this. She perceives this problem to be in her lower neck area. She is not too sure if she is having some spasm , causing the dysphagia.No unintentional weight loss with this. No overt blood in her stool. No vomiting. No abdominal discomfort anywhere else.She does have a history of cholecystectomy. Khang Shetty, SUPREME COURT JUDGE, DIRECTOR OF FIELD COORDINATION [address] [place] [address], [phone], [facility] 06/01/2024 12:44:24 06/01/2024 text/html This is a 63-yea r-old female who is here for assessment regarding bilateral lower extremity swelling and symptomatic varicose vein. The patient was last seen on 04/13/2024 and asked for compression stockings along with intermittent leg elevation. She underwent bilateral lower extremity venous reflux exam, which showed evidence of no deep venous or small saphenous vein reflux bilaterally. Evidence of right great saphenous vein reflux at mid thigh and knee level. Left great saphenous vein reflux at knee and ankle level as per ultrasound exam done on 05/21/2024, which I personally reviewed and discussed with the patient at a great length. The patient does not take any antiplatelet agents at this point. She takes Xarelto for A fib management. She does have evidence of cluster of small varicose vein at right ankle, mid calf level, which is not symptomatic. The swelling is very much controlled. She thinks she had a couple of episodes of cellulitis involving right foot and distal leg area, which is likely related to ingrown toenail. Cellulitis is controlled with round of antibiotic/penicillin leading to complete resolution. Denies any current symptoms at this point.[facility] Karson Bright MD [address] [place] [address], [phone], [facility] 06/04/2024 18:05:45 OBGyn Episode No OBEpisode recorded.
--- OUTSIDE RECORDS SUMMARY | 2024-11-07 11:51 | XMS_ITS | Encounter Summary ---
Author Organization [facility] Address [address] [place] [address] Care Team Providers Care Game Master Name Role Phone Rey Wadsworth MD Unavailable Yasmany Be MD Primary Care Provider [phone] Erin Mead NP Unavailable Unavailable Encounter Details Date Type Department Care Team (Late st Contact Info) Description 02/28/2019 Abstract SFL CONVERSION [address] [place] [address] , Generic Conversion, Social History Tobacco Use Types Packs/Day Years Used Date Smoking Tobacco: Every Day Cigarettes 0.3 40 Smokeless Tobacco: Never Alcohol Use Standard Drinks/Week Comments No 0 (1 standard drink = 0.6 oz pur e alcohol) Comments Unknown Sex and Gender Information Value Date Recorded Sex Assigned at Not on file Legal Sex Female 6:18 PM CDT Gender Identity Not on file Sexual Orientation Not on file 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
--- OUTSIDE RECORDS SUMMARY | 2024-11-07 11:51 | XMS_ITS | Data Portability ---
Author Organization 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 Plan of Treatment Reminders Order Date Submit Date Provider Last Modified By Organization Details Last Modified Time Details Appointments None recorded. Lab None recorded. Referral None recorded. Procedures None recorded. Surgeries None recorded. Imaging None recorded. Medication Orders Estrace 0.01% (0.1 mg/gram) vaginal cream 2024 025 [email or web address] [address], [address], [place], [address], 5 10:20:41 clotrimazol e-betametha sone 1 %-0.05 % topical cream 2023 024 [email or web address] [address], [address], [place], [address], 4 10:20:34 clindamycin 2 % vaginal cream 2023 024 [facility], [address], [place], [id number], 4 10:18:18 hydrocortis one acetate 25 mg rectal suppository 2023 024 [facility], [address], [place], [id number], 4 10:18:20 clobetasol 0.05 % topical cream 2023 024 [facility] [address] [facility], [address], [place], [address], 4 11:26:51 Estrace 0.01% (0.1 mg/gram) vaginal cream 2023 024 [email or web address] 1 [facility], [address], [place], [id number], 4 10:02:50 Patient TargetsNo targets recorded. Patient InstructionsNo instructions recorded. Reason for Referral None Reported. Results Created Date Observation Date Name Description Value Unit Range Abnormal Flag Note LastModifiedBy Organization Detail LastModifiedTime 10/28/19 24 10/28/2023 MOBIL UNCUS MULIE RIS/C URTIS SHIRLENE, RT-PC R, ONE SWAB mobiluncus mulieris and mobiluncus curtisii by RT-PCR Negati ve Swab- 1 Vag/C erv Not Available [facility] (Lab) [address] [place], [address], 11/11/2023 15:40:30 10/28/19 24 10/28/2023 BACTE RIAL VAGIN OSIS PANEL RT-PC R, ONESW AB gardnerella vaginalis PCR Negati ve Swab- 1 Vag/C erv Not Available [facility] (Lab) [address] [place], [address], 11/11/2023 15:40:30 10/28/19 24 10/28/2023 BACTE RIAL VAGIN OSIS PANEL RT-PC R, ONESW AB atopobium vaginae PCR Negati ve Swab- 1 Vag/C erv Not Available [facility] (Lab) [address], [place], [address], 11/11/2023 15:40:30 10/28/19 24 10/28/2023 BACTE RIAL VAGIN OSIS PANEL RT-PC R, ONESW AB bacterial vaginosis associated bacteria 2 (bvab2) Negati ve Swab- 1 Vag/C erv Not Available [facility] (Lab) [address] [place], [address], 11/11/2023 15:40:30 10/28/19 24 10/28/2023 BACTE RIAL VAGIN OSIS PANEL RT-PC R, ONESW AB megasphaera species (type 1 and type 2) PCR Negati ve (Type1 ,Type2 ) Swab- 1 Vag/C erv Type1 :Nega tive Type2 :Nega tive. Not Available [facility] (Lab) [address] [place], [address], 11/11/2023 15:40:30 10/28/19 24 10/28/2023 BACTE RIAL VAGIN OSIS PANEL RT-PC R, ONESW AB lactobacillu s (bvpanel) PCR See Commen t Swab- 1 Vag/C erv L.cri spatu s: Negat oliver L.lili senii : Negat oliver L.gas seri : Negat oliver L.ine rs : Negat oliver. Not Available [facility] (Lab) [address] [place], [address], 11/11/2023 15:40:30 10/28/19 24 10/28/2023 VIK DA VAGIN ITIS PANEL RT-PC R, ONESW AB radhika albicans PCR Negati ve Swab- 1 Vag/C erv Not Available [facility] (Lab) [address] [place], [address], 11/11/2023 15:40:31 10/28/19 24 10/28/2023 VIK DA VAGIN ITIS PANEL RT-PC R, ONESW AB radhika tropicalis PCR Negati ve Swab- 1 Vag/C erv Not Available [facility] (Lab) [address] [place], [address], 11/11/2023 15:40:31 02/05/20 24 10/28/2023 VIK DA VAGIN ITIS PANEL RT-PC R, ONESW AB radhika parapsilosis PCR Negati ve Swab- 1 Vag/C erv Not Available [facility] (Lab) [address] [facility], [place], [address], 11/11/2023 15:40:31 10/28/19 24 10/28/2023 VIK DA VAGIN ITIS PANEL RT-PC R, ONESW AB radhika glabrata PCR Negati ve Swab- 1 Vag/C erv Not Available [facility] (Lab) [address] [place], [address], 11/11/2023 15:40:31 10/28/19 24 10/28/2023 VIK DA VAGIN ITIS PANEL RT-PC R, ONESW AB radhika krusei by RT-PCR Negati ve Swab- 1 Vag/C erv Not Available [facility] (Lab) [address] [facility], [place], [address], 11/11/2023 15:40:31 10/28/19 24 10/28/2023 UROGE NITAL MYCOP LASMA /UREA PLASM A PANEL RT-PC R, ONESW AB mycoplasma genitalium by RT-PCR Negati ve Swab- 1 Vag/C erv Not Available [facility] (Lab) [address] [place], [address], 11/11/2023 15:40:31 10/28/19 24 10/28/2023 UROGE NITAL MYCOP LASMA /UREA PLASM A PANEL RT-PC R, ONESW AB mycoplasma hominis by RT-PCR Negati ve Swab- 1 Vag/C erv Not Available [facility] (Lab) [address] [place], [address], 11/11/2023 15:40:31 10/28/19 24 10/28/2023 UROGE NITAL MYCOP LASMA /UREA PLASM A PANEL RT-PC R, ONESW AB ureaplasma urealyticum by RT-PCR Negati ve Swab- 1 Vag/C erv Not Available [facility] (Lab) [address] [place], [address], 11/11/2023 15:40:31 10/28/19 24 10/28/2023 VIK DA SNEHAL I BY RT-PC R radhika krusei by RT-PCR CANCEL LED Juvenal zahida Not Available [facility] (Lab) [address] [facility], [place], [address], 11/11/2023 15:40:32 09/14/20 24 09/14/2024 MOBIL UNCUS MULIE RIS/C URTIS LI, RT-PC R, ONE SWAB mobiluncus mulieris and mobiluncus curtisii by RT-PCR Negati ve Swab- 1 Cerv End Not Available [facility] (Lab) [address] [facility], [place], [address], 09/29/2024 14:21:25 09/14/20 24 09/14/2024 UROGE NITAL MYCOP LASMA /UREA PLASM A PANEL RT-PC R, ONESW AB mycoplasma genitalium by RT-PCR Negati ve Swab- 1 Cerv End Not Available [facility] (Lab) [address] [place], [address], 09/29/2024 14:21:26 09/14/20 24 09/14/2024 UROGE NITAL MYCOP LASMA /UREA PLASM A PANEL RT-PC R, ONESW AB mycoplasma hominis by RT-PCR Negati ve Swab- 1 Cerv End Not Available [facility] (Lab) [address] [place], [address], 09/29/2024 14:21:26 09/14/20 24 09/14/2024 UROGE NITAL MYCOP LASMA /UREA PLASM A PANEL RT-PC R, ONESW AB ureaplasma urealyticum by RT-PCR Negati ve Swab- 1 Cerv End Not Available [facility] (Lab) [address] [place], [address], 09/29/2024 14:21:26 09/14/20 24 09/14/2024 VIK DA VAGIN ITIS PANEL RT-PC R, ONESW AB radhika albicans PCR Negati ve Swab- 1 Cerv End Not Available [facility] (Lab) [address] [facility], [place], [address], 09/29/2024 14:21:26 09/14/20 24 09/14/2024 VIK DA VAGIN ITIS PANEL RT-PC R, ONESW AB radhika glabrata PCR Negati ve Swab- 1 Cerv End Not Available [facility] (Lab) [address] [place], [address], 09/29/2024 14:21:26 09/14/20 24 09/14/2024 VIK DA VAGIN ITIS PANEL RT-PC R, ONESW AB radhika krusei by RT-PCR Negati ve Swab- 1 Cerv End Not Available [facility] (Lab) [address] [place], [address], 09/29/2024 14:21:26 09/14/20 24 09/14/2024 VIK DA VAGIN ITIS PANEL RT-PC R, ONESW AB radhika parapsilosis PCR Negati ve Swab- 1 Cerv End Not Available [facility] (Lab) [address] [place], [address], 09/29/2024 14:21:26 09/14/20 24 09/14/2024 VIK DA VAGIN ITIS PANEL RT-PC R, ONESW AB radhika tropicalis PCR Negati ve Swab- 1 Cerv End Not Available [facility] (Lab) [address] [place], [address], 09/29/2024 14:21:26 09/14/20 24 09/14/2024 BACTE RIAL VAGIN OSIS PANEL (WITH LACTO BACIL ABRAHAN PROFI LING) BY QRT PRC, ONESW AB (MDL) atopobium vaginae PCR Negati ve Swab- 1 Cerv End Not Available [facility] (Lab) [address] [place], [address], 09/29/2024 14:21:27 09/14/20 24 09/14/2024 BACTE RIAL VAGIN OSIS PANEL (WITH LACTO BACIL ABRAHAN PROFI LING) BY QRT PRC, EVELYNE MARTINEZ (L) bacterial vaginosis associated bacterium 1 (bvab1) RT PCR Negati ve Swab- 1 Cerv End Not Available [facility] (Lab) [address] [place], [address], 09/29/2024 14:21:27 09/14/20 24 09/14/2024 BACTE RIAL VAGIN OSIS PANEL (WITH LACTO BACIL ABRAHAN PROFI LING) BY QRT LALA, EVELYNE MARTINEZ (L) bacterial vaginosis associated bacteria 2 (bvab2) Negati ve Swab- 1 Cerv End Not Available [facility] (Lab) [address] [place], [address], 09/29/2024 14:21:27 09/14/20 24 09/14/2024 BACTE RIAL VAGIN OSIS PANEL (WITH LACTO BACIL ABRAHAN PROFI LING) BY QRT LALA, EVELYNE MARTINEZ (L) bacterial vaginosis associated bacterium 3 (bvab3) RT PCR Negati ve Swab- 1 Cerv End Not Available [facility] (Lab) [address] [place], [address], 09/29/2024 14:21:27 09/14/20 24 09/14/2024 BACTE RIAL VAGIN OSIS PANEL (WITH LACTO BACIL ABRAHAN PROFI LING) BY QRT LALA, EVELYNE MARTINEZ (L) bacteroides fragilis by real - time PCR Negati ve Swab- 1 Cerv End Not Available [facility] (Lab) [address] [place], [address], 09/29/2024 14:21:27 09/14/20 24 09/14/2024 BACTE RIAL VAGIN OSIS PANEL (WITH LACTO BACIL ABRAHAN PROFI LING) BY QRT LALA, EVELYNE MARTINEZ (MDL) bifidobacter ium breve by real-time PCR Negati ve Swab- 1 Cerv End Not Available [facility] (Lab) [address] [facility], [place], [address], 09/29/2024 14:21:27 09/14/20 24 09/14/2024 BACTE RIAL VAGIN OSIS PANEL (WITH LACTO BACIL ABRAHAN PROFI LING) BY QRT PRC, EVELYNE MARTINEZ (JASWANT) gardnerella vaginalis PCR Positi ve abnormal Swab- 1 Cerv End Not Available [facility] (Lab) [address] [facility], [place], [address], 09/29/2024 14:21:27 09/14/20 24 09/14/2024 BACTE RIAL VAGIN OSIS PANEL (WITH LACTO BACIL ABRAHAN PROFI LING) BY QRT PRC, EVELYNE MARTINEZ (JASWANT) lactobacillu s (bvpanel) PCR See Commen t Swab- 1 Cerv End L.cri spatu s: Negat oliver L.lili senii : Posit oliver L.gas seri : Posit oliver L.ine rs : Negat oliver. Not Available [facility] (Lab) [address] [place], [address], 09/29/2024 14:21:27 09/14/20 24 09/14/2024 BACTE RIAL VAGIN OSIS PANEL (WITH LACTO BACIL ABRAHAN PROFI LING) BY QRT PRC, EVELYNE MARTINEZ (JASWANT) lactobacillu s acidophilus by real-time PCR Negati ve Swab- 1 Cerv End Not Available [facility] (Lab) [address] [facility], [place], [address], 09/29/2024 14:21:27 09/14/20 24 09/14/2024 BACTE RIAL VAGIN OSIS PANEL (WITH LACTO BACIL ABRAHAN PROFI LING) BY QRT PRC, EVELYNE MARTINEZ (JASWANT) megasphaera species (type 1 and type 2) PCR Negati ve (Type1 ,Type2 ) Swab- 1 Cerv End Type1 :Nega tive Type2 :Nega tive. Not Available [facility] (Lab) [address] [place], [address], 09/29/2024 14:21:27 09/14/20 24 09/14/2024 BACTE RIAL VAGIN OSIS PANEL (WITH LACTO BACIL ABRAHAN PROFI LING) BY QRT PRC, EVELYNE MARTINEZ (MDL) mobiluncus curtisii by real-time PCR Negati ve Swab- 1 Cerv End Not Available [facility] (Lab) [address] [place], [address], 09/29/2024 14:21:27 09/14/20 24 09/14/2024 BACTE RIAL VAGIN OSIS PANEL (WITH LACTO BACIL ABRAHAN PROFI LING) BY QRT PRC, EVELYNE MARTINEZ (MDL) mobiluncus mulieris by real-time PCR Negati ve Swab- 1 Cerv End Not Available [facility] (Lab) [address] [place], [address], 09/29/2024 14:21:27 09/14/20 24 09/14/2024 BACTE RIAL VAGIN OSIS PANEL (WITH LACTO BACIL ABRAHAN PROFI LING) BY QRT PRC, EVELYNE MARTINEZ (L) prevotella bivia by real-time PCR Negati ve Swab- 1 Cerv End Not Available [facility] (Lab) [address] [place], [address], 09/29/2024 14:21:27 09/14/20 24 09/14/2024 BACTE RIAL VAGIN OSIS PANEL (WITH LACTO BACIL ABRAHAN PROFI LING) BY QRT PRC, EVELYNE MARTINEZ (L) sneathia sanguinegens real-time PCR Negati ve Swab- 1 Cerv End Not Available [facility] (Lab) [address] [place], [address], 09/29/2024 14:21:27 09/14/20 24 09/14/2024 BACTE RIAL VAGIN OSIS PANEL (WITH LACTO BACIL ABRAHAN PROFI LING) BY QRT EVELYNE REEVES (JASWANT) streptococcu s anginosus by real-time PCR Negati ve Swab- 1 Cerv End Not Available [facility] (Lab) [address] [place], [address], 09/29/2024 14:21:27 09/14/20 24 09/14/2024 VIK DA SNEHAL I BY RT-PC R radhika krusei by RT-PCR CANCEL LED Kindrali zahida Not Available [facility] (Lab) [address] [place], [address], 09/29/2024 14:21:27 11/05/19 24 07/05/2023 CT, abdom en + pelvi s, w/ contr ast No observ ation record ed. [email or web address] [facility] [address] [place], [address], 11/05/2023 20:42:59 Result Notes None recorded. Problems Name Problem SNOMED Code Status Onset Date Resolution Date Notes Provider Name and Address Organization Details Recorded Time History of cerebrovascul ar accident without residual deficits 074526615 Active 2023 Lian delgado [facility] 4 10:04:19 History of deep vein thrombosis 246249908 Active 2023 Lian delgado [facility] 4 10:04:50 Problem Notes None recorded. Procedures Surgical History Date Name Laterality Status Provider Name and Address Organization Details Recorded Time 07/23/20 24 endoscopy completed Lian Melgar [facility] 09/12/2024 09:57:49 06/02/20 24 Most Recent Bone Density completed Kiana Crook [facility] 10/26/2024 09:53:02 11/12/19 23 Date of Last Mammogram completed Lian Melgar [facility] 09/12/2024 09:49:37 09/23/19 23 Carpal tunnel surgery completed [facility] 11/11/2023 10:08:24 04/05/20 22 procedure on neck completed Lian [facility] 11/11/2023 10:09:22 01/05/20 22 completed Kiana Crook [facility] 10/26/2024 09:53:02 04/03/20 20 Date of Last Colonoscopy completed [facility] 09/12/2024 09:49:37 09/23/19 20 Carpal tunnel surgery completed [facility] 11/11/2023 10:08:41 09/23/19 20 Colonoscopy completed [facility] 09/12/2024 09:57:35 09/23/19 17 partial resection of colon completed [facility] 11/11/2023 10:08:55 09/23/19 17 Colonoscopy completed [facility] 11/11/2023 10:09:02 09/23/19 07 Cholecystectomy completed [facility] 11/11/2023 10:08:48 09/23/18 89 Total Hysterectomy completed [facility] 11/11/2023 10:09:08 Imaging Results Imaging Date Name Status LastModified by Organiz ation Details LastModified Time 07/05/2023 CT, abdomen + pelvis, w/ contrast completed [email or web address] [facility] [address] [place], [address], 11/05/2023 20:42:59 Procedure Notes None recorded. Medical Equipment None Reported. Allergies Allergen ID Allergen Name Allergen Category Reaction Reaction Severity Criticality Documentation Date Start Date Code Code System Note Provider Name and Address Organization Details Recorded Time 70113 Prilosec medicatio n dizziness Not available Not available 10/28/2023 71534 5 RxNorm Amanda delgado, [facility] 4 10:05:06 88907 Rocephin medicatio n hives Not available Not available 10/28/2023 9449 [facility] 10:20:03 85635 Nexium medicatio n dizziness Not available Not available 10/28/2023 58539 9 RxNorm Amanda delgado, [facility] 4 10:20:27 89353 Dilaudid medicatio n anaphylax is Not available Not available 10/28/2023 26234 3 RxNorm Amanda Harmon [facility] 4 10:20:57 Medications Name Sig Start Date Stop Date Status Note LastModified by Organization Details LastModified Time nystatin 100,000 unit/mL oral suspension 09/12 completed Not Available Not Available Not Available nicotine 14 mg/24 hr daily transdermal patch 09/12 completed Not Available Not Available Not Available atorvastati n 10 mg tablet 09/12 completed Not Available Not Available Not Available azithromyci n 250 mg tablet 09/12 completed Not Available Not Available Not Available nystatin 100,000 unit/gram topical ointment active Not Available Not Available Not Available fluconazole 150 mg tablet TAKE 1 TABLET BY MOUTH AT ONSET OF SYMPTOMS MAY REPEAT IN 72 HOURS NEEDED 09/12 completed Not Available Not Available Not Available valacyclovi r 1 gram tablet 09/12 completed Not Available Not Available Not Available [...] active Not Available Not Available Not Available clobetasol 0.05 % topical cream APPLY 1 g per vagina q.h.s. active Not Available Not Available No t Available diphenoxyla te-atropine 2.5 mg-0.025 mg tablet 09/12 completed Not Available Not Available Not Available metronidazo le 500 mg tablet 11/11 completed Not Available Not Available Not Available valacyclovi r 500 mg tablet Take 1 tablet every day by oral route. 09/12 completed Not Available Not Available Not Available ciprofloxac in 500 mg tablet 11/11 completed Not Available Not Available Not Available tramadol 50 mg tablet 09/12 completed Not Available Not Available Not Available hydrocortis one acetate 25 mg rectal suppository 2023 active Not Available Not Available Not Avai lable pravastatin 10 mg tablet active Not Available Not Available Not Available baclofen 10 mg tablet active Not Available Not Available No t Available clotrimazol e-betametha sone 1 %-0.05 % topical cream APPLY TO THE AFFECTED AND SURROUNDI NG AREAS OF SKIN BY TOPICAL ROUTE 2 TIMES PER DAY IN THE MORNING AND EVENING FOR 2 WEEKS 2023 active Not Available Not Available Not Avai lable nicotine 21 mg/24 hr daily transdermal patch 09/12 completed Not Available Not Available Not Available lidocaine HCl 2 % mucosal solution active Not Available Not Available Not Available clindamycin 2 % vaginal cream Insert 1 applicato rful every day by vaginal route at bedtime, for 6 weeks. active Not Available Not Available No t Available methylpredn isolone 4 mg tablets in a dose pack 09/12 completed Not Available Not Available Not Available albuterol sulfate HFA 90 mcg/actuati on aerosol inhaler active Not Available Not Available Not Available cefdinir 300 mg capsule 11/11 completed Not Available Not Available Not Available amoxicillin 875 mg-potassiu m clavulanate 125 mg tablet 09/12 completed Not Available Not Available Not Available nicotine 7 mg/24 hr daily transdermal patch 09/12 completed Not Available Not Available Not Available Estrace 0.01% (0.1 mg/gram) vaginal cream Insert 1 applicato rful every other day by vaginal route. 2024 active Not Available Not Available Not Avai lable nitrofurant oin monohydrate /macrocryst als 100 mg capsule 09/12 completed Not Available Not Available Not Available Vitamin C active Not Available Not Indu ilable Not Available albuterol 09/12 completed Not Available Not Available Not Available diphenoxyla te-atropine 11/11 completed Not Available Not Available Not Available baclofen 11/11 completed Not Available Not Available Not Available famotidine 11/11 completed Not Available Not Available Not Available flecainide 09/12 completed Not Available Not Available Not Available pravastatin 11/11 completed Not Available Not Available Not Available Vitamin D3 active Not Available Not Av ailable Not Available multivitami n active Not Available Not Available Not Available Hydrocodone 11/11 completed Not Available Not Available Not Available Vitamin B12 active Not Available Not A vailable Not Available varenicline tartrate 0.5 mg (11)-1 mg (42) tablets in a dose pack 09/12 completed Not Available Not Available Not Available Creon 12,000-38,0 00-60,000 unit capsule,del ayed release active Not Available Not Available Not Available Creon 11/11 completed Not Available Not Available Not Available Probiotic active Not Available Not Indu ilable Not Available Xarelto 11/11 completed Not Available Not Available Not Available Xarelto 20 mg tablet active Not Available Not Available No t Available Vitals Date Recorded Body height Body mass index (BMI) Body weight Systolic blood pressure Diastolic blood pressure Provider Name and Address Organization Details Last Updated DateTime 10/28/2023 162.56 cm 26.8 kg/m2 19517.41 g 121 mm[Hg] 75 mm[Hg] Amanda Harmon [facility] 4 10:19:45 Date Recorded Body height Body mass index (BMI) Body weight Systolic blood pressure Diastolic blood pressure Provider Name and Address Organization Details Last Updated DateTime 11/11/2023 162.56 cm 27.1 kg/m2 28948.59 g 112 mm[Hg] 76 mm[Hg] Lian Melgar [facility] 4 10:01:35 Date Recorded Body height Body mass index (BMI) Body weight Systolic blood pressure Diastolic blood pressure Provider Name and Address Organization Details Last Updated DateTime 09/12/2024 162.56 cm 30.6 kg/m2 26735.44 g 124 mm[Hg] 68 mm[Hg] Lian Melgar [facility] 4 09:48:24 Date Recorded Body height Body mass index (BMI) Body weight Systolic blood pressure Diastolic blood pressure Provider Name and Address Organization Details Last Updated DateTime 10/26/2024 162.56 cm 30.9 kg/m2 69493.63 g 126 mm[Hg] 76 mm[Hg] Kiana Armaan [facility] 5 09:52:49 Social History Question Answer Notes LastModified by Organizat ion Details LastModified Time Tobacco Smoking Status Current Every Day Smoker Amanda Eden delgado, [facility] 10/28/2023 10:06:25 Do You Have An Advance Directive? Yes [email or web address] Information n ot available 09/12/2024 What Is Your Level Of Alcohol Consumption? None [email or web address] Information not available 09/12/2024 Are You Blind Or Do You Have Difficulty Seeing? No Information n ot available 11/11/2023 What Is Your Level Of Caffeine Consumption? Moderate [email or web address] Information not available 11/11/2023 In The 14 Days Before Symptom Onset, Have You Had Close Contact With A Laboratory-confirm ed COVID-19 While That Case Was Ill? No [email or web address] Information n ot available 11/11/2023 In The 14 Days Before Symptom Onset, Have You Had Close Contact With A Person Who Is Under Investigation For COVID-19 While That Person Was Ill? No [email or web address] Information not available 11/11/2023 Have You Been To An Area Known To Be High Risk For COVID-19? No [email or web address] Information not available 11/11/2023 Are You Deaf Or Do You Have Serious Difficulty Hearing? No [email or web address] Information not available 11/11/2023 What Type Of Diet Are You Following? CARDIAC [email or web address] Information n ot available 11/11/2023 What Is The Highest Grade Or Level Of School You Have Completed Or The Highest Degree You Have Received? [id number] [email or web address] Information not available 09/12/2024 What Is Your Occupation? Retired [email or web address] Information not available 09/12/2024 Are There Any Guns Present In Your Home? No [email or web address] Information not available 09/12/2024 Have You Ever Been Counseled For Unhealthy Alcohol Use? No [email or web address] Information not available 11/11/2023 Do You Use Protection During Sex? Usually [email or web address] Information not available 09/12/2024 Do You Use Your Seat Belt Or Car Seat Routinely? Yes Information not available 09/12/2024 Do You Have Smoke And Carbon Monoxide Detectors In Your Home? Yes [email or web address] Information not available 11/11/2023 At What Age Did You Start Smoking Tobacco? 17 [email or web address] Information not available 09/12/2024 Do You Feel Stressed (tense, Restless, Nervous, Or Anxious, Or Unable To Sleep At Night)? [id number] [email or web address] Information not available 09/12/2024 Do You Use Any Illicit Or Recreational Drugs? No [email or web address] Information not available 11/11/2023 Do You Use Sunscreen Routinely? Yes [email or web address] Information not available 11/11/2023 Has Tobacco Cessation Counseling Been Provided? No Information not available 11/11/2023 Have You Used IV Drugs? No [email or web address] Information not available 09/12/2024 Do You Or Have You Ever Used Any Other Forms Of Tobacco Or Nicotine? No [email or web address] Information not available 11/11/2023 Sex: Unknown Functional Status Question Answer Note LastModified by Organizat ion Details LastModified Time Do you have difficulty walking or climbing stairs? No [email or web address] Information not available 11/11/2023 Are you able to walk? YESWOREST Information not available 11/11/2023 Are you able to care for yourself? Yes [email or web address] Information not available 11/11/2023 Do you have difficulty dressing or bathing? No [email or web address] Information not available 11/11/2023 What is your exercise level? Occasional [email or web address] Information not available 11/11/2023 Mental Status None recorded. Family History Relationship Description Onset Age of this Age Resolved Age Notes LastModified by Organization Details LastModified Time Father Heart disease [email or web address] Not available 2023 10:50:39 Father Hypertensive disorder [email or web address] Not available 2023 10:51:08 Sister Diabetes mellitus [email or web address] Not available 2023 10:50:54 Sister Hypertensive disorder [email or web address] Not available 2023 10:51:08 Mother Diabetes mellitus [email or web address] Not available 2023 10:50:54 Mother Malignant tumor of lung [email or web address] Not available 2023 10:51:18 Mother Malignant neoplasm of liver Not available 2024 09:39:40 Medical History Condition Response Allergies (Food, seasonal, environmental ) Y Other N Breast Cancer N Drug/Latex Allergies/Reactions Y Blood Transfusion N Dermatologic Disorders N Lung Disease N Defects or Inherited Disease N Breast Problem N Gestational Diabetes N Hematologic disorders N Anesthesia Complications N History of STI Y Deep Vein Thrombosis Y Polycystic ovary syndrome N Anxiety Disorder Y Autoimmune disease N Arthritis Y Infertility N Polyps N Acid Reflux (GERD) Y History of abnormal pap N Cancer N Stroke Y Varicosities N Neurologic/Epilepsy Y Endometriosis N High Cholesterol Y Headaches N Fibromyalgia N Kidney Disease N Heart Problems Y Kidney or Bladder Problems N Thyroid Problems N GI Problems Y Eating Disorder N Anemia N Art (IVF or FET) N Psychiatric Illness N Ovarian Cancer N Diabetes N Pulmonary (TB, Asthma) N Hepatitis/Liver Disease N No Past Medical History N Eczema N Urinary Tract Infection N Abuse/Domestic Violence N Asthma Y Trauma/Violence N Depression/ depression Y Heart Disease Y Pre-Eclampsia N Hypertension N Osteoporosis N Thrombophilias N Gynecological History Statement/Question Response Date of Last Mammogram 11/12/2022 Date of LMP 09/23/1989 N STIs/STDs Y HPV Vaccine N Current Control Method Hysterectom y Age at First Child 19 Date of Last Colonoscopy 04/03/2020 Most Recent Bone Density 06/02/2024 Sexually Active? N Date of DEXA bone scan 03/24/2024 Age of first menstrual cycle 14 Date of Last Pap Smear Sexual Problems? N LMP Approximate 01/04/2022 N Obstetrics History GPAL:G 1 P 1 0 0 1 Type Value Full Term 1 Living 1 Total 1 Past Encounters Encounter ID Performer Location Encounter Start Date Encounter Closed Date Diagnosis/Indication Diagnosis SNOMED-CT Code Diagnosis ICD10 Code Diagnosis Note [id number] Avtar Perez MD [facility] [address] [address] 10/28/2023 09:46:57 10/28/2023 11:22:37 Atrophic vulva [id number] N90.5 this patient is a 63-year-ol d female who presents for vulvar pain. Patient has been treated for over a year by primary care nurse practition er.r vulvar pain. Patient had a hospital procedure about uterine half ago. After catheter was placed she started having problems with the urogenital tract distally. This worsened over time. She continued to have vulvar pain. Primary care nurse practition er was treating her with for herpes and also did some cautery with silver nitrate on the vulva. Last procedure on the vulva was 6 months ago. She is significan t pressure in the pelvis. She is miserable with the pain and pressure. Exam, - severely atrophic and inflamed vulva. Normal-johana earing vagina. Dryness of the vagina. Tender throughout the distal vulva. And vagina. Patient had hysterecto my at age 29 with bilateral salpingo-o ophorectom y. She has taken very little estrogen replacemen t therapy. She has had decades of atrophy of the vagina. We spent over 40 minutes face-to-fa ce. More than 50% was counseling . We agreed to treat with vaginal estrogen and topical estrogen on the vulvar area of interest. She will return in 2 weeks. Vulval pain [id number] R1 0.2 [id number] Avtar Perez MD [facility] [address] [address] 11/11/2023 09:34:50 11/11/2023 14:49:04 Atrophic vulvovaginitis [id number] N95.2 63-year-ol d female who presents for follow-up on severe vulvovagin itis /atrophic vulvovagin itis. . Patient did not tolerate vaginal estrogen. After some discussion , it was revealed that she was using a whole applicator of Premarin cream. 1 g as a small portion of the entire applicator . We discussed continued treatment. She will continue with some vaginal ovules. This will fill the gap between prescripti ons. She went through the Premarin cream very quickly. We spent over 20 minutes face-to-fa ce. More than 50% was counseling . She was re-examine d. The vulva appears improved. She was using some in the vagina and some over the vulva. To follow-up in 1 month. 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 No excessive discharge. Some itching at the introitus. No vaginal bleeding. Has been treated previously . That was 9 months ago. Re-examine d today. Has desquamati ve erosions. Likely has the desquamati ve inflammato ry vaginitis. To treat with antibiotic s and steroids. She will use vaginal clindamyci n and vaginal clobetasol . I described usage of these and medication s. She was given precaution s and instructio ns. We talked about the risks, benefits, and alternativ es. She will follow up in 6 weeks. Patient was also treated for tinea corpus in the creases of her medial legs. /Thigh. Tinea corporis [id number] B35.4 [id number] Avtar Perez MD [facility] [address],[place] [address] 10/26/2024 09:39:36 10/26/2024 10:27:47 Atrophic vulva [id number] N90.5 64-year-ol d female with a severe case of vulvovagin itis. She has noticed marked improvemen t since our treatment started. She was treated with clindamyci n for vaginal dicharge. She was treated with vaginal estrogen. Vaginal clindamyci n, topical clobetasol , topical clotrimazo le / betamethas one. The latter for tinea corporis. She has noticed much improved symptoms. We discussed the medication s. We discussed treatment going forward. She is going to use the vaginal estrogen twice weekly. She will continue using the topical antifungal / steroid cream. She will continue to use clobetasol on the vulva twice a week. She will follow up as needed. Health Concerns Section Related Observation LastModified by Organization [facility] LastModified Time None Recorded Concern Status LastModified by Organization Details LastModified Time None Recorded Advance Directives Directive Y: Payers Encounter Date Sequence Insurance Name Policy Number Policy Sandoval Covered Member ID Sandoval Member ID Guarantor Name 10/28/2023 1 [facility] ON OR AFTER 03/23/21 (MEDICAID REPLACEMENT - HMO) Claudine Nancy [id number] Claudine Nancy 11/11/2023 1 [facility] ON OR AFTER 03/23/21 (MEDICAID REPLACEMENT - HMO) Claudine Nancy [id number] Claudine Nancy 09/12/2024 1 [facility] ON OR AFTER 03/23/21 (MEDICAID REPLACEMENT - HMO) Claudine Nancy [id number] Claudine Nancy 10/26/2024 1 [facility] ON OR AFTER 03/23/21 (MEDICAID REPLACEMENT - HMO) Claudine Nancy [id number] Claudine Nancy Notes Date Note Type Note Provider Name and Address Organization Details Recorded Time 10/28/2023 text/html this patient is a 63-year-old female who presents for vulvar pain. Patient has been treated for over a year by primary care nurse practitioner.r vulvar pain. Patient had a hospital procedure about uterine half ago. After catheter was placed she started having problems with the urogenital tract distally. This worsened over time. She continued to have vulvar pain. Primary care nurse practitioner was treating her with for herpes and also did some cautery with silver nitrate on the vulva. Last procedure on the vulva was 6 months ago. She is significant pressure in the pelvis. She is miserable with the pain and pressure. Exam, - severely atrophic and inflamed vulva. Normal-appearing vagina. Dryness of the vagina. Tender throughout the distal vulva. And vagina. Patient had hysterectomy at age 29 with bilateral salpingo-oophorectom y. She has taken very little estrogen replacement therapy. She has had decades of atrophy of the vagina. We spent over 40 minutes [id number]. More than 50% was counseling. We agreed to treat with vaginal estrogen and topical estrogen on the vulvar area of interest. She will return in 2 weeks. Avtar Perez MD [address], [place], [address], [facility] 10/28/2023 11:00:18 11/11/2023 text/html 63-year-old fema le who presents for follow-up on severe vulvovaginitis /atrophic vulvovaginitis. . Patient did not tolerate vaginal estrogen. After some discussion, it was revealed that she was using a whole applicator of Premarin cream. 1 g as a small portion of the entire applicator. We discussed continued treatment. She will continue with some vaginal ovules. This will fill the gap between prescriptions. She went through the Premarin cream very quickly. We spent over 20 minutes [id number]. More than 50% was counseling. She was re-examined. The vulva appears improved. She was using some in the vagina and some over the vulva. To follow-up in 1 month. Avtar Perez MD [address], [place], [address], [facility] 11/11/2023 14:19:59 09/12/2024 text/html 64-year-old fema le with longstanding vaginal irritation and pain. No excessive discharge. Some itching at the introitus. No vaginal bleeding. Has been treated previously. That was 9 months ago. Re-examined today. Has desquamative erosions. Likely has the desquamative inflammatory vaginitis. To treat with antibiotics and steroids. She will use vaginal clindamycin and vaginal clobetasol. I described usage of these and medications. She was given precautions and instructions. We talked about the risks, benefits, and alternatives. She will follow up in 6 weeks. Avtar Perez MD [address], [place], [address], [facility] 09/12/2024 11:46:56 10/26/2024 text/html 64-year-old fema le with a severe case of vulvovaginitis. She has noticed marked improvement since our treatment started. She was treated with clindamycin for vaginal dicharge. She was treated with vaginal estrogen. Vaginal clindamycin, topical clobetasol, topical clotrimazole / betamethasone. The latter for tinea corporis. She has noticed much improved symptoms. We discussed the medications. We discussed treatment going forward. She is going to use the vaginal estrogen twice weekly. She will continue using the topical antifungal / steroid cream. She will continue to use clobetasol on the vulva twice a week. She will follow up as needed. Avtar Perez MD [address], [place], [address], [facility] 10/26/2024 10:24:29 OBGyn Episode Ob Episode Information Episode Created Date Number of Fetuses Patient Bloodtype Patient rh Status Prepregnancy Weight lbs Domestic Partner Domestic Partner Phone Father Name Digital Producer Status 10/28/19 24 1 CLOSED Fetus Data First Name Last Name Admitted to NICU Weight (g) Sex Living Outcome Pediatric Complications Fetus ID Race Codes Race Delivery Type 3940.35 3704 M Full Term [id number] Vaginal Delivery Riaz Calculation Initial Riaz Date Initial Exam Date Initial Exam Provider Initial Ultrasound Date Last Menstrual Period Date Ultra Sound Weeks Gestation 0 Eighteen To Twenty Week Riaz Update Ultra Sound Date Fundal Height At Umbil Quickening Date Ultra Sound Latest Weeks Gestation Final Riaz Confirmed By Final Riaz Confirmed Date Final Riaz Date Ultra Sound Latest Days Gestation 0 0 Menstrual History Last Menstrual Date Menses Monthly On Bcp Conception Prior Menses Frequency Hcg Plus Date Menarche Onset Age Delivery Information Delivery Date Delivery Type Labor Anesthesia Weeks Gestation Incision Type Labor Labor Length Hrs Delivered By Post Complications Tubal Sterilization Discharge Date Comments 0 40 José Luis Discharge Information Feeding Method Contraceptive Method Maternal HG B and HCT Levels
--- NOTE | 2024-11-07 12:00 | PC.NURSE ---
patient taken down to Ct.
[2024-11-07] MEDS: MORPHINE SULFATE (*CRX) 4 MG/ML INJ IM (12:10)
[2024-11-07] MEDS: ONDANSETRON HCL ODT 4 MG TABLET PO (12:20)
[2024-11-07 13:04] LABS: SARS-CoV-2 RNA PCR Negative (Negative)
[2024-11-07 13:07] LABS: Influenza A QL RT-PCR Negative (Negative); Influenza B QL RT-PCR Negative (Negative); RSV RNA, RT-PCR Negative (Negative)
--- NOTE | 2024-11-07 13:14 | ED.HA ---
HPI - Headache General Chief Complaint: Headache Stated Complaint: headache Time Seen by Provider: 11/07/24 11:56 Source: patient Mode of arrival: ambulatory Limitations: no limitations History of Present Illness HPI Narrative: this is a 64-year-old female with history of cervical spondylosis and has had fusion surgery other cervical spine presents with a headache with some no fever chills no neck stiffness no shortness of breath no chest pain no neurological deficits. MD elicited complaint: headache Onset (ago): day(s) Onset description: gradually Location: right Severity: moderate Pain scale (0-10): 8 Quality & Timing: aching Related Data Home Medications ?Medication ?Instructions ?Recorded ?Confirmed ?Last Taken ?Type famotidine 40 mg tablet 40 mg PO BID 09/24/19 11/02/24 03/26/23 History multivitamin (Multiple Vitamins 1 tablet PO BID 12/24/19 11/02/24 03/25/23 History tablet) ascorbate calcium (vitamin C) 500 500 mg PO DAILY 01/23/21 11/02/24 03/25/23 History mg tablet cholecalciferol (vitamin D3) 25 25 mcg PO DAILY 01/23/21 11/02/24 03/25/23 History mcg (1,000 unit) capsule vitamin B12 500 mcg-folic acid 400 1 tablet PO DAILY 01/23/21 11/02/24 03/25/23 History mcg tablet ondansetron HCl 4 mg tablet 4 mg PO PRN PRN Nausea 03/21/21 11/02/24 03/25/23 History (Zofran) acetaminophen 325 mg capsule 650 mg PO Q8H PRN Pain (Scale 03/16/22 11/02/24 03/26/23 History (Tylenol) Score 1-3) hydrocodone 5 mg-acetaminophen 325 1 tablet PO QID PRN Pain 03/16/22 11/02/24 03/26/23 History mg tablet pravastatin 20 mg tablet 10 mg PO DAILY 03/16/22 11/02/24 03/26/23 History rivaroxaban 20 mg tablet (Xarelto) 20 mg PO DAILY 03/16/22 11/02/24 03/26/23 History polyethylene glycol 3350 17 gram 17 g PO DAILY 03/19/22 11/02/24 03/14/22 History oral powder packet (Miralax) albuterol sulfate 90 mcg/actuation 2 inh inhalation Q4H PRN Shortness 07/30/22 11/02/24 Unknown History aerosol inhaler Of Breath diphenoxylate-atropine 2.5 1 tablet PO QID PRN Diarrhea 01/01/23 11/02/24 Unknown History mg-0.025 mg tablet Lactobacillus 1 cap PO DAILY 03/25/23 11/02/24 03/25/23 History acidophilus-Bifidobac.animalis 2.5 billion cell capsule (Daily Probiotic) omega 0-qqd-eoc-fish oil 1,000 mg 1 cap PO DAILY 11/02/24 11/02/24 Unknown History (120 mg-180 mg) capsule (Fish Oil) Allergies Allergy/AdvReac Type Severity Reaction Status Date / Time ceftriaxone (From Rocephin) Allergy Intermediate Hives Verified 11/07/24 11:50 esomeprazole Allergy Intermediate Hives Verified 11/07/24 11:50 omeprazole Allergy Intermediate Hives Verified 11/07/24 11:50 hydromorphone (From Dilaudid) AdvReac Intermediate Anxiety Verified 11/07/24 11:50 trazodone AdvReac Intermediate Dizziness Verified 11/07/24 11:50 Review of Systems Review of Systems: All systems reviewed & are unremarkable except as noted in HPI and below PMFSH Past Medical History Medical History Pleurisy Disc disorder of cervical region Arthritis Anxiety Hair loss IBS (irritable bowel syndrome) Atrial fib/flutter, transient COPD (chronic obstructive pulmonary disease) Wears glasses Dizziness Plantar fasciitis, bilateral Arthritis of foot, right, degenerative CVA (cerebral vascular accident) Atrial fibrillation Dyslipidemia GERD (gastroesophageal reflux disease) Hypertension Osteoarthritis Fibromyalgia Surgical History Surgical History History of carpal tunnel surgery 03/2021 per patient questionnaire History of colon surgery History of knee surgery 32 years ago per patient questionnaire H/O: hysterectomy History of cholecystectomy Family History Family History Other Arthritis Cerebrovascular accident Social History Social History Smoking packs per day: 0.5 Smoking cigarettes per day: 10.0 Years smoked: 44 Smoking pack-years: 22.00 Smoking status: Current some day smoker Tobacco type: cigarettes Second hand tobacco smoke exposure: Yes Alcohol intake: former Alcohol use details: LAST 2016 Substance use: never Substance use type: does not use Lack of Transportation: No Lack of Food: Never True Current Housing: I Have Housing Concerned About Future Housing: No Difficulty Paying Gas/Electric Bills: No Difficulty Paying for Meds: No Education: High School Diploma/GED Difficulty w/ Childcare or Family Care: No Living arrangements: with family Additional living arrangements comments: SISTER SOMETIMES Gender identity (if verbalized by the patient): Female Spiritual care concerns: No Agree to blood products: Yes Exam Const: General: healthy appearing Nutritional Appearance: well nourished Orientation/consciousness: patient oriented x3 Limitations: no limitations HENMT: Head: normal to inspection Eyes: Conjunctivae: conjunctivae normal Pupils: Equal, round and reactive pupils present Neck: Neck: normal visual inspection, no lymphadenopathy and no meningeal signs Chest: Chest palpation & inspection: normal inspection of the chest Resp: Effort & Inspection: normal respiratory effort Auscultation: clear to auscultation bilaterally Cardio: Rate: regular rate Rhythm: regular rhythm GI: GI Palp: Yes Soft to palpation Auscultation: normal bowel sounds Skin: General skin exam: normal color Rashes: no rashes Wounds: no wounds Neuro: General: patient oriented x3, moves all extremities, no meningeal signs and no focal motor deficits Extrem: General: normal to inspection Course Course Emergency Course: CT of the brain and cervical spine with no acute abnormalities COVID negative, patient did receive 4mg IM morphine which relieved her pain level from an 8 down to a 3. Vital Signs Vital signs: Vital Signs Temperature 36.6 C 11/07/24 11:49 Pulse Rate 70 11/07/24 11:49 Respiratory Rate 16 11/07/24 11:49 Blood Pressure 147/72 H 11/07/24 11:49 Pulse Oximetry 99 11/07/24 11:49 Oxygen Delivery Room Air 11/07/24 11:49 Temperature 36.6 C 11/07/24 11:49 Pulse Rate 70 11/07/24 11:49 Respiratory Rate 16 11/07/24 11:49 Blood Pressure 147/72 H 11/07/24 11:49 Pulse Oximetry 99 11/07/24 11:49 Oxygen Delivery Room Air 11/07/24 11:49 MDM - Headache Lab Data Labs: Lab Results 11/07/24 Range/Units 12:17 Influenza A (RT-PCR) Negative (Negative) Influenza B (RT-PCR) Negative (Negative) RSV (RT-PCR) Negative (Negative) SARS-CoV-2 RNA (RT-PCR) Negative (Negative) Critical Care Time Critical Care Time Critical Care Time: No Discharge Plan Discharge Clinical Impression: Headache Qualifiers: Headache type: unspecified Headache chronicity pattern: unspecified pattern Intractability: not intractable Qualified Code(s): R51.9 - Headache, unspecified Patient Disposition: Home, Self-Care Condition: Stable Instructions: Antibiotic Form, Acute Headache (ED) Additional Instructions: advised patient to take medication as prescribed and follow-up with primary within a week further evaluation treatment. Patient Language: [place] Island[place] Prescriptions: New cyclobenzaprine 5 mg tablet 5 mg PO TID Qty: 20 0RF ondansetron 4 mg tablet,disintegrating 4 mg PO Q6H PRN (Reason: nausea and vomiting) Qty: 14 0RF No Action famotidine 40 mg tablet 40 mg PO BID diphenoxylate-atropine 2.5-0.025 mg tablet 1 tablet PO QID PRN (Reason: Diarrhea) multivitamin [Multiple Vitamins] Tablet 1 tablet PO BID albuterol sulfate 90 mcg/actuation HFA aerosol inhaler 2 inh INHALATION Q4H PRN (Reason: Shortness Of Breath) ascorbate calcium (vitamin C) 500 mg tablet 500 mg PO DAILY vitamin P80-iqarv acid 500-400 mcg tablet 1 tablet PO DAILY Rx Instructions: administer with a meal cholecalciferol (vitamin D3) 25 mcg (1,000 unit) capsule 25 mcg PO DAILY omega 7-wke-pdc-fish oil [Fish Oil] 1,000 (120-180) mg capsule 1 cap PO DAILY pravastatin 20 mg tablet 10 mg PO DAILY acetaminophen [Tylenol] 325 mg capsule 650 mg PO Q8H PRN (Reason: Pain (Scale Score 1-3)) Xarelto 20 mg tablet 20 mg PO DAILY hydrocodone-acetaminophen 5-325 mg tablet 1 tablet PO QID PRN (Reason: Pain) polyethylene glycol 3350 [Miralax] 17 gram Powder In Packet 17 g PO DAILY Patient Comments: TAKES PRN Daily Probiotic 2.5 billion cell Capsule 1 cap PO DAILY ondansetron HCl [Zofran] 4 mg Tablet 4 mg PO PRN PRN (Reason: Nausea) flecainide 100 mg tablet See Rx Instructions .ROUTE .COMPLEX Qty: 30 0RF Dose Instruction: 100 MG ORALLY NEEDED MAKE TAKE A DOSE WHEN IN ATRIAL FIB, AND MAY TAKE A 2ND DOSE 1 HOUR LATER IF STILL IN ATRIAL FIB. Rx Instructions: 100 MG ORALLY NEEDED MAKE TAKE A DOSE WHEN IN ATRIAL FIB, AND MAY TAKE A 2ND DOSE 1 HOUR LATER IF STILL IN ATRIAL FIB. Follow-up/Referrals: Yasmany Sullivan MD [Primary Care Provider] - Time of Disposition: 13:19
--- OUTSIDE RECORDS SUMMARY | 2024-11-07 13:18 | XMS_ITS | Clinical Summary ---
Author Organization [facility] Address [address] [place] [address] Care Team Providers Care Manager Mortgage Name Role Phone Rey Wadsworth MD Unavailable Yasmany Be MD Primary Care Provider [phone] Erin Mead NP Unavailable Unavailable Allergies Active [...] the lungs as needed. 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 Not on file [...] Documents on File Type Date Recorded Patient Security Control Room Officer Expl anation Advance Directives and Living Will 02/19/2019 12:00 AM [employer]OWER OF [employer]URE [employer]ESS[employer]KER Advance Directives and Living Will 12/01/2018 12:00 AM POWER OF COUTURE DRESSMAKER Advance Directives and Living Will 11/10/2018 12:00 AM POWER OF COUTURE DRESSMAKER Advance Directives and Living Will 09/02/2018 12:00 AM POWER OF COUTURE DRESSMAKER Advance Directives and Living Will 03/11/2018 12:00 AM POWER OF COUTURE DRESSMAKER Advance Directives and Living Will 03/11/2018 12:00 AM POWER OF COUTURE DRESSMAKER Advance Directives and Living Will 01/15/2017 12:00 AM POWER OF COUTURE DRESSMAKER Care Teams Manager Mortgage Relationship Specialty Start Date End Date Yasmany Sullivan MD [address] [place] [id number] PCP - General INTERNAL MEDICINE 03/11/17 Rey Wadsworth MD [place] [employer] Therapist CLINICAL CARDIAC ELECTROPHYSIOLOGY 03/11/17 Erin Mead NP [address] [place] [address] Nurse Practitioner Electrophysiology 03/13/18
--- OUTSIDE RECORDS SUMMARY | 2024-11-07 13:18 | XMS_ITS | Encounter Summary ---
Author Organization [facility] Address [address] [place] [address] Care Team Providers Care Portainer Operator Name Role Phone Rey Wadsworth MD Unavailable Unavailabl e Yasmany Sullivan MD Primary Care Provider [phone] Erin Mead TRY ON BASTER Unavailable Unavailable Encounter Details Date Type Department Care Team (Late st Contact Info) Description 12/27/2015 Abstract [facility] [address] [place] [address] Rey Wadsworth MD Social History Tobacco Use Types Packs/Day Years Used Date Smoking Tobacco: Former Comments Unknown Sex and Gender Information Value Date Recorded Sex Assigned at Not on file Legal Sex Female 6:18 PM CDT Gender Identity Not on file Sexual Orientation Not on file 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
--- OUTSIDE RECORDS SUMMARY | 2024-11-07 13:18 | XMS_ITS | Encounter Summary ---
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
== END 2024-11-07 13:23 | disposition home or self-care (01) ==
PROVIDERS: Emergency Provider Emergency Medicine; PCP Internal Medicine
DX: R51.9 Headache, unspecified (principal); I48.91 Unspecified atrial fibrillation; I10 Essential (primary) hypertension; J44.9 Chronic obstructive pulmonary disease, unspecified; F17.210 Nicotine dependence, cigarettes, uncomplicated; Z86.73 Personal history of transient ischemic attack (TIA), and cerebral infarction without residual deficits; Z20.822 Contact with and (suspected) exposure to COVID-19
CPT/HCPCS: 70450; 72125; 87637; 96372; 96374; 99284; A9270; J2270

== ENCOUNTER 2024-11-24 13:07 | Outpatient (CLI) | payer OTHER, SELFPAY ==
--- NOTE | ~2024-11-24 | MM_ITS ---
EXAMINATION: MM screening [facility] BI w [facility]ara HISTORY: Screening mammogram TECHNIQUE: Craniocaudal and mediolateral oblique 3-D tomosynthesis images were obtained and synthetic 2-D images were generated. CAD analysis was submitted and interpreted. COMPARISON: 11/18/2023, 10/22/2022, 02/26/2022, 08/07/2021 BREAST PARENCHYMAL COMPOSITION:Not Dense. The breasts are almost entirely fatty FINDINGS: No suspicious mass, calcification, or architectural distortion are identified in either meghann ast to suggest malignancy. There has been no suspicious interval change. IMPRESSION: No mammographic evidence of malignancy. Recommend routine screening mammography in one year. BI-RADS Category 1: Negative Reviewed, dictated and finalized at location . VITIES ATTENDANT
--- NOTE | ~2024-11-24 | CT_ITS ---
EXAMINATION:CT lung screening DATE: 11/24/2024 13:44 INDICATION: Personal history of nicotine dependence. Current smoker with 45 pack year history. TECHNIQUE: Computed tomography (CT) of the chest was performed without intravenous contrast. Automate d exposure control and iterative reconstruction technique were employed. The dose-length product (DLP ) was 115.61 mGy-cm. COMPARISON: Chest CT 11/18/2023 FINDINGS: The lungs demonstrate minimal atelectasis. There is a 3 mm nodule at left major fissure. Th ere is a 2 mm nodule in left lower lobe. No pleural effusion. The heart size is normal. There are cor onary artery calcifications. No pericardial effusion. Pneumobilia is noted, likely secondary to sphin cterotomy. There is diffuse hepatic steatosis. There are bridging endplate osteophytes at multiple le vels in the spine, consistent with diffuse idiopathic skeletal hyperostosis (DISH). There is mild tho racic spondylosis. IMPRESSION: 1. Lung-RADS category 2: Benign appearance or behavior. Continue annual screening with noncontrast lo w-dose chest CT in 12 months. Reviewed, dictated and finalized at location A. OR ADVOCATE IMPRESSION: 1. Lung-RADS category 2: Benign appearance or behavior. Continue annual screeni ng with noncontrast low-dose chest CT in 12 months.
--- OUTSIDE RECORDS SUMMARY | 2024-11-24 14:58 | XMS_ITS | Data Portability ---
Author Organization [facility], [address] [facility] ([place] Address [address] [place] [address] Care Team Providers Care Hair Baler Name Role Phone JACQUELINE MATTSON Primary Care Provider JACQUELINE MATTSON Referring Provider Assessment Encounter Date Assessment Date Assessment LastModified by Organization Details LastModified Time 03/23/2024 03/23/2024 PLAN: Obtain CT Head without contrast in [address] [facility] F/U 6 months ASSESSMENT AND PLAN: [...] head without contrast in [address] [facility] and have her follow up to again monitor for any occurrence of clinical symptoms. If she has any changes in the interim, she understands to call the office. I personally spent a total of 20 minutes on the patient on this date of service including both yzsw-cm-cvse and kcf-ehva-ik-face time excluding any separately reportable services. anastasia [...] see her 3 months after for reevaluation. [facility] [email or web address] Not available 04/13/2024 18:59:43 05/21/2024 05/21/2024 Ms. [...] see her 3 months after for reevaluation. [facility] [email or web address] Not available 05/21/2024 18:41:17 06/01/2024 06/01/2024 Ms. [...] see her after 6 months for reassessment. [facility] [email or web address] Not available 06/04/2024 07:07:27 06/01/2024 06/01/2024 In [...] will be written on her prep sheet. [email or web address] Not available 06/01/2024 12:43:27 Plan of Treatment Reminders Order Date Submit Date Provider Last Modified By Organization Details Last Modified Time Details Appointments Establish ed Patient 15.EST 2024 12:45P M Dr. Karson Bright Not available Not available Not available Establish ed Patient 20.EST 2024 02:00P M Jessenia Dylan Not available Not available Not available Lab None recorded. Referral None recorded. Procedures None recorded. Surgeries None recorded. Imaging CT, head, w/o contrast 09/07/ 024 [facility], [address] [place], [address], 10/05/2024 10:49:27 Medication Orders None recorded. Patient [...] 5 view No observ ation record ed. [facility] [address] [place], [address], 08/19/2024 17:11:19 10/05/19 25 10/05/2024 CT, head, w/o contr ast No observ ation record ed. [facility] [address] [place], [address], 10/07/2024 11:45:19 11/11/19 25 11/07/2024 CT, head, w/o contr ast No observ ation record ed. [facility] Not Available 2024 11:50:05 11/11/19 25 11/07/2024 CT, cervi benito spine , w/o contr ast No observ ation record ed. [facility] Not Available 2024 11:50:05 Result Notes None recorded. Problems Name Problem SNOMED Code Status Onset Date Resolution Date Notes Provider Name and Address Organization Details Recorded Time Dysphagia 96292788 Active 2023 Neva Mcdowell [facility] 4 08:59:27 Chronic abdominal pain 198906200 Active 2023 Khang Shetty APRN, LEARNING FACILITATOR [address] [place] [address], [address], [facility] 4 12:43:41 Nonulcer dyspepsia 4141797 Active 2023 Khang Shetty APRN, LEARNING FACILITATOR [address] [place] [address], [address], [facility] 4 12:43:50 Peripheral vascular disease 146231399 Active 2023 Khang Shetty APRN, LEARNING FACILITATOR [address] [place] [address], [address], [facility] 4 12:44:08 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 556659413 Active 2023 Lorelei Boudreaux [facility] 4 07:07:41 Compression of cervical spinal cord 2697815509 Active 2023 Irina Cyole [facility] 4 15:04:56 Spinal cord compression 74450423 Active 2023 Irina Coyle [facility] 4 15:05:09 Rheumatoid arthritis of cervical spine 252646325 Active 2023 Monse Calloway [facility] 4 14:02:00 Hydrocephalus ex vacuo 71560285 Active 2023 Chey Napoles MD [address] [place] [address], [address], [facility] 4 10:53:13 Pain due to varicose veins of lower extremity 650677363 Active 2023 Sobeida Walljosh [facility] 4 08:48:52 Edema of lower extremity 052677069 Active 2023 [facility] 4 12:13:53 Problem Notes None recorded. Procedures Surgical History Date Name Laterality Status Provider Name and Address Organization Details Recorded Time 07/23 esophagogastroduodenoscopy completed Neva Mcdowell [facility] 4 08:58:52 04/05 cervical laminectomy completed Irina Coyle [facility] 4 15:01:26 Colonoscopy with biopsy completed N [...] cervical spine, 4 or 5 view completed [facility] [address] [place], [address], 08/19/2024 17:11:19 10/05/2024 CT, head, w/o contrast completed [facility] [address] [place], [address], 10/07/2024 11:45:19 11/07/2024 CT, head, w/o contrast completed [facility] Information not available 11/11/2024 11:50:05 11/07/2024 CT, cervical spine, w/o contrast completed [facility] Information not available 11/11/2024 11:50:05 Procedure Notes None recorded. Medical Equipment None Reported. Allergies Allergen ID Allergen Name Allergen Category Reaction Reaction Severity Criticality Documentation Date Start Date Code Code System Note Provider Name and Address Organization Details Recorded Time 7991008 Dilaudid medicatio n anaphylax is Not available Not available 10/23/20232021 84357 3 RxNorm React ion: Anaph ylaxi s; Not Available Not Available Not Available 8502681 esomepraz ole magnesium medicatio n dizziness Not available Not available 10/23/20232010 34280 2 RxNorm React ion: Dizzi ness; Not Available Not Available Not Available 964100 omeprazol e magnesium medicatio n nausea Not available Not available 10/21/20232014 50681 6 RxNorm React ion: Nause a; Other ; Not Available Not Available Not Available 443741 Rocephin medicatio n rash Not available Not [...] Updated DateTime 4 162.56 cm 29.1 kg/m2 77732.9 1 g 64 /min 20 /min 100 % 100 % 150 mm[Hg] 82 mm[Hg] [facility] 4 10:33:09 Date Recorded Body height Body mass index (BMI) Body weight Heart rate Respiratory rate Oxygen saturation Oxygen saturation in Arterial blood by Pulse oximetry Systolic blood pressure Diastolic blood pressure Provider Name and Address Organization Details Last Updated DateTime 4 162.56 cm 29.4 kg/m2 20570.3 g 70 /min 20 /min 95 % 95 % 140 mm[Hg] 80 mm[Hg] [facility] 4 15:41:04 Date Recorded Body height Respiratory rate Oxygen saturation Oxygen saturation in Arterial blood by Pulse oximetry Systolic blood pressure Diastolic blood pressure Provider Name and Address Organization Details Last Updated DateTime 4 162.56 cm 20 /min 97 % 97 % 148 mm[Hg] 60 mm[Hg] [facility] 4 16:16:16 Date Recorded Body height Body mass index (BMI) Body weight Systolic blood pressure Diastolic blood pressure Provider Name and Address Organization Details Last Updated DateTime 06/01/2024 162.56 cm 29.9 kg/m2 21869.07 g 105 mm[Hg] 70 mm[Hg] Khang Shetty, NOHEMI, LEARNING FACILITATOR [address], [address] [place] [address] 4 12:38:55 Date Recorded Body height Respiratory rate Heart rate Oxygen saturation Oxygen saturation in Arterial blood by Pulse oximetry Systolic blood pressure Diastolic blood pressure Provider Name and Address Organization Details Last Updated DateTime 4 162.56 cm 18 /min 52 /min 96 % 96 % 120 mm[Hg] 54 mm[Hg] [facility] 4 13:43:16 Social History Question Answer Notes LastModified by Organizat ion Details LastModified Time Tobacco Smoking Status Current Every Day Smoker [facility] 06/01/2024 13:43:55 Do You Have An Advance [...] Packs Per Day (PPD)? 3-5 Per Day [email or web address] Information not available 05/21/2024 How Long Have You Smoked? Since I Was 17 [email or web address] Information not available 04/06/2024 Do You Have A Medical Power Of [employer] Lead? Yes [email or web address] Information not available 04/06/2024 What [...] has liver disease Medical History Condition Response Diabetes N Anxiety Disorder N Bleeding Disorder N Attention-deficit Hyperactivity Disorder N High Blood Pressure N Arthritis Y Hyperlipidemia N Cancer Y Stroke Y Thyroid Problems N Asthma N Depression N COPD Y Anemia N Seizures N Heart Disease N Fibromyalgia Y Osteoporosis N Kidney Disease N Gynecological HistoryNo gynecological history recorded. Obstetrics History GPAL:G 0 P 0 0 0 0 Past Encounters Encounter ID Performer Location Encounter Start Date Encounter Closed Date Diagnosis/Indication Diagnosis SNOMED-CT Code Diagnosis ICD10 Code Diagnosis Note [id number] [facility] [place] [address] 03/23/2024 10:30:59 03/25/2024 08:33:26 Hydrocephalus ex vacuo 49160641 G91.0 [id number] Karson Bright MD [address] [facility] [address] [place] [address],[address] [place] [address] 04/13/2024 15:24:08 04/13/2024 16:46:06 Pain due to varicose veins of lower extremity 628211680 I83.236 [id number] Karson Bright MD [address] [facility] [address] [place] [address],[address] [place] [address] 05/21/2024 16:02:16 05/21/2024 17:03:25 Pain due to varicose veins of lower extremity 195878048 I83.579 [id number] Khang Shetty APRN, LEARNING FACILITATOR [address] [facility] [address] [place] [address] 06/01/2024 12:06:40 06/01/2024 15:02:22 Dysphagia 43831528 R13.10 Chronic ab dominal pain 075890062 R10.9 Nonulcer dyspepsia 13516 07 K30 Peripheral vascular disease 702223482 I73.9 [id number] Karson Bright MD [address] [facility] ([place] [address] [place] [address],[address] [place] [address] 06/01/2024 13:21:13 06/01/2024 14:04:42 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 836108894 I83.11 I83.12 Additional diagnosis detail: Varicose veins of lower extremity with inflammati on, bilateral Health Concerns Section Related Observation LastModified by Organization Detai ls LastModified Time None Recorded Concern Status LastModified by Organization Details LastModified Time None Recorded Advance Directives Directive Y: Payers Encounter Date Sequence Insurance Name Policy Number Policy Sandoval Covered Member ID Sandoval Member ID Guarantor Name 03/23/2024 1 [facility] ON OR AFTER 03/23/21 (MEDICAID REPLACEMENT - HMO) Claudine L Nancy [id number] Claudine L Nancy 04/13/2024 1 [facility] ON OR AFTER 03/23/21 (MEDICAID REPLACEMENT - HMO) Claudine L Nancy [id number] Claudine L Nancy 05/21/2024 1 [facility] ON OR AFTER 03/23/21 (MEDICAID REPLACEMENT - HMO) Claudnie L Nancy [id number] Claudine L Nancy 06/01/2024 1 [facility] ON OR AFTER 03/23/21 (MEDICAID REPLACEMENT - HMO) Claudine L Nancy [id number] Claudine L Nancy 06/01/2024 1 [facility] ON OR AFTER 03/23/21 (MEDICAID REPLACEMENT - HMO) Claudine Cruz [id number] Claudine Cruz Notes Date Note Type Note Provider Name [...] concerns at this point. Chey Napoles MD [facility], [address], [facility] 03/24/2024 12:34:04 04/13/2024 text/html This is a [...] the past. Denies any previous history of ME, DVT, PE, stroke.alana Bright MD [facility] [address], [address], [facility] 04/19/2024 21:13:02 06/01/2024 text/html 63-year-old delmi n [...] sounds like she has to buy this [id number] because her insurance does not cover as [...] have a history of cholecystectomy. Khang Shetty, ELEVATOR MECHANIC APPRENTICE, LEARNING FACILITATOR [address] [place] [address], [address], [facility] 06/01/2024 12:44:24 06/01/2024 text/html This is a [...] resolution. Denies any current symptoms at this point.ronny Bright MD [address] [place] [address], [address], [facility] 06/04/2024 18:05:45 OBGyn Episode No OBEpisode recorded.
--- OUTSIDE RECORDS SUMMARY | 2024-11-24 14:58 | XMS_ITS | Data Portability ---
Author Organization [facility] [place] Address [address] [place] [address] Care Team Providers Care Net Applications Developer Name Role Phone JACQUELINE MATTSON Primary Care Provider Assessment No assessment recorded. Plan of Treatment Reminders Order Date Submit Date Provider Last Modified By Organization Details Last Modified Time Details Appointments None recorded. Lab None recorded. Referral None recorded. Procedures None recorded. Surgeries None recorded. Imaging None recorded. Medication Orders Estrace 0.01% (0.1 mg/gram) vaginal cream 2024 025 [facility] [address], [address], [place], [address], 5 10:20:41 clotrimazol e-betametha sone 1 %-0.05 % topical cream 2023 024 [facility] [address], [address], [place], [address], 4 10:20:34 clindamycin 2 % vaginal cream 2023 024 [facility], [address], [place], [id number], 4 10:18:18 hydrocortis one acetate 25 mg rectal suppository 2023 024 [facility], [address], [place], [id number], 4 10:18:20 clobetasol 0.05 % topical cream 2023 024 [facility] [address], [address], [place], [address], 4 11:26:51 Estrace 0.01% (0.1 mg/gram) vaginal cream 2023 024 [email or web address] 1 [facility], [address], [place], [id number], 4 10:02:50 Patient TargetsNo targets recorded. Patient InstructionsNo instructions recorded. Reason for Referral None Reported. Results Created Date Observation Date Name Description Value Unit Range Abnormal Flag Note LastModifiedBy Organization Detail LastModifiedTime 10/28/19 24 10/28/2023 MOBIL UNCUS MULIE RIS/C URTIS SHIRLENE, RT-PC R, ONE SWAB mobiluncus mulieris and mobiluncus curtisii by RT-PCR Negati ve Swab- 1 Vag/C erv Not Available [facility] (Lab) [address] [place], [address], 11/11/2023 15:40:30 10/28/19 24 10/28/2023 BACTE RIAL VAGIN OSIS PANEL RT-PC R, ONESW AB gardnerella vaginalis PCR Negati ve Swab- 1 Vag/C erv Not Available [facility] (Lab) [address] [place], [address], 11/11/2023 15:40:30 10/28/19 24 10/28/2023 BACTE RIAL VAGIN OSIS PANEL RT-PC R, ONESW AB atopobium vaginae PCR Negati ve Swab- 1 Vag/C erv Not Available [facility] (Lab) [address], [place], [address], 11/11/2023 15:40:30 10/28/19 24 10/28/2023 BACTE RIAL VAGIN OSIS PANEL RT-PC R, ONESW AB bacterial vaginosis associated bacteria 2 (bvab2) Negati ve Swab- 1 Vag/C erv Not Available [facility] (Lab) [address] [place], [address], 11/11/2023 15:40:30 10/28/19 24 10/28/2023 BACTE RIAL VAGIN OSIS PANEL RT-PC R, ONESW AB megasphaera species (type 1 and type 2) PCR Negati ve (Type1 ,Type2 ) Swab- 1 Vag/C erv Type1 :Nega tive Type2 :Nega tive. Not Available [facility] (Lab) [address] [place], [address], 11/11/2023 15:40:30 10/28/19 24 10/28/2023 BACTE RIAL VAGIN OSIS PANEL RT-PC R, ONESW AB lactobacillu s (bvpanel) PCR See Commen t Swab- 1 Vag/C erv L.cri spatu s: Negat oliver L.lili senii : Negat oliver L.gas seri : Negat oliver L.ine rs : Negat oliver. Not Available [facility] (Lab) [address] [place], [address], 11/11/2023 15:40:30 10/28/19 24 10/28/2023 VIK DA VAGIN ITIS PANEL RT-PC R, ONESW AB radhika albicans PCR Negati ve Swab- 1 Vag/C erv Not Available [facility] (Lab) [address] [place], [address], 11/11/2023 15:40:31 10/28/19 24 10/28/2023 VIK DA VAGIN ITIS PANEL RT-PC R, ONESW AB radhika tropicalis PCR Negati ve Swab- 1 Vag/C erv Not Available [facility] (Lab) [address] [place], [address], 11/11/2023 15:40:31 02/05/20 24 10/28/2023 VIK DA VAGIN ITIS PANEL RT-PC R, ONESW AB radhika parapsilosis PCR Negati ve Swab- 1 Vag/C erv Not Available [facility] (Lab) [address], [place], [address], 11/11/2023 15:40:31 10/28/19 24 10/28/2023 VIK DA VAGIN ITIS PANEL RT-PC R, ONESW AB radhika glabrata PCR Negati ve Swab- 1 Vag/C erv Not Available [facility] (Lab) [address] [place], [address], 11/11/2023 15:40:31 10/28/19 24 10/28/2023 VIK DA VAGIN ITIS PANEL RT-PC R, ONESW AB radhika krusei by RT-PCR Negati ve Swab- 1 Vag/C erv Not Available [facility] (Lab) [address], [place], [address], 11/11/2023 15:40:31 10/28/19 24 10/28/2023 UROGE NITAL MYCOP LASMA /UREA PLASM A PANEL RT-PC R, ONESW AB mycoplasma genitalium by RT-PCR Negati ve Swab- 1 Vag/C erv Not Available [facility] (Lab) [address] [place], [address], 11/11/2023 15:40:31 10/28/19 24 10/28/2023 UROGE NITAL MYCOP LASMA /UREA PLASM A PANEL RT-PC R, ONESW AB mycoplasma hominis by RT-PCR Negati ve Swab- 1 Vag/C erv Not Available [facility] (Lab) [address] [place], [address], 11/11/2023 15:40:31 10/28/19 24 10/28/2023 UROGE NITAL MYCOP LASMA /UREA PLASM A PANEL RT-PC R, ONESW AB ureaplasma urealyticum by RT-PCR Negati ve Swab- 1 Vag/C erv Not Available [facility] (Lab) [address] [place], [address], 11/11/2023 15:40:31 10/28/19 24 10/28/2023 VIK DA SNEHAL I BY RT-PC R radhika krusei by RT-PCR CANCEL LED Juvenal zahida Not Available [facility] (Lab) [address], [place], [address], 11/11/2023 15:40:32 09/14/20 24 09/14/2024 MOBIL UNCUS MULIE RIS/C URTIS LI, RT-PC R, ONE SWAB mobiluncus mulieris and mobiluncus curtisii by RT-PCR Negati ve Swab- 1 Cerv End Not Available [facility] (Lab) [address], [place], [address], 09/29/2024 14:21:25 09/14/20 24 09/14/2024 UROGE NITAL MYCOP LASMA /UREA PLASM A PANEL RT-PC R, ONESW AB mycoplasma genitalium by RT-PCR Negati ve Swab- 1 Cerv End Not Available [facility] (Lab) [address] [place], [address], 09/29/2024 14:21:26 09/14/20 24 09/14/2024 UROGE NITAL MYCOP LASMA /UREA PLASM A PANEL RT-PC R, ONESW AB mycoplasma hominis by RT-PCR Negati ve Swab- 1 Cerv End Not Available [facility] (Lab) [address] [place], [address], 09/29/2024 14:21:26 09/14/20 24 09/14/2024 UROGE NITAL MYCOP LASMA /UREA PLASM A PANEL RT-PC R, ONESW AB ureaplasma urealyticum by RT-PCR Negati ve Swab- 1 Cerv End Not Available [facility] (Lab) [address] [place], [address], 09/29/2024 14:21:26 09/14/20 24 09/14/2024 VIK DA VAGIN ITIS PANEL RT-PC R, ONESW AB radhika albicans PCR Negati ve Swab- 1 Cerv End Not Available [facility] (Lab) [address], [place], [address], 09/29/2024 14:21:26 09/14/20 24 09/14/2024 VIK DA VAGIN ITIS PANEL RT-PC R, ONESW AB radhika glabrata PCR Negati ve Swab- 1 Cerv End Not Available [facility] (Lab) [address] [place], [address], 09/29/2024 14:21:26 09/14/20 24 09/14/2024 VIK DA VAGIN ITIS PANEL RT-PC R, ONESW AB radhika krusei by RT-PCR Negati ve Swab- 1 Cerv End Not Available [facility] (Lab) [address] [place], [address], 09/29/2024 14:21:26 09/14/20 24 09/14/2024 VIK DA VAGIN ITIS PANEL RT-PC R, ONESW AB radhika parapsilosis PCR Negati ve Swab- 1 Cerv End Not Available [facility] (Lab) [address] [place], [address], 09/29/2024 14:21:26 09/14/20 24 09/14/2024 VIK DA VAGIN ITIS PANEL RT-PC R, ONESW AB radhika tropicalis PCR Negati ve Swab- 1 Cerv End Not Available [facility] (Lab) [address] [place], [address], 09/29/2024 14:21:26 09/14/20 24 09/14/2024 BACTE RIAL VAGIN OSIS PANEL (WITH LACTO BACIL ABRAHAN PROFI LING) BY QRT PRC, ONESW AB (MDL) atopobium vaginae PCR Negati ve Swab- 1 Cerv End Not Available [facility] (Lab) [address] [place], [address], 09/29/2024 14:21:27 09/14/20 24 09/14/2024 BACTE RIAL VAGIN OSIS PANEL (WITH LACTO BACIL ABRAHAN PROFI LING) BY QRT PRC, EVELYNE MARTINEZ (L) bacterial vaginosis associated bacterium 1 (bvab1) RT PCR Negati ve Swab- 1 Cerv End Not Available [facility] (Lab) [address] [place], [address], 09/29/2024 14:21:27 09/14/20 24 09/14/2024 BACTE RIAL VAGIN OSIS PANEL (WITH LACTO BACIL ABRAHAN PROFI LING) BY QRT LALA, EVELYNE MARTINEZ (L) bacterial vaginosis associated bacteria 2 (bvab2) Negati ve Swab- 1 Cerv End Not Available [facility] (Lab) [address] [place], [address], 09/29/2024 14:21:27 09/14/20 24 09/14/2024 BACTE RIAL VAGIN OSIS PANEL (WITH LACTO BACIL ABRAHAN PROFI LING) BY QRT LALA, EVELYNE MARTINEZ (L) bacterial vaginosis associated bacterium 3 (bvab3) RT PCR Negati ve Swab- 1 Cerv End Not Available [facility] (Lab) [address] [place], [address], 09/29/2024 14:21:27 09/14/20 24 09/14/2024 BACTE RIAL VAGIN OSIS PANEL (WITH LACTO BACIL ABRAHAN PROFI LING) BY QRT LALA, EVELYNE MARTINEZ (L) bacteroides fragilis by real - time PCR Negati ve Swab- 1 Cerv End Not Available [facility] (Lab) [address] [place], [address], 09/29/2024 14:21:27 09/14/20 24 09/14/2024 BACTE RIAL VAGIN OSIS PANEL (WITH LACTO BACIL ABRAHAN PROFI LING) BY QRT LALA, EVELYNE MARTINEZ (MDL) bifidobacter ium breve by real-time PCR Negati ve Swab- 1 Cerv End Not Available [facility] (Lab) [address], [place], [address], 09/29/2024 14:21:27 09/14/20 24 09/14/2024 BACTE RIAL VAGIN OSIS PANEL (WITH LACTO BACIL ABRAHAN PROFI LING) BY QRT PRC, EVELYNE MARTINEZ (JASWANT) gardnerella vaginalis PCR Positi ve abnormal Swab- 1 Cerv End Not Available [facility] (Lab) [address], [place], [address], 09/29/2024 14:21:27 09/14/20 24 09/14/2024 BACTE RIAL VAGIN OSIS PANEL (WITH LACTO BACIL ABRAHAN PROFI LING) BY QRT PRC, EVELYNE MARTINEZ (JASWANT) lactobacillu s (bvpanel) PCR See Commen t Swab- 1 Cerv End L.cri spatu s: Negat oliver L.lili senii : Posit oliver L.gas seri : Posit oliver L.ine rs : Negat oliver. Not Available [facility] (Lab) [address] [place], [address], 09/29/2024 14:21:27 09/14/20 24 09/14/2024 BACTE RIAL VAGIN OSIS PANEL (WITH LACTO BACIL ABRAHAN PROFI LING) BY QRT PRC, EVELYNE MARTINEZ (JASWANT) lactobacillu s acidophilus by real-time PCR Negati ve Swab- 1 Cerv End Not Available [facility] (Lab) [address], [place], [address], 09/29/2024 14:21:27 09/14/20 24 09/14/2024 BACTE RIAL VAGIN OSIS PANEL (WITH LACTO BACIL ABRAHAN PROFI LING) BY QRT PRC, EVELYNE MARTINEZ (JASWANT) megasphaera species (type 1 and type 2) PCR Negati ve (Type1 ,Type2 ) Swab- 1 Cerv End Type1 :Nega tive Type2 :Nega tive. Not Available [facility] (Lab) [address] [place], [address], 09/29/2024 14:21:27 09/14/20 24 09/14/2024 BACTE RIAL VAGIN OSIS PANEL (WITH LACTO BACIL ABRAHAN PROFI LING) BY QRT PRC, EVELYNE MARTINEZ (MDL) mobiluncus curtisii by real-time PCR Negati ve Swab- 1 Cerv End Not Available [facility] (Lab) [address] [place], [address], 09/29/2024 14:21:27 09/14/20 24 09/14/2024 BACTE RIAL VAGIN OSIS PANEL (WITH LACTO BACIL ABRAHAN PROFI LING) BY QRT PRC, EVELYNE MARTINEZ (MDL) mobiluncus mulieris by real-time PCR Negati ve Swab- 1 Cerv End Not Available [facility] (Lab) [address] [place], [address], 09/29/2024 14:21:27 09/14/20 24 09/14/2024 BACTE RIAL VAGIN OSIS PANEL (WITH LACTO BACIL ABRAHAN PROFI LING) BY QRT PRC, EVELYNE MARTINEZ (L) prevotella bivia by real-time PCR Negati ve Swab- 1 Cerv End Not Available [facility] (Lab) [address] [place], [address], 09/29/2024 14:21:27 09/14/20 24 09/14/2024 BACTE RIAL VAGIN OSIS PANEL (WITH LACTO BACIL ABRAHAN PROFI LING) BY QRT PRC, EVELYNE MARTINEZ (L) sneathia sanguinegens real-time PCR Negati ve Swab- 1 Cerv End Not Available [facility] (Lab) [address] [place], [address], 09/29/2024 14:21:27 09/14/20 24 09/14/2024 BACTE RIAL VAGIN OSIS PANEL (WITH LACTO BACIL ABRAHAN PROFI LING) BY QRT EVELYNE REEVES (JASWANT) streptococcu s anginosus by real-time PCR Negati ve Swab- 1 Cerv End Not Available [facility] (Lab) [address] [place], [address], 09/29/2024 14:21:27 09/14/20 24 09/14/2024 VIK DA SNEHAL I BY RT-PC R radhika krusei by RT-PCR CANCEL LED Kindrali zahida Not Available [facility] (Lab) [address] [place], [address], 09/29/2024 14:21:27 11/05/19 24 07/05/2023 CT, abdom en + pelvi s, w/ contr ast No observ ation record ed. [email or web address] [facility] [address] [place], [address], 11/05/2023 20:42:59 Result Notes None recorded. Problems Name Problem SNOMED Code Status Onset Date Resolution Date Notes Provider Name and Address Organization Details Recorded Time History of cerebrovascul ar accident without residual deficits 502009111 Active 2023 Lian delgado [facility] 4 10:04:19 History of deep vein thrombosis 887232119 Active 2023 Lian delgado [facility] 4 10:04:50 Problem Notes None recorded. Procedures Surgical History Date Name Laterality Status Provider Name and Address Organization Details Recorded Time 07/23/20 24 endoscopy completed Lian Melgar [facility] 09/12/2024 09:57:49 06/02/20 24 Most Recent Bone Density completed Kiana Crook [facility] 10/26/2024 09:53:02 11/12/19 23 Date of Last Mammogram completed Lian Melgar [facility] 09/12/2024 09:49:37 09/23/19 23 Carpal tunnel surgery completed [facility] 11/11/2023 10:08:24 04/05/20 22 procedure on neck completed Lian [facility] 11/11/2023 10:09:22 01/05/20 22 completed Kiana Crook [facility] 10/26/2024 09:53:02 04/03/20 20 Date of Last Colonoscopy completed [facility] 09/12/2024 09:49:37 09/23/19 20 Carpal tunnel surgery completed [facility] 11/11/2023 10:08:41 09/23/19 20 Colonoscopy completed [facility] 09/12/2024 09:57:35 09/23/19 17 partial resection of colon completed [facility] 11/11/2023 10:08:55 09/23/19 17 Colonoscopy completed [facility] 11/11/2023 10:09:02 09/23/19 07 Cholecystectomy completed [facility] 11/11/2023 10:08:48 09/23/18 89 Total Hysterectomy completed [facility] 11/11/2023 10:09:08 Imaging Results Imaging Date Name Status LastModified by Organiz ation Details LastModified Time 07/05/2023 CT, abdomen + pelvis, w/ contrast completed [email or web address] [facility] [address] [place], [address], 11/05/2023 20:42:59 Procedure Notes None recorded. Medical Equipment None Reported. Allergies Allergen ID Allergen Name Allergen Category Reaction Reaction Severity Criticality Documentation Date Start Date Code Code System Note Provider Name and Address Organization Details Recorded Time 04465 Prilosec medicatio n dizziness Not available Not available 10/28/2023 05574 5 RxNorm Amanda delgado, [facility] 4 10:05:06 74551 Rocephin medicatio n hives Not available Not available 10/28/2023 9449 RxNorm [facility] 4 10:20:03 75670 Nexium medicatio n dizziness Not available Not available 10/28/2023 80514 9 RxNorm Amanda delgado, [facility] 4 10:20:27 92184 Dilaudid medicatio n anaphylax is Not available Not available 10/28/2023 91828 3 RxNorm Amanda Harmon [facility] 4 10:20:57 Medications Name [...] Not Available Not Available Not Avai lable flecainide 100 mg tablet active Not Available Not Available Not Available nicotine 21 mg/24 hr daily transdermal patch 09/12 completed Not Available Not Available Not Available lidocaine HCl 2 % mucosal solution active Not Available Not Available Not Available clindamycin 2 % vaginal cream Insert 1 applicato rful every day by vaginal route at bedtime, for 6 weeks. active Not Available Not Available No t Available estradiol 0.01% (0.1 mg/gram) vaginal cream Insert 1 applicato rful every other day by vaginal route. active Not Available Not Available No t Available methylpredn isolone 4 mg tablets in a dose pack active Not Available Not Available Not Available albuterol sulfate HFA 90 mcg/actuati on aerosol inhaler active Not Available Not Available Not Available ondansetron 4 mg disintegrat ing tablet active Not Available Not Available N ot Available cefdinir 300 mg capsule 11/11 completed Not Available Not Available Not Available amoxicillin 875 mg-potassiu m clavulanate 125 mg tablet 09/12 completed Not Available Not Available Not Available nicotine 7 mg/24 hr daily transdermal patch 09/12 completed Not Available Not Available Not Available cyclobenzap rine 5 mg tablet active Not Available Not Available Not Available nitrofurant [...] Updated DateTime 10/28/2023 162.56 cm 26.8 kg/m2 84923.41 g 121 mm[Hg] 75 mm[Hg] Amanda Harmon [facility] 4 10:19:45 Date Recorded Body height Body mass index (BMI) Body weight Systolic blood pressure Diastolic blood pressure Provider Name and Address Organization Details Last Updated DateTime 11/11/2023 162.56 cm 27.1 kg/m2 54903.59 g 112 mm[Hg] 76 mm[Hg] Lian Melgar [facility] 4 10:01:35 Date Recorded Body height Body mass index (BMI) Body weight Systolic blood pressure Diastolic blood pressure Provider Name and Address Organization Details Last Updated DateTime 09/12/2024 162.56 cm 30.6 kg/m2 89025.44 g 124 mm[Hg] 68 mm[Hg] Lian Melgar [facility] 4 09:48:24 Date Recorded Body height Body mass index (BMI) Body weight Systolic blood pressure Diastolic blood pressure Provider Name and Address Organization Details Last Updated DateTime 10/26/2024 162.56 cm 30.9 kg/m2 79872.63 g 126 mm[Hg] 76 mm[Hg] Kiana Armaan [facility] 5 09:52:49 Social History Question Answer Notes LastModified by Organizat ion Details LastModified Time Tobacco Smoking Status Current Every Day Smoker Amnada Eden delgado, [facility] 10/28/2023 10:06:25 Do You Have An Advance Directive? Yes [email or web address] Information n ot available 09/12/2024 What Is Your Level Of Alcohol Consumption? None Information not available 09/12/2024 Are You Blind Or Do You Have Difficulty Seeing? No [email or web address] Information n ot available 11/11/2023 What Is Your Level Of Caffeine Consumption? Moderate [email or web address] Information not available 11/11/2023 In The 14 Days Before Symptom Onset, Have You Had Close Contact With A Laboratory-confirm ed COVID-19 While That Case Was Ill? No [email or web address] Information n ot available 11/11/2023 In The 14 Days Before Symptom Onset, Have You Had Close Contact With A Person Who Is Under Investigation For COVID-19 While That Person Was Ill? No [email or web address] Information not available 11/11/2023 Have You Been To An Area Known To Be High Risk For COVID-19? No [email or web address] Information not available 11/11/2023 Are You Deaf Or Do You Have Serious Difficulty Hearing? No Information not available 11/11/2023 What Type Of Diet Are You Following? CARDIAC [email or web address] Information n ot available 11/11/2023 What Is The Highest Grade Or Level Of School You Have Completed Or The Highest Degree You Have Received? [id number] [email or web address] Information not available 09/12/2024 What Is Your Occupation? Retired [email or web address] Information not available 09/12/2024 Are There Any Guns Present In Your Home? No [email or web address] Information not available 09/12/2024 Have You Ever Been Counseled For Unhealthy Alcohol Use? No [email or web address] Information not available 11/11/2023 Do You Use Protection During Sex? Usually [email or web address] Information not available 09/12/2024 Do You Use Your Seat Belt Or Car Seat Routinely? Yes [email or web address] Information not available 09/12/2024 Do You Have Smoke And Carbon Monoxide Detectors In Your Home? Yes [email or web address] Information not available 11/11/2023 At What Age Did You Start Smoking Tobacco? 17 [email or web address] Information not available 09/12/2024 Do You Feel Stressed (tense, Restless, Nervous, Or Anxious, Or Unable To Sleep At Night)? [id number] [email or web address] Information not available 09/12/2024 Do You Use Any Illicit Or Recreational Drugs? No Information not available 11/11/2023 Do You Use Sunscreen Routinely? Yes Information not available 11/11/2023 Has Tobacco Cessation Counseling Been Provided? No [email or web address] Information not available 11/11/2023 Have You Used IV Drugs? No [email or web address] Information not available 09/12/2024 Do You Or Have You Ever Used Any Other Forms Of Tobacco Or Nicotine? No [email or web address] Information not available 11/11/2023 Sex: Unknown Functional Status Question Answer Note LastModified by Organizat ion Details LastModified Time Do you have difficulty walking or climbing stairs? No [email or web address] Information not available 11/11/2023 Are you able to walk? YESWOREST [email or web address] Information not available 11/11/2023 Are you able to care for yourself? Yes [email or web address] Information not available 11/11/2023 Do you have difficulty dressing or bathing? No [email or web address] Information not available 11/11/2023 What is your exercise level? Occasional Information not available 11/11/2023 Mental Status None recorded. Family History Relationship Description Onset Age of this Age Resolved Age Notes LastModified by Organization Details LastModified Time Father Heart disease [email or web address] Not available 2023 10:50:39 Father Hypertensive disorder [email or web address] Not available 2023 10:51:08 Sister Diabetes mellitus [email or web address] Not available 2023 10:50:54 Sister Hypertensive disorder [email or web address] Not available 2023 10:51:08 Mother Diabetes mellitus [email or web address] Not available 2023 10:50:54 Mother Malignant tumor of lung [email or web address] Not available 2023 10:51:18 Mother Malignant neoplasm of liver [email or web address] Not available 2024 09:39:40 Medical History Condition [...] SNOMED-CT Code Diagnosis ICD10 Code Diagnosis Note [id number] Avtar Perez MD [facility] [address] [address] 10/28/2023 09:46:57 10/28/2023 11:22:37 Atrophic vulva [id number] N90.5 this patient is a 63-year-ol d [...] will return in 2 weeks. Vulval pain 287047684 R1 0.2 [id number] Avtar Perez MD [facility] [address] [address] 11/11/2023 09:34:50 11/11/2023 14:49:04 Atrophic vulvovaginitis 22363917 N95.2 63-year-ol d female who presents for [...] the vulva. To follow-up in 1 month. 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 /Thigh. Tinea corporis 32683597 B35.4 [id number] Avtar Perez MD [facility] [address] [address] 10/26/2024 09:39:36 10/26/2024 10:27:47 Atrophic vulva 744982083 N90.5 64-year-ol d female with a severe [...] Sandoval Member ID Guarantor Name 10/28/2023 1 [facility] ON OR AFTER 03/23/21 (MEDICAID REPLACEMENT - HMO) Claudine Nancy [id number] Claudine Nancy 11/11/2023 1 [facility] ON OR AFTER 03/23/21 (MEDICAID REPLACEMENT - HMO) Claudine Nancy [id number] Claudine Nancy 09/12/2024 1 [facility] ON OR AFTER 03/23/21 (MEDICAID REPLACEMENT - HMO) Claudine Nancy [id number] Claudine Nancy 10/26/2024 1 [facility] ON OR AFTER 03/23/21 (MEDICAID REPLACEMENT - HMO) Claudine Nancy [id number] Claudine Nancy Notes Date Note Type Note [...] the vagina. We spent over 40 minutes [id number]. More than 50% was counseling. We agreed to treat with vaginal estrogen and topical estrogen on the vulvar area of interest. She will return in 2 weeks. Avtar Perez MD [address], [place], [address], [facility] 10/28/2023 11:00:18 11/11/2023 text/html 63-year-old fema [...] very quickly. We spent over 20 minutes [id number]. More than 50% was counseling. She was re-examined. The vulva appears improved. She was using some in the vagina and some over the vulva. To follow-up in 1 month. Avtar Perez MD [address], [place], [address], [facility] 11/11/2023 14:19:59 09/12/2024 text/html 64-year-old fema [...] weeks. Avtar Perez MD [address] Hernandez, [place], [address], [facility] 09/12/2024 11:46:56 10/26/2024 text/html 64-year-old fema [...] needed. Avtar Perez MD [address], [place], [address], [facility] 10/26/2024 10:24:29 OBGyn Episode Ob Episode Information Episode Created Date Number of Fetuses Patient Bloodtype Patient rh Status Prepregnancy Weight lbs Domestic Partner Domestic Partner Phone Father Name Setter Induction Heating Equipment Status 10/28/19 24 1 CLOSED Fetus Data First Name Last Name Admitted to NICU Weight (g) Sex Living Outcome Pediatric Complications Fetus ID Race Codes Race Delivery Type 3940.35 3704 M Full Term [id number] Vaginal Delivery Riaz Calculation Initial Riaz Date [...]
--- OUTSIDE RECORDS SUMMARY | 2024-11-24 14:59 | XMS_ITS | Encounter Summary ---
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
--- OUTSIDE RECORDS SUMMARY | 2024-11-24 14:59 | XMS_ITS | Clinical Summary ---
Author Organization [facility] Address [address] [place] [address] Care Team Providers Care Food Management Aide Name Role Phone Rey Wadsworth MD Unavailable Yasmany Be MD Primary Care Provider [phone] Erin Mead NP Unavailable Unavailable Allergies Active [...] the lungs as needed. 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 Not on file Not [...] Documents on File Type Date Recorded Patient Bisque Grader Expl anation Advance Directives and Living Will 02/19/2019 12:00 AM POWER OF ATTENDING PHYSICIAN Advance Directives and Living Will 12/01/2018 12:00 AM POWER OF ATTENDING PHYSICIAN Advance Directives and Living Will 11/10/2018 12:00 AM POWER OF ATTENDING PHYSICIAN Advance Directives and Living Will 09/02/2018 12:00 AM POWER OF ATTENDING PHYSICIAN Advance Directives and Living Will 03/11/2018 12:00 AM POWER OF ATTENDING PHYSICIAN Advance Directives and Living Will 03/11/2018 12:00 AM POWER OF ATTENDING PHYSICIAN Advance Directives and Living Will 01/15/2017 12:00 AM POWER OF ATTENDING PHYSICIAN Care Teams Food Management Aide Relationship Specialty Start Date End Date Yasmany Sullivan MD [address] [place] [id number] PCP - General INTERNAL MEDICINE 03/11/17 Rey Wadsworth MD [place] Manipulative Therapy Specialist CLINICAL CARDIAC ELECTROPHYSIOLOGY 03/11/17 Erin Mead NP [address] [place] [address] Nurse Practitioner Electrophysiology 03/13/18
--- OUTSIDE RECORDS SUMMARY | 2024-11-24 14:59 | XMS_ITS | Encounter Summary ---
Author Organization [facility] Address [address] [place] [address] Care Team Providers Care Excavator Backhoe Operator Name Role Phone Rey Wadsworth MD Unavailable Unavailabl e Yasmany Sullivan MD Primary Care Provider [phone] Erin Mead PARAGLIDING INSTRUCTOR Unavailable Unavailable Encounter Details Date Type Department Care Team (Late st Contact Info) Description 12/27/2015 Abstract [facility] [address] [place] [address] Rey Wadsworth MD Social History Tobacco Use Types Packs/Day Years Used Date Smoking Tobacco: Former Comments Unknown Sex and Gender Information Value Date Recorded Sex Assigned at Not on file Legal Sex Female 6:18 PM CDT Gender Identity Not on file Sexual Orientation Not on file 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
== END 2024-11-24 13:08 | disposition home or self-care (01) ==
LOC: CHSIMG 13:09
PROVIDERS: PCP Internal Medicine; Visit Provider Internal Medicine
DX: Z12.31 Encounter for screening mammogram for malignant neoplasm of breast (principal); Z12.2 Encounter for screening for malignant neoplasm of respiratory organs
CPT/HCPCS: 71271; 77063; 77067

== ENCOUNTER 2024-12-07 13:04 | Outpatient (RCR) | payer OTHER, SELFPAY ==
--- NOTE | 2024-12-07 15:21 | OPREHPOC ---
Outpatient Therapy Plan of Care This is a Multidisciplinary Plan of Care that may contain components documented by all disciplines (PT, OT, and ST.) PT Problem 1 PT Problem #1 Knowledge Deficit PT Goal 1 Goal / Goal Update Independent with HEP Target Visit 2 PT Problem 2 PT Problem #2 Impaired Range of Motion PT Goal 1 Goal / Goal Update Pt to achieve 50 deg of L cervical rotation AROM. Pt to achieve 45 deg of cervical flexion AROM. Pt to achieve 45 deg of cervical extension AROM. Target Visit 6 PT Problem 3 PT Problem #3 Impaired Strength PT Goal 1 Goal / Goal Update Pt to improve gross cervical muscle strength to 4+ /5 with less than 4/10 pain. Pt to improve gross UE strength to 4+/5. 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 Pt to report no more than 25% disability on NDI. Target Visit 6
--- NOTE | 2024-12-07 15:22 | PTOPEVAL1 ---
Assessment and note entered by Shadia Benz, PT Evaluation Information Assessment Status Evaluation ICD-10 Condition Codes (PT) Cervicalgia M54.2,Weakness R53.1 Other ICD-10 Condition Codes ( G95.20 PT) Onset 11/24/23 Subjective Information Pt reports headache, dizziness, and ringing in her ears that started around 2 weeks ago. Neck pain is located at the base of the skull. States she went to the ER last month after having a headache for 13 days, had some imaging done and was given a shot of morphine that didn't help. She went to see her DrFaizan the next week who gave her more anti- inflammatory shots. She went to her neck surgeon last week and states they can't do an MRI on her neck until she gets PT. States she also gets blurred vision, pressure, nausea, feeling like she 'll pass out, and has been having trouble holding in urine. States she hasn't been able to lie down in a long time. Occasional sensitivity to light and sound. She denies dysarthria, dysphagia, N/T down the arms. She has a TENS machine at home that she uses as well as hot/cold pack as needed. Reported Pain Level Pain Score 4: Self Report Assessment PT Clinical Summary Mrs. Cruz is a 64 yo female presenting to physical therapy for neck pain and potential spinal cord compression. She underwent a craniotomy and R C1 laminectomy in 2021. She demonstrates with significantly limited cervical ROM along with pain with both active and resisted movements. Dizziness and nausea are reproduced with L cervical rotation and Spurlings test to the R. She will benefit from skilled PT intervention to improve neck pain, ROM and strength to be able to perform daily activities without an increase in pain. Plan of Care Interventions Electrical Stimulation,Hot Pack/Cold Pack,Manual Therapy,Mechanical Traction,Neuro Re-education, Patient/Caregiver Education,Therapeutic Activities ,Therapeutic Exercise,Self-Care/Home Management PT Services Indicated Yes Treatment Frequency and 1x/week for 6 visits Duration These treatments will address the objective and functional deficits as defined above. The patient will be advanced safely and appropriately in order for the patient to progress towards his/her prior level of function. Additional exercises will be introduced and as well as a comprehensive home exercise program upon discharge, if needed, ?to ensure carryover of functional gains achieved in the clinic. This treatment plan has been reviewed and agreement upon by the patient.
--- NOTE | 2025-01-18 14:37 | OPREHPOC ---
Outpatient Therapy Plan of Care This is a Multidisciplinary Plan of Care that may contain components documented by all disciplines (PT, OT, and ST.) PT Problem 1 PT Problem #1 Knowledge Deficit PT Goal 1 Goal / Goal Update Independent with HEP Target Visit 2 Progress Met PT Problem 2 PT Problem #2 Impaired Range of Motion PT Goal 1 Goal / Goal Update Pt to achieve 50 deg of L cervical rotation AROM. Pt to achieve 45 deg of cervical flexion AROM. Pt to achieve 45 deg of cervical extension AROM. Target Visit 6 Progress Not Met PT Problem 3 PT Problem #3 Impaired Strength PT Goal 1 Goal / Goal Update Pt to improve gross cervical muscle strength to 4+ /5 with less than 4/10 pain. -met Pt to improve gross UE strength to 4+/5. 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 -not met Pt to report no more than 25% disability on NDI. - not met Target Visit 6
--- NOTE | 2025-01-18 14:37 | PTOPDC ---
Assessment and note entered by Shadia Benz, PT Evaluation Information Assessment Status Discharge ICD-10 Condition Codes (PT) Cervicalgia M54.2,Weakness R53.1 Other ICD-10 Condition Codes ( G95.20 PT) Onset 11/24/23 Subjective Information Florence reports her neck feels a little bit better today but that the severity of her symptoms change day to day. She states overall her neck pain and other associated symptoms are still present and that recently her R ear has been feeling very painful and full as well as ringing. She has been trying to get into an ENT for this, and reports she found some amoxicillin at home and started taking that yesterday. She states she sees her doctor for her neck on Saturday. She has transitioned to only working 2 days per week and reports onset of neck pain within 3-4 hours of working. She states working is more manageable when she finds time to sit and rest but she states this isn't always possible at work. Reported Pain Level Pain Score 5: Self Report Assessment PT Clinical Summary Mrs. Cruz has attended 6 total skilled PT visits addressing neck pain with associated symptoms such as dizziness, nausea, and tingling down the arms. Since beginning PT she no longer has tingling in the arms but still notes pain, dizziness and nausea as well as increased R ear ringing, pain and fullness. Her cervical muscle strength has improved slightly but she still experiences pain with resisted movements. Given her persistent symptoms despite skilled PT intervention, she will benefit from further imaging of the cervical spine and will be referred back to her doctor. Plan of Care PT Services Indicated No
== END 2025-01-18 20:00 | disposition home or self-care (01) ==
LOC: CHSPT 13:04
DX: G95.20 Unspecified cord compression (principal)
CPT/HCPCS: 97014; 97110; 97140; 97162; G0283

== ENCOUNTER 2024-12-28 12:41 | Outpatient (CLI) | payer OTHER, SELFPAY ==
[2024-12-28] MEDS: ZOLEDRONIC ACID 5 MG/100 ML 100 ML 400 MG IVPB (14:00)
[2024-12-28 14:07] VITALS: BP 140/70; PULSE 60; RESP 14; TEMP 36.6; O2SAT 98; BMI 29.2
--- OUTSIDE RECORDS SUMMARY | 2024-12-28 14:16 | XMS_ITS | Data Portability ---
Author Organization [facility], [address] [place]rology ([place]) Address [address] [place] [address] Care Team Providers [employer] Driver Name Role Phone JACQUELINE MATTSON Primary Care Provider [phone] JACQUELINE MATTSON Referring Provider Assessment Encounter Date Assessment Date Assessment LastModified by Organization Details LastModified Time 05/21/2024 05/21/2024 Ms. Cruz is here for [...] study involving both lower extremities for venous insufficiency/reflux assessment. I will see her 3 months after for reevaluation. [facility] [email or web address] Not available 05/21/2024 18:41:17 06/01/2024 06/01/2024 Ms. [...] see her after 6 months for reassessment. ronny [email or web address] Not available 06/04/2024 07:07:27 06/01/2024 06/01/2024 In [...] will be written on her prep sheet. [email or web address] Not available 06/01/2024 12:43:27 11/30/2024 11/30/2024 Assessment: C2 pannus. Plan: Ms. Cruz is a 64-year-old female who returns for follow up of her C2 pannus. She was somewhat lost to follow up after her last appointment in 2022, as she declined our treatment plan. Insurance was not approving the MRI because they requested that she go to physical therapy for six weeks, which she declined to do. She declined to go for an evaluation by Dr. Jerome Ordoñez. She was very resistant to any suggestions today until we discussed the options further. I have suggested that she try physical therapy again, as she seems to have increased muscle tension of the right sternocleidomastoid muscle and trapezius with discomfort in these areas. She also currently has significant dizziness. Which is being treated by her PCP with Meclizine. She states the medication has been helpful. She has agreed to try physical therapy at her local hospital. She has agreed to attend therapy one day per week. I have written this into her order. Today, she states that she will agree to an MRI of the cervical spine to further assess the cervical pannus, if she can have the MRI at the [facility] in [place]. I did offer to prescribe medication to help with this such as valium, but she declined. After she attends physical therapy, we will attempt to obtain insurance authorization for an MRI of her cervical spine. Overall, her neurological exam is stable. She has no paresthesias of her upper or lower extremities. She has full strength in her upper and lower extremities and symmetric reflexes. I have encouraged her to take her meclizine prior to attending the physical therapy appointments to try to have better management of her dizziness. She will follow up in our office after we are able to obtain the MRI of her cervical spine. In the meantime, I have asked her to contact our office with any questions, concerns or changes in neurological status. She verbalized understanding and I believe she agrees with this plan today. tmo A total of 45 minutes were spent in face to face counseling regarding the cervical pannus. Not available 12/08/2024 16:18:20 11/30/2024 11/30/2024 Ms. Cruz is here for assessment regarding lower extremity swelling, venous insufficiency, varicose vein. She did have episodes of cellulitis involving both legs, which was treated with antibiotic course. She is compliant with intermittent leg elevation and compression therapy, which helps with her symptoms. PLAN: Would not recommend surgical intervention at this point. She can follow up as needed. [email or web address] Not available 12/02/2024 06:22:29 Plan of Treatment Reminders Order Date Submit Date Provider Last Modified By Organization Details Last Modified Time Details Appointments None recorded. Lab None recorded. Referral physical therapist referral - Pt. is s/p Right lateral craniotomy C1 laminectomy resection of odontoid process on 04/05/22. Please call pt to schedule. Thank you!! 2024 025 [facility], [address] [place] [address], [address], 18:16:57 Procedures None recorded. Surgeries None recorded. Imaging None recorded. Medication Orders None recorded. Patient TargetsNo targets recorded. Patient InstructionsNo instructions recorded. Reason for Referral Physical Therapist Referral for Compression of cervical spinal cord Neck pain Pt. is s/p Right lateral craniotomy C1 laminectomy resection of odontoid process on 04/05/22. Please call pt to schedule. Thank you!! Referring Physician: Jessenia Richardson, Neurosurgery, Encounter Date: 11/30/2024 Results Created Date Observation Date Name Description Value Unit Range Abnormal Flag Note LastModifiedBy Organization Detail LastModifiedTime 06/10/20 24 08/05/2023 MRI, cervi benito spine , w/o contr ast No observ ation record ed. [facility] Not Available 2023 11:01:52 08/19/20 24 XR, cervi benito spine , 4 or 5 view No observ ation record ed. [facility] [address] [place], [address], 08/19/2024 17:11:19 10/05/19 25 10/05/2024 CT, head, w/o contr ast No observ ation record ed. [facility] [address] [place], [address], 10/07/2024 11:45:19 11/11/19 25 11/07/2024 CT, head, [...] and Address Organization Details Recorded Time Dysphagia 39724575 Active 2023 Neva Mcdowell [facility] 4 08:59:27 Chronic abdominal pain 214016790 Active 2023 Khang Shetty APRN, FACILITY ATTENDANT [address] [place] [address], [phone], [facility] 4 12:43:41 Nonulcer dyspepsia 0442161 Active 2023 Khang Shetty APRN, FACILITY ATTENDANT [address] [place] [address], [phone], [facility] 4 12:43:50 Peripheral vascular disease 064244132 Active 2023 Khang Shetty APRN, FACILITY ATTENDANT [address] [place] [address], [address], [facility] 4 12:44:08 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 583580445 Active 2023 Lorelei Boudreaux [facility] 4 07:07:41 Compression of cervical spinal cord 0787806981 Active 2023 Irina Coyle [facility] 4 15:04:56 Spinal cord compression 97451075 Active 2023 Irina Coyle [facility] 4 15:05:09 Rheumatoid arthritis of cervical spine 104269221 Active 2023 Monselalo Lut [facility] 4 14:02:00 Hydrocephalus ex vacuo 76642022 Active 2023 Chey Napoles MD [address] [place] [address], [phone], [facility] 4 10:53:13 Pain due to varicose veins of lower extremity 375820427 Active 2023 Sobeida Sherman [facility] 4 08:48:52 Edema of lower extremity 124212076 Active 2023 Tiff Dillard [facility] 4 12:13:53 Problem Notes None recorded. Procedures Surgical History Date Name Laterality Status Provider Name and Address Organization Details Recorded Time 07/23 esophagogastroduodenoscopy completed Neva Mcdowell [facility] 4 08:58:52 04/05 cervical laminectomy completed Irina Coyle [facility] 4 15:01:26 Colonoscopy with biopsy completed N ot Available Health Note 4 14:23:30 Removal of gallbladder completed No t Available Health Note 4 14:23:30 Total hysterectomy completed Not Available Health Note 4 14:23:30 Imaging Results Imaging Date Name Status LastModified by [facility] Details LastModified Time 08/05/2023 MRI, cervical spine, w/o contrast completed [facility] Information not available 06/10/2024 11:01:52 08/19/2024 XR, cervical spine, 4 or 5 view completed [facility] [address] [place], [address], 08/19/2024 17:11:19 10/05/2024 CT, head, w/o contrast completed [facility] [address] [place], [address], 10/07/2024 11:45:19 11/07/2024 CT, head, w/o contrast completed [facility] Information not available 11/11/2024 11:50:05 11/07/2024 CT, cervical spine, w/o contrast completed [facility] Information not available 11/11/2024 11:50:05 Procedure Notes None recorded. Medical Equipment None Reported. Allergies Allergen ID Allergen Name Allergen Category Reaction Reaction Severity Criticality Documentation Date Start Date Code Code System Note Provider Name and Address Organization Details Recorded Time 0609073 Dilaudid medicatio n anaphylax is Not available Not available 10/23/20232021 30642 3 RxNorm React ion: Anaph ylaxi s; Not Available Not Available Not Available 0401054 esomepraz ole magnesium medicatio n dizziness Not available Not available 10/23/20232010 75054 2 RxNorm React ion: Dizzi ness; Not Available Not Available Not Available 924603 omeprazol e magnesium medicatio n nausea Not available Not available 10/21/20232014 92643 6 RxNorm React ion: Nause a; Other ; Not Available Not Available Not Available 607418 Rocephin medicatio n rash Not available Not [...] Not Available azithromyci n 250 mg tablet 11/30 completed Not Available Not Available Not Available nystatin 100,000 unit/gram topical ointment 11/30 completed Not Available Not Available Not Available fluconazole 150 mg tablet TAKE 1 TABLET BY MOUTH AT ONSET OF SYMPTOMS MAY REPEAT IN 72 HOURS NEEDED 11/30 completed Not Available Not Available Not Available valacyclovi r 1 gram tablet 03/23 completed Not Available Not Available Not Available hydrocodone 5 mg-acetamin ophen 325 mg tablet active Not Available Not Available No t Available Nystop 100,000 unit/gram topical powder APPLY TO THE AFFECTED AREA TWICE DAILY 11/30 completed Not Available Not Available Not Available ondansetron HCl 4 mg tablet active [...] Available lidocaine HCl 2 % mucosal solution 11/30 completed Not Available Not Available Not Available estradiol 0.01% (0.1 mg/gram) vaginal cream active Not Available Not Available Not Available methylpredn isolone 4 mg tablets in a dose pack 03/23 completed Not Available Not Available Not Available albuterol sulfate HFA 90 mcg/actuati on aerosol inhaler 11/30 completed Not Available Not Available Not Available cefdinir [...] t Available Vitals Date Recorded Body height Respiratory rate Oxygen saturation Oxygen saturation in Arterial blood by Pulse oximetry Systolic blood pressure Diastolic blood pressure Provider Name and Address Organization Details Last Updated DateTime 4 162.56 cm 20 /min 97 % 97 % 148 mm[Hg] 60 mm[Hg] [facility] 4 16:16:16 Date Recorded Body height Body mass index (BMI) Body weight Systolic blood pressure Diastolic blood pressure Provider Name and Address Organization Details Last Updated DateTime 06/01/2024 162.56 cm 29.9 kg/m2 39314.07 g 105 mm[Hg] 70 mm[Hg] Khang Shetty APRN, FACILITY ATTENDANT [address], [address] [place] [address] 4 12:38:55 Date Recorded Body height Respiratory rate Heart rate Oxygen saturation Oxygen saturation in Arterial blood by Pulse oximetry Systolic blood pressure Diastolic blood pressure Provider Name and Address Organization Details Last Updated DateTime 4 162.56 cm 18 /min 52 /min 96 % 96 % 120 mm[Hg] 54 mm[Hg] [facility] 4 13:43:16 Date Recorded Body height Body mass index (BMI) Body weight Heart rate Respiratory rate Oxygen saturation Oxygen saturation in Arterial blood by Pulse oximetry Systolic blood pressure Diastolic blood pressure Provider Name and Address Organization Details Last Updated DateTime 5 162.56 cm 31.6 kg/m2 78123 g 46 /min 20 /min 99 % 99 % 140 mm[Hg] 64 mm[Hg] [facility] 5 13:58:02 Date Recorded Body height Body mass index (BMI) Body weight Heart rate Oxygen saturation Oxygen saturation in Arterial blood by Pulse oximetry Systolic blood pressure Diastolic blood pressure Provider Name and Address Organization Details Last Updated DateTime 5 162.56 cm 31.5 kg/m2 28842.8 4 g 54 /min 98 % 98 % 124 mm[Hg] 82 mm[Hg] Yuliana Orr [facility] 5 15:17:19 Social History Question Answer Notes LastModified by [employer] Details LastModified Time Tobacco Smoking Status Current Every Day Smoker Tiff Dillard [facility] 06/01/2024 13:43:55 Do You Have An Advance [...] Packs Per Day (PPD)? 3-5 Per Day Information not available 05/21/2024 How Long Have You Smoked? Since I Was 17 [email or web address] Information not available 04/06/2024 Do You Have A Medical Power Of Resource Room Special Education Teacher? Yes [email or web address] Information not available 04/06/2024 What Was The Date Of Your Most Recent Tobacco Screening? 04/13/2024 [email or web address] Information not available 04/06/2024 What Is Your Relationship Status? Single [email or web address] Information not available 04/06/2024 Do You Use Any Illicit Or Recreational Drugs? No [email or web address] Information not available 04/06/2024 Sex: Unknown Functional Status Question Answer Note LastModified by [employer] Details LastModified Time What is your exercise [...] N Arthritis Y Hyperlipidemia N Cancer Y Thyroid Problems N Stroke Y COPD Y Depression N Asthma N Seizures N Anemia N Heart Disease N Fibromyalgia Y Osteoporosis N Kidney Disease N Gynecological HistoryNo gynecological history recorded. Obstetrics History GPAL:G 0 P 0 0 0 0 Past Encounters Encounter ID Performer Location Encounter Start Date Encounter Closed Date Diagnosis/Indication Diagnosis SNOMED-CT Code Diagnosis ICD10 Code Diagnosis Note [id number] Jessie Solis [facility] ([place]) [address] [place] [address] 03/23/2024 10:30:59 03/25/2024 08:33:26 Hydrocephalus ex vacuo 60847575 G91.0 [id number] Karson Bright MD [address] [place] [address] Vascular [place] ([place]) [address] [place] [address],[address] [place] [phone] 04/13/2024 15:24:08 04/13/2024 16:46:06 Pain due to varicose veins of lower extremity 510518005 I83.427 [id number] Karson Bright MD [address] [place] [address] V[place] ([place]) [address] [place] [phone] 05/21/2024 16:02:16 05/21/2024 17:03:25 Pain due to varicose veins of lower extremity 744127207 I83.399 [id number] Khang Shetty APRN, FACILITY ATTENDANT [facility] Gastroent erology ([place]) [address] [place] [phone] 06/01/2024 12:06:40 06/01/2024 15:02:22 Dysphagia 94190635 R13.10 Chronic ab dominal pain 743114286 R10.9 Nonulcer dyspepsia 92572 07 K30 Peripheral vascular disease 644875820 I73.9 [id number] Karson Bright MD [address] [place] [address] V[place] ([place]) [address] [place] [address],[address] [place] [phone] 06/01/2024 13:21:13 06/01/2024 14:04:42 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 857387117 I83.11 I83.12 Additional diagnosis detail: Varicose veins of lower extremity with inflammati on, bilateral [id number] Jessenia Richardson, NOHEMI, DNP, FACILITY ATTENDANT [facility] Neurosurg [place]ine ([place]) [address] [place] [address] [place] [address] 11/30/2024 14:40:48 12/09/2024 06:04:12 Compression of cervical spinal cord 4486846044 G95.20 [id number] Karson Bright MD [address] Vascular Surgery ([place]) [address] [phone] 11/30/2024 13:29:59 11/30/2024 17:36:11 Edema of lower extremity 681905275 R60.0 Vascular insufficiency 62337086 I87.2 Health Concerns Section Related Observation LastModified by Organization Detai ls LastModified Time None Recorded Concern Status LastModified by Organization Details LastModified Time None Recorded Advance Directives Directive Y: Payers Encounter Date Sequence Insurance Name Policy Number Policy Sandoval Covered Member ID Sandoval Member ID Guarantor Name 05/21/2024 1 [facility] ON OR AFTER 03/23/21 (MEDICAID REPLACEMENT - HMO) Claudine L Nancy [id number] Claudine L Nancy 06/01/2024 1 [facility] ON OR AFTER 03/23/21 (MEDICAID REPLACEMENT - HMO) Claudine L Nancy [id number] Claudine L Nancy 06/01/2024 1 [facility] ON OR AFTER 03/23/21 (MEDICAID REPLACEMENT - HMO) Claudine L Nancy [id number] Claudine L Nancy 11/30/2024 1 [facility] ON OR AFTER 03/23/21 (MEDICAID REPLACEMENT - HMO) Claudine L Nancy [id number] Claudine L Nancy 11/30/2024 1 [facility] ON OR AFTER 03/23/21 (MEDICAID REPLACEMENT - HMO) Claudine L Nancy [id number] Claudine L Nancy Notes Date Note Type Note Provider Name and Address Organization Details Recorded Time 06/01/2024 text/html 63-year-old delmi n here to [...] sounds like she has to buy this [id number] because her insurance does not cover as [...] have a history of cholecystectomy. Khang Shetty, IT OPERATIONS ANALYST, FACILITY ATTENDANT [address] [place] [address], [phone], [facility] 06/01/2024 12:44:24 06/01/2024 text/html This is a 63-year-old female who is here for assessment regarding [...] toenail. Cellulitis is controlled with round of antibiotic/penicilli n leading to complete resolution. Denies any current symptoms at this point.ronny Bright MD [address] [place] [address], [phone], [facility] 06/04/2024 18:05:45 11/30/2024 text/html Ms. Cruz is a 64-year-old female who returns for follow up of her C2 pannus. She is accompanied by her sister. She is status post right lateral craniotomy with C1 laminectomy, resection of odontoid process. This was done on April 05, 2022, at [facility]. At her last appointment with Dr. Marin on August 05, 2023, he suggested that she be evaluated by Dr. Jerome Ordoñez for consideration of a C1-2 fusion. He also recommended follow up in one year with an MRI of the cervical spine without contrast. However, the patient declined the MRI and the appointment with Dr. Ordoñez. She states that, I told Dr. Marin that I would contact Dr. Ordoñez office when I felt that it was necessary; I do not feel that is necessary; I am not having further surgery. She returns today because she has had a headache and dizziness for the last two weeks. She had severe headache that resulted in her presenting to the emergency department on 11/07/2024. She had a CT of her head and cervical spine at that time. The CT of her cervical spine shows the alignment is normal. 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 There are cystic changes at the base of the dens. Vertebral body heights appear normal. There is multilevel degenerative changes. There is mild cervical spondylosis noted. CT of the head was negative for acute intracranial processes. There are some age-related changes with mild diffuse volume loss. There is chronic small vessel ischemic disease noted. She also had x-rays of her cervical spine in July 2024. We also reviewed these. There was no obvious osseous abnormalities noted at that time. There was normal height and alignment of her spine.Side effects states that she still has the headache, but it is no longer constant and is somewhat improved. She did have a Toradol and steroid injection provided by her primary care provider, followed by a Medrol-Dosepak. She states that this seemed to be helping some. She also is taking meclizine for the dizziness, which is also helpful. 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 She states that she is doing her home exercises, but is not interested in doing formal physical therapy. At her last appointment, Dr. Marin prescribed a soft cervical collar for her, but she states that she never got that. She denies any numbness, tingling or weakness of her upper or lower extremities.o 11/30/24-Patient is here today with her sister, Tonia. She reports she went to the ER in [place] a couple weeks ago for a constant severe headache at the base of her neck that she had for 12 days. Patient reports she still has a headache now that comes and goes but is not as constant. Patient denies any numbness or weakness. Patient reports she has been dizzy for a couple weeks off and on causing her to be off balance and nauseated. No recent falls. Patient reports before she gets dizzy, her vision feels off. Patient denies any seizures or stroke like symptoms. Patient denies confusion or word difficulties. 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 Wilkins ([place])Blood thinner: Xarelto 02/26/19-reports fall started pain a few years ago, pain radiated above elbows, tingling in both hands. Recommend XR to f/o dynamic instability and EMG05/09/20-Reports dizzy spells, passing out, falling. Recommend MRI brain, MRI cervical.06/27/20-Re ports blurry vision , loss of balance, numbness on head on left side, . weakness on left side. surgical candidate, defer until trial of medical therapy.12/04/21-f/u increased neck pain. felt pop during chiropractor. pressure at base of skull. Recommend MRI cervical.12/25/21-re ports arthritis and neck pain, pain 8/10. dizziness. left leg getting weaker. recommend surgery and pt wants March.04/05/22- Right lateral craniotomy C1 laminectomy resection of odontoid process at [facility].-in cervical collar. right side of head is bothersome. doing well. XR shows no gross instability on flexion and extension. f/u in 3 mo with MRI cervical.07/23/22-re ports neck pain, right ear feels full, feels like she is going to pass out. MRI does not have any revealing dynamic instability. neck [id number]/15/23-ta kes pain meds around the clock. incision is well healed. MRI in June.08/05/23-MRI shows stable anterior C2 pannus w/o evidence of spinal cord compression. offered referral to Dr. Ordoñez. reports neck pain.07/29/24-XR cervical at [place] shows no acute osseous abnormality cervical spine.11/07/24-Pt went to [place] ED for neck pain and headache. CT cervical shows Mild cervical spondylosis. no acute osseus abnormality. Jessenia Richardson, IT OPERATIONS ANALYST, DNP, FACILITY ATTENDANT [address] [place] [address], [phone], [place] [facility] 12/08/2024 16:18:37 11/30/2024 text/html This is a 64-year-old female who is here for assessment regarding lower extremity swelling, venous insufficiency, varicose vein and lower extremity cellulitis. The patient was last seen in May 2024 and asked her to use compression along with leg elevation. She underwent venous reflux exam, which showed bilateral lower extremity great saphenous vein reflux. No evidence of small saphenous vein reflux or deep venous reflux noted. Conservative approach was opted as the patient was compliant with compression stockings with complete resolution of symptoms. She takes Xarelto for A fib management. She noticed bilateral lower extremity cellulitis, which was treated with antibiotic therapy as per primary a few months ago. She is compliant with compression stocking and denies any significant heaviness, aching, pain or discomfort.elderp Karson Bright MD [address] [facility], [place], [address], [facility] 12/17/2024 23:30:02 OBGyn Episode No OBEpisode recorded.
--- OUTSIDE RECORDS SUMMARY | 2024-12-28 14:16 | XMS_ITS | Data Portability ---
Author Organization [facility] [place] Address [address] [place] [address] [address] Care Team Providers Care Tube Closing Machine Operator Name Role Phone JACQUELINE MATTSON Primary Care Provider Assessment No assessment recorded. Plan of Treatment Reminders Order Date Submit Date Provider Last Modified By Organization Details Last Modified Time Details Appointments None recorded. Lab None recorded. Referral None recorded. Procedures None recorded. Surgeries None recorded. Imaging None recorded. Medication Orders Estrace 0.01% (0.1 mg/gram) vaginal cream 2024 025 LISETTE [facility], [address] [place] [address], [place], [address], 5 10:20:41 clotrimazol e-betametha sone 1 %-0.05 % topical cream 2023 024 [facility], [facility], [place], [address], 4 10:20:34 clindamycin 2 % vaginal cream 2023 024 [facility], [facility] [address] [place], [place], [id number], 4 10:18:18 hydrocortis one acetate 25 mg rectal suppository 2023 024 LISETTE [facility], [facility] [address] [place], [place], [id number], 4 10:18:20 clobetasol 0.05 % topical cream 2023 024 LISETTE [facility], [facility], [address], [place], [address], 4 11:26:51 Estrace 0.01% (0.1 mg/gram) vaginal cream 2023 024 [email or web address] 1 [facility] [address] [place], [place], [id number], 4 10:02:50 Patient TargetsNo targets recorded. Patient InstructionsNo instructions recorded. Reason for Referral None Reported. Results Created Date Observation Date Name Description Value Unit Range Abnormal Flag Note LastModifiedBy Organization Detail LastModifiedTime 10/28/19 24 10/28/2023 MOBIL UNCUS MULIE RIS/C URTIS SHIRLENE, RT-PC R, ONE SWAB mobiluncus mulieris and mobiluncus curtisii by RT-PCR Negati ve Swab- 1 Vag/C erv Not Available [facility] (Lab) [address] [place], [address], 11/11/2023 15:40:30 10/28/19 24 10/28/2023 BACTE RIAL VAGIN OSIS PANEL RT-PC R, ONESW AB gardnerella vaginalis PCR Negati ve Swab- 1 Vag/C erv Not Available [facility] (Lab) [address] , [place], [address], 11/11/2023 15:40:30 10/28/19 24 10/28/2023 BACTE RIAL VAGIN OSIS PANEL RT-PC R, ONESW AB atopobium vaginae PCR Negati ve Swab- 1 Vag/C erv Not Available [facility] (Lab) [address], [place], [address], 11/11/2023 15:40:30 10/28/19 24 10/28/2023 BACTE RIAL VAGIN OSIS PANEL RT-PC R, ONESW AB bacterial vaginosis associated bacteria 2 (bvab2) Negati ve Swab- 1 Vag/C erv Not Available [facility] (Lab) [address] [place], [address], 11/11/2023 15:40:30 10/28/19 24 10/28/2023 BACTE RIAL VAGIN OSIS PANEL RT-PC R, ONESW AB megasphaera species (type 1 and type 2) PCR Negati ve (Type1 ,Type2 ) Swab- 1 Vag/C erv Type1 :Nega tive Type2 :Nega tive. Not Available [facility] (Lab) [address] [place], [address], 11/11/2023 15:40:30 10/28/19 24 10/28/2023 BACTE RIAL VAGIN OSIS PANEL RT-PC R, ONESW AB lactobacillu s (bvpanel) PCR See Commen t Swab- 1 Vag/C erv L.cri spatu s: Negat oliver L.lili senii : Negat oliver L.gas seri : Negat oliver L.ine rs : Negat oliver. Not Available [facility] (Lab) [address] [place], [address], 11/11/2023 15:40:30 10/28/19 24 10/28/2023 VIK DA VAGIN ITIS PANEL RT-PC R, ONESW AB radhika albicans PCR Negati ve Swab- 1 Vag/C erv Not Available [facility] (Lab) [address] [place], [address], 11/11/2023 15:40:31 10/28/19 24 10/28/2023 VIK DA VAGIN ITIS PANEL RT-PC R, ONESW AB radhika tropicalis PCR Negati ve Swab- 1 Vag/C erv Not Available [facility] (Lab) [address] [place], [address], 11/11/2023 15:40:31 10/28/19 24 10/28/2023 VIK DA VAGIN ITIS PANEL RT-PC R, ONESW AB radhika parapsilosis PCR Negati ve Swab- 1 Vag/C erv Not Available [facility] (Lab) [address] [facility], [place], [address], 11/11/2023 15:40:31 10/28/19 24 10/28/2023 VIK DA VAGIN ITIS PANEL RT-PC R, ONESW AB radhika glabrata PCR Negati ve Swab- 1 Vag/C erv Not Available [facility] (Lab) [address] [place], [address], 11/11/2023 15:40:31 10/28/19 24 10/28/2023 VIK DA VAGIN ITIS PANEL RT-PC R, ONESW AB radhika krusei by RT-PCR Negati ve Swab- 1 Vag/C erv Not Available [facility] (Lab) [address] [place], [address], 11/11/2023 15:40:31 10/28/19 24 10/28/2023 UROGE NITAL MYCOP LASMA /UREA PLASM A PANEL RT-PC R, ONESW AB mycoplasma genitalium by RT-PCR Negati ve Swab- 1 Vag/C erv Not Available [facility] (Lab) [address] [place], [address], 11/11/2023 15:40:31 10/28/19 24 10/28/2023 UROGE NITAL MYCOP LASMA /UREA PLASM A PANEL RT-PC R, ONESW AB mycoplasma hominis by RT-PCR Negati ve Swab- 1 Vag/C erv Not Available [facility] (Lab) [address] [place], [address], 11/11/2023 15:40:31 10/28/19 24 10/28/2023 UROGE NITAL MYCOP LASMA /UREA PLASM A PANEL RT-PC R, ONESW AB ureaplasma urealyticum by RT-PCR Negati ve Swab- 1 Vag/C erv Not Available [facility] (Lab) [address] [place], [address], 11/11/2023 15:40:31 10/28/19 24 10/28/2023 VIK DA SNEHAL I BY RT-PC R radhika krusei by RT-PCR CANCEL LED Kindrali zahida Not Available [facility] (Lab) [address] [place], [address], 11/11/2023 15:40:32 09/14/20 24 09/14/2024 MOBIL UNCUS MULIE RIS/C URTIS SHIRLENE, RT-PC R, ONE SWAB mobiluncus mulieris and mobiluncus curtisii by RT-PCR Negati ve Swab- 1 Cerv End Not Available [facility] (Lab) [address] [place], [address], 09/29/2024 14:21:25 09/14/20 24 09/14/2024 UROGE NITAL MYCOP LASMA /UREA PLASM A PANEL RT-PC R, ONESW AB mycoplasma genitalium by RT-PCR Negati ve Swab- 1 Cerv End Not Available [facility] (Lab) [address] [place], [address], 09/29/2024 14:21:26 09/14/20 24 09/14/2024 UROGE NITAL MYCOP LASMA /UREA PLASM A PANEL RT-PC R, ONESW AB mycoplasma hominis by RT-PCR Negati ve Swab- 1 Cerv End Not Available [facility] (Lab) [address] [place], [address], 09/29/2024 14:21:26 09/14/20 24 09/14/2024 UROGE NITAL MYCOP LASMA /UREA PLASM A PANEL RT-PC R, ONESW AB ureaplasma urealyticum by RT-PCR Negati ve Swab- 1 Cerv End Not Available [facility] (Lab) [address] [place], [address], 09/29/2024 14:21:26 09/14/20 24 09/14/2024 VIK DA VAGIN ITIS PANEL RT-PC R, ONESW AB radhika albicans PCR Negati ve Swab- 1 Cerv End Not Available [facility] (Lab) [address] [facility], [place], [address], 09/29/2024 14:21:26 09/14/20 24 09/14/2024 VIK DA VAGIN ITIS PANEL RT-PC R, ONESW AB radhika glabrata PCR Negati ve Swab- 1 Cerv End Not Available [facility] (Lab) [address] [place], [address], 09/29/2024 14:21:26 09/14/20 24 09/14/2024 VIK DA VAGIN ITIS PANEL RT-PC R, ONESW AB radhika krusei by RT-PCR Negati ve Swab- 1 Cerv End Not Available [facility] (Lab) [address] [place], [address], 09/29/2024 14:21:26 09/14/20 24 09/14/2024 VIK DA VAGIN ITIS PANEL RT-PC R, ONESW AB radhika parapsilosis PCR Negati ve Swab- 1 Cerv End Not Available [facility] (Lab) [address] [place], [address], 09/29/2024 14:21:26 09/14/20 24 09/14/2024 VIK DA VAGIN ITIS PANEL RT-PC R, ONESW AB radhika tropicalis PCR Negati ve Swab- 1 Cerv End Not Available [facility] (Lab) [address] [place], [address], 09/29/2024 14:21:26 09/14/20 24 09/14/2024 BACTE RIAL VAGIN OSIS PANEL (WITH LACTO BACIL ABRAHAN PROFI LING) BY QRT PRC, ONESW AB (MDL) atopobium vaginae PCR Negati ve Swab- 1 Cerv End Not Available [facility] (Lab) [address] [place], [address], 09/29/2024 14:21:27 09/14/20 24 09/14/2024 BACTE RIAL VAGIN OSIS PANEL (WITH LACTO BACIL ABRAHAN PROFI LING) BY QRT PRC, EVELYNE MARTINEZ (JASWANT) bacterial vaginosis associated bacterium 1 (bvab1) RT PCR Negati ve Swab- 1 Cerv End Not Available [facility] (Lab) [address] [place], [address], 09/29/2024 14:21:27 09/14/20 24 09/14/2024 BACTE RIAL VAGIN OSIS PANEL (WITH LACTO BACIL ABRAHAN PROFI LING) BY QRT LALA, EVELYNE MARTINEZ (L) bacterial vaginosis associated bacteria 2 (bvab2) Negati ve Swab- 1 Cerv End Not Available [facility] (Lab) [address] [place], [address], 09/29/2024 14:21:27 09/14/20 24 09/14/2024 BACTE RIAL VAGIN OSIS PANEL (WITH LACTO BACIL ABRAHAN PROFI LING) BY QRT LALA, EVELYNE MARTINEZ (L) bacterial vaginosis associated bacterium 3 (bvab3) RT PCR Negati ve Swab- 1 Cerv End Not Available [facility] (Lab) [address] [place], [address], 09/29/2024 14:21:27 09/14/20 24 09/14/2024 BACTE RIAL VAGIN OSIS PANEL (WITH LACTO BACIL ABRAHAN PROFI LING) BY QRT LALA, EVELYNE MARTINEZ (L) bacteroides fragilis by real - time PCR Negati ve Swab- 1 Cerv End Not Available [facility] (Lab) [address] [place], [address], 09/29/2024 14:21:27 09/14/20 24 09/14/2024 BACTE RIAL VAGIN OSIS PANEL (WITH LACTO BACIL ABRAHAN PROFI LING) BY QRT PRC, EVELYNE MARTINEZ (MDL) bifidobacter ium breve by real-time PCR Negati ve Swab- 1 Cerv End Not Available [facility] (Lab) [address] [facility], [place], [address], 09/29/2024 14:21:27 09/14/20 24 09/14/2024 BACTE RIAL VAGIN OSIS PANEL (WITH LACTO BACIL ABRAHAN PROFI LING) BY QRT PRC, EVELYNE MARTINEZ (JASWANT) gardnerella vaginalis PCR Positi ve abnormal Swab- 1 Cerv End Not Available [facility] (Lab) [address] [facility], [place], [address], 09/29/2024 14:21:27 09/14/20 24 09/14/2024 BACTE RIAL VAGIN OSIS PANEL (WITH LACTO BACIL ABRAHAN PROFI LING) BY QRT LALA, EVELYNE MARTINEZ (JASWANT) lactobacillu s (bvpanel) PCR See Commen t Swab- 1 Cerv End L.cri spatu s: Negat oliver L.lili senii : Posit oliver L.gas seri : Posit oliver L.ine rs : Negat oliver. Not Available [facility] (Lab) [address] [facility], [place], [address], 09/29/2024 14:21:27 09/14/20 24 09/14/2024 BACTE RIAL VAGIN OSIS PANEL (WITH LACTO BACIL ABRAHAN PROFI LING) BY QRT PRC, EVELYNE MARTINEZ (JASWANT) lactobacillu s acidophilus by real-time PCR Negati ve Swab- 1 Cerv End Not Available [facility] (Lab) [address] [facility], [place], [address], 09/29/2024 14:21:27 09/14/20 24 09/14/2024 BACTE RIAL VAGIN OSIS PANEL (WITH LACTO BACIL ABRAHAN PROFI LING) BY QRT PRC, EVELYNE MARTINEZ (JASWANT) megasphaera species (type 1 and type 2) PCR Negati ve (Type1 ,Type2 ) Swab- 1 Cerv End Type1 :Nega tive Type2 :Nega tive. Not Available [facility] (Lab) [address] [place], [address], 09/29/2024 14:21:27 09/14/20 24 09/14/2024 BACTE RIAL VAGIN OSIS PANEL (WITH LACTO BACIL ABRAHAN PROFI LING) BY QRT PRC, EVELYNE MARTINEZ (MDJeff) mobiluncus curtisii by real-time PCR Negati ve Swab- 1 Cerv End Not Available [facility] (Lab) [address] [place], [address], 09/29/2024 14:21:27 09/14/20 24 09/14/2024 BACTE RIAL VAGIN OSIS PANEL (WITH LACTO BACIL ABRAHAN PROFI LING) BY QRT PRC, EVELYNE AB (MDL) mobiluncus mulieris by real-time PCR Negati ve Swab- 1 Cerv End Not Available [facility] (Lab) [address] [place], [address], 09/29/2024 14:21:27 09/14/20 24 09/14/2024 BACTE RIAL VAGIN OSIS PANEL (WITH LACTO BACIL ABRAHAN PROFI LING) BY QRT PRC, EVELYNE MARTINEZ (L) prevotella bivia by real-time PCR Negati ve Swab- 1 Cerv End Not Available [facility] (Lab) [address] [place], [address], 09/29/2024 14:21:27 09/14/20 24 09/14/2024 BACTE RIAL VAGIN OSIS PANEL (WITH LACTO BACIL ABRAHAN PROFI LING) BY QRT PRC, EVELYNE MARTINEZ (JASWANT) sneathia sanguinegens real-time PCR Negati ve Swab- 1 Cerv End Not Available [facility] (Lab) [address] [place], [address], 09/29/2024 14:21:27 09/14/20 24 09/14/2024 BACTE RIAL VAGIN OSIS PANEL (WITH LACTO BACIL ABRAHAN PROFI LING) BY QRT EVELYNE REEVES (JASWANT) streptococcu s anginosus by real-time PCR Negati ve Swab- 1 Cerv End Not Available [facility] (Lab) [address] [facility], [place], [address], 09/29/2024 14:21:27 09/14/20 24 09/14/2024 VIK DA SNEHAL I BY RT-PC R radhika krusei by RT-PCR CANCEL LED Kindrali zahida Not Available [facility] (Lab) [address] [facility], [place], [address], 09/29/2024 14:21:27 11/05/19 24 07/05/2023 CT, abdom en + pelvi s, w/ contr ast No observ ation record ed. [email or web address] [facility] [address] [place], [address], 11/05/2023 20:42:59 Result Notes None recorded. Problems Name Problem SNOMED Code Status Onset Date Resolution Date Notes Provider Name and Address Organization Details Recorded Time History of cerebrovascul ar accident without residual deficits 891289600 Active 2023 Lian delgado [facility] 4 10:04:19 History of deep vein thrombosis 381141213 Active 2023 Lian delgado [facility] 4 10:04:50 Problem Notes None recorded. Procedures Surgical History Date Name Laterality Status Provider Name and Address Organization Details Recorded Time 07/23/20 24 endoscopy completed Lian Melgar [facility] 09/12/2024 09:57:49 06/02/20 24 Most Recent Bone Density completed Kiana Crook [facility] 10/26/2024 09:53:02 11/12/19 23 Date of Last Mammogram completed Lian Melgar [facility] 09/12/2024 09:49:37 09/23/19 23 Carpal tunnel surgery completed [facility] 11/11/2023 10:08:24 04/05/20 22 procedure on neck completed [facility] 11/11/2023 10:09:22 01/05/20 22 completed Kiana Crook [facility] 10/26/2024 09:53:02 04/03/20 20 Date of Last Colonoscopy completed [facility] 09/12/2024 09:49:37 09/23/19 20 Carpal tunnel surgery completed [facility] 11/11/2023 10:08:41 09/23/19 20 Colonoscopy completed [facility] 09/12/2024 09:57:35 09/23/19 17 partial resection of colon completed [facility] 11/11/2023 10:08:55 09/23/19 17 Colonoscopy completed [facility] 11/11/2023 10:09:02 09/23/19 07 Cholecystectomy completed [facility] 11/11/2023 10:08:48 09/23/18 89 Total Hysterectomy completed [facility] 11/11/2023 10:09:08 Imaging Results Imaging Date Name Status LastModified by Organiz ation Details LastModified Time 07/05/2023 CT, abdomen + pelvis, w/ contrast completed [email or web address] [facility] [address] [place], [address], 11/05/2023 20:42:59 Procedure Notes None recorded. Medical Equipment None Reported. Allergies Allergen ID Allergen Name Allergen Category Reaction Reaction Severity Criticality Documentation Date Start Date Code Code System Note Provider Name and Address Organization Details Recorded Time 52178 Prilosec medicatio n dizziness Not available Not available 10/28/2023 08597 5 RxNorm [facility] 4 10:05:06 45405 Rocephin medicatio n hives Not available Not available 10/28/2023 9449 RxNorm Amanda Harmon [facility] 4 10:20:03 14056 Nexium medicatio n dizziness Not available Not available 10/28/2023 15335 9 RxNorm Amanda Harmon [facility] 4 10:20:27 13860 Dilaudid medicatio n anaphylax is Not available Not available 10/28/2023 63787 3 RxNorm Amanda Harmon [facility] 4 10:20:57 Medications Name Sig Start [...] Updated DateTime 10/28/2023 162.56 cm 26.8 kg/m2 64820.41 g 121 mm[Hg] 75 mm[Hg] Amanda Harmon [facility] 4 10:19:45 Date Recorded Body height Body mass index (BMI) Body weight Systolic blood pressure Diastolic blood pressure Provider Name and Address Organization Details Last Updated DateTime 11/11/2023 162.56 cm 27.1 kg/m2 43357.59 g 112 mm[Hg] 76 mm[Hg] Lian Melgar [facility] 4 10:01:35 Date Recorded Body height Body mass index (BMI) Body weight Systolic blood pressure Diastolic blood pressure Provider Name and Address Organization Details Last Updated DateTime 09/12/2024 162.56 cm 30.6 kg/m2 07447.44 g 124 mm[Hg] 68 mm[Hg] Lian Melgar [facility] 4 09:48:24 Date Recorded Body height Body mass index (BMI) Body weight Systolic blood pressure Diastolic blood pressure Provider Name and Address Organization Details Last Updated DateTime 10/26/2024 162.56 cm 30.9 kg/m2 34349.63 g 126 mm[Hg] 76 mm[Hg] Kiana Armaan [facility] 5 09:52:49 Social History Question Answer Notes LastModified by Organizat ion Details LastModified Time Tobacco Smoking Status Current Every Day Smoker Amanda Eden delgado, [facility] 10/28/2023 10:06:25 Do You Have An Advance Directive? Yes [email or web address] Information n ot available 09/12/2024 What Is Your Level Of Alcohol Consumption? None [email or web address] Information not available 09/12/2024 Are You Blind Or Do You Have Difficulty Seeing? No [email or web address] Information n ot available 11/11/2023 What Is Your Level Of Caffeine Consumption? Moderate [email or web address] Information not available 11/11/2023 In The 14 Days Before Symptom Onset, Have You Had Close Contact With A Laboratory-confirm ed COVID-19 While That Case Was Ill? No [email or web address] Information n ot available 11/11/2023 In The 14 Days Before Symptom Onset, Have You Had Close Contact With A Person Who Is Under Investigation For COVID-19 While That Person Was Ill? No [email or web address] Information not available 11/11/2023 Have You Been To An Area Known To Be High Risk For COVID-19? No [email or web address] Information not available 11/11/2023 Are You Deaf Or Do You Have Serious Difficulty Hearing? No [email or web address] Information not available 11/11/2023 What Type Of Diet Are You Following? CARDIAC [email or web address] Information n ot available 11/11/2023 What Is The Highest Grade Or Level Of School You Have Completed Or The Highest Degree You Have Received? AC64413-4 [email or web address] Information not available 09/12/2024 What Is Your Occupation? Retired [email or web address] Information not available 09/12/2024 Are There Any Guns Present In Your Home? No [email or web address] Information not available 09/12/2024 Have You Ever Been Counseled For Unhealthy Alcohol Use? No [email or web address] Information not available 11/11/2023 Do You Use Protection During Sex? Usually [email or web address] Information not available 09/12/2024 Do You Use Your Seat Belt Or Car Seat Routinely? Yes [email or web address] Information not available 09/12/2024 Do You Have Smoke And Carbon Monoxide Detectors In Your Home? Yes Information not available 11/11/2023 At What Age Did You Start Smoking Tobacco? 17 [email or web address] Information not available 09/12/2024 Do You Feel Stressed (tense, Restless, Nervous, Or Anxious, Or Unable To Sleep At Night)? [id number] [email or web address] Information not available 09/12/2024 Do You Use Any Illicit Or Recreational Drugs? No [email or web address] Information not available 11/11/2023 Do You Use Sunscreen Routinely? Yes [email or web address] Information not available 11/11/2023 Has Tobacco Cessation Counseling Been Provided? No [email or web address] Information not available 11/11/2023 Have You Used IV Drugs? No [email or web address] Information not available 09/12/2024 Do You Or Have You Ever Used Any Other Forms Of Tobacco Or Nicotine? No [email or web address] Information not available 11/11/2023 Sex: Unknown Functional Status Question Answer Note LastModified by Organizat ion Details LastModified Time Do you have difficulty walking or climbing stairs? No [email or web address] Information not available 11/11/2023 Are you able to walk? YESWOREST [email or web address] Information not available 11/11/2023 Are you able to care for yourself? Yes [email or web address] Information not available 11/11/2023 Do you have difficulty dressing or bathing? No Information not available 11/11/2023 What is your exercise level? Occasional [email or web address] Information not available 11/11/2023 Mental Status None [...] 2023 10:51:18 Mother Malignant neoplasm of liver [email or web address] Not available 2024 09:39:40 Medical History Condition Response Allergies (Food, seasonal, environmental ) Y Other N Drug/Latex Allergies/Reactions Y Blood Transfusion N Breast Cancer N Dermatologic Disorders N Lung Disease N Defects or Inherited Disease N Breast Problem N Gestational Diabetes N Hematologic disorders N Anesthesia Complications N History of STI Y Deep Vein Thrombosis Y Polycystic ovary syndrome N Anxiety Disorder Y Autoimmune disease N Arthritis Y Polyps N Infertility N Acid Reflux (GERD) Y History of abnormal pap N Cancer N Varicosities N Stroke Y Neurologic/Epilepsy Y Endometriosis N High Cholesterol Y Fibromyalgia N Headaches N Kidney Disease N Heart Problems Y Thyroid Problems N Kidney or Bladder Problems N GI Problems Y Eating Disorder [...] SNOMED-CT Code Diagnosis ICD10 Code Diagnosis Note [id number] Avtar Perez MD [place] [address] [address] 10/28/2023 09:46:57 10/28/2023 11:22:37 Atrophic vulva 544600266 N90.5 this patient is a 63-year-ol d [...] will return in 2 weeks. Vulval pain 685984825 R1 0.2 [id number] Avtar Perez MD [place] [address] [address] 11/11/2023 09:34:50 11/11/2023 14:49:04 Atrophic vulvovaginitis 56178570 N95.2 63-year-ol d female who presents for [...] the vulva. To follow-up in 1 month. 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 /Thigh. Tinea corporis 41731801 B35.4 [id number] Avtar Perez MD [place] [address],[facility] [address] 10/26/2024 09:39:36 10/26/2024 10:27:47 Atrophic vulva 239099005 N90.5 64-year-ol d female with a severe [...] Sandoval Member ID Guarantor Name 10/28/2023 1 [facility] ON OR AFTER 03/23/21 (MEDICAID REPLACEMENT - HMO) Claudine Nancy [id number] Claudine Nancy 11/11/2023 1 [facility] ON OR AFTER 03/23/21 (MEDICAID REPLACEMENT - HMO) Claudine Nancy [id number] Claudine Nancy 09/12/2024 1 [facility] ON OR AFTER 03/23/21 (MEDICAID REPLACEMENT - HMO) Claudine Nancy [id number] Claudine Nancy 10/26/2024 1 [facility] ON OR AFTER 03/23/21 (MEDICAID REPLACEMENT - HMO) Claudine Nancy [id number] Claudine Nancy Notes Date Note Type Note [...] the vagina. We spent over 40 minutes [id number]. More than 50% was counseling. We agreed to treat with vaginal estrogen and topical estrogen on the vulvar area of interest. She will return in 2 weeks. Avtar Perez MD [address], [place], [address], [facility] 10/28/2023 11:00:18 11/11/2023 text/html [...] very quickly. We spent over 20 minutes [id number]. More than 50% was counseling. She was re-examined. The vulva appears improved. She was using some in the vagina and some over the vulva. To follow-up in 1 month. Avtar Perez MD [address], [place], [address], [facility] 11/11/2023 14:19:59 09/12/2024 text/html [...] weeks. Avtar Perez MD [address], [place], [address], [facility] 09/12/2024 11:46:56 10/26/2024 text/html [...] needed. Avtar Perez MD [address], [place], [address], [facility] 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
--- OUTSIDE RECORDS SUMMARY | 2024-12-28 14:17 | XMS_ITS | Encounter Summary ---
Author Organization [facility] Address [address] [place] [address] Care Team Providers Care Bag Builder Name Role Phone Rey Wadsworth MD Unavailable Unavailabl e Yasmany Sullivan MD Primary Care Provider [phone] Erin Mead DRAFTING TEACHER Unavailable Unavailable Encounter Details Date Type Department Care Team (Late st Contact Info) Description 12/27/2015 Abstract [facility] [address] [place] [address] Rey Wadsworth MD Social History Tobacco Use Types Packs/Day Years Used Date Smoking Tobacco: Former Comments Unknown Sex and Gender Information Value Date Recorded Sex Assigned at Not on file Legal Sex Female 6:18 PM CDT Gender Identity Not on file Sexual Orientation Not on file 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
--- OUTSIDE RECORDS SUMMARY | 2024-12-28 14:17 | XMS_ITS | Encounter Summary ---
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
--- OUTSIDE RECORDS SUMMARY | 2024-12-28 14:17 | XMS_ITS | Clinical Summary ---
Author Organization [facility] Address [address] [place] [address] Care Team Providers Care Meeting Facilitator Name Role Phone Rey Wadsworth MD Unavailable Yasmany Be MD Primary Care Provider [phone] Erin Mead NP Unavailable Unavailable Allergies Active [...] the lungs as needed. 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 Not [...] 60-74 years 1-dose series) 2021 COVID-19 Vaccine (4 - 2023-2 5 season) 2024 10/20/2021, 02/18/2021, 01/21/2021 Meningococcal B Vaccine Aged Out No l onger eligible based on patient's age to complete this topic Meningococcal Vaccine Aged Out No nupur nikia eligible based on patient's age to complete this topic RSV Immunizations Under 20 Months Aged Out No longer eligible b ased on patient's age to complete this topic Insurance Advance Directives Documents on File Type Date Recorded Patient Envelope Sealer Operator Expl anation Advance Directives and Living Will 02/19/2019 12:00 AM POWER OF SHAFT TENDER Advance Directives and Living Will 12/01/2018 12:00 AM POWER OF SHAFT TENDER Advance Directives and Living Will 11/10/2018 12:00 AM POWER OF SHAFT TENDER Advance Directives and Living Will 09/02/2018 12:00 AM POWER OF SHAFT TENDER Advance Directives and Living Will 03/11/2018 12:00 AM POWER OF SHAFT TENDER Advance Directives and Living Will 03/11/2018 12:00 AM POWER OF SHAFT TENDER Advance Directives and Living Will 01/15/2017 12:00 AM POWER OF SHAFT TENDER Care Teams Meeting Facilitator Relationship Specialty Start Date End Date Yasmany Sullivan MD [address] [place] [phone] PCP - General INTERNAL MEDICINE 03/11/17 Rey Wadsworth MD [place] Coat Room Attendant CLINICAL CARDIAC ELECTROPHYSIOLOGY 03/11/17 Erin Mead NP [address] [place] [address] Nurse Practitioner Electrophysiology 03/13/18
--- OUTSIDE RECORDS SUMMARY | 2024-12-28 14:17 | XMS_ITS ---
Author Organization Unknown Address [address] [place] [phone] Phone Care Team Providers Care Yard Brakeman Name Role Phone TRAMAINE SALDAÑA Attending Unavailable SRINIVASAN PHILLIPS Primary Unavailable Immunization Immunization Date Status Additional Notes Code Code System Influenza, MDCK, trivalent, PF 06/11/2024 Completed 153 CVX Influenza, MDCK, quadrivalen t, PF 06/15/2023 Completed 171 CVX COVID-19, mRNA, LNP-S, PF, 1 00 mcg/0.5mL dose or 50 mcg/0.25mL dose 01/21/2021 Completed 207 CVX COVID-19, mRNA, LNP-S, PF, 1 00 mcg/0.5mL dose or 50 mcg/0.25mL dose 02/18/2021 Completed 207 CVX COVID-19, mRNA, LNP-S, PF, 1 00 mcg/0.5mL dose or 50 mcg/0.25mL dose 10/20/2021 Completed 207 CVX Pneumococcal conjugate PCV20 , polysaccharide [id number] conjugate, adjuvant, PF 08/16/2023 Completed 216 CVX COVID-19, mRNA, LNP-S, bivalent, PF, 50 mcg/0.5 mL or 25mcg/0.25 mL dose 06/26/2022 Completed 229 CVX COVID-19, mRNA, LNP-S, PF, leoncio-sucrose, 30 mcg/0.3 mL 06/26/2024 Completed 309 CVX Social History Type Status Start Date End Date Code Code Syst em Smoking History Current every day smoker [id number] SNOMED CT Sex Female Vital Signs Vital Sign Value Unit Fajardo Value Fajardo Unit Date/Time Recent/Initial? Code Code System Body Mass Index 34.20 kg/m2 12/21/2024 09:18 Initial 35634 -5 LOINC Systolic Blood Pressure 138 mm[Hg] 12/21/2024 09:18 Initial 8480- 6 [facility] Diastolic Blood Pressure 83 mm[Hg] 12/21/2024 09:18 Initial 8462- 4 [facility] Body Surface Area 1.88 m2 12/21/2024 09:18 Initial 3140- 1 [facility] Height 154.940 0 cm 61.00 in 12/21/2024 09:18 Initial 8302- 2 [facility] O2 Saturation 98 % 2024 09:18 Initial 98180 -5 [facility] Pulse 60.0 /min 12/21/2024 09:18 Initial 8867- 4 [facility] Temperature 36.3 Kiara 97.3 F 12/22/19 09:18 Initial 8310- 5 [facility] Weight 82.10 kg 181.00 lbs 12/21/2024 09:18 Initial 53989 -7 [facility] Medications Medication Start Date End Date Route Frequency Dose Code Code System Medication Instructions Home Meds Baclofen 10MG Oral Tablet 12/21/2024 Unknown ORAL NEEDED 3 TIMES A DAY 10 MILLIGRAMS 024741 RxNorm TAKE 10 MILLIGRAMS ORAL NEEDED 3 TIMES A DAY Famotidine 40MG Oral Tablet 12/21/2024 Unknown ORAL TWICE A DAY 40 MILLIGRAMS 441929 RxNorm TAKE 40 MILLIGRAMS ORAL TWICE A DAY HYDROcodone bitartrate-acet aminophen 5MG-325MG Oral Tablet 12/21/2024 Unknown ORAL NEEDED EVERY 8 HOURS 1 unit(s) 232614 RxNorm TAKE 1 EACH ORAL NEEDED EVERY 8 HOURS Ondansetron 4MG Oral Tablet 12/21/2024 Unknown ORAL NEEDED EVERY 8 HOURS 4 MILLIGRAMS 184740 RxNorm TAKE 4 MILLIGRAMS ORAL NEEDED EVERY 8 HOURS Pravastatin Sodium 10MG Oral Tablet 12/21/2024 Unknown ORAL ONCE A DAY 10 MILLIGRAMS 163354 RxNorm TAKE 10 MILLIGRAMS ORAL ONCE A DAY Xarelto 20MG Oral Tablet 12/21/2024 Unknown ORAL ONCE A DAY 20 MILLIGRAMS 5004533 RxNorm TAKE 20 MILLIGRAMS ORAL ONCE A DAY diphenoxylate HCl-atropine sulfate 2.5MG-0.025MG Oral Tablet 12/21/2024 Unknown ORAL NEEDED 4 TIMES A DAY 1 unit(s) 8707696 RxNorm TAKE 1 EACH ORAL NEEDED 4 TIMES A DAY Assessment You had the following problems:CHRONIC BILATERAL MAXILLARY SINUSITISPAIN IN LEFT HIPCARPAL TUNNEL SYNDROME OF LT ARMTENSION TYPE HEADACHE, UNSPECIFIEDFIBROMYALGIALEFT SHOULDER PAINPAIN IN THORACIC SPINECERVICALGIAGASTRO-ESOPHAGEAL REFLUX DISEASE WITHOUT ESOPHAGITISPAIN IN RIGHT HIPLOW BACK PAINPAIN OF RIGHT ANKLE JOINTPAIN IN RIGHT FOOTCERVICAL SPONDYLOSISPOLYOSTEOARTHRITIS, UNSPECIFIED Hospital Discharge Instructions Should you have any questions prior to discharge, please contact a member of your healthcare team. If you have left the hospital and have any questions, please contact your primary care physician. Reason For Referral No Data Found Problems Problem Start Date Resolved Date Status Code Code System CHRONIC BILATERAL MAXILLARY SINUSITIS active 31685763227999122 SNO MED-CT PAIN IN LEFT HIP active 8881679219181 00 SNOMED-CT 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 693168786988910 SNOMED-CT TENSION TYPE HEADACHE, UNSPECIFIED active 706354820 SNOMED-CT FIBROMYALGIA active 097993873 SNOMED- CT LEFT SHOULDER PAIN active 3875311105 SNOMED-CT PAIN IN THORACIC SPINE active 1638448 09 SNOMED-CT CERVICALGIA active 92582017 SNOMED-C T GASTRO-ESOPHAGEAL REFLUX DISEASE WITHOUT ESOPHAGITIS active 675706221 SNOMED-CT PAIN IN RIGHT HIP active 347289361323 102 SNOMED-CT LOW BACK PAIN active 297149064 SNOMED -CT PAIN OF RIGHT ANKLE JOINT active 85149357191398322 SNOMED-CT PAIN IN RIGHT FOOT active 65513048887 9107 SNOMED-CT CERVICAL SPONDYLOSIS active 015312866 SNOMED-CT POLYOSTEOARTHRITIS, UNSPECIFIED active 712874839 SNOMED-CT Allergies and Adverse Reactions Allergy Substance Reaction Severity Start Date Concern Status Code Code System TRAZODONE Dizziness (SNOMED-CT: 950693819) Moderate Active 03568 RxNorm ATORVASTATIN Vomiting (SNOMED-CT: 303685391) Moderate Active 27530 RxNorm CEFDINIR Diarrhea (SNOMED-CT: 10796286) Moderate Active 48856 RxNorm PREGABALIN Active 605915 RxNorm CLINDAMYCIN HCL Moderate Active 2582 RxNorm Plan of Treatment CT Abdomen/Pelvis W Contrast (56276) Plan F/U after MRI -review/discuss possible injections -trigger point injections that day Encounters Encounter Diagnosis Start Date Code Code Sys tem Other specified dorsopathies, cervical region 12/22/19 25 SNOMED-CT Personal Care Team Section Performer Name Performer Role Active Date Inactive JACQUELINE Mercer PCP - Primary care physician 2021-06-19 Progress Notes [facility] 12/21/2024 10:53 All Demographics Patient Name Age Sex Visit Number Admission Date/Time Attending Physician Date of Service Room and Bed Emergency Contact RENO AMARO 1960 64 years Female [id number] 12/21/2024 09:14 Chris Benoit 12/21/2024 03-OP CAM SHELTON - [id number] PAIN MANAGEMENT HISTORY & PHYSICAL Vital Signs: Most Recent Today Date/Time BP (mm/Hg) BP Position/Site Heart Rate Resp Temp (F) SPO2% O2 Device Pain Score Height (in) Weight (lbs/ozs) BMI Systolic Diastolic Pulse Site O2 L/min 12/21/2024 09:18 138/83 Sitting/Left Arm 60 97.3 Tympanic 98 % Room Air 21% 6 61 in 181.0 34.2 138 83 Pulse Ox Chief Complaint: Cervicalgia History of Present Illness: Neck Pain Patient here today, for pain management evaluation for neck pain. Location: The pain is located in the neck, shoulder, and hip. The pain does radiates to the occipital scalp and shoulder. Usually stays in same area. Quality: Patient rates the pain today, as a 6/10 at this time, and at times the pain may be as severe as a 10+/10. The pain may be described as tightness, compressed, throbbing, pressure, and wobbly. Hard to keep head held up. Duration: Constant Timing: Patient reports this pain has been present for 15+ years. Alleviating Factors: Pain is relieved by rest, TNS Unit, and Ice hot. Associated Symptoms: Pain is worsened by exercise, physical exertion, and ADL's. Pain History: Patient with a history of fibromyalgia. Patient reports that they have had no recent falls. PHQ-9 Depression Screening Patient condition has declined since last screening Patient condition has improved since last screening X No previous Screening Patient Declined Screening Score has not changed significantly since last visit PHQ-9 Score Assessment: N/A: PHQ-9 not performed/Patient declined 4 0-4: Not an indicator of depression 5-9: Indicates mild depression 10-14: Indicates moderate depression 15-19: Indicates moderately severe depression 20-27: Indicates severe depression Depression Remission Indicated: Yes, previous PHQ-9 score >9 in the past 12 months with current score <5 X Previous PHQ-9 score or date is unknown Previous PHQ-9 score is 5 or higher AMIRAH-7 Score Assessment: N/A: AMIRAH-7 not performed/Patient declined 1 0-4: Minimal Anxiety 5-9: Mild Anxiety 10-14: Moderate Anxiety 15-21: Severe Anxiety Review of Systems Constitutional: denies changes in speech, night sweats or chills HEENT: denies facial swelling or nasal deformity Cardiovascular: denies chest pain or chest pressure Respiratory: denies cough, sputum or chest congestion Gastrointestinal: denies excessive belching or abdominal mass Endocrine: denies excessive thirst or fruity breath Musculoskeletal: denies muscle atrophy or muscle spasms, Pain with range of motion of cervical spine Neurologic: denies altered mental status or speech, Numbness and tingling of right ear and right side of head Integumentary: denies blistering or hives Hematologic/Lymphatic: denies abnormal bleeding or lymph node tenderness Psychiatric: denies agitation or delusions Physical Exam Appearance: well groomed, healthy appearance, well nourished, NAD HEENT: PERRLA, neurological systems grossly intact Neck: supple, nontender Chest/Lungs: clear to auscultation, no dyspnea, breath sounds normal, no rales/crackles/rhonchi or wheezing Cardiovascular: regular rate and rhythm S1-S2 present, no carotid bruit, femoral/pedal pulses normal throughout Abdomen: round, soft, nontender, active bowel sounds, no tenderness with palpation Rectal: normal per patient Pelvic: normal per patient Extremities: no signs of significant edema, good pulses Problem Focused Physical Exam: 64-year-old patient with multiple pains. Primary pain is in her neck, right side of her head and behind her right ear. Patient had a surgery 3 years ago. Patient reports that the surgery was done due to extensive arthritis. Patient reports she had some bone removed including of the dens. Patient reports that she had some nerves that were cut during this procedure. Patient reports that her right ear area is nearly totally numb. Patient has a scar behind her right ear. Patient's pain is worsened with cervical rotation to the left. Patient also reports thoracic trigger points as well as left shoulder plaint pain that she receives injections for and she states it is replaced. Patient also reports right hip pain which she receives injections for. Patient has had bilateral carpal tunnel surgery previously. Patient reports that she is doing physical therapy and she is on her third week of therapy. Patient reports that following therapy she will have a cervical MRI ordered. Patient reports that she has IBS and has been told to avoid NSAIDs. In the middle of October patient had a long-lasting migraine which she went to the ER for. There she received x-rays and CT scans. She was given some morphine at that time. Patient followed up with primary care and was given a Toradol shot and a steroid Dosepak. Patient states this relieved her pain temporarily.Patient also reports that she has had extensive dizziness. She is on medication for this. She states that this inhibits her from driving. Cervical Facet Assessment Negative Spurling's test. Patient in pain with extension and rotation of her cervical spine.She has referred pain patterns to the posterior and lateral aspects of her neck and shoulders. Positive for cervical facet joint pain. Cervical Spine Assessment Patient has pain with range of motion cervical spine. Patient has numbness and tingling of posterior right side of neck and scalp. Patient has trouble describing the pain. Patient states that she has pain that will shoot up her head. Patient states that this will cause migraines. This pain is suspicious for facet joint arthritis/occipital neuralgia. Patient also reports she was told some nerves were cut during her procedure. This could possibly explain her right ear numbness. Patient has pain behind right ear over surgical scar. There was some muscle loss at the site and is easy to palpate the right TMJ. Palpation of this causes her pain as well. Patient is in physical therapy for this pain and has completed 3 weeks. Patient is to complete 3 more weeks for a total of 12 sessions. At that time an MRI will be ordered by her surgeon. We will follow-up after her MRI and consider injections as well as possible trigger point injections at that time. Radiology: Imaging reviewed with patient Pain Treatment History: Conservative Measures Tried and Failed: rest, heat/ice, tens, traction, pt Medications Trialed: steroids, nsaids, hydrocodone, muslce relaxers Previous Interventional Pain Procedures: tpi - helpful Plan F/U after MRI -review/discuss possible injections -trigger point injections that day Problem List Chronic bilateral maxillary sinusitis Pain in left hip Carpal tunnel syndrome of lt arm Tension type headache, unspecified Fibromyalgia Left shoulder pain Pain in thoracic spine Cervicalgia Gastro-esophageal reflux disease without esophagitis Pain in right hip Low back pain Pain of right ankle joint Pain in right foot Surgery List: No Surgical History Available Smoking Status: Current every day smoker, Cessation Education: Allergy List TRAZODONE, Medication ATORVASTATIN, Medication CEFDINIR, Medication PREGABALIN, Medication CLINDAMYCIN HCL, Medication Home Meds: Dose and Freq Medication Dosage Frequency Pravastatin Sodium 10MG Oral Tablet 10 MILLIGRAMS ONCE A DAY Famotidine 40MG Oral Tablet 40 MILLIGRAMS TWICE A DAY HYDROcodone bitartrate-acetaminophen 5MG-325MG Oral Tablet 1 EACH NEEDED EVERY 8 HOURS Xarelto 20MG Oral Tablet 20 MILLIGRAMS ONCE A DAY Ondansetron 4MG Oral Tablet 4 MILLIGRAMS NEEDED EVERY 8 HOURS Baclofen 10MG Oral Tablet 10 MILLIGRAMS NEEDED 3 TIMES A DAY diphenoxylate HCl-atropine sulfate 2.5MG-0.025MG Oral Tablet 1 EACH NEEDED 4 TIMES A DAY
[2024-12-28 14:25] VITALS: BP 136/70; PULSE 60; RESP 14; O2SAT 97
--- NOTE | 2024-12-28 14:40 | PC.NURSE ---
Patient here for Reclast infusion. Education given. All concerns voiced answered. Infusion administered. See MAR/patient care list. Tolerated well.
== END 2024-12-28 12:42 | disposition home or self-care (01) ==
PROVIDERS: PCP Internal Medicine; Visit Provider Internal Medicine
DX: M81.0 Age-related osteoporosis without current pathological fracture (principal)
CPT/HCPCS: 96374; J3489

== ENCOUNTER 2024-12-29 10:34 | Emergency (ER) | payer OTHER, SELFPAY ==
[2024-12-29 10:34] VITALS: BP 112/48; PULSE 82; RESP 18; TEMP 37.1; O2SAT 98
--- NOTE | 2024-12-29 10:38 | ED_ITS ---
HPI - Nausea/Vomiting/Diarrhea General Chief complaint: Unspecified Stated complaint: body aches, dizzy, vomiting Time Seen by Provider: 12/29/24 10:38 Source: patient Mode of arrival: EMS Limitations: no limitations History of Present Illness HPI Narrative: Patient is a 64-year-old female with infusion of Reclast yesterday for osteoporosis. She woke up this morning having flu-like symptoms and general aches and pains with arthralgia and myalgia. She has called ambulance for assistance. Her primary doctor told her to drink plenty of fluids. She has taken Laramie prior to EMS and they have also given her Zofran and fentanyl in route. She has nausea without vomiting. MD elicited complaint: nausea Pertinent past history: other ( osteoporosis) Onset (ago): day(s) ( 1) Description of vomiting: none Description of diarrhea: other ( none) Associated nausea: Yes Associated abdominal pain: No Location of pain: other ( generalized arthralgias and myalgias but no abdominal pain) Radiation: other ( none) Pain consistency: constant and other ( arthralgias since taking Reclast) Severity: moderate Pain scale (0-10): 6 Quality: aching, sharp and constant Exacerbating factors: none ( this all started after taking Reclast IV infusion within 24 hours) Relieving factors: none Context: other ( patient has osteoporosis and was given Reclast IV infusion yesterday) Associated symptoms: myalgias and nausea/vomiting ( no vomiting) Treatment prior to arrival: other ( patient took Laramie and EMS gave her fentanyl IV) Related Data Home Medications ?Medication ?Instructions ?Recorded ?Confirmed ?Last Taken ?Type famotidine 40 mg tablet 40 mg PO BID 09/24/19 12/28/24 03/26/23 History multivitamin (Multiple Vitamins 1 tablet PO BID 12/24/19 12/28/24 03/25/23 History tablet) ascorbate calcium (vitamin C) 500 500 mg PO DAILY 01/23/21 12/28/24 03/25/23 History mg tablet cholecalciferol (vitamin D3) 25 25 mcg PO DAILY 01/23/21 12/28/24 03/25/23 History mcg (1,000 unit) capsule vitamin B12 500 mcg-folic acid 400 1 tablet PO DAILY 01/23/21 12/28/24 03/25/23 History mcg tablet ondansetron HCl 4 mg tablet 4 mg PO PRN PRN Nausea 03/21/21 12/28/24 03/25/23 History (Zofran) acetaminophen 325 mg capsule 650 mg PO Q8H PRN Pain (Scale 03/16/22 12/28/24 03/26/23 History (Tylenol) Score 1-3) hydrocodone 5 mg-acetaminophen 325 1 tablet PO QID PRN Pain 03/16/22 12/28/24 03/26/23 History mg tablet pravastatin 20 mg tablet 10 mg PO DAILY 03/16/22 12/28/24 03/26/23 History rivaroxaban 20 mg tablet (Xarelto) 20 mg PO DAILY 03/16/22 12/28/24 03/26/23 History polyethylene glycol 3350 17 gram 17 g PO DAILY 03/19/22 12/28/24 03/14/22 History oral powder packet (Miralax) albuterol sulfate 90 mcg/actuation 2 inh inhalation Q4H PRN Shortness 07/30/22 12/28/24 Unknown History aerosol inhaler Of Breath diphenoxylate-atropine 2.5 1 tablet PO QID PRN Diarrhea 01/01/23 12/28/24 Unknown History mg-0.025 mg tablet Lactobacillus 1 cap PO DAILY 03/25/23 12/28/24 03/25/23 History acidophilus-Bifidobac.animalis 2.5 billion cell capsule (Daily Probiotic) omega 0-uog-ysx-fish oil 1,000 mg 1 cap PO DAILY 11/02/24 12/28/24 Unknown History (120 mg-180 mg) capsule (Fish Oil) Allergies Allergy/AdvReac Type Severity Reaction Status Date / Time ceftriaxone (From Rocephin) Allergy Intermediate Hives Verified 12/29/24 10:59 esomeprazole Allergy Intermediate Hives Verified 12/29/24 10:59 omeprazole Allergy Intermediate Hives Verified 12/29/24 10:59 hydromorphone (From Dilaudid) AdvReac Intermediate Anxiety Verified 12/29/24 10:59 trazodone AdvReac Intermediate Dizziness Verified 12/29/24 10:59 Review of Systems 2 Review of Systems: All systems reviewed & are unremarkable except as noted in HPI and below Constitutional: Constitutional: Reports no additional constitutional complaints Eyes: Eyes: Reports no additional eye complaints ENT: Reports system reviewed and no additional complaints, except as documented Cardiovascular: Cardiovascular: Reports no additional cardiovascular complaints Respiratory: Respiratory: Reports no additional respiratory complaints Gastrointestinal: Gastrointestinal: Reports no additional gastrointestinal complaints Genitourinary: Genitourinary: Reports no additional female genitourinary complaints Musculoskeletal: Musculoskeletal: Reports no additional musculoskeletal complaints Integumentary/Breasts: Skin/Breast: Reports system reviewed and no additional complaints, except as docu Neurologic: Reports system reviewed and no additional complaints, except as documented Psychiatric: Psychiatric: Reports no additional psychiatric complaints Endocrine: Endocrine: Reports no additional endocrine complaints Hematologic/Lymphatic: Hematologic/Lymphatic: Reports no additional hematologic/lymphatic complaints Allergic/Immunologic: Allergic/Immunologic: Reports no additional allergic/immunologic complaints PMFSH Past Medical History Medical History Pleurisy Disc disorder of cervical region Arthritis Anxiety Hair loss IBS (irritable bowel syndrome) Atrial fib/flutter, transient COPD (chronic obstructive pulmonary disease) Wears glasses Dizziness Plantar fasciitis, bilateral Arthritis of foot, right, degenerative CVA (cerebral vascular accident) Atrial fibrillation Dyslipidemia GERD (gastroesophageal reflux disease) Hypertension Osteoarthritis Fibromyalgia Surgical History Surgical History History of carpal tunnel surgery 03/2021 per patient questionnaire History of colon surgery History of knee surgery 32 years ago per patient questionnaire H/O: hysterectomy History of cholecystectomy Family History Family History Other Arthritis Cerebrovascular accident Social History Social History Smoking packs per day: 0.5 Smoking cigarettes per day: 10.0 Years smoked: 44 Smoking pack-years: 22.00 Smoking status: Current some day smoker Tobacco type: cigarettes Second hand tobacco smoke exposure: Yes Alcohol intake: former Alcohol use details: LAST 2016 Substance use: never Substance use type: does not use Lack of Transportation: No Lack of Food: Never True Current Housing: I Have Housing Concerned About Future Housing: No Difficulty Paying Gas/Electric Bills: No Difficulty Paying for Meds: No Education: High School Diploma/GED Difficulty w/ Childcare or Family Care: No Living arrangements: with family Additional living arrangements comments: SISTER SOMETIMES Gender identity (if verbalized by the patient): Female Spiritual care concerns: No Agree to blood products: Yes Exam 2 Const: General: healthy appearing Nutritional Appearance: well nourished Orientation/consciousness: patient oriented x3 HENMT: Head: normal to inspection Ears: external ears normal F brigida/Nose/Sinus: Normal external nose present Eyes: Conjunctivae: conjunctivae normal Cornea: corneas normal Pupils: E qual, round and reactive pupils present Neck: Neck: normal visual inspection Chest: Chest palpation & inspection: normal inspection of the chest Resp: Effort & Inspection: normal respiratory effort and not labored A uscultation: clear to auscultation bilaterally and no crackles Cardio: Rate: regular rate and bradycardic Rhythm: regular rhythm and abnormal rhythm Heart sounds: no murmurs GI: Inspection: non-distended GI Palp: Yes Soft to palpation, No Tenderness to palpation present (GI), No Guarding due to palpation present (GI) and No Rigid due to palpation Auscultation: normal bowel sounds : General: Yes bladder normal to palpation Back/Spine/Pelvis: Back: no CVA tenderness Skin: General skin exam: normal color Rashes: no rashes Wounds: no wounds Neuro: General: patient oriented x3, moves all extremities, no meningeal signs, no focal motor deficits and CN's II-XI intact bilaterally Cranial nerves: Yes Nystagmus not present Speech: normal speech Gait exam (Neuro): Normal gait present Extrem: General: normal to inspection Psych: Mental Status: mental status grossly normal Affect: normal affect Attitude: cooperative Course Vital Signs Vital signs: Vital Signs Temperature 37.1 C 12/29/24 10:34 Pulse Rate 82 12/29/24 10:34 Respiratory Rate 18 12/29/24 10:34 Blood Pressure 112/48 L 12/29/24 10:34 Pulse Oximetry 98 12/29/24 10:34 Oxygen Delivery Room Air 12/29/24 10:34 Temperature 37.1 C 12/29/24 10:34 Pulse Rate 82 12/29/24 10:34 Respiratory Rate 18 12/29/24 10:34 Blood Pressure 112/48 L 12/29/24 10:34 Pulse Oximetry 98 12/29/24 10:34 Oxygen Delivery Room Air 12/29/24 10:59 MDM - Nausea/Vomiting/Diarrhea MDM Narrative Medical decision making narrative: patient is a 64-year-old female with generalized arthralgias and myalgias due to her IV infusion of Reclast yesterday. We will give her Toradol trial and IV infusion of fluid to rehydrate and hopefully help with the pain. family did discuss they would like her to get admitted but the patient does not want a stay at this time. Patient has declared that she would like to be discharged now that her pain is controlled. She is feeling better. Lab Data Attestation: I reviewed the patient's lab results. 12/29/24 11:31 12/29/24 11:31 Labs: Lab Results 12/29/24 Range/Units 11:31 WBC 11.1 H (4.8-10.8) K/mm3 RBC 4.37 (4.20-5.40) M/mm3 Hgb 13.1 (12.0-15.0) g/dL Hct 39.9 (35.0-49.0) % MCV 91.3 (78.0-102.0) fL MCH 30.0 (27.0-31.0) pg MCHC 32.8 (32-36) g/dL RDW 13.1 (11.6-14.4) % Plt Count 222 (150-420) K/mm3 MPV 8.5 L (9.2-11.8) fl Immature Gran % (Auto) Not Reportable Neut % (Auto) Not Reportable Lymph % (Auto) Not Reportable Dougherty % (Auto) Not Reportable Eos % (Auto) Not Reportable Baso % (Auto) Not Reportable Lymph # (Auto) Not Reportable Dougherty # (Auto) Not Reportable Eos # (Auto) Not Reportable Baso # (Auto) Not Reportable Abs Immat Gran (auto) Not Reportable Absolute Neuts (auto) Not Reportable Absolute Nucleated RBC Not Reportable Total Counted 100 Neutrophils % (Manual) 87 H (46-73) % Band Neutrophils % 0 (0-6) % Lymphocytes % (Manual) 7 L (18-44) % Monocytes % (Manual) 6 (3-9) % Nucleated RBC % Not Reportable Abs Neuts (Manual) 9.65 H (1.7-7.2) K/mm3 Abs Lymphs (Manual) 0.77 L (1.1-4.5) K/mm3 Abs Monocytes (Manual) 0.66 (0.1-0.90) K/mm3 Platelet Estimate Adequate (Adequate) Schistocytes Not Reportable Sodium 135 L (136-145) mmol/L Potassium 4.6 (3.5-5.1) mmol/L Chloride 99 (98-108) mmol/L Carbon Dioxide 29 (21-32) mmol/L Anion Gap 7 (4-12) mmol/L BUN 8 (7-18) mg/dL Creatinine 0.70 (0.55-1.02) mg/dL Estim Creat Clear Calc 75 ml/min Estimated GFR > 60 (59 - ) Glucose 104 H (70-99) mg/dL Calculated Osmolality 278 L (285-295) mOsm/kg Calcium 8.3 L (8.5-10.1) mg/dL Magnesium 1.8 (1.8-2.4) mg/dL Total Bilirubin 0.5 (0.00-1.00) mg/dL AST 13 L (15-37) U/L ALT 24 (14-59) U/L Alkaline Phosphatase 84 (46-116) U/L Total Creatine Kinase 48 (26-192) U/L Total Protein 7.2 (6.4-8.2) g/dL Albumin 3.5 (3.4-5.0) g/dL Discharge Plan Discharge Clinical Impression: Acute joint pain, Side effect of drug Patient Disposition: Home Condition: Improved Instructions: Arthralgia (ED) Patient Language: Singaporean Prescriptions: No Action famotidine 40 mg tablet 40 mg PO BID diphenoxylate-atropine 2.5-0.025 mg tablet 1 tablet PO QID PRN (Reason: Diarrhea) multivitamin [Multiple Vitamins] Tablet 1 tablet PO BID albuterol sulfate 90 mcg/actuation HFA aerosol inhaler 2 inh INHALATION Q4H PRN (Reason: Shortness Of Breath) cyclobenzaprine 5 mg tablet 5 mg PO TID Qty: 20 0RF ondansetron 4 mg tablet,disintegrating 4 mg PO Q6H PRN (Reason: nausea and vomiting) Qty: 14 0RF ascorbate calcium (vitamin C) 500 mg tablet 500 mg PO DAILY vitamin X33-ygbvh acid 500-400 mcg tablet 1 tablet PO DAILY Rx Instructions: administer with a meal cholecalciferol (vitamin D3) 25 mcg (1,000 unit) capsule 25 mcg PO DAILY omega 4-wwm-snx-fish oil [Fish Oil] 1,000 (120-180) mg capsule 1 cap PO DAILY pravastatin 20 mg tablet 10 mg PO DAILY acetaminophen [Tylenol] 325 mg capsule 650 mg PO Q8H PRN (Reason: Pain (Scale Score 1-3)) Xarelto 20 mg tablet 20 mg PO DAILY hydrocodone-acetaminophen 5-325 mg tablet 1 tablet PO QID PRN (Reason: Pain) polyethylene glycol 3350 [Miralax] 17 gram Powder In Packet 17 g PO DAILY Patient Comments: TAKES PRN Daily Probiotic 2.5 billion cell Capsule 1 cap PO DAILY ondansetron HCl [Zofran] 4 mg Tablet 4 mg PO PRN PRN (Reason: Nausea) flecainide 100 mg tablet See Rx Instructions .ROUTE .COMPLEX Qty: 30 0RF Dose Instruction: 100 MG ORALLY NEEDED MAKE TAKE A DOSE WHEN IN ATRIAL FIB, AND MAY TAKE A 2ND DOSE 1 HOUR LATER IF STILL IN ATRIAL FIB. Rx Instructions: 100 MG ORALLY NEEDED MAKE TAKE A DOSE WHEN IN ATRIAL FIB, AND MAY TAKE A 2ND DOSE 1 HOUR LATER IF STILL IN ATRIAL FIB. Follow-up/Referrals: Yasmany Sullivan MD [Primary Care Provider] - Time of Disposition: 13:13
--- NOTE | 2024-12-29 11:06 | PC.NURSE ---
SPOKE WITH STACIE, [facility] RN WHO REPORTS PT HAD HER FIRST RECLAST INFUSION YESTERDAY, REPORTING SIDE EFFECTS CAN INCLUDE JOINT PAIN, HEADACHE, NAUSEA, DIZZINESS REPORTING PATIENTS USUALLY DO BETTER WITH HYDRATION, ARE DIRECTED TO TAKE TYLENOL AND IBU FOR PAIN.
[2024-12-29] MEDS: KETOROLAC 30 MG/ML VIAL (*BKC) IV PUSH (11:29)
[2024-12-29] MEDS: SODIUM CHLORIDE 0.9% IV 1,000 ML 999 ML IV CONT (11:29)
[2024-12-29 11:35] LABS: Hematocrit 39.9 % (35.0-49.0); Hemoglobin 13.1 g/dL (12.0-15.0); Mean Corpuscular HGB Conc 32.8 g/dL (32-36); Mean Corpuscular Volume 91.3 fL (78.0-102.0); Mean Platelet Volume 8.5 fl (9.2-11.8); Platelet Count Result 222 K/mm3 (150-420); Red Blood Count 4.37 M/mm3 (4.20-5.40); Red Cell Distribution Width 13.1 % (11.6-14.4); White Blood Count 11.1 K/mm3 (4.8-10.8)
--- OUTSIDE RECORDS SUMMARY | 2024-12-29 11:51 | XMS_ITS | Encounter Summary ---
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
--- OUTSIDE RECORDS SUMMARY | 2024-12-29 11:52 | XMS_ITS | Encounter Summary ---
Author Organization [facility] Address [address] [place] [address] Care Team Providers Care Controller Instructor Name Role Phone Rey Wadsworth MD Unavailable Unavailabl e Yasmany Sullivan MD Primary Care Provider [phone] Erin Mead PLODDING MACHINE OPERATOR Unavailable Unavailable Encounter Details Date Type Department Care Team (Late st Contact Info) Description 12/27/2015 Abstract [facility] [address] [place] [address] Rey Wadsworth MD Social History Tobacco Use Types Packs/Day Years Used Date Smoking Tobacco: Former Comments Unknown Sex and Gender Information Value Date Recorded Sex Assigned at Not on file Legal Sex Female 6:18 PM CDT Gender Identity Not on file Sexual Orientation Not on file 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
--- OUTSIDE RECORDS SUMMARY | 2024-12-29 11:52 | XMS_ITS ---
Author Organization Unknown Address [address] [place] [phone] Phone Care Team Providers Care Corn Lab Technician Name Role Phone TRAMAINE SALDAÑA Attending Unavailable [...] 207 CVX Pneumococcal conjugate PCV20 , polysaccharide KOD763 conjugate, adjuvant, PF 08/16/2023 Completed 216 CVX COVID-19, mRNA, LNP-S, bivalent, PF, 50 mcg/0.5 mL or 25mcg/0.25 mL dose 06/26/2022 Completed 229 CVX COVID-19, mRNA, LNP-S, PF, leoncio-sucrose, 30 mcg/0.3 mL 06/26/2024 Completed 309 CVX Social History Type Status Start Date End Date Code Code Syst em Smoking History Current every day smoker 308414562 SNOMED CT Sex Female Vital Signs Vital Sign Value Unit Charlton Value Charlton Unit Date/Time Recent/Initial? Code Code System Body Mass Index 34.20 kg/m2 12/21/2024 09:18 Initial 47106 -5 [facility] Systolic Blood Pressure 138 mm[Hg] 12/21/2024 09:18 Initial 8480- 6 [facility] Diastolic Blood Pressure 83 mm[Hg] 12/21/2024 09:18 Initial 8462- 4 [facility] Body Surface Area 1.88 m2 12/21/2024 09:18 Initial 3140- 1 [facility] Height 154.940 0 cm 61.00 in 12/21/2024 09:18 Initial 8302- 2 [facility] O2 Saturation 98 % 2024 09:18 Initial 36179 -5 [facility] Pulse 60.0 /min 12/21/2024 09:18 Initial 8867- 4 [facility] Temperature 36.3 Kiara 97.3 F 12/22/19 09:18 Initial 8310- 5 [facility] Weight 82.10 kg 181.00 lbs 12/21/2024 09:18 Initial 93097 -7 [facility] Medications Medication Start Date End Date Route Frequency Dose Code Code System Medication Instructions Home Meds Baclofen 10MG Oral Tablet 12/21/2024 Unknown ORAL NEEDED 3 TIMES A DAY 10 MILLIGRAMS 959476 RxNorm TAKE 10 MILLIGRAMS ORAL NEEDED 3 TIMES A DAY Famotidine 40MG Oral Tablet 12/21/2024 Unknown ORAL TWICE A DAY 40 MILLIGRAMS 416309 RxNorm TAKE 40 MILLIGRAMS ORAL TWICE A DAY HYDROcodone bitartrate-acet aminophen 5MG-325MG Oral Tablet 12/21/2024 Unknown ORAL NEEDED EVERY 8 HOURS 1 unit(s) 172153 RxNorm TAKE 1 EACH ORAL NEEDED EVERY 8 HOURS Ondansetron 4MG Oral Tablet 12/21/2024 Unknown ORAL NEEDED EVERY 8 HOURS 4 MILLIGRAMS 370256 RxNorm TAKE 4 MILLIGRAMS ORAL NEEDED EVERY 8 HOURS Pravastatin Sodium 10MG Oral Tablet 12/21/2024 Unknown ORAL ONCE A DAY 10 MILLIGRAMS 097390 RxNorm TAKE 10 MILLIGRAMS ORAL ONCE A DAY Xarelto 20MG Oral Tablet 12/21/2024 Unknown ORAL ONCE A DAY 20 MILLIGRAMS 9409512 RxNorm TAKE 20 MILLIGRAMS ORAL ONCE A DAY diphenoxylate HCl-atropine sulfate 2.5MG-0.025MG Oral Tablet 12/21/2024 Unknown ORAL NEEDED 4 TIMES A DAY 1 unit(s) 6295967 RxNorm TAKE 1 EACH ORAL NEEDED 4 [...] Code System CHRONIC BILATERAL MAXILLARY SINUSITIS active 51296135802673943 SNO MED-CT PAIN IN LEFT HIP active 3719847957594 00 SNOMED-CT 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 178341087148589 SNOMED-CT TENSION TYPE HEADACHE, UNSPECIFIED active 886954511 SNOMED-CT FIBROMYALGIA active 067764468 SNOMED- CT LEFT SHOULDER PAIN active 4386893189 SNOMED-CT PAIN IN THORACIC SPINE active 6724994 09 SNOMED-CT CERVICALGIA active 23839191 SNOMED-C T GASTRO-ESOPHAGEAL REFLUX DISEASE WITHOUT ESOPHAGITIS active 848293247 SNOMED-CT PAIN IN RIGHT HIP active 060852133180 102 SNOMED-CT LOW BACK PAIN active 257953936 SNOMED -CT PAIN OF RIGHT ANKLE JOINT active 39662312066538554 SNOMED-CT PAIN IN RIGHT FOOT active 34316895970 9107 SNOMED-CT CERVICAL SPONDYLOSIS active 710529665 SNOMED-CT POLYOSTEOARTHRITIS, UNSPECIFIED active 581126059 SNOMED-CT Allergies and Adverse Reactions Allergy Substance Reaction Severity Start Date Concern Status Code Code System TRAZODONE Dizziness (SNOMED-CT: 230234347) Moderate Active 01478 RxNorm ATORVASTATIN Vomiting (SNOMED-CT: 775922098) Moderate Active 26903 RxNorm CEFDINIR Diarrhea (SNOMED-CT: 00309565) Moderate Active 47212 RxNorm PREGABALIN Active 033855 RxNorm CLINDAMYCIN HCL Moderate Active 2582 RxNorm Plan of Treatment CT Abdomen/Pelvis W Contrast (98285) Plan F/U after MRI -review/discuss possible injections -trigger point injections that day Encounters Encounter Diagnosis Start Date Code Code Sys tem Other specified dorsopathies, cervical region 12/22/19 25 SNOMED-CT Personal Care Team Section Performer Name Performer Role Active Date Inactive JACQUELIEN Mercer PCP - Primary care physician 2021-06-19 Progress Notes [facility] 12/21/2024 10:53 All Demographics Patient Name Age Sex Visit Number Admission Date/Time Attending Physician Date of Service Room and Bed Emergency Contact RENO AMARO 1960 64 years Female [id number] 12/21/2024 09:14 Chris Benoit 12/21/2024 03-OP CAM SHELTON - [id number] PAIN MANAGEMENT HISTORY & PHYSICAL Vital Signs: [...]
--- OUTSIDE RECORDS SUMMARY | 2024-12-29 11:52 | XMS_ITS | Clinical Summary ---
Author Organization [facility] Address [address] [place] [address] Care Team Providers Care Lawn Care Professional Name Role Phone Rey Wadsworth MD Unavailable Yasmany Be MD Primary Care Provider [phone] Erin Mead NP Unavailable Unavailable Allergies Active [...] the lungs as needed. 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 on file Not [...] Documents on File Type Date Recorded Patient Academic Support Coordinator Expl anation Advance Directives and Living Will 02/19/2019 12:00 AM POWER OF CENTRAL SERVICE TECH Advance Directives and Living Will 12/01/2018 12:00 AM POWER OF CENTRAL SERVICE TECH Advance Directives and Living Will 11/10/2018 12:00 AM POWER OF CENTRAL SERVICE TECH Advance Directives and Living Will 09/02/2018 12:00 AM POWER OF CENTRAL SERVICE TECH Advance Directives and Living Will 03/11/2018 12:00 AM POWER OF CENTRAL SERVICE TECH Advance Directives and Living Will 03/11/2018 12:00 AM POWER OF CENTRAL SERVICE TECH Advance Directives and Living Will 01/15/2017 12:00 AM POWER OF CENTRAL SERVICE TECH Care Teams Lawn Care Professional Relationship Specialty Start Date End Date Yasmany Sullivan MD [address] [place] [phone] PCP - General INTERNAL MEDICINE 03/11/17 Rey Wadsworth MD [place] [employer] Machine Feeder CLINICAL CARDIAC ELECTROPHYSIOLOGY 03/11/17 Erin Mead NP [address] [place] [address] Nurse Practitioner Electrophysiology 03/13/18
[2024-12-29 11:53] LABS: Alanine Aminotransferase 24 U/L (14-59); Albumin Level 3.5 g/dL (3.4-5.0); Alkaline Phosphatase 84 U/L (46-116); Anion Gap 7 mmol/L (4-12); Aspartate Amino Transferase 13 U/L (15-37); Bilirubin,Total 0.5 mg/dL (0.00-1.00); Blood Urea Nitrogen 8 mg/dL (7-18); Calcium 8.3 mg/dL (8.5-10.1); Carbon Dioxide 29 mmol/L (21-32); Chloride 99 mmol/L (98-108); Estimated CRCL calculation 75 ml/min; Estimated Glomerular Filt Rate > 60; Glucose 104 mg/dL (70-99); Magnesium 1.8 mg/dL (1.8-2.4); Osmolality Calculated 278 mOsm/kg (285-295); Potassium 4.6 mmol/L (3.5-5.1); Sodium 135 mmol/L (136-145); Total Protein 7.2 g/dL (6.4-8.2)
[2024-12-29 11:54] LABS: Creatine Kinase 48 U/L (26-192)
[2024-12-29 12:00] VITALS: BP 110/78; PULSE 71; RESP 18; O2SAT 99
[2024-12-29 12:19] LABS: Band Neutrophils Percent 0 % (0-6); Lymphocytes Absolute Manual 0.77 K/mm3 (1.1-4.5); Lymphocytes Percent Manual 7 % (18-44); Monocytes Absolute Manual 0.66 K/mm3 (0.1-0.90); Monocytes Percent Manual 6 % (3-9); Neutrophils Absolute Manual 9.65 K/mm3 (1.7-7.2); Neutrophils Percent Manual 87 % (46-73); Platelet Estimate Adequate (Adequate); Total Cells Counted 100
--- OUTSIDE RECORDS SUMMARY | 2024-12-29 12:32 | XMS_ITS | Encounter Summary ---
Author Organization [facility] Address [address] [place] [address] Care Team Providers Care Police Worker Name Role Phone Rey Wadsworth MD Unavailable Unavailabl e Yasmany Sullivan MD Primary Care Provider [phone] Erin Mead FINANCIAL AID Unavailable Unavailable Encounter Details Date Type Department Care Team (Late st Contact Info) Description 12/27/2015 Abstract [facility] [address] [place] [address] Rey Wadsworth MD Social History Tobacco Use Types Packs/Day Years Used Date Smoking Tobacco: Former Comments Unknown Sex and Gender Information Value Date Recorded Sex Assigned at Not on file Legal Sex Female 6:18 PM CDT Gender Identity Not on file Sexual Orientation Not on file 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
--- OUTSIDE RECORDS SUMMARY | 2024-12-29 12:32 | XMS_ITS ---
Author Organization Unknown Address [address] [place] [address] [phone] Phone Care Team Providers Care Director Style Name Role Phone TRAMAINE SALDAÑA Attending Unavailable [...] 207 CVX Pneumococcal conjugate PCV20 , polysaccharide STH356 conjugate, adjuvant, PF 08/16/2023 Completed 216 CVX COVID-19, mRNA, LNP-S, bivalent, PF, 50 mcg/0.5 mL or 25mcg/0.25 mL dose 06/26/2022 Completed 229 CVX COVID-19, mRNA, LNP-S, PF, leoncio-sucrose, 30 mcg/0.3 mL 06/26/2024 Completed 309 CVX Social History Type Status Start Date End Date Code Code Syst em Smoking History Current every day smoker 320339519 SNOMED CT Sex Female Vital Signs Vital Sign Value Unit Pickaway Value Pickaway Unit Date/Time Recent/Initial? Code Code System Body Mass Index 34.20 kg/m2 12/21/2024 09:18 Initial 06682 -5 LOINC Systolic Blood Pressure 138 mm[Hg] 12/21/2024 09:18 Initial 8480- 6 [facility] Diastolic Blood Pressure 83 mm[Hg] 12/21/2024 09:18 Initial 8462- 4 [facility] Body Surface Area 1.88 m2 12/21/2024 09:18 Initial 3140- 1 [facility] Height 154.940 0 cm 61.00 in 12/21/2024 09:18 Initial 8302- 2 [facility] O2 Saturation 98 % 2024 09:18 Initial 55870 -5 [facility] Pulse 60.0 /min 12/21/2024 09:18 Initial 8867- 4 [facility] Temperature 36.3 Kiara 97.3 F 12/22/19 09:18 Initial 8310- 5 [facility] Weight 82.10 kg 181.00 lbs 12/21/2024 09:18 Initial 86356 -7 [facility] Medications Medication Start Date End Date Route Frequency Dose Code Code System Medication Instructions Home Meds Baclofen 10MG Oral Tablet 12/21/2024 Unknown ORAL NEEDED 3 TIMES A DAY 10 MILLIGRAMS 902314 RxNorm TAKE 10 MILLIGRAMS ORAL NEEDED 3 TIMES A DAY Famotidine 40MG Oral Tablet 12/21/2024 Unknown ORAL TWICE A DAY 40 MILLIGRAMS 104865 RxNorm TAKE 40 MILLIGRAMS ORAL TWICE A DAY HYDROcodone bitartrate-acet aminophen 5MG-325MG Oral Tablet 12/21/2024 Unknown ORAL NEEDED EVERY 8 HOURS 1 unit(s) 302648 RxNorm TAKE 1 EACH ORAL NEEDED EVERY 8 HOURS Ondansetron 4MG Oral Tablet 12/21/2024 Unknown ORAL NEEDED EVERY 8 HOURS 4 MILLIGRAMS 192922 RxNorm TAKE 4 MILLIGRAMS ORAL NEEDED EVERY 8 HOURS Pravastatin Sodium 10MG Oral Tablet 12/21/2024 Unknown ORAL ONCE A DAY 10 MILLIGRAMS 198842 RxNorm TAKE 10 MILLIGRAMS ORAL ONCE A DAY Xarelto 20MG Oral Tablet 12/21/2024 Unknown ORAL ONCE A DAY 20 MILLIGRAMS 3118222 RxNorm TAKE 20 MILLIGRAMS ORAL ONCE A DAY diphenoxylate HCl-atropine sulfate 2.5MG-0.025MG Oral Tablet 12/21/2024 Unknown ORAL NEEDED 4 TIMES A DAY 1 unit(s) 3408496 RxNorm TAKE 1 EACH ORAL NEEDED 4 [...] Code System CHRONIC BILATERAL MAXILLARY SINUSITIS active 51419401648949638 SNO MED-CT PAIN IN LEFT HIP active 9590673820353 00 SNOMED-CT 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 720260960608500 SNOMED-CT TENSION TYPE HEADACHE, UNSPECIFIED active 556685294 SNOMED-CT FIBROMYALGIA active 992049018 SNOMED- CT LEFT SHOULDER PAIN active 2417806328 SNOMED-CT PAIN IN THORACIC SPINE active 5587454 09 SNOMED-CT CERVICALGIA active 18091570 SNOMED-C T GASTRO-ESOPHAGEAL REFLUX DISEASE WITHOUT ESOPHAGITIS active 919502520 SNOMED-CT PAIN IN RIGHT HIP active 474487076118 102 SNOMED-CT LOW BACK PAIN active 224242427 SNOMED -CT PAIN OF RIGHT ANKLE JOINT active 32340384443325061 SNOMED-CT PAIN IN RIGHT FOOT active 68987922628 9107 SNOMED-CT CERVICAL SPONDYLOSIS active 200755536 SNOMED-CT POLYOSTEOARTHRITIS, UNSPECIFIED active 755523162 SNOMED-CT Allergies and Adverse Reactions Allergy Substance Reaction Severity Start Date Concern Status Code Code System TRAZODONE Dizziness (SNOMED-CT: 803439767) Moderate Active 79977 RxNorm ATORVASTATIN Vomiting (SNOMED-CT: 679592979) Moderate Active 26351 RxNorm CEFDINIR Diarrhea (SNOMED-CT: 61857218) Moderate Active 84070 RxNorm PREGABALIN Active 359304 RxNorm CLINDAMYCIN HCL Moderate Active 2582 RxNorm Plan of Treatment CT Abdomen/Pelvis W Contrast (63425) Plan F/U after MRI -review/discuss possible injections -trigger point injections that day Encounters Encounter Diagnosis Start Date Code Code Sys tem Other specified dorsopathies, cervical region 12/22/19 25 SNOMED-CT Personal Care Team Section Performer Name Performer Role Active Date Inactive JACQUELINE Mercer PCP - Primary care physician 2021-06-19 Progress Notes [facility] 12/21/2024 10:53 All Demographics Patient Name Age Sex Visit Number Admission Date/Time Attending Physician Date of Service Room and Bed Emergency Contact RENO AMARO 1960 64 years Female [id number] 12/21/2024 09:14 Chris Benoit 12/21/2024 03-OP CAM SHELTON - [id number] PAIN MANAGEMENT HISTORY & PHYSICAL Vital Signs: [...]
--- OUTSIDE RECORDS SUMMARY | 2024-12-29 12:32 | XMS_ITS | Encounter Summary ---
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
--- OUTSIDE RECORDS SUMMARY | 2024-12-29 12:32 | XMS_ITS | Clinical Summary ---
Author Organization [facility] Address [address] [place] [address] Care Team Providers Care Personal Injury Specialist Name Role Phone Rey Wadsworth MD Unavailable Yasmany Be MD Primary Care Provider [phone] Erin Mead NP Unavailable Unavailable Allergies Active [...] the lungs as needed. 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 Advance Directives and Living Will 02/19/2019 12:00 AM POWER OF JUNIOR LEGAL SECRETARY Advance Directives and Living Will 12/01/2018 12:00 AM POWER OF JUNIOR LEGAL SECRETARY Advance Directives and Living Will 11/10/2018 12:00 AM POWER OF JUNIOR LEGAL SECRETARY Advance Directives and Living Will 09/02/2018 12:00 AM POWER OF JUNIOR LEGAL SECRETARY Advance Directives and Living Will 03/11/2018 12:00 AM POWER OF JUNIOR LEGAL SECRETARY Advance Directives and Living Will 03/11/2018 12:00 AM POWER OF JUNIOR LEGAL SECRETARY Advance Directives and Living Will 01/15/2017 12:00 AM POWER OF JUNIOR LEGAL SECRETARY Care Teams Personal Injury Specialist Relationship Specialty Start Date End Date Yasmany Sullivan MD [address] [place] [id number] PCP - General INTERNAL MEDICINE 03/11/17 Rey Wadsworth MD [place] Paper Cutter CLINICAL CARDIAC ELECTROPHYSIOLOGY 03/11/17 Erin Mead NP [address] [place] [address] Nurse Practitioner Electrophysiology 03/13/18
[2024-12-29] MEDS: MORPHINE SULFATE (*CRX) 4 MG/ML INJ IV PUSH (12:39)
--- NOTE | 2024-12-29 12:49 | PC.NURSE ---
PT IS SPEAKING WITH SISTER ON THE PHONE, SISTER CALLED TO SPEAK WITH RN AND REPORTS SHE WOULD LIKE PT TO BE ADMITTED TO [facility] FOR OBSERVATION DUE TO PAIN CONTROL. PT REPORTS SHE IS FEELING A LITTLE BETTER, PAIN MEDICATION WAS GIVEN DIRECTED WITHOUT DIFFICULTY. WILL CONTINUE TO MONITOR.
[2024-12-29 13:00] VITALS: BP 107/51; PULSE 78; RESP 18; O2SAT 96
--- NOTE | 2024-12-29 13:11 | PC.NURSE ---
PT REPORTS SHE DOES NOT WANT TO BE ADMITTED, STATES HER PAIN HAS IMPROVED TO TOLERABLE AND SHE WOULD LIKE TO GO HOME. ERP IS AWARE. WILL CONTINUE TO MONITOR.
[2024-12-29 13:16] VITALS: BP 119/68; PULSE 76; RESP 18; O2SAT 97
== END 2024-12-29 13:25 | disposition home or self-care (01) ==
PROVIDERS: Emergency Provider Emergency Medicine; PCP Internal Medicine
DX: M25.50 Pain in unspecified joint (principal); T50.905A Adverse effect of unspecified drugs, medicaments and biological substances, initial encounter; I48.91 Unspecified atrial fibrillation; J44.9 Chronic obstructive pulmonary disease, unspecified; F17.210 Nicotine dependence, cigarettes, uncomplicated; Z79.899 Other long term (current) drug therapy; Z79.01 Long term (current) use of anticoagulants; Z86.73 Personal history of transient ischemic attack (TIA), and cerebral infarction without residual deficits
CPT/HCPCS: 36415; 80053; 82550; 83735; 85025; 96361; 96374; 96375; 99284; J1885; J2270; J7030

== ENCOUNTER 2025-03-02 09:28 | Outpatient (CLI) | payer OTHER, SELFPAY ==
--- NOTE | ~2025-03-02 | NM_ITS ---
EXAMINATION: NM catie stress w perfusion DATE: 03/02/2025 11:43 INDICATION: Preoperative examination. Personal history of nicotine dependence. TECHNIQUE: Rest images were obtained following intravenous administration of 10.1 mCi Tc99m tetrofosm in (Myoview). The patient was infused intravenously with Lexiscan (Regadenoson). Then, 21.8 mCi Tc99m tetrofosmin (Myoview) was administered intravenously, and stress images were obtained. Data was flip nstructed into short axis and horizontal and vertical long axis SPECT images. Gated SPECT images were also obtained. COMPARISON: None. FINDINGS: Small region of nonreversible mild decreased activity at the apical lateral segment consist ent with infarct. No reversible ischemia. There is normal left ventricular chamber size, wall motion and ejection fraction. Left ventricular ejection fraction measures 59%. IMPRESSION: 1. Small mild nonreversible infarct at the apical lateral segment. No reversible ischemia. 2. Left ventricular ejection fraction measuring 59%. Reviewed, dictated and finalized at location A. IMPRESSION: 1. Small mild nonreversible infarct at the apical lateral segment. No reversibl e ischemia. 2. Left ventricular ejection fraction measuring 59%.
--- NOTE | 2025-03-02 09:48 | EST_ITS ---
Patient Info Name: Claudine Cruz Age: 64 years : 1960 Gender: Female Ht: 65 in Wt: 189 lbs BSA: 2.01 m2 HR: 55 bpm BP: 115 / 73 mmHg Exam Date: 03/02/2025 9:48 AM Patient Status: O Admit Date: 03/02/2025 Exam Type: CA stress catie w NM A regadenoson stress test was performed. Staff Referring Physician: Diaz Pruitt DO Attending Provider: Diaz Pruitt DO Exercise Technologist: Sanna Boss Exercise Physician: Diaz Pruitt DO Summary 1. 1. Negative lexiscan stress test for ischemic ST changes by ECG criteria. 2. 2. Stable hemodynamics throughout the test. 3. 3. Nuclear scan to follow and will be reported separately. Please correlate with it. 4. 4. Patient informed of the above results. Protocol: Lexiscan Stress ECG Details Stage: REST Duration (min): 0 min : 59 sec HR (bpm): 55 SBP (mmHg): 115 DBP (mmHg): 73 Stage: REST Duration (min): 1 min : 16 sec HR (bpm): 56 SBP (mmHg): 115 DBP (mmHg): 73 Stage: REST Duration (min): 4 min : 55 sec HR (bpm): 61 SBP (mmHg): 115 DBP (mmHg): 73 Stage: STAGE 1 Duration (min): 0 min : 59 sec HR (bpm): 93 SBP (mmHg): 140 DBP (mmHg): 88 Stage: RECOVERY Duration (min): 1 min : 0 sec HR (bpm): 88 SBP (mmHg): 140 DBP (mmHg): 88 Stage: RECOVERY Duration (min): 2 min : 0 sec HR (bpm): 82 SBP (mmHg): 140 DBP (mmHg): 88 Stage: RECOVERY Duration (min): 3 min : 0 sec HR (bpm): 75 SBP (mmHg): 136 DBP (mmHg): 89 Stage: RECOVERY Duration (min): 4 min : 0 sec HR (bpm): 80 SBP (mmHg): 132 DBP (mmHg): 88 Stage: RECOVERY Duration (min): 4 min : 16 sec HR (bpm): 76 SBP (mmHg): 132 DBP (mmHg): 88 Rest HR: 61 bpm Peak HR: 98 bpm Rest Sys BP: 115 mmHg Peak Sys BP: 140 mmHg Max Pred HR: 157 bpm % Max Pred HR: 62 % Target HR: 133 bpm Max RPP: 13,720 bpm*mmHg Termination Reason: Completed protocol Cardiac Symptoms: Shortness of breath, Nausea Total Time: 1 min : 0 sec Rest Luna BP: 73 mmHg Peak Luna BP: 88 mmHg Total Dose: 0.4 mg Resting ECG Sinus rhythm, low voltage in diffuse leads. Stress ECG No ST changes. Arrhythmias None. Report Signatures
== END 2025-03-02 09:29 | disposition home or self-care (01) ==
PROVIDERS: PCP Internal Medicine; Visit Provider Internal Medicine Cardiovascular Disease
DX: Z01.810 Encounter for preprocedural cardiovascular examination (principal)
CPT/HCPCS: 78452; 93017; A9502; J2785

== ENCOUNTER 2025-03-22 08:23 | Outpatient (CLI) | payer OTHER, SELFPAY ==
--- NOTE | ~2025-03-22 | US_ITS ---
EXAMINATION: US thyroid DATE: 03/22/2025 08:46 INDICATION: Thyroid disorder TECHNIQUE: Multiple ultrasound images of the thyroid were obtained. COMPARISON: None. FINDINGS: The right thyroid lobe measures 4.2 x 1.8 x 2 point cm. The left thyroid lobe measures 3.8 x 2.5 x 2 .5 cm. There are solid hypoechoic nodules which are wider than tall with smooth to ill-defined re ns and without echogenic foci. (TI-RADS 4, moderately suspicious , FNA if >=1.5 cm, annual followup i s >=1 cm). These measure 3.6 cm in the left thyroid lobe and 1.8 cm in the left thyroid lobe. IMPRESSION: 1. Bilateral TI RADS 4 thyroid nodules measuring 3.6 cm on the left and 1.8 cm on the right. Recommen d ultrasound-guided biopsy of both nodules. Reviewed, dictated and finalized at location B. IMPRESSION: 1. Bilateral TI RADS 4 thyroid nodules measuring 3.6 cm on the left and 1.8 cm on the right. Recommend ultrasound-guided biopsy of both nodules.
== END 2025-03-22 08:24 | disposition home or self-care (01) ==
LOC: CHSIMG 08:24
PROVIDERS: PCP Internal Medicine; Visit Provider Otolaryngology
DX: E04.2 Nontoxic multinodular goiter (principal)
CPT/HCPCS: 76536

== ENCOUNTER 2025-03-31 12:07 | Emergency (ER) | payer OTHER, SELFPAY ==
[2025-03-31] VITALS (18 sets, daily range): BP systolic 109–153; BP diastolic 74–93; PULSE 54–77; RESP 12–20; TEMP 36.7; O2SAT 95–100
--- NOTE | ~2025-03-31 | CT_ITS ---
EXAM: CT brain wo con - 03/31/2025 12:50 CDT History: 64 years old Female with vertigo COMPARISON: 11/07/2024 PROCEDURE: CT of the head without contrast. Axial, sagittal and coronal reformatted planes were veda luated. Automatic exposure control was used for this study. FINDINGS: BRAIN PARENCHYMA: No acute hemorrhage. No mass effect or herniation. Mcghee-white matter differentiatio n is maintained. Mild chronic volume loss. Scattered hypodensities in subcortical and periventricular white matter, likely representing chronic microvascular ischemic changes in this age group. Atherosc lerotic calcification of the intracranial vessels is noted. VENTRICLES/ EXTRA-AXIAL SPACES: No hydrocephalus or extra-axial fluid collection. EXTRACRANIAL STRUCTURES: No calvarial fracture. IMPRESSION: No evidence for acute intracranial hemorrhage or calvarial fracture. Reviewed, dictated and finalized at location A.
--- NOTE | ~2025-03-31 | XR_ITS ---
EXAMINATION: XR chest 1V portable DATE: 03/31/2025 12:42 INDICATION: Chest pain TECHNIQUE: frontal view of the chest was obtained. COMPARISON: Chest radiograph dated 01/01/2023 FINDINGS: The lungs remain clear with no focal airspace opacities, pulmonary edema, pleural effusion or pneumot horax. The cardiomediastinal silhouette is normal. Visualized bones and soft tissues are unremarkable . IMPRESSION: 1. No acute cardiopulmonary disease. Reviewed, dictated and finalized at location A.
--- NOTE | 2025-03-31 12:09 | ECG_ITS ---
Test Date: 2025-03-31 12:13:08 Measurements Intervals [place] Rate: 73 P: 54 IA: 215 QRS: 135 QRSD: 93 T: -1 QT: 365 QTc: 404 Interpretive Statements SINUS RHYTHM WITH FIRST DEGREE AV BLOCK POSSIBLE RIGHT VENTRICULAR HYPERTROPHY [SOME/ALL OF: PROMINENT R IN V1, LATE TRANSITION, RAD, EYAL, SSS] ABNORMAL QRS-T ANGLE [QRS-T AXIS DIFFERENCE > 60] No previous ECG available for comparison Electronically Signed On 03-31-2025 14:43:15 CDT by Felix Mansfield M.D.
--- OUTSIDE RECORDS SUMMARY | 2025-03-31 12:09 | XMS_ITS | Data Portability ---
Author Organization [facility] [place] Address [address] [place] [address] [place] [address] Care Team Providers Care Therapeutic Assistant Name Role Phone JACQUELINE MATTSON Primary Care Provider Assessment No assessment recorded. Plan of Treatment Reminders Order Date Submit Date Provider Last Modified By Organization Details Last Modified Time Details Appointments None recorded. Lab None recorded. Referral None recorded. Procedures None recorded. Surgeries None recorded. Imaging None recorded. Medication Orders Estrace 0.01% (0.1 mg/gram) vaginal cream 2024 025 LISETTE [facility], [address] [place] [address], [place], [address], 5 10:20:41 clotrimazol e-betametha sone 1 %-0.05 % topical cream 2023 024 LISETTE [facility], [address], [place], [address], 4 10:20:34 clindamycin 2 % vaginal cream 2023 024 LISETTE [facility] [address] [place], [address], 4 10:18:18 hydrocortis one acetate 25 mg rectal suppository 2023 024 LISETTE [facility] [address] [place], [address], 4 10:18:20 clobetasol 0.05 % topical cream 2023 024 LISETTE [facility], [facility] [address], [place], [address], 4 11:26:51 Estrace 0.01% (0.1 mg/gram) vaginal cream 2023 024 [email or web address] 1 [facility], [address] [place], [address], 4 10:02:50 Patient TargetsNo targets recorded. Patient InstructionsNo instructions recorded. Reason for Referral None Reported. Results Created Date Observation Date Name Description Value Unit Range Abnormal Flag Note LastModifiedBy Organization Detail LastModifiedTime 10/28/19 24 10/28/2023 MOBIL UNCUS MULIE RIS/C URTIS SHIRLENE, RT-PC R, ONE SWAB mobiluncus mulieris and mobiluncus curtisii by RT-PCR Negati ve Swab- 1 Vag/C erv Not Available [facility] (Lab) [address], [place], [address], 11/11/2023 15:40:30 10/28/19 24 10/28/2023 BACTE RIAL VAGIN OSIS PANEL RT-PC R, ONESW AB gardnerella vaginalis PCR Negati ve Swab- 1 Vag/C erv Not Available [facility] (Lab) [address] [place], [address], 11/11/2023 15:40:30 10/28/19 24 10/28/2023 BACTE RIAL VAGIN OSIS PANEL RT-PC R, ONESW AB atopobium vaginae PCR Negati ve Swab- 1 Vag/C erv Not Available [facility] (Lab) [address], [place], [address], 11/11/2023 15:40:30 10/28/19 24 10/28/2023 BACTE RIAL VAGIN OSIS PANEL RT-PC R, ONESW AB bacterial vaginosis associated bacteria 2 (bvab2) Negati ve Swab- 1 Vag/C erv Not Available [facility] (Lab) [address] [place], [address], 11/11/2023 15:40:30 10/28/19 24 10/28/2023 BACTE RIAL VAGIN OSIS PANEL RT-PC R, ONESW AB megasphaera species (type 1 and type 2) PCR Negati ve (Type1 ,Type2 ) Swab- 1 Vag/C erv Type1 :Nega tive Type2 :Nega tive. Not Available [facility] (Lab) [address] [place], [address], 11/11/2023 15:40:30 10/28/19 24 10/28/2023 BACTE RIAL VAGIN OSIS PANEL RT-PC R, ONESW AB lactobacillu s (bvpanel) PCR See Commen t Swab- 1 Vag/C erv L.cri spatu s: Negat oliver L.lili senii : Negat oliver L.gas seri : Negat oliver L.ine rs : Negat oliver. Not Available [facility] (Lab) [address], [place], [address], 11/11/2023 15:40:30 10/28/19 24 10/28/2023 VIK DA VAGIN ITIS PANEL RT-PC R, ONESW AB radhika albicans PCR Negati ve Swab- 1 Vag/C erv Not Available [facility] (Lab) [address] [place], [address], 11/11/2023 15:40:31 10/28/19 24 10/28/2023 VIK DA VAGIN ITIS PANEL RT-PC R, ONESW AB radhika tropicalis PCR Negati ve Swab- 1 Vag/C erv Not Available [facility] (Lab) [address] [place], [address], 11/11/2023 15:40:31 10/28/19 24 10/28/2023 VIK DA VAGIN ITIS PANEL RT-PC R, ONESW AB radhika parapsilosis PCR Negati ve Swab- 1 Vag/C erv Not Available [facility] (Lab) [address], [place], [address], 11/11/2023 15:40:31 10/28/19 24 10/28/2023 VIK DA VAGIN ITIS PANEL RT-PC R, ONESW AB radhika glabrata PCR Negati ve Swab- 1 Vag/C erv Not Available [facility] (Lab) [address] [place], [address], 11/11/2023 15:40:31 10/28/19 24 10/28/2023 VIK DA VAGIN ITIS PANEL RT-PC R, ONESW AB radhika krusei by RT-PCR Negati ve Swab- 1 Vag/C erv Not Available [facility] (Lab) [address], [place], [address], 11/11/2023 15:40:31 10/28/19 24 10/28/2023 UROGE NITAL MYCOP LASMA /UREA PLASM A PANEL RT-PC R, ONESW AB mycoplasma genitalium by RT-PCR Negati ve Swab- 1 Vag/C erv Not Available [facility] (Lab) [address] [place], [address], 11/11/2023 15:40:31 10/28/19 24 10/28/2023 UROGE NITAL MYCOP LASMA /UREA PLASM A PANEL RT-PC R, ONESW AB mycoplasma hominis by RT-PCR Negati ve Swab- 1 Vag/C erv Not Available [facility] (Lab) [address] [place], [address], 11/11/2023 15:40:31 10/28/19 24 10/28/2023 UROGE NITAL MYCOP LASMA /UREA PLASM A PANEL RT-PC R, ONESW AB ureaplasma urealyticum by RT-PCR Negati ve Swab- 1 Vag/C erv Not Available [facility] (Lab) [address] [place], [address], 11/11/2023 15:40:31 10/28/19 24 10/28/2023 VIK DA SNEHAL I BY RT-PC R radhika krusei by RT-PCR CANCEL LED Juvenal zahida Not Available [facility] (Lab) [address] [place], [address], 11/11/2023 15:40:32 09/14/20 24 09/14/2024 MOBIL UNCUS MULIE RIS/C URTIS LI, RT-PC R, ONE SWAB mobiluncus mulieris and mobiluncus curtisii by RT-PCR Negati ve Swab- 1 Cerv End Not Available [facility] (Lab) [address], [place], [address], 09/29/2024 14:21:25 09/14/20 24 09/14/2024 UROGE NITAL MYCOP LASMA /UREA PLASM A PANEL RT-PC R, ONESW AB mycoplasma genitalium by RT-PCR Negati ve Swab- 1 Cerv End Not Available [facility] (Lab) [address] [place], [address], 09/29/2024 14:21:26 09/14/20 24 09/14/2024 UROGE NITAL MYCOP LASMA /UREA PLASM A PANEL RT-PC R, ONESW AB mycoplasma hominis by RT-PCR Negati ve Swab- 1 Cerv End Not Available [facility] (Lab) [address] [place], [address], 09/29/2024 14:21:26 09/14/20 24 09/14/2024 UROGE NITAL MYCOP LASMA /UREA PLASM A PANEL RT-PC R, ONESW AB ureaplasma urealyticum by RT-PCR Negati ve Swab- 1 Cerv End Not Available [facility] (Lab) [address] [place], [address], 09/29/2024 14:21:26 09/14/20 24 09/14/2024 VIK DA VAGIN ITIS PANEL RT-PC R, ONESW AB radhika albicans PCR Negati ve Swab- 1 Cerv End Not Available [facility] (Lab) [address], [place], [address], 09/29/2024 14:21:26 09/14/20 24 09/14/2024 VIK DA VAGIN ITIS PANEL RT-PC R, ONESW AB radhika glabrata PCR Negati ve Swab- 1 Cerv End Not Available [facility] (Lab) [address] [place], [address], 09/29/2024 14:21:26 09/14/20 24 09/14/2024 VIK DA VAGIN ITIS PANEL RT-PC R, ONESW AB radhika krusei by RT-PCR Negati ve Swab- 1 Cerv End Not Available [facility] (Lab) [address] [place], [address], 09/29/2024 14:21:26 09/14/20 24 09/14/2024 VIK DA VAGIN ITIS PANEL RT-PC R, ONESW AB radhika parapsilosis PCR Negati ve Swab- 1 Cerv End Not Available [facility] (Lab) [address] [place], [address], 09/29/2024 14:21:26 09/14/20 24 09/14/2024 VIK DA VAGIN ITIS PANEL RT-PC R, ONESW AB radhika tropicalis PCR Negati ve Swab- 1 Cerv End Not Available [facility] (Lab) [address] [place], [address], 09/29/2024 14:21:26 09/14/20 24 09/14/2024 BACTE RIAL VAGIN OSIS PANEL (WITH LACTO BACIL ABRAHAN PROFI LING) BY QRT PRC, EVELYNE AB (MDL) atopobium vaginae PCR Negati ve Swab- 1 Cerv End Not Available [facility] (Lab) [address] [place], [address], 09/29/2024 14:21:27 09/14/20 24 09/14/2024 BACTE RIAL VAGIN OSIS PANEL (WITH LACTO BACIL ABRAHAN PROFI LING) BY QRT PRC, EVELYNE MARTINEZ (MDL) bacterial vaginosis associated bacterium 1 (bvab1) RT PCR Negati ve Swab- 1 Cerv End Not Available [facility] (Lab) [address] [place], [address], 09/29/2024 14:21:27 09/14/20 24 09/14/2024 BACTE RIAL VAGIN OSIS PANEL (WITH LACTO BACIL ABRAHAN PROFI LING) BY QRT LALA, EVELYNE MARTINEZ (MDL) bacterial vaginosis associated bacteria 2 (bvab2) Negati ve Swab- 1 Cerv End Not Available [facility] (Lab) [address] [place], [address], 09/29/2024 14:21:27 09/14/20 24 09/14/2024 BACTE RIAL VAGIN OSIS PANEL (WITH LACTO BACIL ABRAHAN PROFI LING) BY QRT LALA, EVELYNE MARTINEZ (MDL) bacterial vaginosis associated bacterium 3 (bvab3) RT PCR Negati ve Swab- 1 Cerv End Not Available [facility] (Lab) [address] [place], [address], 09/29/2024 14:21:27 09/14/20 24 09/14/2024 BACTE RIAL VAGIN OSIS PANEL (WITH LACTO BACIL ABRAHAN PROFI LING) BY QRT LALA, EVELYNE MARTINEZ (L) bacteroides fragilis by real - time PCR Negati ve Swab- 1 Cerv End Not Available [facility] (Lab) [address] [place], [address], 09/29/2024 14:21:27 09/14/20 24 09/14/2024 BACTE RIAL VAGIN OSIS PANEL (WITH LACTO BACIL ABRAHAN PROFI LING) BY QRT PRC, EVELYNE MARTINEZ (MDL) bifidobacter ium breve by real-time PCR Negati ve Swab- 1 Cerv End Not Available [facility] (Lab) [address], [place], [address], 09/29/2024 14:21:27 09/14/20 24 09/14/2024 BACTE RIAL VAGIN OSIS PANEL (WITH LACTO BACIL ABRAHAN PROFI LING) BY QRT PRC, EVELYNE MARTINEZ (JASWANT) gardnerella vaginalis PCR Positi ve abnormal Swab- 1 Cerv End Not Available [facility] (Lab) [address], [place], [address], 09/29/2024 14:21:27 09/14/20 24 09/14/2024 BACTE RIAL VAGIN OSIS PANEL (WITH LACTO BACIL ABRAHAN PROFI LING) BY QRT PRC, EVELYNE MARTINEZ (JASWANT) lactobacillu s (bvpanel) PCR See Commen t Swab- 1 Cerv End L.cri spatu s: Negat oliver L.lili senii : Posit oliver L.gas seri : Posit oliver L.ine rs : Negat oliver. Not Available [facility] (Lab) [address], [place], [address], 09/29/2024 14:21:27 09/14/20 24 09/14/2024 BACTE RIAL VAGIN OSIS PANEL (WITH LACTO BACIL ABRAHAN PROFI LING) BY QRT PRC, EVELYNE MARTINEZ (JASWANT) lactobacillu s acidophilus by real-time PCR Negati ve Swab- 1 Cerv End Not Available [facility] (Lab) [address], [place], [address], 09/29/2024 14:21:27 09/14/20 24 09/14/2024 BACTE RIAL VAGIN OSIS PANEL (WITH LACTO BACIL ABRAHAN PROFI LING) BY QRT PRC, EVELYNE MARTINEZ (L) megasphaera species (type 1 and type 2) PCR Negati ve (Type1 ,Type2 ) Swab- 1 Cerv End Type1 :Nega tive Type2 :Nega tive. Not Available [facility] (Lab) [address] [place], [address], 09/29/2024 14:21:27 09/14/20 24 09/14/2024 BACTE RIAL VAGIN OSIS PANEL (WITH LACTO BACIL ABRAHAN PROFI LING) BY QRT PRC, EVELYNE MARTINEZ (MDL) mobiluncus curtisii by real-time PCR Negati ve Swab- 1 Cerv End Not Available [facility] (Lab) [address] [place], [address], 09/29/2024 14:21:27 09/14/20 24 09/14/2024 BACTE RIAL VAGIN OSIS PANEL (WITH LACTO BACIL ABRAHAN PROFI LING) BY QRT PRC, EVELYNE MARTINEZ (MDL) mobiluncus mulieris by real-time PCR Negati ve Swab- 1 Cerv End Not Available [facility] (Lab) [address] [place], [address], 09/29/2024 14:21:27 09/14/20 24 09/14/2024 BACTE RIAL VAGIN OSIS PANEL (WITH LACTO BACIL ABRAHAN PROFI LING) BY QRT PRC, EVELYNE MARTINEZ (L) prevotella bivia by real-time PCR Negati ve Swab- 1 Cerv End Not Available [facility] (Lab) [address] [place], [address], 09/29/2024 14:21:27 09/14/20 24 09/14/2024 BACTE RIAL VAGIN OSIS PANEL (WITH LACTO BACIL ABRAHAN PROFI LING) BY QRT PRC, EVELYNE MARTINEZ (JASWANT) sneathia sanguinegens real-time PCR Negati ve Swab- 1 Cerv End Not Available [facility] (Lab) [address] [place], [address], 09/29/2024 14:21:27 09/14/20 24 09/14/2024 BACTE RIAL VAGIN OSIS PANEL (WITH LACTO BACIL ABRAHAN PROFI LING) BY QRT EVELYNE REEVES (JASWANT) streptococcu s anginosus by real-time PCR Negati ve Swab- 1 Cerv End Not Available [facility] (Lab) [address] [place], [address], 09/29/2024 14:21:27 09/14/20 24 09/14/2024 VIK DA SNEHAL I BY RT-PC R radhika krusei by RT-PCR CANCEL LED Dupli zahida Not Available [facility] (Lab) [address] [place], [address], 09/29/2024 14:21:27 11/05/19 24 07/05/2023 CT, abdom en + pelvi s, w/ contr ast No observ ation record ed. [email or web address] [facility] [address] [place], [address], 11/05/2023 20:42:59 Result Notes None recorded. Problems Name Problem SNOMED Code Status Onset Date Resolution Date Notes Provider Name and Address Organization Details Recorded Time History of cerebrovascul ar accident without residual deficits 410526700 Active 2023 Lian delgado [facility] 4 10:04:19 History of deep vein thrombosis 111552339 Active 2023 Lian delgado [facility] 4 10:04:50 Problem Notes None recorded. Procedures Surgical History Date Name Laterality Status Provider Name and Address Organization Details Recorded Time 07/23/20 24 endoscopy completed Lian Melgar [facility] 09/12/2024 09:57:49 06/02/20 24 Most Recent Bone Density completed Kiana Crook [facility] 10/26/2024 09:53:02 11/12/19 23 Date of Last Mammogram completed Lian Melgar [facility] 09/12/2024 09:49:37 09/23/19 23 Carpal tunnel surgery completed [facility] 11/11/2023 10:08:24 04/05/20 22 procedure on neck completed [facility] 11/11/2023 10:09:22 01/05/20 22 completed Kiana Crook [facility] 10/26/2024 09:53:02 04/03/20 20 Date of Last Colonoscopy completed [facility] 09/12/2024 09:49:37 09/23/19 20 Carpal tunnel surgery completed [facility] 11/11/2023 10:08:41 09/23/19 20 Colonoscopy completed [facility] 09/12/2024 09:57:35 09/23/19 17 partial resection of colon completed [facility] 11/11/2023 10:08:55 09/23/19 17 Colonoscopy completed [facility] 11/11/2023 10:09:02 09/23/19 07 Cholecystectomy completed [facility] 11/11/2023 10:08:48 09/23/18 89 Total Hysterectomy completed [facility] 11/11/2023 10:09:08 Imaging Results None recorded. Procedure Notes None recorded. Medical Equipment None Reported. Allergies Allergen ID Allergen Name Allergen Category Reaction Reaction Severity Criticality Documentation Date Start Date Code Code System Note Provider Name and Address Organization Details Recorded Time 16781 Prilosec medicatio n dizziness Not available Not available 10/28/2023 65092 5 [facility] 10:05:06 06159 Rocephin medicatio n hives Not available Not available 10/28/2023 9449 RxNojo-ann delgado, [facility] 4 10:20:03 81076 Nexium medicatio n dizziness Not available Not available 10/28/2023 63366 9 [facility] 10:20:27 19401 Dilaudid medicatio n anaphylax is Not available Not available 10/28/2023 25269 3 [facility] 4 10:20:57 Medications Name Sig Start [...] Available clobetasol 0.05 % topical cream APPLY 1GM PER VIGINA AT BEDTIME 2024 active Not Available Not Available Not Avai lable diphenoxyla te-atropine 2.5 mg-0.025 mg tablet 09/12 [...] Body mass index (BMI) Body weight Systolic And Diastolic Provider Name and Address Organization Details Last Updated DateTime 10/26/2024 162.56 cm 30.9 kg/m2 68309.63 g 126/76 mm[Hg] Kiana Crook [facility] 10/26/2024 09:52:49 Date Recorded Body height Body mass index (BMI) Body weight Systolic And Diastolic Provider Name and Address Organization Details Last Updated DateTime 10/28/2023 162.56 cm 26.8 kg/m2 76820.41 g 121/75 mm[Hg] Amanda Harmon [facility] 10/28/2023 10:19:45 Date Recorded Body height Body mass index (BMI) Body weight Systolic And Diastolic Provider Name and Address Organization Details Last Updated DateTime 11/11/2023 162.56 cm 27.1 kg/m2 63749.59 g 112/76 mm[Hg] Lian Melgar [facility] 11/11/2023 10:01:35 Date Recorded Body height Body mass index (BMI) Body weight Systolic And Diastolic Provider Name and Address Organization Details Last Updated DateTime 09/12/2024 162.56 cm 30.6 kg/m2 37918.44 g 124/68 mm[Hg] Lian Melgar [facility] 09/12/2024 09:48:24 Social History Question Answer Notes LastModified by Organizat ion Details LastModified Time Tobacco Smoking Status Current Every Day Smoker Amanda Harmon danny, [facility] 10/28/2023 10:06:25 Do You Have An Advance Directive? Yes Information n ot available 09/12/2024 Are You Blind Or Do You Have Difficulty Seeing? No [email or web address] Information n ot available 11/11/2023 What Is Your Level Of Caffeine Consumption? Moderate [email or web address] Information not available 11/11/2023 In The 14 Days Before Symptom Onset, Have You Had Close Contact With A Laboratory-confirm ed COVID-19 While That Case Was Ill? No [email or web address] Information n ot available 11/11/2023 In The 14 Days Before Symptom Onset, Have You Had Close Contact With A Person Who Is Under Investigation For COVID-19 While That Person Was Ill? No [email or web address] Information not available 11/11/2023 Have You Been To An Area Known To Be High Risk For COVID-19? No [email or web address] Information not available 11/11/2023 Are You Deaf Or Do You Have Serious Difficulty Hearing? No Information not available 11/11/2023 What Type Of Diet Are You Following? CARDIAC [email or web address] Information n ot available 11/11/2023 What Is The Highest Grade Or Level Of School You Have Completed Or The Highest Degree You Have Received? [id number] [email or web address] Information not available 09/12/2024 Are There Any Guns Present In Your Home? No [email or web address] Information not available 09/12/2024 Have You Ever Been Counseled For Unhealthy Alcohol Use? No [email or web address] Information not available 11/11/2023 Do You Use Protection During Sex? Usually [email or web address] Information not available 09/12/2024 Do You Use Your Seat Belt Or Car Seat Routinely? Yes [email or web address] Information not available 09/12/2024 Do You Have Smoke And Carbon Monoxide Detectors In Your Home? Yes [email or web address] Information not available 11/11/2023 At What Age Did You Start Smoking Tobacco? 17 [email or web address] Information not available 09/12/2024 Do You Use Sunscreen Routinely? Yes [email or web address] Information not available 11/11/2023 Has Tobacco Cessation Counseling Been Provided? No [email or web address] Information not available 11/11/2023 Have You Used IV Drugs? No [email or web address] Information not available 09/12/2024 Do You Have Difficulty Walking Or Climbing Stairs? No [email or web address] Information not available 11/11/2023 Sex: Unknown Functional Status Question Answer Note LastModified by Organizat ion Details LastModified Time Do you use any illicit or recreational drugs? No [email or web address] Information not available 11/11/2023 Do you or have you ever used any other forms of tobacco or nicotine? No [email or web address] Information not available 11/11/2023 What is your level of alcohol consumption? None [email or web address] Information not available 09/12/2024 Are you able to walk? YESWOREST [email or web address] Information not available 11/11/2023 Are you able to care for yourself? Yes [email or web address] Information n ot available 11/11/2023 What is your occupation? Retired [email or web address] Information not available 09/12/2024 Do you have difficulty dressing or bathing? No [email or web address] Information not available 11/11/2023 What is your exercise level? Occasional [email or web address] Information not available 11/11/2023 Mental Status Question Answer Note LastModified by Organization D etails LastModified Time Do you feel stressed (tense, restless, nervous, or anxious, or unable to sleep at night)? [id number] [email or web address] Information not available 09/12/2024 Family History Relationship Description Onset Age of this Age Resolved Age Notes LastModified by Organization Details LastModified Time Father Heart disease [email or web address] Not available 2023 10:50:39 Father Hypertensive disorder [email or web address] Not available 2023 10:51:08 Sister Diabetes mellitus [email or web address] Not available 2023 10:50:54 Sister Hypertensive disorder [email or web address] Not available 2023 10:51:08 Mother Diabetes mellitus [email or web address] Not available 2023 10:50:54 Mother Malignant neoplasm of lung [email or web address] Not available 2023 10:51:18 [...] SNOMED-CT Code Diagnosis ICD10 Code Diagnosis Note [id number] Avtar Perez MD [place] [address] [address] 10/28/2023 09:46:57 10/28/2023 11:22:37 Atrophic vulva 082249132 N90.5 this patient is a 63-year-ol d [...] will return in 2 weeks. Vulval pain 511842646 R1 0.2 [id number] Avtar Perez MD [place] [address],[facility] [place] [address] 11/11/2023 09:34:50 11/11/2023 14:49:04 Atrophic vulvovaginitis 53327322 N95.2 63-year-ol d female who presents for [...] the vulva. To follow-up in 1 month. 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 /Thigh. Tinea corporis [id number] B35.4 [id number] Avtar Perez MD [place] [address] [address] 10/26/2024 09:39:36 10/26/2024 10:27:47 Atrophic vulva 131027833 N90.5 64-year-ol d female with a severe [...] None Recorded Advance Directives Directive Y: Payers Insurance Date Sequence Insurance Name Policy Number Policy Sandoval Covered Member ID Sandoval Member ID Guarantor Name 10/24/2024 1 [facility] - DOS ON OR AFTER 21 (MEDICAID REPLACEMENT - HMO) Claudine Cruz [id number] Claudine Cruz Notes Date Note Type Note [...] the vagina. We spent over 40 minutes [id number]. More than 50% was counseling. We agreed to treat with vaginal estrogen and topical estrogen on the vulvar area of interest. She will return in 2 weeks. Avtar Perez MD [address], [place], [address], [facility] 10/28/2023 11:00:18 11/11/2023 text/html 63-year-old trevor finch who presents for follow-up on severe vulvovaginitis [...] very quickly. We spent over 20 minutes [id number]. More than 50% was counseling. She was re-examined. The vulva appears improved. She was using some in the vagina and some over the vulva. To follow-up in 1 month. Avtar Perez MD [address], [place], [address], [facility] 11/11/2023 14:19:59 09/12/2024 text/html [...] weeks. Avtar Perez MD [address], [place], [address], [facility] 09/12/2024 11:46:56 10/26/2024 text/html [...] week. She will follow up as needed. Avatr Perez MD [address], [place], [address], [facility] 10/26/2024 10:24:29 OBGyn Episode Ob Episode Information Episode Created Date Number of Fetuses Patient Bloodtype Patient rh Status Prepregnancy Weight lbs Domestic Partner Domestic Partner Phone Father Name Vegetable Canner Status 10/28/19 24 1 CLOSED Fetus Data First Name Last Name Admitted to NICU Weight (g) Sex Living Outcome Pediatric Complications Fetus ID Race Codes Race Delivery Type 3940.35 3704 M Full Term [id number] Vaginal Delivery Riaz Calculation Initial Riaz Date [...]
--- OUTSIDE RECORDS SUMMARY | 2025-03-31 12:09 | XMS_ITS ---
Author Organization Unknown Address [address] [place] [phone] Phone Care Team Providers Care Aitchbone Breaker Name Role Phone TRAMAINE SALDAÑA Attending Unavailable [...] 207 CVX Pneumococcal conjugate PCV20 , polysaccharide MWG241 conjugate, adjuvant, PF 08/16/2023 Completed 216 CVX COVID-19, mRNA, LNP-S, bivalent, PF, 50 mcg/0.5 mL or 25mcg/0.25 mL dose 06/26/2022 Completed 229 CVX COVID-19, mRNA, LNP-S, PF, leoncio-sucrose, 30 mcg/0.3 mL 06/26/2024 Completed 309 CVX Social History Type Status Start Date End Date Code Code Syst em Smoking History Current every day smoker 380560780 SNOMED CT Sex Female Vital Signs Vital Sign Value Unit Lucas Value Lucas Unit Date/Time Recent/Initial? Code Code System Body Mass Index 34.20 kg/m2 03/04/2025 08:03 Initial 94577 -5 [facility] Systolic Blood Pressure 91 mm[Hg] 03/04/2025 08:03 Initial 8480- 6 [facility] Diastolic Blood Pressure 60 mm[Hg] 03/04/2025 08:03 Initial 8462- 4 [facility] Body Surface Area 1.88 m2 03/04/2025 08:03 Initial 3140- 1 [facility] Height 154.940 0 cm 61.00 in 03/04/2025 08:03 Initial 8302- 2 [facility] O2 Saturation 98 % 2024 08:03 Initial 84064 -5 [facility] Pulse 59.0 /min 03/04/2025 08:03 Initial 8867- 4 [facility] Temperature 36.2 Kiara 97.1 F 03/04/20 08:03 Initial 8310- 5 [facility] Weight 82.10 kg 181.00 lbs 03/04/2025 08:03 Initial 72211 -7 [facility] Medications Medication Start Date End Date Route Frequency Dose Code Code System Medication Instructions Home Meds Baclofen 10MG Oral Tablet 12/21/2024 Unknown ORAL NEEDED 3 TIMES A DAY 10 MILLIGRAMS 935397 RxNorm TAKE 10 MILLIGRAMS ORAL NEEDED 3 TIMES A DAY Famotidine 40MG Oral Tablet 12/21/2024 Unknown ORAL TWICE A DAY 40 MILLIGRAMS 433139 RxNorm TAKE 40 MILLIGRAMS ORAL TWICE A DAY HYDROcodone bitartrate-acet aminophen 5MG-325MG Oral Tablet 12/21/2024 Unknown ORAL NEEDED EVERY 8 HOURS 1 unit(s) 306061 RxNorm TAKE 1 EACH ORAL NEEDED EVERY 8 HOURS Ondansetron 4MG Oral Tablet 12/21/2024 Unknown ORAL NEEDED EVERY 8 HOURS 4 MILLIGRAMS 163811 RxNorm TAKE 4 MILLIGRAMS ORAL NEEDED EVERY 8 HOURS Pravastatin Sodium 10MG Oral Tablet 12/21/2024 Unknown ORAL ONCE A DAY 10 MILLIGRAMS 951331 RxNorm TAKE 10 MILLIGRAMS ORAL ONCE A DAY Xarelto 20MG Oral Tablet 12/21/2024 Unknown ORAL ONCE A DAY 20 MILLIGRAMS 2234146 RxNorm TAKE 20 MILLIGRAMS ORAL ONCE A DAY diphenoxylate HCl-atropine sulfate 2.5MG-0.025MG Oral Tablet 12/21/2024 Unknown ORAL NEEDED 4 TIMES A DAY 1 unit(s) 8690402 RxNorm TAKE 1 EACH ORAL NEEDED 4 [...] physician. Reason For Referral No Data Found Procedures Procedure Name Date Status Code Code Syste m INJECTION SINGLE/WEDGER MACHINE TRIGGER POINT 09/24 MUSCLES 03/04/2025 completed CPT Problems Problem Start Date Resolved Date Status Code Code System CHRONIC BILATERAL MAXILLARY SINUSITIS active 18072325901199316 SNO MED-CT PAIN IN LEFT HIP active 5409999035571 00 SNOMED-CT 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 353903373017518 SNOMED-CT TENSION TYPE HEADACHE, UNSPECIFIED active 819750323 SNOMED-CT FIBROMYALGIA active 020625548 SNOMED- CT LEFT SHOULDER PAIN active 9839725355 SNOMED-CT PAIN IN THORACIC SPINE active 9253412 09 SNOMED-CT CERVICALGIA active 96698253 SNOMED-C T GASTRO-ESOPHAGEAL REFLUX DISEASE WITHOUT ESOPHAGITIS active 437091545 SNOMED-CT PAIN IN RIGHT HIP active 534184418727 102 SNOMED-CT LOW BACK PAIN active 156620601 SNOMED -CT PAIN OF RIGHT ANKLE JOINT active 91188421918767842 SNOMED-CT PAIN IN RIGHT FOOT active 11004698845 9107 SNOMED-CT CERVICAL SPONDYLOSIS active 609158785 SNOMED-CT POLYOSTEOARTHRITIS, UNSPECIFIED active 566348176 SNOMED-CT Allergies and Adverse Reactions Allergy Substance Reaction Severity Start Date Concern Status Code Code System TRAZODONE Dizziness (SNOMED-CT: 559829240) Moderate Active 78708 RxNorm ATORVASTATIN Vomiting (SNOMED-CT: 276087060) Moderate Active 16582 RxNorm CEFDINIR Diarrhea (SNOMED-CT: 51484905) Moderate Active 54393 RxNorm PREGABALIN Active 581483 RxNorm CLINDAMYCIN HCL Moderate Active 2582 RxNorm Plan of Treatment CT Abdomen/Pelvis W Contrast (02864) Encounters Encounter Diagnosis Start Date Code Code Sys tem Other spondylosis with myelopathy, cervical region 08/2025 SNOMED-CT Personal Care Team Section Performer Name Performer Role Active Date Inactive Wilbert JACQUELINE Jensen PCP - Primary care physician 2021-06-19 Progress Notes [facility] 03/04/2025 09:24 All Demographics Patient Name Age Sex Visit Number Admission Date/Time Attending Physician Date of Service Room and Bed Emergency Contact RENO AMARO 1960 64 years Female [id number] 03/04/2025 07:54 Chris Benoit 03/04/2025 02-OP CAM SHELTON - [id number] Pain Management Follow Up Vital Signs: Today Date/Time BP (mm/Hg) BP Position/Site MAP (mm/Hg) Heart Rate Pulse Site Resp Temp (C) Temp (F) SPO2% O2 L/min FiO2 EtCO2 (mm/Hg) O2 Device Blood Sugar Pain Score Height (cm) Height (in) Weight (kg) Weight (lbs/ozs) Scale BMI BSA Head Cir (cm) 03/04/2025 08:03 91/60 Sitting/Left Arm 70 59 Pulse Ox 36.2 Tympanic 97.1 Tympanic 98 % Room Air 21% 4 154.9 cm 61 in 82.1 kg 181.0 Stated 34.2 1.88 Chief Complaint: Cervicalgia History of Present Illness: Patient here today, for pain management follow up for 10 week check in, PT. She is waiting on MRI from her Doctor, since she has finished PT. She is wanting trigger points as well as after MRI interested in an KWESI. Location: The pain is located in the neck, shoulder, and hip. The pain does radiate to occipital scalp. Quality: Patient rates the pain today, as a 4/10 at this time, and at times the pain may be as severe as a 10/10. The pain may be described as throbbing, pressure, compressed, wobbly, and tightness. Duration: Constant Timing: Patient reports this pain has been present for 15+ years. Alleviating Factors: Pain is relieved by rest, tens unit, and ice/hot. Associated Symptoms: Pain is worsened by exercise, physical exertion, and ADL's. Pain History: Patient with a history of left hip pain. Patient reports that they have had recent falls. She fell on . Has not been seen by DR, but has been to chiropractor. PHQ-9 Depression Screening Patient condition has declined since last screening Patient condition has improved since last screening No previous Screening Patient Declined Screening X Score has not changed significantly since last visit PHQ-9 Score Assessment: N/A: PHQ-9 not performed/Patient declined 4 0-4: Not an indicator of depression 5-9: Indicates mild depression 10-14: Indicates moderate depression 15-19: Indicates moderately severe depression 20-27: Indicates severe depression Depression Remission Indicated: X Yes, previous PHQ-9 score >9 in the past 12 months with current score <5 Previous PHQ-9 score or date is unknown [...] Dosepak. Patient states this relieved her pain temporarily. Patient also reports that she has had extensive dizziness. She is on medication for this. She states that this inhibits her from driving. Cervical Facet Assessment Negative Spurling's test. Patient in pain with extension and rotation of her cervical spine. She has referred pain patterns to the posterior [...] of this causes her pain as well. Date of appointment: 03/04/25 Discussion: Patient tried PT with minimal relief. States that her surgeon ordered an MRI and is awaiting to be scheduled for this imaging. Patient has trigger points of bilateral trapezius muscles. We discussed risks and benefits of trigger point injections in these areas. Patient verbalizes understanding and wishes to proceed. Patient also has continued pain of right hip which she did have a previous injection in which provided relief. We discussed risks and benefits of scheduling a right hip injection inf 2-4 weeks. Patient verbalizes understanding and wishes to proceed. She has x rays of right hip at outside facility that we are waiting to obtain. Radiology imaging reviewed at appointment: none to review today Trigger Points of the bilateral Trapezius muscles Provider: ROGERS Weston Pre-Operative Diagnosis: myositis Trigger Point Injection(s) - -- bilateral Post-Operative Diagnosis: Same Location of procedure: [ ] OR [ x] Clinic Complications: None Description of Procedure in Detail: Patient was placed in standing position. Trigger points palpated in the thoracic and cervical region. Skin was prepped with ChloraPrep. 3-minute dry time was allowed. Trigger points were isolated between pointer finger and thumb. A 21 gauge 1.5 inch needle was advacned to the belly of the muscle. A muscle twitch was observed. The injection duplicated send of the patient's pain. After negative aspiration a 2mL injectate was administered. The injectate contained 1mL 10mg Decadron, 2mL 2% lidocaine mixed with 3mL of 0.5% ropivacaine. The injection was repeated into the opposite trapezius muscle at the spinal border. The injection was repeated in the left trapezius and the scapular border. The patient tolerated the procedure well. The patient experienced some relief immediately. Provider Signature: AUGUSTUS Weston CRNA Ropivacaine hydrochloride injection LONG-TERM 0.5% [id number] Lot space [id number] : Xylocaine M PF 2% [facility] [id number] Lot [id number] 07/18 Dexamethasone sodium phosphate injection LONG-TERM 10 mg/mL [facility] 31388-414-68 Lot [id number] Expires Pain Treatment History: Conservative Measures Tried and Failed: rest, heat/ice, tens, traction, pt Medications Trialed: steroids, nsaids, hydrocodone, muslce relaxers Previous Interventional Pain Procedures: tpi - helpful PLAN: TPI in office today Obtain Hip imaging from [facility] of right hip Schedule right hip injection in OR with fluoro -f/u 2 weeks after -review MRI of c spine at that time Problem List Chronic bilateral maxillary sinusitis Pain in left hip Carpal tunnel syndrome of lt arm Tension type headache, unspecified Fibromyalgia Left shoulder pain Pain in thoracic spine Cervicalgia Gastro-esophageal reflux disease without esophagitis Pain in right hip Low back pain Pain of right ankle joint Pain in right foot Cervical spondylosis Polyosteoarthritis, unspecified Surgery List: No Surgical History Available Smoking Status: Current every day smoker, Cessation Education: Allergy List TRAZODONE, Medication ATORVASTATIN, Medication CEFDINIR, Medication PREGABALIN, Medication CLINDAMYCIN HCL, Medication Home Meds: Dose and Freq Medication Dosage Frequency Baclofen 10MG Oral Tablet 10 MILLIGRAMS NEEDED 3 TIMES A DAY Famotidine 40MG Oral Tablet 40 MILLIGRAMS TWICE A DAY HYDROcodone bitartrate-acetaminophen 5MG-325MG Oral Tablet 1 EACH NEEDED EVERY 8 HOURS Ondansetron 4MG Oral Tablet 4 MILLIGRAMS NEEDED EVERY 8 HOURS Pravastatin Sodium 10MG Oral Tablet 10 MILLIGRAMS ONCE A DAY Xarelto 20MG Oral Tablet 20 MILLIGRAMS ONCE A DAY diphenoxylate HCl-atropine sulfate 2.5MG-0.025MG Oral Tablet 1 EACH NEEDED 4 TIMES A DAY
--- OUTSIDE RECORDS SUMMARY | 2025-03-31 12:09 | XMS_ITS | Data Portability ---
Author Organization [facility], [address] [facility] ([place]) Address [address] [place] [address] Care Team Providers Care Rug Dyer Helper Name Role Phone JACQUELINE MATTSON Primary Care [...] see her 3 months after for reevaluation. [email or web address] Not available 05/21/2024 18:41:17 06/01/2024 06/01/2024 Ms. [...] her after 6 months for reassessment. [email or web address] [email or web address] Not available 06/04/2024 07:07:27 06/01/2024 06/01/2024 In [...] will be written on her prep sheet. [email or web address] Not available 06/01/2024 12:43:27 11/30/2024 11/30/2024 Assessment: [...] she can have the MRI at the [facility] in [place]. I did offer to prescribe medication to [...] to face counseling regarding the cervical pannus. [email or web address] Not available 12/08/2024 16:18:20 11/30/2024 11/30/2024 Ms. [...] She can follow up as needed. [email or web address] Not available 12/02/2024 06:22:29 Plan of Treatment Reminders Order Date Submit Date Provider Last Modified By Organization Details Last Modified Time Details Appointments None recorded. Lab None recorded. Referral physical therapist referral - Pt. is s/p Right lateral craniotomy C1 laminectomy resection of odontoid process on 04/05/22. Please call pt to schedule. Thank you!! 2024 025 [facility], [address] [place], [address], 18:16:57 Procedures None recorded. Surgeries None recorded. [...] Abnormal Flag Note LastModifiedBy Organization Detail LastModifiedTime 06/10/2008/05/2023 MRI, cervi benito spine , w/o contr ast No observ ation record ed. BARCODE Not Available 2023 11:01:52 08/19/20 XR, cervi benito spine , 4 or 5 view No observ ation record ed. [facility] [address] [place], [address], 08/19/2024 17:11:19 10/05/19 25 10/05/2024 CT, head, w/o contr ast No observ ation record ed. [facility] [address] [place], [address], 10/07/2024 11:45:19 11/11/19 25 11/07/2024 CT, head, w/o contr ast No observ ation record ed. BARCODE Not Available 2024 11:50:05 11/11/19 25 11/07/2024 CT, cervi benito spine , w/o contr ast No observ ation record ed. BARCODE Not Available 2024 11:50:05 01/20/20 25 04/05/2022 imagi ng/di agnos tic resul t No observ ation record ed. [email or web address] Not Available 00:28:18 03/18/20 25 12/09/2023 MRI, brain , w/o contr ast No observ ation record ed. BARCODE Not Available 2024 11:00:53 03/27/20 25 11/12/2017 imagi ng/di agnos tic resul t No observ ation record ed. [email or web address] Not Available 0 03/27/2025 08:03:59 03/27/20 25 01/14/2019 imagi ng/di agnos tic resul t No observ ation record ed. [email or web address] Not Available 0 03/27/2025 08:03:59 03/27/20 02/16/2020 imagi ng/di agnos tic resul t No observ ation record ed. [email or web address] Not Available 0 03/27/2025 08:04:01 03/27/2003/11/2018 imagi ng/di agnos tic resul t No observ ation record ed. [email or web address] Not Available 0 03/27/2025 08:04:04 03/27/20 25 03/11/2018 imagi ng/di agnos tic resul t No observ ation record ed. [email or web address] Not Available 0 03/27/2025 08:04:05 03/27/2004/27/2019 imagi ng/di agnos tic resul t No observ ation record ed. [email or web address] Not Available 0 03/27/2025 08:04:12 Result Notes None recorded. Problems Name Problem SNOMED Code Status Onset Date Resolution Date Notes Provider Name and Address Organization Details Recorded Time Dysphagia 97417679 Active 2023 Neva Mcdowell [facility] 4 08:59:27 Chronic abdominal pain 376421943 Active 2023 Khang Shetty APRN, NUT GRADER [address] [place] [address], [phone], [facility] 4 12:43:41 Nonulcer dyspepsia 5080293 Active 2023 Khang Shetty APRN, NUT GRADER [address] [place] [address], [address], [facility] 4 12:43:50 Peripheral vascular disease 570243868 Active 2023 Khang Shetty APRN, NUT GRADER [address] [place] [address], [address], [facility] 4 12:44:08 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 289417494 Active 2023 Lorelei Boudreaux [facility] 4 07:07:41 Compression of cervical spinal cord 9589880116 Active 2023 Irina Coyle [facility] 4 15:04:56 Spinal cord compression 28611425 [facility] 15:05:09 Rheumatoid arthritis of cervical spine 911409581 Active 2023 Monse Calloway [facility] 4 14:02:00 Hydrocephalus ex vacuo 23613755 Active 2023 Chey Napoles MD [address] [place] [address], [address] , [facility] 4 10:53:13 Pain due to varicose veins of lower extremity 514467056 Active [address] [facility] 4 08:48:52 Edema of lower extremity 331685228 Active 2023 Tiff Nishant [facility] 4 12:13:53 Problem Notes None recorded. Procedures Surgical History Date Name Laterality Status Provider Name and Address Organization Details Recorded Time 07/23 esophagogastroduodenoscopy completed Neva Mcdowell [facility] 4 08:58:52 04/05 cervical laminectomy completed Irina Coyle [facility] 4 15:01:26 Colonoscopy with biopsy completed N ot Available [facility] 4 14:23:30 Removal of gallbladder completed No t Available [facility] Note 4 14:23:30 Total hysterectomy completed Not Available [facility] 4 14:23:30 Imaging Results None recorded. Procedure Notes None recorded. Medical Equipment None Reported. Allergies Allergen ID Allergen Name Allergen Category Reaction Reaction Severity Criticality Documentation Date Start Date Code Code System Note Provider Name and Address Organization Details Recorded Time 3191056 Dilaudid medicatio n anaphylax is Not available Not available 10/23/20232021 87563 3 RxNorm React ion: Anaph ylaxi s; Not Available [facility] 4 04:31:20 5955057 esomepraz ole magnesium medicatio n dizziness Not available Not available 10/23/20232010 18311 2 RxNorm React ion: Dizzi ness; Not Available [facility] 4 04:31:20 337474 omeprazol e magnesium medicatio n nausea Not available Not available 10/21/20232014 45368 6 RxNorm React ion: Nause a; Other ; Not Available [facility] 4 21:39:22 219092 Rocephin medicatio n rash Not available Not available 10/21/20232016 9449 RxNorm React ion: Rash; Not Available [facility] 4 21:39:23 Medications Name Sig Start Date Stop Date [...] in Arterial blood by Pulse oximetry Systolic And Diastolic Provider Name and Address Organization Details Last Updated DateTime 5 162.56 cm 31.5 kg/m2 26650.8 4 g 54 /min 98 % 98 % 124/82 mm[Hg] Yuliana Orr [facility] 5 15:17:19 Date Recorded Body height Body mass index (BMI) Body weight Heart rate Respiratory rate Oxygen saturation Oxygen saturation in Arterial blood by Pulse oximetry Systolic And Diastolic Provider Name and Address Organization Details Last Updated DateTime 5 162.56 cm 31.6 kg/m2 64035 g 46 /min 20 /min 99 % 99 % 140/64 mm[Hg] [facility] 5 13:58:02 Date Recorded Body height Respiratory rate Oxygen saturation Oxygen saturation in Arterial blood by Pulse oximetry Systolic And Diastolic Provider Name and Address Organization Details Last Updated DateTime 4 162.56 cm 20 /min 97 % 97 % 148/60 mm[Hg] [facility] 4 16:16:16 Date Recorded Body height Body mass index (BMI) Body weight Systolic And Diastolic Provider Name and Address Organization Details Last Updated DateTime 06/01/2024 162.56 cm 29.9 kg/m2 60948.07 g 105/70 mm[Hg] Khang Shetty APRN, NUT GRADER [address] [place] [address], [phone], [facility] 06/01/2024 12:38:55 Date Recorded Body height Respiratory rate Heart rate Oxygen saturation Oxygen saturation in Arterial blood by Pulse oximetry Systolic And Diastolic Provider Name and Address Organization Details Last Updated DateTime 4 162.56 cm 18 /min 52 /min 96 % 96 % 120/54 mm[Hg] [facility] 4 13:43:16 Social History Question Answer Notes LastModified by Organizat ion Details LastModified Time Tobacco Smoking Status Current Every Day Smoker [facility] 06/01/2024 13:43:55 Do You Have An Advance Directive? Yes [email or web address] Information not available 04/06/2024 What Is Your Level Of Caffeine Consumption? Moderate [email or web address] Information not available 04/06/2024 What Is Your Code Status? Other [email or web address] Information not available 04/06/2024 How Many Times Per Week Do You Exercise? Less Than 1 Time Per Week [email or web address] Information not available 04/06/2024 How Many Packs Per Day (PPD)? 3-5 Per Day [email or web address] Information not available 05/21/2024 How Long Have You Smoked? Since I Was 17 [email or web address] Information not available 04/06/2024 Do You Have A Medical Power Of Senior Cost Analyst? Yes [email or web address] Information not available 04/06/2024 What Was The Date Of Your Most Recent Tobacco Screening? 04/13/2024 [email or web address] Information not available 04/06/2024 What Is Your Relationship Status? Single [email or web address] Information not available 04/06/2024 Sex: Unknown Functional Status Question Answer Note LastModified by Organizat ion Details LastModified Time Do you use any illicit or recreational drugs? No [email or web address] Information not available 04/06/2024 What is your level of alcohol consumption? None [email or web address] Information not available 04/06/2024 Are you currently employed? No [email or web address] Information not available 04/06/2024 What is your occupation? Retired [email or web address] Information not available 04/06/2024 What is your exercise level? Occasional [email or web address] [...] SNOMED-CT Code Diagnosis ICD10 Code Diagnosis Note [id number] Chey Napoles MD [facility] ([place]) [address] [place] [phone] 03/23/2024 10:30:59 03/25/2024 08:33:26 Hydrocephalus ex vacuo 55022002 G91.0 [id number] Karson Bright MD [address] [place] [address] [place] ([place]) [address] [place] [address],4 [place] [address] 04/13/2024 15:24:08 04/13/2024 16:46:06 Pain due to varicose veins of lower extremity 896189652 I83.644 [id number] Karson Bright MD [address] [place] [address] [facility] [place] ([place]) [address] [place] [address],[address] [place] [address] 05/21/2024 16:02:16 05/21/2024 17:03:25 Pain due to varicose veins of lower extremity 566962154 I83.565 [id number] Khang Shetty APRN, NUT GRADER [facility] 2nd Gastroent erology ([place]) [address] [place] [address] 06/01/2024 12:06:40 06/01/2024 15:02:22 Dysphagia 24127232 R13.10 Chronic ab dominal pain 914594694 R10.9 Nonulcer dyspepsia 92703 07 K30 Peripheral vascular disease 464758095 I73.9 [id number] Karson Bright MD [address] Vascular Surgery ([place]) [address] [place] [address],[address] [place] [address] 06/01/2024 13:21:13 06/01/2024 14:04:42 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 703669779 I83.11 I83.12 Additional diagnosis detail: Varicose veins of lower extremity with inflammati on, bilateral [id number] Jessenia Richardson, WINDOWS VMWARE ENGINEER, DNP, NUT GRADER [facility] Neurosurg christine ([place]) [address] [place] [address] 11/30/2024 14:40:48 12/09/2024 06:04:12 Compression of cervical spinal cord 2404557973 G95.20 [id number] Karson Bright MD [address] [facility] Vascular Surgery ([place]) [address] [place] [address], [place] [address] 11/30/2024 13:29:59 11/30/2024 17:36:11 Edema of lower extremity 716005929 R60.0 Vascular insufficiency 57975596 I87.2 Health Concerns Section Related Observation LastModified by Organization Detai ls LastModified Time None Recorded Concern Status LastModified by Organization Details LastModified Time None Recorded Advance Directives Directive Y: Payers Insurance Date Sequence Insurance Name Policy Number Policy Sandoval Covered Member ID Sandoval Member ID Guarantor Name 12/09/2024 1 [facility] ON OR AFTER 03/23/21 (MEDICAID REPLACEMENT - HMO) Claudine Cruz [id number] Claudine Cruz Notes Date Note Type Note Provider Name and Address Organization Details Recorded Time 06/01/2024 text/html 63-year-old delmi francis here to discuss some upper GI issues.Upon [...] sounds like she has to buy this aks-im-lornnf because her insurance does not cover as [...] too sure if she is having some spasm, causing the dysphagia.No unintentional weight loss with this. No overt blood in her stool. No vomiting. No abdominal discomfort anywhere else.She does have a history of cholecystectomy. Khang Shetty, WINDOWS VMWARE ENGINEER, NUT GRADER [address] [place] [address], [phone], [place] [facility] 06/01/2024 12:44:24 06/01/2024 text/html This [...] current symptoms at this point.ronny Bright MD [facility], [address], [facility] 06/04/2024 18:05:45 11/30/2024 text/html Ms. Cruz is a 64-year-old female who returns for follow up of her C2 pannus. She is accompanied by her sister. She is status post right lateral craniotomy with C1 laminectomy, resection of odontoid process. This was done on April 05, 2022, at [facility]. At her last appointment with Dr. 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 She reports she went to the ER in [place] a couple weeks ago for a constant [...] symptoms. Patient denies confusion or word difficulties. Rodding Machine Tender: Dr. Wilkins ([place])Blood thinner: Xarelto 02/26/19-reports fall started pain a [...] C1 laminectomy resection of odontoid process at [facility].-in cervical collar. right side of head is bothersome. doing well. XR shows no gross instability on flexion and extension. f/u in 3 mo with MRI cervical.07/23/22-re ports neck pain, right ear feels full, feels like she is going to pass out. MRI does not have any revealing dynamic instability. neck fdhiyfprr71/15/23-ta kes pain meds around the clock. incision is well healed. MRI in June.08/05/23-MRI shows stable anterior C2 pannus w/o evidence of spinal cord compression. offered referral to Dr. Ordoñez. reports neck pain.07/29/24-XR cervical at [place] shows no acute osseous abnormality cervical spine.11/07/24-Pt went to [place] ED for neck pain and headache. CT cervical shows Mild cervical spondylosis. no acute osseus abnormality. Jessenia Richardson, WINDOWS VMWARE ENGINEER, DNP, NUT GRADER [address] [place] [address], [phone], [place] [facility] 12/08/2024 16:18:37 11/30/2024 text/html This is a [...] denies any significant heaviness, aching, pain or discomfort.ronny Bright MD [address] [place] [address], [phone], [facility] 12/17/2024 23:30:02 OBGyn Episode No OBEpisode recorded.
--- OUTSIDE RECORDS SUMMARY | 2025-03-31 12:10 | XMS_ITS | Clinical Summary ---
Author Organization [facility] Address [address] [place] [address] Care Team Providers Care Social Worker Assistant Name Role Phone Rey Wadsworth MD Unavailable Yasmany Be MD Primary Care Provider [phone] Erin Mead NP Unavailable Unavailable Allergies Active Allergy Reactions Criticality Noted Date Comments Aspirin GI Upset 02/16/2020 Esomeprazole Other (see comment) 02/16/2020 Patient states it makes her feel loopy Hydromorphone Shortness of Breath High 03/15/2022 Omeprazole Other (see comment) 02/16/2020 Patient states it makes her feelloopy Ceftriaxone Rash Low 02/16/2020 Medications hyoscyamine 0.125 MG SL tablet as needed. 01/20/2010 Active Multiple Vitamin (ONCE DAILY) Tab Take 1 tablet by mouth daily. 11/09/2015 Active pravastatin 10 MG tablet Take 1 tablet by mouth daily. 11/09/2015 Active PROAIR HFA 108 (90 Base) MCG/ACT inhaler Inhale 2 puffs into the lungs as needed. 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 Not on file Not [...] 4:11 PM CDT Height 165.1 cm (5' 5) 03/15/2022 4:11 PM CDT Body Mass Index 25.63 03/15/2022 4:11 PM CDT Plan of Treatment Health Maintenance Due Date Last Done Comments ASCVD LDL 1960 ASCVD Statin 1960 Colorectal Cancer Screening Colonoscopy (10 Years) 1961 Annual Physical 1964 Hepatitis C 1979 DTaP, Tdap and Td Vaccines ( 1 - Tdap) 1980 Pneumococcal Vaccine: 50+ Years (1 of 2 - PCV) 1980 Mammogram Screening 2001 Zoster Vaccines (1 [...] Documents on File Type Date Recorded Patient Sewing Machine Tester Expl anation Advance Directives and Living Will 02/19/2019 12:00 AM POWER OF MANAGER OF INVESTIGATIONS Advance Directives and Living Will 12/01/2018 12:00 AM POWER OF MANAGER OF INVESTIGATIONS Advance Directives and Living Will 11/10/2018 12:00 AM POWER OF MANAGER OF INVESTIGATIONS Advance Directives and Living Will 09/02/2018 12:00 AM POWER OF MANAGER OF INVESTIGATIONS Advance Directives and Living Will 03/11/2018 12:00 AM POWER OF MANAGER OF INVESTIGATIONS Advance Directives and Living Will 03/11/2018 12:00 AM POWER OF MANAGER OF INVESTIGATIONS Advance Directives and Living Will 01/15/2017 12:00 AM POWER OF MANAGER OF INVESTIGATIONS Care Teams Social Worker Assistant Relationship Specialty Start Date End Date Yasmany uSllivan MD [address] [place] [address] PCP - General INTERNAL MEDICINE 03/11/17 Rey Wadsworth MD [place] [employer] CLINICAL CARDIAC ELECTROPHYSIOLOGY 03/11/17 Erin Mead NP [address] [place] [address] Nurse Practitioner Electrophysiology 03/13/18
--- OUTSIDE RECORDS SUMMARY | 2025-03-31 12:10 | XMS_ITS ---
Author Organization Unknown Address [address] [place] [phone] Phone Care Team Providers Care Sugar Presser Name Role Phone TRAMAINE SALDAÑA Attending Unavailable [...] 207 CVX Pneumococcal conjugate PCV20 , polysaccharide ZSV157 conjugate, adjuvant, PF 08/16/2023 Completed 216 CVX COVID-19, mRNA, LNP-S, bivalent, PF, 50 mcg/0.5 mL or 25mcg/0.25 mL dose 06/26/2022 Completed 229 CVX COVID-19, mRNA, LNP-S, PF, leoncio-sucrose, 30 mcg/0.3 mL 06/26/2024 Completed 309 CVX Social History Type Status Start Date End Date Code Code Syst em Smoking History Current every day smoker 294810011 SNOMED CT Sex Female Vital Signs Vital Sign Value Unit Ferry Value Ferry Unit Date/Time Recent/Initial? Code Code System Body Mass Index 34.20 kg/m2 12/21/2024 09:18 Initial 15774 -5 [facility] Systolic Blood Pressure 138 mm[Hg] 12/21/2024 09:18 Initial 8480- 6 [facility] Diastolic Blood Pressure 83 mm[Hg] 12/21/2024 09:18 Initial 8462- 4 [facility] Body Surface Area 1.88 m2 12/21/2024 09:18 Initial 3140- 1 [facility] Height 154.940 0 cm 61.00 in 12/21/2024 09:18 Initial 8302- 2 [facility] O2 Saturation 98 % 2024 09:18 Initial 24908 -5 [facility] Pulse 60.0 /min 12/21/2024 09:18 Initial 8867- 4 [facility] Temperature 36.3 Kiara 97.3 F 12/22/19 09:18 Initial 8310- 5 [facility] Weight 82.10 kg 181.00 lbs 12/21/2024 09:18 Initial 91489 -7 [facility] Medications Medication Start Date End Date Route Frequency Dose Code Code System Medication Instructions Home Meds Baclofen 10MG Oral Tablet 12/21/2024 Unknown ORAL NEEDED 3 TIMES A DAY 10 MILLIGRAMS 764672 RxNorm TAKE 10 MILLIGRAMS ORAL NEEDED 3 TIMES A DAY Famotidine 40MG Oral Tablet 12/21/2024 Unknown ORAL TWICE A DAY 40 MILLIGRAMS 014323 RxNorm TAKE 40 MILLIGRAMS ORAL TWICE A DAY HYDROcodone bitartrate-acet aminophen 5MG-325MG Oral Tablet 12/21/2024 Unknown ORAL NEEDED EVERY 8 HOURS 1 unit(s) 099336 RxNorm TAKE 1 EACH ORAL NEEDED EVERY 8 HOURS Ondansetron 4MG Oral Tablet 12/21/2024 Unknown ORAL NEEDED EVERY 8 HOURS 4 MILLIGRAMS 816541 RxNorm TAKE 4 MILLIGRAMS ORAL NEEDED EVERY 8 HOURS Pravastatin Sodium 10MG Oral Tablet 12/21/2024 Unknown ORAL ONCE A DAY 10 MILLIGRAMS 637155 RxNorm TAKE 10 MILLIGRAMS ORAL ONCE A DAY Xarelto 20MG Oral Tablet 12/21/2024 Unknown ORAL ONCE A DAY 20 MILLIGRAMS 3651367 RxNorm TAKE 20 MILLIGRAMS ORAL ONCE A DAY diphenoxylate HCl-atropine sulfate 2.5MG-0.025MG Oral Tablet 12/21/2024 Unknown ORAL NEEDED 4 TIMES A DAY 1 unit(s) 4744998 RxNorm TAKE 1 EACH ORAL NEEDED 4 [...] Code System CHRONIC BILATERAL MAXILLARY SINUSITIS active 63739549773624598 SNO MED-CT PAIN IN LEFT HIP active 8905429392741 00 SNOMED-CT 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 793851252943324 SNOMED-CT TENSION TYPE HEADACHE, UNSPECIFIED active 642797801 SNOMED-CT FIBROMYALGIA active 327895720 SNOMED- CT LEFT SHOULDER PAIN active 1259467742 SNOMED-CT PAIN IN THORACIC SPINE active 6502645 09 SNOMED-CT CERVICALGIA active 08807856 SNOMED-C T GASTRO-ESOPHAGEAL REFLUX DISEASE WITHOUT ESOPHAGITIS active 785865779 SNOMED-CT PAIN IN RIGHT HIP active 495350767139 102 SNOMED-CT LOW BACK PAIN active 793689150 SNOMED -CT PAIN OF RIGHT ANKLE JOINT active 25571634542509914 SNOMED-CT PAIN IN RIGHT FOOT active 23926282453 9107 SNOMED-CT CERVICAL SPONDYLOSIS active 459403388 SNOMED-CT POLYOSTEOARTHRITIS, UNSPECIFIED active 344453898 SNOMED-CT Allergies and Adverse Reactions Allergy Substance Reaction Severity Start Date Concern Status Code Code System TRAZODONE Dizziness (SNOMED-CT: 728248104) Moderate Active 30167 RxNorm ATORVASTATIN Vomiting (SNOMED-CT: 351494972) Moderate Active 90438 RxNorm CEFDINIR Diarrhea (SNOMED-CT: 02382324) Moderate Active 08368 RxNorm PREGABALIN Active 292102 RxNorm CLINDAMYCIN HCL Moderate Active 2582 RxNorm Plan of Treatment CT Abdomen/Pelvis W Contrast (97095) Plan F/U after MRI -review/discuss possible injections -trigger point injections that day Encounters Encounter Diagnosis Start Date Code Code Sys tem Other specified dorsopathies, cervical region 12/22/19 SNOMED-CT Personal Care Team Section Performer Name Performer Role Active Date Inactive JACQUELINE Mercer PCP - Primary care physician 2021-06-19 Progress Notes [facility] 02/11/2025 07:52 Demographics Basic Patient Name Age Sex RENO AMARO 1960 64 years Female Date/Time: 02.10.25901 Multiple Calls: no Caller Name: Florence Pt called to follow up and reports the following: have been completed for about 3 weeks now, went to [facility] for P.T. Neck is super tight and tense in shoulder regions. Sees chiro and they report i am super tight. in my shoulder/neck. Is awaiting MRI from my neck surgeon out of [place] (unsure of spelling) SEE NOTE 3 Dr [place] will assist with obtaining open MRI - rekha. Needs Open MRI. Currently, with fluid in her ears and is following up with a ENT specialist, March 01. Mon. is having balance issues & other complications from this concern, and I do fall upon standing. so I have had to makde adjustments for this. Stress Test on March 02. Tyrone appt booked with us on March 04, for 11 week follow up. I also see a kidney Dr. This staff requested records from [facility] today. [facility] 12/21/2024 10:53 All Demographics Patient Name Age Sex Visit Number Admission Date/Time Attending Physician Date of Service Room and Bed Emergency Contact RENO AMARO 1960 64 years Female [id number] 12/21/2024 09:14 Chris Benoit 12/21/2024 03-OP CAM SHELTON - [id number] PAIN MANAGEMENT HISTORY & PHYSICAL Vital Signs: [...]
--- OUTSIDE RECORDS SUMMARY | 2025-03-31 12:10 | XMS_ITS | Encounter Summary ---
Author Organization [facility] Address [address] [place] [address] Care Team Providers Care Tack Maker Name Role Phone Rey Wadsworth MD Unavailable Unavailabl e Yasmany Sullivan MD Primary Care Provider [phone] Erin Mead SHUTTLE OPERATOR Unavailable Unavailable Encounter Details Date Type Department Care Team (Late st Contact Info) Description 12/27/2015 Abstract [facility] [address] [place] [address] Rey Wadsworth MD Social History Tobacco Use Types Packs/Day Years Used Date Smoking Tobacco: Former Comments Unknown Sex and Gender Information Value Date Recorded Sex Assigned at Not on file Legal Sex Female 6:18 PM CDT Gender Identity Not on file Sexual Orientation Not on file 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
--- OUTSIDE RECORDS SUMMARY | 2025-03-31 12:10 | XMS_ITS ---
Author Organization Unknown Plan of Treatment Description Planned Activity Planned Timing [facility] is a provider organization who partners directly with Health Plans and provides integrated primary care, behavioral health, and family welfare social work professor for an attributed population Letter encounter to patientTelephone encounter Mar 18, 2025Jul 2024 Patient Care team information Name Category Status Period Participants - - Proposed period not known -
--- OUTSIDE RECORDS SUMMARY | 2025-03-31 12:10 | XMS_ITS | Encounter Summary ---
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
--- NOTE | 2025-03-31 12:12 | ED_ITS ---
HPI - Chest Pain General Chief Complaint: Chest Pain Stated Complaint: chest discomfort Time Seen by Provider: 03/31/25 12:12 Source: patient Mode of arrival: ambulatory Limitations: no limitations History of Present Illness HPI narrative: 64 YEARS OLD WHITE FEMALE LIVES ALONE, CAME BY PRIVATE CAR COMPLAINING OF INTERMITTENT DIZZINESS/ VERTIGO FOR THE LAST 20 YEARS. WAS SEEN BY HER FAMILY PHYSICIAN RECENTLY, WITHIN 4 WEEKS AGO FOR THE SAME COMPLAIN AND WAS REFERRED TO ENT, PATIENT DECLINED TO GO. CURRENTLY ON ANTIVERT. PATIENT COMPLAIN OF DIZZINESS, EVERYTHING SPINS WITH HEAD MOVEMENT OR BODY MOVEMENT, BETTER IF SHE REMAINING STILL ASSOCIATED WITH NAUSEA AND VOMITING. SHE DENIES ANY FEVER OR CHILLS CHEST OR SHORTNESS OF BREATH, INTERMITTENT CHEST PAIN FOR MONTHS, CURRENTLY NO CHEST PAIN. PATIENT SMOKES CIGARETTE, DENIED ALCOHOL OR DRUG USE. HISTORY OF PAROXYSMAL AFIB CURRENTLY ON XARELTO, HYPERLIPIDEMIA, THYROID NODULE, DECLINED TO GET BIOPSY. Related Data Home Medications ?Medication ?Instructions ?Recorded ?Confirmed ?Last Taken ?Type famotidine 40 mg tablet 40 mg PO BID 09/24/19 12/28/24 03/26/23 History multivitamin (Multiple Vitamins 1 tablet PO BID 12/24/19 12/28/24 03/25/23 History tablet) ascorbate calcium (vitamin C) 500 500 mg PO DAILY 01/23/21 12/28/24 03/25/23 History mg tablet cholecalciferol (vitamin D3) 25 25 mcg PO DAILY 01/23/21 12/28/24 03/25/23 History mcg (1,000 unit) capsule vitamin B12 500 mcg-folic acid 400 1 tablet PO DAILY 01/23/21 12/28/24 03/25/23 History mcg tablet acetaminophen 325 mg capsule 650 mg PO Q8H PRN Pain (Scale 03/16/22 12/28/24 03/26/23 History (Tylenol) Score 1-3) hydrocodone 5 mg-acetaminophen 325 1 tablet PO QID PRN Pain 03/16/22 12/28/24 03/26/23 History mg tablet pravastatin 20 mg tablet 10 mg PO DAILY 03/16/22 12/28/24 03/26/23 History rivaroxaban 20 mg tablet (Xarelto) 20 mg PO DAILY 03/16/22 12/28/24 03/26/23 History polyethylene glycol 3350 17 gram 17 g PO DAILY 03/19/22 12/28/2403/14/22 History oral powder packet (Miralax) diphenoxylate-atropine 2.5 1 tablet PO QID PRN Diarrhea 01/01/23 12/28/24 Unknown History mg-0.025 mg tablet Lactobacillus 1 cap PO DAILY 03/25/23 12/28/24 03/25/23 History acidophilus-Bifidobac.animalis 2.5 billion cell capsule (Daily Probiotic) clobetasol 0.05 % topical cream topical 03/01/25 Unknown History estradiol 0.01% (0.1 mg/gram) vaginal 03/01/25 Unknown History vaginal cream Allergies Allergy/AdvReac Type Severity Reaction Status Date / Time ceftriaxone (From Rocephin) Allergy Intermediate Hives Verified 03/31/25 12:28 esomeprazole Allergy Intermediate Hives Verified 03/31/25 12:28 omeprazole Allergy Intermediate Hives Verified 03/31/25 12:28 hydromorphone (From Dilaudid) AdvReac Intermediate Anxiety Verified 03/31/25 12:28 trazodone AdvReac Intermediate Dizziness Verified 03/31/25 12:28 Review of Systems 2 Review of Systems: All systems reviewed & are unremarkable except as noted in HPI and below PMFSH Past Medical History Medical History Pleurisy Disc disorder of cervical region Arthritis Anxiety Hair loss IBS (irritable bowel syndrome) Atrial fib/flutter, transient COPD (chronic obstructive pulmonary disease) Wears glasses Dizziness Plantar fasciitis, bilateral Arthritis of foot, right, degenerative CVA (cerebral vascular accident) Atrial fibrillation Dyslipidemia GERD (gastroesophageal reflux disease) Hypertension Osteoarthritis Fibromyalgia Surgical History Surgical History History of carpal tunnel surgery 03/2021 per patient questionnaire History of colon surgery History of knee surgery 32 years ago per patient questionnaire H/O: hysterectomy History of cholecystectomy Family History Family History Other Arthritis Cerebrovascular accident Social History Social History Smoking packs per day: 0.5 Smoking cigarettes per day: 10.0 Years smoked: 44 Smoking pack-years: 22.00 Smoking status: Current some day smoker Tobacco type: cigarettes Second hand tobacco smoke exposure: Yes Alcohol intake: former Alcohol use details: LAST 2016 Substance use: never Substance use type: does not use Lack of Transportation: No Lack of Food: Never True Current Housing: I Have Housing Concerned About Future Housing: No Difficulty Paying Gas/Electric Bills: No Difficulty Paying for Meds: No Education: High School Diploma/GED Difficulty w/ Childcare or Family Care: No Living arrangements: with family Additional living arrangements comments: SISTER SOMETIMES Gender identity (if verbalized by the patient): Female Spiritual care concerns: No Agree to blood products: Yes Exam 2 Narrative: GENERAL APPEARANCE: WELL-DEVELOPED, WELL-NOURISHED SKIN: NORMAL COLOR HEAD: NORMOCEPHALIC, NONTRAUMATIC EYES: CLEAR CONJUNCTIVA ENT: OROPHARYNX NORMAL, EARS NORMAL, NOSE NORMAL NECK: SUPPLE, NONTENDER CHEST AND RESPIRATORY: AIRWAY PATENT, NO RESPIRATORY DISTRESS, NO ACCESSORY MUSCLE USE HEART: REGULAR RATE/RHYTHM ABDOMEN: SOFT, NONTENDER, NO ORGANOMEGALY, QUIET BOWEL SOUNDS VASCULAR: NORMAL PERIPHERAL PULSES, NORMAL CAPILLARY REFILL. MUSCULOSKELETAL: NORMAL RANGE OF MOTION, NONTENDER BACK NEUROLOGIC: ALERT AND ORIENTED ?3, OVERCOILER IS NORMAL TESTED, NO GROSS MOTOR DEFICIT Course Vital Signs Vital signs: Vital Signs Temperature 36.7 C 03/31/25 12:11 Pulse Rate 74 03/31/25 12:11 Respiratory Rate 20 03/31/25 12:11 Blood Pressure 129/80 03/31/25 12:11 Pulse Oximetry 95 03/31/25 12:11 Oxygen Delivery Room Air 03/31/25 12:11 Temperature 36.7 C 03/31/25 12:11 Pulse Rate 57 L 03/31/25 14:46 Respiratory Rate 18 03/31/25 12:31 Blood Pressure 132/93 H 03/31/25 14:46 Pulse Oximetry 100 03/31/25 14:46 Oxygen Delivery Room Air 03/31/25 12:31 MDM - Chest Pain MDM Narrative Medical decision making narrative: PATIENT CAME WITH VERTIGO LIKE SYMPTOMS VITAL SIGNS ARE STABLE PHYSICAL EXAMINATION REMARKABLE FOR VERTIGO FEELING WITH MOVEMENT OTHERWISE INSIGNIFICANT DIFFERENTIAL DIAGNOSIS BENIGN POSITIONAL VERTIGO, ELECTROLYTE IMBALANCE, DEHYDRATION, ANXIETY, DEPRESSION BLOOD WORKUP TODAY INCLUDES CBC, CMP, TROPONIN, PRO BMP SHOWED SODIUM OF 133 OTHERWISE WITHIN NORMAL LIMIT CT HEAD WITHOUT CONTRAST SHOWEDNO ACUTE ABNORMALITY EKG SHOWED NORMAL SINUS RHYTHM AT 73 BEATS PER MINUTE RIGHT VENTRICULAR HYPERTROPHY, NONSPECIFIC ST T-WAVE ABNORMALITIES CHEST X-RAY SHOWED NO ACUTE ABNORMALITIES Diagnosis vertigo: Noncompliance with medical advice, tobacco dependent Discharged on Antivert and Zofran The pt was discharged to home.the pt,s condition upon discharge was fair,education was provided to the pt in reference to the final impression,discharge study results,treatment,prognosis and need for follow up . Differential Diagnosis Differential diagnosis: Likely other ( ABOVE) Medical Records Data Attestation: I reviewed the patient's medical records. Lab Data Attestation: I reviewed the patient's lab results. 03/31/25 12:26 03/31/25 12:26 Labs: Lab Results 03/31/25 Range/Units 12:26 WBC 8.2 (4.8-10.8) K/mm3 RBC 4.69 (4.20-5.40) M/mm3 Hgb 14.2 (12.0-15.0) g/dL Hct 42.2 (35.0-49.0) % MCV 90.0 (78.0-102.0) fL MCH 30.3 (27.0-31.0) pg MCHC 33.6 (32-36) g/dL RDW 12.7 (11.6-14.4) % Plt Count 268 (150-420) K/mm3 MPV 8.7 L (9.2-11.8) fl Immature Gran % (Auto) 0.2 H (0.0-0.0) % Neut % (Auto) 64.4 (50.0-70.0) % Lymph % (Auto) 26.2 (18.0-42.0) % Freestone % (Auto) 6.1 (2.0-11.0) % Eos % (Auto) 2.1 (1.0-6.0) % Baso % (Auto) 1.0 (0.0-1.0) % Lymph # (Auto) 2.14 (1.10-4.50) K/mm3 [place] # (Auto) 0.50 (0.10-0.90) K/mm3 Eos # (Auto) 0.17 (0.02-0.50) K/mm3 Baso # (Auto) 0.08 (0.00-0.10) K/mm3 Abs Immat Gran (auto) 0.02 H (0.00-0.00) K/mm3 Absolute Neuts (auto) 5.27 (1.70-7.20) K/mm3 Absolute Nucleated RBC 0.00 (0.00-0.00) K/mm3 Nucleated RBC % 0.0 (0-0.0) % PT 10.3 (9.50-12.1) Seconds INR 0.9 APTT 30.1 (23.9-30.70) Sec Sodium 133 L (137-145) mmol/L Potassium 4.4 (3.4-5.0) mmol/L Chloride 106 (98-107) mmol/L Carbon Dioxide 22 (22-30) mmol/L Anion Gap 5 (4-12) mmol/L BUN 7 D (7-17) mg/dL Creatinine 0.67 L (0.7-1.0) mg/dL Estim Creat Clear Calc Not Reportable Estimated GFR > 60 (59 - ) Glucose 102 (65-110) mg/dL Calculated Osmolality 274 L (285-295) mOsm/kg Calcium 8.8 (8.4-10.2) mg/dL Total Bilirubin 0.4 (0.2-1.3) mg/dL AST 26 (14-36) U/L ALT 24 (6-35) U/L Alkaline Phosphatase 55 (38-126) U/L Troponin I < 0.012 (0.000-0.034) ng/mL NT-Pro-B Natriuret Pep 33 (19.9-100) pg/mL Total Protein 7.1 (6.3-8.2) g/dL Albumin 4.4 (3.5-5.1) g/dL Lipase 54 (23-300) U/L Imaging Data Radiologist's impression: Impressions Head CT 03/31/25 13:04 IMPRESSION: No evidence for acute intracranial hemorrhage or calvarial fracture. ECG Data EKG #1: Attestation: I personally reviewed and interpreted this ECG as follows: ECG completion date: 03/31/25 Interpretation: NORMAL SINUS RHYTHM AT 73 BEATS PER MINUTE, FIRST-DEGREE HEART BLOCK, RIGHT VENTRICULAR HYPERTROPHY, NONSPECIFIC ST T-WAVE ABNORMALITIES Discharge Plan Discharge Clinical Impression: Vertigo, Tinnitus Patient Disposition: Home Condition: Stable Instructions: How to Stop Smoking (ED), Vertigo (ED), Tinnitus (ED) Additional Instructions: Return if symptoms are worsening , call your family physician for appointment, take Tylenol as as needed for aches and pain, continue home medications. Patient Language: [place] Prescriptions: New meclizine [Antivert] 25 mg tablet,chewable 25 mg PO TID Qty: 20 0RF ondansetron HCl 4 mg tablet 4 mg PO Q4H Qty: 10 0RF Rx Instructions: 1st dose 1-2 hr before radiation No Action famotidine 40 mg tablet 40 mg PO BID diphenoxylate-atropine 2.5-0.025 mg tablet 1 tablet PO QID PRN (Reason: Diarrhea) multivitamin [Multiple Vitamins] Tablet 1 tablet PO BID cyclobenzaprine 5 mg tablet 5 mg PO TID Qty: 20 0RF ondansetron 4 mg tablet,disintegrating 4 mg PO Q6H PRN (Reason: nausea and vomiting) Qty: 14 0RF ascorbate calcium (vitamin C) 500 mg tablet 500 mg PO DAILY vitamin U88-myvsk acid 500-400 mcg tablet 1 tablet PO DAILY Rx Instructions: administer with a meal cholecalciferol (vitamin D3) 25 mcg (1,000 unit) capsule 25 mcg PO DAILY estradiol 0.01 % (0.1 mg/gram) cream vaginal clobetasol 0.05 % cream topical pravastatin 20 mg tablet 10 mg PO DAILY acetaminophen [Tylenol] 325 mg capsule 650 mg PO Q8H PRN (Reason: Pain (Scale Score 1-3)) Xarelto 20 mg tablet 20 mg PO DAILY hydrocodone-acetaminophen 5-325 mg tablet 1 tablet PO QID PRN (Reason: Pain) polyethylene glycol 3350 [Miralax] 17 gram Powder In Packet 17 g PO DAILY Patient Comments: TAKES PRN Daily Probiotic 2.5 billion cell Capsule 1 cap PO DAILY flecainide 100 mg tablet See Rx Instructions .ROUTE .COMPLEX Qty: 30 0RF Dose Instruction: 100 MG ORALLY NEEDED MAKE TAKE A DOSE WHEN IN ATRIAL FIB, AND MAY TAKE A 2ND DOSE 1 HOUR LATER IF STILL IN ATRIAL FIB. Rx Instructions: 100 MG ORALLY NEEDED MAKE TAKE A DOSE WHEN IN ATRIAL FIB, AND MAY TAKE A 2ND DOSE 1 HOUR LATER IF STILL IN ATRIAL FIB. Follow-up/Referrals: Yasmany Sullivan MD [Primary Care Provider] - Quality HEART score for chest pain patients History: slightly suspicious ECG: normal Age: > 45 and < 65 years Risk factors: 1 or 2 risk factors Troponin: < or = to 1x normal limit Heart score: 2
[2025-03-31] MEDS: ASPIRIN 81 MG CHEWABLE TABLET 324 MG PO (12:30)
[2025-03-31 12:32] LABS: Hematocrit 42.2 % (35.0-49.0); Hemoglobin 14.2 g/dL (12.0-15.0); Immature Granulocyte Percent A 0.2 % (0.0-0.0); Lymphocytes Absolute Auto 2.14 K/mm3 (1.10-4.50); Mean Corpuscular HGB Conc 33.6 g/dL (32-36); Mean Corpuscular Hemoglobin 30.3 pg (27.0-31.0); Mean Corpuscular Volume 90.0 fL (78.0-102.0); Nucleated Red Blood Cells Absolute Auto 0.00 K/mm3 (0.00-0.00); Nucleated Red Blood Cells Perc 0.0 % (0-0.0); Platelet Count Result 268 K/mm3 (150-420); Red Blood Count 4.69 M/mm3 (4.20-5.40); White Blood Count 8.2 K/mm3 (4.8-10.8)
[2025-03-31 12:44] LABS: Alanine Aminotransferase 24 U/L (6-35); Albumin Level 4.4 g/dL (3.5-5.1); Alkaline Phosphatase 55 U/L (38-126); Anion Gap 5 mmol/L (4-12); Aspartate Amino Transferase 26 U/L (14-36); Bilirubin,Total 0.4 mg/dL (0.2-1.3); Blood Urea Nitrogen 7 mg/dL (7-17); Calcium 8.8 mg/dL (8.4-10.2); Carbon Dioxide 22 mmol/L (22-30); Chloride 106 mmol/L (98-107); Estimated Glomerular Filt Rate > 60; Glucose 102 mg/dL (65-110); Lipase 54 U/L (23-300); Osmolality Calculated 274 mOsm/kg (285-295); Potassium 4.4 mmol/L (3.4-5.0); Sodium 133 mmol/L (137-145); Total Protein 7.1 g/dL (6.3-8.2)
[2025-03-31] MEDS: diazePAM (*CRX) 5 MG TABLET PO (12:45)
[2025-03-31] MEDS: MECLIZINE HCL 25 MG TABLET PO (12:45)
[2025-03-31] MEDS: ONDANSETRON HCL ODT 4 MG TABLET PO (12:50)
[2025-03-31 12:53] LABS: INR 0.9; Partial Thromboplastin Time 30.1 Sec (23.9-30.70); Prothrombin Time 10.3 Seconds (9.50-12.1)
[2025-03-31 12:56] LABS: NT Pro B Type Natriuretic Pept 33 pg/mL (19.9-100); Troponin I < 0.012 ng/mL (0.000-0.034)
--- OUTSIDE RECORDS SUMMARY | 2025-03-31 13:21 | XMS_ITS ---
Author Organization Unknown Address [address] [place] [phone] Phone Care Team Providers Care Thermite Bomb Loader Name Role Phone TRAMAINE SALDAÑA Attending Unavailable [...] 207 CVX Pneumococcal conjugate PCV20 , polysaccharide VBO867 conjugate, adjuvant, PF 08/16/2023 Completed 216 CVX COVID-19, mRNA, LNP-S, bivalent, PF, 50 mcg/0.5 mL or 25mcg/0.25 mL dose 06/26/2022 Completed 229 CVX COVID-19, mRNA, LNP-S, PF, leoncio-sucrose, 30 mcg/0.3 mL 06/26/2024 Completed 309 CVX Social History Type Status Start Date End Date Code Code Syst em Smoking History Current every day smoker 692092600 SNOMED CT Sex Female Vital Signs Vital Sign Value Unit Cherry Value Cherry Unit Date/Time Recent/Initial? Code Code System Body Mass Index 34.20 kg/m2 12/21/2024 09:18 Initial 80049 -5 LOINC Systolic Blood Pressure 138 mm[Hg] 12/21/2024 09:18 Initial 8480- 6 [facility] Diastolic Blood Pressure 83 mm[Hg] 12/21/2024 09:18 Initial 8462- 4 [facility] Body Surface Area 1.88 m2 12/21/2024 09:18 Initial 3140- 1 [facility] Height 154.940 0 cm 61.00 in 12/21/2024 09:18 Initial 8302- 2 [facility] O2 Saturation 98 % 2024 09:18 Initial 74544 -5 [facility] Pulse 60.0 /min 12/21/2024 09:18 Initial 8867- 4 [facility] Temperature 36.3 Kiara 97.3 F 12/22/19 09:18 Initial 8310- 5 [facility] Weight 82.10 kg 181.00 lbs 12/21/2024 09:18 Initial 18842 -7 [facility] Medications Medication Start Date End Date Route Frequency Dose Code Code System Medication Instructions Home Meds Baclofen 10MG Oral Tablet 12/21/2024 Unknown ORAL NEEDED 3 TIMES A DAY 10 MILLIGRAMS 026528 RxNorm TAKE 10 MILLIGRAMS ORAL NEEDED 3 TIMES A DAY Famotidine 40MG Oral Tablet 12/21/2024 Unknown ORAL TWICE A DAY 40 MILLIGRAMS 773422 RxNorm TAKE 40 MILLIGRAMS ORAL TWICE A DAY HYDROcodone bitartrate-acet aminophen 5MG-325MG Oral Tablet 12/21/2024 Unknown ORAL NEEDED EVERY 8 HOURS 1 unit(s) 397364 RxNorm TAKE 1 EACH ORAL NEEDED EVERY 8 HOURS Ondansetron 4MG Oral Tablet 12/21/2024 Unknown ORAL NEEDED EVERY 8 HOURS 4 MILLIGRAMS 994982 RxNorm TAKE 4 MILLIGRAMS ORAL NEEDED EVERY 8 HOURS Pravastatin Sodium 10MG Oral Tablet 12/21/2024 Unknown ORAL ONCE A DAY 10 MILLIGRAMS 003283 RxNorm TAKE 10 MILLIGRAMS ORAL ONCE A DAY Xarelto 20MG Oral Tablet 12/21/2024 Unknown ORAL ONCE A DAY 20 MILLIGRAMS 8696033 RxNorm TAKE 20 MILLIGRAMS ORAL ONCE A DAY diphenoxylate HCl-atropine sulfate 2.5MG-0.025MG Oral Tablet 12/21/2024 Unknown ORAL NEEDED 4 TIMES A DAY 1 unit(s) 7261687 RxNorm TAKE 1 EACH ORAL NEEDED 4 [...] Code System CHRONIC BILATERAL MAXILLARY SINUSITIS active 99275406473343976 SNO MED-CT PAIN IN LEFT HIP active 3836892744171 00 SNOMED-CT 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 686802432898258 SNOMED-CT TENSION TYPE HEADACHE, UNSPECIFIED active 450033571 SNOMED-CT FIBROMYALGIA active 226789898 SNOMED- CT LEFT SHOULDER PAIN active 7851563485 SNOMED-CT PAIN IN THORACIC SPINE active 0166740 09 SNOMED-CT CERVICALGIA active 13665485 SNOMED-C T GASTRO-ESOPHAGEAL REFLUX DISEASE WITHOUT ESOPHAGITIS active 109349132 SNOMED-CT PAIN IN RIGHT HIP active 996174958752 102 SNOMED-CT LOW BACK PAIN active 185774540 SNOMED -CT PAIN OF RIGHT ANKLE JOINT active 44828802564866805 SNOMED-CT PAIN IN RIGHT FOOT active 38825657021 9107 SNOMED-CT CERVICAL SPONDYLOSIS active 057164560 SNOMED-CT POLYOSTEOARTHRITIS, UNSPECIFIED active 034626674 SNOMED-CT Allergies and Adverse Reactions Allergy Substance Reaction Severity Start Date Concern Status Code Code System TRAZODONE Dizziness (SNOMED-CT: 876831739) Moderate Active 42286 RxNorm ATORVASTATIN Vomiting (SNOMED-CT: 074865839) Moderate Active 84203 RxNorm CEFDINIR Diarrhea (SNOMED-CT: 17927823) Moderate Active 47785 RxNorm PREGABALIN Active 869938 RxNorm CLINDAMYCIN HCL Moderate Active 2582 RxNorm Plan of Treatment CT Abdomen/Pelvis W Contrast (69219) Plan F/U after MRI -review/discuss possible injections -trigger point injections that day Encounters Encounter Diagnosis Start Date Code Code Sys tem Other specified dorsopathies, cervical region 12/22/19 SNOMED-CT Personal Care Team Section Performer Name Performer Role Active Date Inactive JACQUELINE Mercer PCP - Primary care physician 2021-06-19 Progress Notes [facility] 02/11/2025 07:52 Demographics Basic Patient Name Age Sex RENO AMARO 1960 64 years Female Date/Time: 02.10.25901 Multiple Calls: no Caller Name: Florence Pt called to follow up and reports the following: have been completed for about 3 weeks now, went to [facility] for P.T. Neck is super tight and [...] kidney Dr. This staff requested records from [place] [facility] today. [facility] 12/21/2024 10:53 All Demographics Patient Name Age Sex Visit Number Admission Date/Time Attending Physician Date of Service Room and Bed Emergency Contact RENO AMARO 1960 64 years Female [id number] 12/21/2024 09:14 Chris Benoit 12/21/2024 03-OP CAM SHELTON - [id number] PAIN MANAGEMENT HISTORY & PHYSICAL Vital Signs: [...]
--- OUTSIDE RECORDS SUMMARY | 2025-03-31 13:21 | XMS_ITS ---
Author Organization Unknown Address [address] [place] [address] [phone] Phone Care Team Providers Care Fire Boat Engineer Name Role Phone TRAMAINE SALDAÑA Attending Unavailable [...] 207 CVX Pneumococcal conjugate PCV20 , polysaccharide [id number] conjugate, adjuvant, PF 08/16/2023 Completed 216 CVX COVID-19, mRNA, LNP-S, bivalent, PF, 50 mcg/0.5 mL or 25mcg/0.25 mL dose 06/26/2022 Completed 229 CVX COVID-19, mRNA, LNP-S, PF, leoncio-sucrose, 30 mcg/0.3 mL 06/26/2024 Completed 309 CVX Social History Type Status Start Date End Date Code Code Syst em Smoking History Current every day smoker 062086675 SNOMED CT Sex Female Vital Signs Vital Sign Value Unit [place] Value [place] Unit Date/Time Recent/Initial? Code Code System Body Mass Index 34.20 kg/m2 03/04/2025 08:03 Initial 95076 -5 [facility] Systolic Blood Pressure 91 mm[Hg] 03/04/2025 08:03 Initial 8480- 6 [facility] Diastolic Blood Pressure 60 mm[Hg] 03/04/2025 08:03 Initial 8462- 4 [facility] Body Surface Area 1.88 m2 03/04/2025 08:03 Initial 3140- 1 [facility] Height 154.940 0 cm 61.00 in 03/04/2025 08:03 Initial 8302- 2 [facility] O2 Saturation 98 % 2024 08:03 Initial 54050 -5 [facility] Pulse 59.0 /min 03/04/2025 08:03 Initial 8867- 4 [facility] Temperature 36.2 Kiara 97.1 F 03/04/20 08:03 Initial 8310- 5 [facility] Weight 82.10 kg 181.00 lbs 03/04/2025 08:03 Initial 64850 -7 [facility] Medications Medication Start Date End Date Route Frequency Dose Code Code System Medication Instructions Home Meds Baclofen 10MG Oral Tablet 12/21/2024 Unknown ORAL NEEDED 3 TIMES A DAY 10 MILLIGRAMS 681784 RxNorm TAKE 10 MILLIGRAMS ORAL NEEDED 3 TIMES A DAY Famotidine 40MG Oral Tablet 12/21/2024 Unknown ORAL TWICE A DAY 40 MILLIGRAMS 928075 RxNorm TAKE 40 MILLIGRAMS ORAL TWICE A DAY HYDROcodone bitartrate-acet aminophen 5MG-325MG Oral Tablet 12/21/2024 Unknown ORAL NEEDED EVERY 8 HOURS 1 unit(s) 893150 RxNorm TAKE 1 EACH ORAL NEEDED EVERY 8 HOURS Ondansetron 4MG Oral Tablet 12/21/2024 Unknown ORAL NEEDED EVERY 8 HOURS 4 MILLIGRAMS 293899 RxNorm TAKE 4 MILLIGRAMS ORAL NEEDED EVERY 8 HOURS Pravastatin Sodium 10MG Oral Tablet 12/21/2024 Unknown ORAL ONCE A DAY 10 MILLIGRAMS 620494 RxNorm TAKE 10 MILLIGRAMS ORAL ONCE A DAY Xarelto 20MG Oral Tablet 12/21/2024 Unknown ORAL ONCE A DAY 20 MILLIGRAMS 7477790 RxNorm TAKE 20 MILLIGRAMS ORAL ONCE A DAY diphenoxylate HCl-atropine sulfate 2.5MG-0.025MG Oral Tablet 12/21/2024 Unknown ORAL NEEDED 4 TIMES A DAY 1 unit(s) 2254679 RxNorm TAKE 1 EACH ORAL NEEDED 4 [...] Date Status Code Code Syste m INJECTION SINGLE/FLAT EXAMINER TRIGGER POINT 09/24 MUSCLES 03/04/2025 completed CPT Problems Problem Start Date Resolved Date Status Code Code System CHRONIC BILATERAL MAXILLARY SINUSITIS active [id number] SNO MED-CT PAIN IN LEFT HIP active 0117486632406 00 SNOMED-CT 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 691444380412752 SNOMED-CT TENSION TYPE HEADACHE, UNSPECIFIED active 456305565 SNOMED-CT FIBROMYALGIA active 190657653 SNOMED- CT LEFT SHOULDER PAIN active 4269151946 SNOMED-CT PAIN IN THORACIC SPINE active 0649788 09 SNOMED-CT CERVICALGIA active 35442388 SNOMED-C T GASTRO-ESOPHAGEAL REFLUX DISEASE WITHOUT ESOPHAGITIS active 022893259 SNOMED-CT PAIN IN RIGHT HIP active 274016196227 102 SNOMED-CT LOW BACK PAIN active 033906126 SNOMED -CT PAIN OF RIGHT ANKLE JOINT active 27316237046640948 SNOMED-CT PAIN IN RIGHT FOOT active 52986008150 9107 SNOMED-CT CERVICAL SPONDYLOSIS active 914027985 SNOMED-CT POLYOSTEOARTHRITIS, UNSPECIFIED active 269232346 SNOMED-CT Allergies and Adverse Reactions Allergy Substance Reaction Severity Start Date Concern Status Code Code System TRAZODONE Dizziness (SNOMED-CT: 952081351) Moderate Active 87566 RxNorm ATORVASTATIN Vomiting (SNOMED-CT: 810280446) Moderate Active 65110 RxNorm CEFDINIR Diarrhea (SNOMED-CT: 98083258) Moderate Active 64799 RxNorm PREGABALIN Active 825419 RxNorm CLINDAMYCIN HCL Moderate Active 2582 RxNorm Plan of Treatment CT Abdomen/Pelvis W Contrast (17212) Encounters Encounter Diagnosis Start Date Code Code Sys tem Other spondylosis with myelopathy, cervical region 08/2025 SNOMED-CT Personal Care Team Section Performer Name Performer Role Active Date Inactive Wilbert JACQUELINE Jensen PCP - Primary care physician 2021-06-19 Progress Notes [facility] 03/04/2025 09:24 All Demographics Patient Name Age Sex Visit Number Admission Date/Time Attending Physician Date of Service Room and Bed Emergency Contact RENO AMARO 1960 64 years Female [id number] 03/04/2025 07:54 Chris Benoit 03/04/2025 02-OP CAM SHELTON - [id number] Pain Management Follow Up Vital Signs: Today [...] Signature: AUGUSTUS Weston CRNA Ropivacaine hydrochloride injection CUSTODIAL 0.5% [id number] Lot space [id number] : Xylocaine M PF 2% [facility] 12635-539-49 Lot [id number] 07/18 Dexamethasone sodium phosphate injection CUSTODIAL 10 mg/mL [facility] 52246-804-77 Lot [id number] Expires Pain Treatment History: Conservative Measures Tried [...]
--- NOTE | 2025-03-31 13:34 | PC.NURSE ---
pt declined nitro. awaiting lab results.
== END 2025-03-31 14:50 | disposition home or self-care (01) ==
PROVIDERS: Emergency Provider Emergency Medicine; PCP Internal Medicine
DX: H93.19 Tinnitus, unspecified ear (principal); J44.9 Chronic obstructive pulmonary disease, unspecified; I48.91 Unspecified atrial fibrillation; I10 Essential (primary) hypertension; F17.210 Nicotine dependence, cigarettes, uncomplicated; Z86.73 Personal history of transient ischemic attack (TIA), and cerebral infarction without residual deficits
CPT/HCPCS: 36415; 70450; 71045; 80053; 83690; 83880; 84484; 85025; 85610; 85730; 93005; 99284; A9270

== ENCOUNTER 2025-04-06 13:46 | Outpatient (RCR) | payer OTHER, SELFPAY ==
--- NOTE | 2025-04-06 15:17 | OPREHPOC ---
Outpatient Therapy Plan of Care This is a Multidisciplinary Plan of Care that may contain components documented by all disciplines (PT, OT, and ST.)
--- NOTE | 2025-04-06 15:17 | PTOPEVAL1 ---
Assessment and note entered by Yulisa Triana, PT Evaluation Information Assessment Status Evaluation ICD-10 Condition Codes (PT) Cervicalgia M54.2,BPPV H81.12 Onset 02/15/25 Subjective Information Claudine Cruz reports she started having headaches, dizziness, and ringing in her ears in January 2025. She saw her PCP and was diagnosed with an ear infection and prescribed an antibiotic. The antibiotic did not help so she was then put on steroids, zyrtec, and flonase. This caused her to have a-fib so she stopped taking those medications . She then went to the ENT, Dr. Guo, on 03/01/25 . He thought she was having positional vertigo and referred her to PT. The patient did not want to go to PT at that time. She has had a worsening of symptoms since 04/03/25 so she decided to come to PT. She has to sleep with her head elevated, can not bend over to clean the cat litter box, she also has fallen back into bed when trying to get up. She is taking adavert daily as well as zofran to keep symptoms at bay. She has a history of a cervical surgery in March 2022 and reports she had bone removed with the surgery. Her surgeon said she would possibly need a second surgery in the future to have rods placed. She feels her current symptoms may be coming from her cervical spine. She called her neurologist and is scheduled to see them on 04/19/25. She notes the ringing in her ears is worse on the right than the left but dizziness is provoked by turning her head or body to the left. 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 She had a head CT on 03/31/25 which came back normal. Assessment PT Clinical Summary Claudine Cruz presents with c/o dizziness, headaches , and ringing in her ears. She has a history of a previous cervical surgery in 2021. She also had an ear infection diagnosed in January 2025 that did not improve with antibiotics. She was evaluated by ENT on 03/01/25 and was told she has positional vertigo and referred to PT. She has had worsening of dizziness over the last week. She has difficulty with bending over, turning her head and trunk, sleeping, driving, and performing roll builder . She is using antivert and zofran daily to keep symptoms down. She objectively demonstrates decreased cervical AROM and severe tenderness to light palpation at the superior cervical spine near C2. She reports increased dizziness with left horizontal roll test and Fulton-Hallpike test but no nystagmus noted. She was unable to tolerate positional treatments due to reports of severe nausea and visual deficits with attempted Wilma maneuver to treat the left side. It is felt her vertigo is not positional in nature and she was referred to see her neurologist before positonal treatment is attempted again. Plan of Care Interventions Patient/Caregiver Education PT Services Indicated No Treatment Frequency and PT not appropriate at this time Duration These treatments will address the objective and functional deficits as defined above. The patient will be advanced safely and appropriately in order for the patient to progress towards his/her prior level of function. Additional exercises will be introduced and as well as a comprehensive home exercise program upon discharge, if needed, ?to ensure carryover of functional gains achieved in the clinic. This treatment plan has been reviewed and agreement upon by the patient.
== END 2025-04-06 20:00 | disposition home or self-care (01) ==
LOC: CHSPT 13:46
PROVIDERS: Visit Provider Otolaryngology
DX: H81.10 Benign paroxysmal vertigo, unspecified ear (principal)
CPT/HCPCS: 97162

== ENCOUNTER 2025-06-10 09:48 | Outpatient (CLI) | payer OTHER, SELFPAY | END 2025-06-10 09:49 | disposition home or self-care (01) | PROVIDERS: PCP Internal Medicine; Visit Provider Nurse Practitioner Family | DX: K14.0 Glossitis (principal) | CPT/HCPCS: 87070; 87205; 87798 ==

== ENCOUNTER 2025-06-19 11:39 | Outpatient (CLI) | payer OTHER, SELFPAY ==
--- NOTE | ~2025-06-19 | MR_ITS ---
EXAMINATION: MR cervical spine wo con DATE: 06/19/2025 12:28 INDICATION: Right arm pain. TECHNIQUE: Magnetic resonance imaging (MRI) of the cervical spine was performed without intravenous contrast. Sequences included sagittal T2-weighted FSE, sagittal T2-weighted FS FSE, sagittal T1-weighted FSE, axial MERGE, and axial T2-weighted FSE. COMPARISON: Cervical spine MRI 01/14/2019 FINDINGS: Alignment is normal. Vertebral body heights are normal. There is mildly decreased disc height at C4-C5. The spinal cord signal intensity is normal. The following disc levels are specifically discussed: C2-C3: The disc does not extend beyond the endplate margin. There is no uncovertebral joint osteoarthritis. There is mild bilateral facet joint osteoarthritis. There is no neural foraminal stenosis. There is no central canal stenosis. C3-C4: There is a central extrusion. There is moderate bilateral uncovertebral joint osteoarthritis. There is moderate right and mild left facet joint osteoarthritis. There is moderate right and mild left neural foraminal stenosis. There is mild central canal stenosis. C4-C5: There is a central extrusion. There is moderate right and mild left uncovertebral joint osteoarthritis. There is severe right and mild left facet joint osteoarthritis. There is moderate right and mild left neural foraminal stenosis. There is mild central canal stenosis. C5-C6: There is a central extrusion. There is mild bilateral uncovertebral joint osteoarthritis. There is moderate bilateral facet joint osteoarthritis. There is mild left neural foraminal stenosis. There is mild central canal stenosis. C6-C7: There is a central protrusion. There is mild bilateral uncovertebral joint osteoarthritis. There is mild bilateral facet joint osteoarthritis. There is mild bilateral neural foraminal stenosis. There is no central canal stenosis. C7-T1: There is a central protrusion. There is no uncovertebral joint osteoarthritis. There is severe bilateral facet joint osteoarthritis. There is mild bilateral neural foraminal stenosis. There is no central canal stenosis. IMPRESSION: 1. Moderate cervical spondylosis, stable from 01/14/2019. Reviewed, dictated and finalized at location E.
--- OUTSIDE RECORDS SUMMARY | 2025-06-19 11:43 | XMS_ITS | Encounter Summary ---
Author Organization [facility] Address [address] [place] [address] Care Team Providers Care Technical Support Consultant Name Role Phone Rey Wadsworth MD Unavailable Unavailabl e Yasmany Sullivan MD Primary Care Provider [phone] Erin Mead SENIOR CYTOTECHNOLOGIST Unavailable Unavailable Encounter Details Date Type Department Care Team (Late st Contact Info) Description 12/27/2015 Abstract [facility] [address] [place] [address] Rey Wadsworth MD Social History Tobacco Use Types Packs/Day Years Used Date Smoking Tobacco: Former Comments Unknown Sex and Gender Information Value Date Recorded Sex Assigned at Not on file Legal Sex Female 6:18 PM CDT Gender Identity Not on file Sexual Orientation Not on file 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
--- OUTSIDE RECORDS SUMMARY | 2025-06-19 11:43 | XMS_ITS | Clinical Summary ---
Author Organization [facility] Address [address] [place] [address] Care Team Providers Care Senior Director Of Strategy Name Role Phone Rey Wadsworth MD Unavailable Yasmany Be MD Primary Care Provider [phone] Erin Mead NP Unavailable Unavailable Allergies Active [...] the lungs as needed. 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 Not on file Not on file Not [...] 1-dose series) 2021 COVID-19 Vaccine (4 - 2024-2 6 season) 2025 10/20/2021, 02/18/2021, 01/21/2021 Meningococcal B Vaccine Aged [...] Documents on File Type Date Recorded Patient Assistant Professor Of Psychology Expl anation Advance Directives and Living Will 02/19/2019 12:00 AM POWER OF FOOD SERVICE ASSISTANT Advance Directives and Living Will 12/01/2018 12:00 AM POWER OF FOOD SERVICE ASSISTANT Advance Directives and Living Will 11/10/2018 12:00 AM POWER OF FOOD SERVICE ASSISTANT Advance Directives and Living Will 09/02/2018 12:00 AM POWER OF FOOD SERVICE ASSISTANT Advance Directives and Living Will 03/11/2018 12:00 AM POWER OF FOOD SERVICE ASSISTANT Advance Directives and Living Will 03/11/2018 12:00 AM POWER OF FOOD SERVICE ASSISTANT Advance Directives and Living Will 01/15/2017 12:00 AM POWER OF FOOD SERVICE ASSISTANT Care Teams Senior Director Of Strategy Relationship Specialty Start Date End Date Yasmany Sullivan MD [address] [place] [address] PCP - General INTERNAL MEDICINE 03/11/17 Rey Wadsworth MD [place] Geology Professor CLINICAL CARDIAC ELECTROPHYSIOLOGY 03/11/17 Erin Mead NP [address] [place] [address] Nurse Practitioner Electrophysiology 03/13/18
--- OUTSIDE RECORDS SUMMARY | 2025-06-19 11:43 | XMS_ITS | Data Portability ---
Author Organization [facility] [place] Address [address] [address] [place] [address] Care Team Providers Care Bee Farmer Name Role Phone JACQUELINE MATTSON Primary Care Provider Assessment No assessment recorded. Plan of Treatment Reminders Order Date Submit Date Provider Last Modified By Organization Details Last Modified Time Details Appointments None recorded. Lab None recorded. Referral None recorded. Procedures None recorded. Surgeries None recorded. Imaging None recorded. Medication Orders estradiol 10 mcg vaginal tablet 2024 025 [facility], [address] [place] [address], [place], [address], 5 15:50:23 Estrace 0.01% (0.1 mg/gram) vaginal cream 2024 025 LISETTE [facility], [address] [place] [address], [facility] [place], [address], 5 10:20:41 clotrimazol e-betametha sone 1 %-0.05 % topical cream 2023 024 LISETTE [facility], [facility], [facility] [place], [address], 5 09:39:07 clindamycin 2 % vaginal cream 2023 024 [email or web address] [facility] [address] [place], [address], 5 09:38:54 hydrocortis one acetate 25 mg rectal suppository 2023 024 [email or web address] [facility], [address] [place], [address], 5 09:39:25 clobetasol 0.05 % topical cream 2023 024 LISETTE [facility], [facility], [address], [place], [address], 4 11:26:51 Estrace 0.01% (0.1 mg/gram) vaginal cream 2023 024 [email or web address] 1 [facility], [facility] [place] [place], [address], 4 10:02:50 Patient TargetsNo targets recorded. Patient InstructionsNo instructions recorded. Reason for Referral None Reported. Results Created Date Observation Date Name Description Value Unit Range Abnormal Flag Note LastModifiedBy Organization Detail LastModifiedTime 10/28/19 24 10/28/2023 MOBIL UNCUS MULIE RIS/C URTIS ZORAIDA, RT-PC R, ONE SWAB mobiluncus mulieris and mobiluncus curtisii by RT-PCR Negati ve Swab- 1 Vag/C erv Not Available [facility] (Lab) [address], [place], [address], 11/11/2023 15:40:30 10/28/19 24 10/28/2023 BACTE RIAL VAGIN OSIS PANEL RT-PC R, ONESW AB gardnerella vaginalis PCR Negati ve Swab- 1 Vag/C erv Not Available [facility] (Lab) [address], [place], [address], 11/11/2023 15:40:30 10/28/19 24 10/28/2023 BACTE RIAL VAGIN OSIS PANEL RT-PC R, ONESW AB atopobium vaginae PCR Negati ve Swab- 1 Vag/C erv Not Available [facility] (Lab) [address] [place], [address], 11/11/2023 15:40:30 10/28/19 24 10/28/2023 BACTE RIAL VAGIN OSIS PANEL RT-PC R, ONESW AB bacterial vaginosis associated bacteria 2 (bvab2) Negati ve Swab- 1 Vag/C erv Not Available [facility] (Lab) [address] [place], [address], 11/11/2023 15:40:30 10/28/19 24 10/28/2023 BACTE RIAL VAGIN OSIS PANEL RT-PC R, ONESW AB megasphaera species (type 1 and type 2) PCR Negati ve (Type1 ,Type2 ) Swab- 1 Vag/C erv Type1 :Nega tive Type2 :Nega tive. Not Available [facility] (Lab) [address] [place], [address], 11/11/2023 15:40:30 10/28/19 24 10/28/2023 BACTE RIAL VAGIN OSIS PANEL RT-PC R, ONESW AB lactobacillu s (bvpanel) PCR See Commen t Swab- 1 Vag/C erv L.cri spatu s: Negat oliver L.lili senii : Negat oliver L.gas seri : Negat oliver L.ine rs : Negat oliver. Not Available [facility] (Lab) [address] [place], [address], 11/11/2023 15:40:30 10/28/19 24 10/28/2023 VIK DA VAGIN ITIS PANEL RT-PC R, ONESW AB radhika albicans PCR Negati ve Swab- 1 Vag/C erv Not Available [facility] (Lab) [address] [place], [address], 11/11/2023 15:40:31 10/28/19 24 10/28/2023 VIK DA VAGIN ITIS PANEL RT-PC R, ONESW AB radhika tropicalis PCR Negati ve Swab- 1 Vag/C erv Not Available [facility] (Lab) [address] [place], [address], 11/11/2023 15:40:31 10/28/19 24 10/28/2023 VIK DA VAGIN ITIS PANEL RT-PC R, ONESW AB radhika parapsilosis PCR Negati ve Swab- 1 Vag/C erv Not Available [facility] (Lab) [address] [place], [address], 11/11/2023 15:40:31 10/28/19 24 10/28/2023 VIK DA VAGIN ITIS PANEL RT-PC R, ONESW AB radhika glabrata PCR Negati ve Swab- 1 Vag/C erv Not Available [facility] (Lab) [address] [place], [address], 11/11/2023 15:40:31 10/28/19 24 10/28/2023 VIK DA VAGIN ITIS PANEL RT-PC R, ONESW AB radhika krusei by RT-PCR Negati ve Swab- 1 Vag/C erv Not Available [facility] (Lab) [address] [place], [address], 11/11/2023 15:40:31 10/28/19 24 10/28/2023 UROGE NITAL MYCOP LASMA /UREA PLASM A PANEL RT-PC R, ONESW AB mycoplasma genitalium by RT-PCR Negati ve Swab- 1 Vag/C erv Not Available [facility] (Lab) [address] [place], [address], 11/11/2023 15:40:31 10/28/19 24 10/28/2023 UROGE NITAL MYCOP LASMA /UREA PLASM A PANEL RT-PC R, ONESW AB mycoplasma hominis by RT-PCR Negati ve Swab- 1 Vag/C erv Not Available [facility] (Lab) [address] [place], [address], 11/11/2023 15:40:31 10/28/19 24 10/28/2023 UROGE NITAL MYCOP LASMA /UREA PLASM A PANEL RT-PC R, ONESW AB ureaplasma urealyticum by RT-PCR Negati ve Swab- 1 Vag/C erv Not Available [facility] (Lab) [address] [facility], [place], [address], 11/11/2023 15:40:31 10/28/19 24 10/28/2023 VIK DA SNEHAL I BY RT-PC R radhika krusei by RT-PCR CANCEL LED Kindrazoraida zahida Not Available [facility] (Lab) [address] [facility], [place], [address], 11/11/2023 15:40:32 09/14/20 24 09/14/2024 MOBIL UNCUS MULIE RIS/C URTIS ZORAIDA, RT-PC R, ONE SWAB mobiluncus mulieris and mobiluncus curtisii by RT-PCR Negati ve Swab- 1 Cerv End Not Available [facility] (Lab) [address] [facility], [place], [address], 09/29/2024 14:21:25 09/14/20 24 09/14/2024 UROGE NITAL MYCOP LASMA /UREA PLASM A PANEL RT-PC R, ONESW AB mycoplasma genitalium by RT-PCR Negati ve Swab- 1 Cerv End Not Available [facility] (Lab) [address] [facility], [place], [address], 09/29/2024 14:21:26 09/14/20 24 09/14/2024 UROGE NITAL MYCOP LASMA /UREA PLASM A PANEL RT-PC R, ONESW AB mycoplasma hominis by RT-PCR Negati ve Swab- 1 Cerv End Not Available [facility] (Lab) [address] [facility], [place], [address], 09/29/2024 14:21:26 09/14/20 24 09/14/2024 UROGE NITAL MYCOP LASMA /UREA PLASM A PANEL RT-PC R, ONESW AB ureaplasma urealyticum by RT-PCR Negati ve Swab- 1 Cerv End Not Available [facility] (Lab) [address] [place], [address], 09/29/2024 14:21:26 09/14/20 24 09/14/2024 VIK DA VAGIN ITIS PANEL RT-PC R, ONESW AB radhika albicans PCR Negati ve Swab- 1 Cerv End Not Available [facility] (Lab) [address] [place], [address], 09/29/2024 14:21:26 09/14/20 24 09/14/2024 VIK DA VAGIN ITIS PANEL RT-PC R, ONESW AB radhika glabrata PCR Negati ve Swab- 1 Cerv End Not Available [facility] (Lab) [address] [place], [address], 09/29/2024 14:21:26 09/14/20 24 09/14/2024 VIK DA VAGIN ITIS PANEL RT-PC R, ONESW AB radhika krusei by RT-PCR Negati ve Swab- 1 Cerv End Not Available [facility] (Lab) [address] [place], [address], 09/29/2024 14:21:26 09/14/20 24 09/14/2024 VIK DA VAGIN ITIS PANEL RT-PC R, ONESW AB radhika parapsilosis PCR Negati ve Swab- 1 Cerv End Not Available [facility] (Lab) [address] [place], [address], 09/29/2024 14:21:26 09/14/20 24 09/14/2024 VIK DA VAGIN ITIS PANEL RT-PC R, ONESW AB radhika tropicalis PCR Negati ve Swab- 1 Cerv End Not Available [facility] (Lab) [address] [place], [address], 09/29/2024 14:21:26 09/14/20 24 09/14/2024 BACTE RIAL VAGIN OSIS PANEL (WITH LACTO BACIL ABRAHAN PROFI LING) BY QRT LALA, EVELYNE MARTINEZ (JASWANT) atopobium vaginae PCR Negati ve Swab- 1 Cerv End Not Available [facility] (Lab) [address] [place], [address], 09/29/2024 14:21:27 09/14/20 24 09/14/2024 BACTE RIAL VAGIN OSIS PANEL (WITH LACTO BACIL ABRAHAN PROFI LING) BY QRT LALA, EVELYNE MARTINEZ (JASWANT) bacterial vaginosis associated bacterium 1 (bvab1) RT PCR Negati ve Swab- 1 Cerv End Not Available [facility] (Lab) [address] [place], [address], 09/29/2024 14:21:27 09/14/20 24 09/14/2024 BACTE RIAL VAGIN OSIS PANEL (WITH LACTO BACIL ABRAHAN PROFI LING) BY QRT PRC, EVELYNE MARTINEZ (JASWANT) bacterial vaginosis associated bacteria 2 (bvab2) Negati ve Swab- 1 Cerv End Not Available [facility] (Lab) [address] [facility], [place], [address], 09/29/2024 14:21:27 09/14/20 24 09/14/2024 BACTE RIAL VAGIN OSIS PANEL (WITH LACTO BACIL ABRAHAN PROFI LING) BY QRT LALA, EVELYNE MARTINEZ (JASWANT) bacterial vaginosis associated bacterium 3 (bvab3) RT PCR Negati ve Swab- 1 Cerv End Not Available [facility] (Lab) [address] [place], [address], 09/29/2024 14:21:27 09/14/20 24 09/14/2024 BACTE RIAL VAGIN OSIS PANEL (WITH LACTO BACIL ABRAHAN PROFI LING) BY QRT LALA, EVELYNE MARTINEZ (JASWANT) bacteroides fragilis by real - time PCR Negati ve Swab- 1 Cerv End Not Available [facility] (Lab) [address] [place], [address], 09/29/2024 14:21:27 09/14/20 24 09/14/2024 BACTE RIAL VAGIN OSIS PANEL (WITH LACTO BACIL ABRAHAN PROFI LING) BY QRT PRC, EVELYNE MARTINEZ (L) bifidobacter ium breve by real-time PCR Negati ve Swab- 1 Cerv End Not Available [facility] (Lab) [address] [facility], [place], [address], 09/29/2024 14:21:27 09/14/20 24 09/14/2024 BACTE RIAL VAGIN OSIS PANEL (WITH LACTO BACIL ABRAHAN PROFI LING) BY QRT PRC, EVELYNE MARTINEZ (MDL) gardnerella vaginalis PCR Positi ve abnormal Swab- 1 Cerv End Not Available [facility] (Lab) [address] [facility], [place], [address], 09/29/2024 14:21:27 09/14/20 24 09/14/2024 BACTE RIAL VAGIN OSIS PANEL (WITH LACTO BACIL ABRAHAN PROFI LING) BY QRT PRC, EVELYNE MARTINEZ (L) lactobacillu s (bvpanel) PCR See Commen t Swab- 1 Cerv End L.cri spatu s: Negat oliver L.lili senii : Posit oliver L.gas seri : Posit oliver L.ine rs : Negat oliver. Not Available [facility] (Lab) [address] [facility], [place], [address], 09/29/2024 14:21:27 09/14/20 24 09/14/2024 BACTE RIAL VAGIN OSIS PANEL (WITH LACTO BACIL ABRAHAN PROFI LING) BY QRT PRC, EVELYNE MARTINEZ (MDL) lactobacillu s acidophilus by real-time PCR Negati ve Swab- 1 Cerv End Not Available [facility] (Lab) [address] [place], [address], 09/29/2024 14:21:27 09/14/20 24 09/14/2024 BACTE RIAL VAGIN OSIS PANEL (WITH LACTO BACIL ABRAHAN PROFI LING) BY QRT PRC, EVELYNE MARTINEZ (JASWANT) megasphaera species (type 1 and type 2) PCR Negati ve (Type1 ,Type2 ) Swab- 1 Cerv End Type1 :Nega tive Type2 :Nega tive. Not Available [facility] (Lab) [address] [place], [address], 09/29/2024 14:21:27 09/14/20 24 09/14/2024 BACTE RIAL VAGIN OSIS PANEL (WITH LACTO BACIL ABRAHAN PROFI LING) BY QRT PRC, EVELYNE MARTINEZ (JASWANT) mobiluncus curtisii by real-time PCR Negati ve Swab- 1 Cerv End Not Available [facility] (Lab) [address] [place], [address], 09/29/2024 14:21:27 09/14/20 24 09/14/2024 BACTE RIAL VAGIN OSIS PANEL (WITH LACTO BACIL ABRAHAN PROFI LING) BY QRT PRC, EVELYNE MARTINEZ (JASWANT) mobiluncus mulieris by real-time PCR Negati ve Swab- 1 Cerv End Not Available [facility] (Lab) [address] [place], [address], 09/29/2024 14:21:27 09/14/20 24 09/14/2024 BACTE RIAL VAGIN OSIS PANEL (WITH LACTO BACIL ABRAHAN PROFI LING) BY QRT PRC, EVELYNE MARTINEZ (JASWANT) prevotella bivia by real-time PCR Negati ve Swab- 1 Cerv End Not Available [facility] (Lab) [address] [place], [address], 09/29/2024 14:21:27 09/14/20 24 09/14/2024 BACTE RIAL VAGIN OSIS PANEL (WITH LACTO BACIL ABRAHAN PROFI LING) BY QRT PRC, EVELYNE MARTINEZ (JASWANT) sneathia sanguinegens real-time PCR Negati ve Swab- 1 Cerv End Not Available [facility] ([facility]) [address] [facility], [place], [address], 09/29/2024 14:21:27 09/14/20 24 09/14/2024 BACTE RIAL VAGIN OSIS PANEL (WITH LACTO BACIL ABRAHAN CHARITY MITCHELL) BY QRT LALA, EVELYNE MARTINEZ (JASWANT) streptococcu s anginosus by real-time PCR Negati ve Swab- 1 Cerv End Not Available [facility] ([facility]) [address] [facility], [place], [address], 09/29/2024 14:21:27 09/14/20 24 09/14/2024 VIK DA SNEHAL I BY RT-PC R radhika krusei by RT-PCR CANCEL LED Juvenal zahida Not Available [facility] (Lab) [address] [facility], [place], [address], 09/29/2024 14:21:27 06/14/20 25 06/14/2025 IMAGE GUIDE D PAP AND HPV REGAR DLESS image guided Pap, HPV regardless of Pap result SEE RESULT S BELOW CASE REPOR T: Cytol ogy Gynec ologi benito Repor t Case: [id number] Autho mariel page Provi gabriel: Amado Perez MD Colle cted: 06/14 1010 Order ing Locat ion: [place] [facility] Recei otis: 06/15 0209 First Scree n: Tressa Chavira Rescr een: Paige ling, Davide ed, CT Speci men: Parker prince Pap - Image d, Vagin a STATE MENT OF ADEQU ACY: Satis facto ry for evalu ation ----- ----- ----- ----- ----- ----- ----- ----- ----- ----- ----- ----- ----- ----- ----- ----- ----- ---- FINAL DIAGN OSIS: Negat oliver for Intra epith elial Lesio n or Malig keila (NIL) . Elect stacey white saliaja d by Davide Lei ed, CT on 2024 at 2203 CDT ----- ----- ----- ----- ----- ----- ----- ----- ----- ----- ----- ----- ----- ----- ----- ----- ----- ---- HPV RESUL TS: HPV mRNA E6/E7 : No HPV mRNA Detec rui NOTE: This high risk HPV mRNA assay detec ts fourt een high- risk HPV types (16, 18, 31, 33, 35, 39, 45, 51, 52, 56, 58, 59, 66, 68) witho ut diffe renti ation . COMME NT: This speci men was revie wed by a Cytot echno logis t and/o r Patho logis t (as indic ated in this repor t) after evalu ation using the Thinp rep Imagi ng Syste m. CLINI BENITO INFOR MATIO N: Menst rual Statu s: LMP (if appli cable ): Clini benito Histo ry/Pr eviou s Pap: Type of Neopl thomas (if appli cable ): Signi fican t Clini benito Findi ngs: Other Histo ry: Hormo jose cruz (if appli cable ): PAP EDUCA EDUARDO L NOTE: The Pap Test is a scree niki test with an inher ent false negat oliver rate. Liqui d-bas ed sampl ing may decre ase, but will not elimi dylan, false negat oliver resul ts. A negat oliver resul t does not precl ude the prese nce and/o r devel opmen t of disea se, since the prese nce of abnor mal cells in the sampl e depen ds on the locat ion of the lesio n and sampl ing techn ique. Camacho nued regul ar scree niki is the best metho d of cance r preve ntion . If repor rui cytol ogic findi ng do not corre late with physi benito and/o r histo rical findi ngs, furth er inves tigat ion is recom colleen d, as clini justin arriaga nted. Not Available [facility] (Lab) [address] [facility], [place], [address], 06/16/2025 23:08:16 11/05/19 24 07/05/2023 CT, abdom en + pelvi s, w/ contr ast No observ ation record ed. [email or web address] [facility]ly [facility] [address] [place], [address], 11/05/2023 20:42:59 Result Notes None recorded. Problems Name Problem SNOMED Code Status Onset Date Resolution Date Notes Provider Name and Address Organization Details Recorded Time History of cerebrovascul ar accident without residual deficits 197509483 Active 2023 Lian delgado [facility] 4 10:04:19 History of deep vein thrombosis 786046155 Active 2023 Lian delgado [facility] 4 10:04:50 Problem Notes None recorded. Procedures Surgical History Date Name Laterality Status Provider Name and Address Organization Details Recorded Time 11/22/19 25 Date of Last Mammogram completed Kiana Crook [facility] 06/14/2025 09:41:09 07/23/20 24 endoscopy completed Lian Melgar [facility] 09/12/2024 09:57:49 09/23/19 23 Carpal tunnel surgery completed Lian Melgar [facility] 11/11/2023 10:08:24 04/05/20 22 procedure on neck completed Lian Melgar [facility] 11/11/2023 10:09:22 01/05/20 22 completed Kiana Crook [facility] 10/26/2024 09:53:02 04/03/20 20 Date of Last Colonoscopy completed [facility] 09/12/2024 09:49:37 09/23/19 20 Carpal tunnel surgery completed [facility] 11/11/2023 10:08:41 09/23/19 20 Colonoscopy completed [facility] 09/12/2024 09:57:35 09/23/19 17 partial resection of colon completed [facility] 11/11/2023 10:08:55 09/23/19 17 Colonoscopy completed [facility] 11/11/2023 10:09:02 09/23/19 07 Cholecystectomy completed [facility] 11/11/2023 10:08:48 09/23/18 89 Total Hysterectomy completed [facility] 11/11/2023 10:09:08 Imaging Results None recorded. Procedure Notes None recorded. Medical Equipment None Reported. Allergies Allergen ID Allergen Name Allergen Category Reaction Reaction Severity Criticality Documentation Date Start Date Code Code System Note Provider Name and Address Organization Details Recorded Time 00409 Prilosec medicatio n dizziness Not available Not available 10/28/2023 74775 5 RxNorm Amanda Eden [facility] 4 10:05:06 37614 Rocephin medicatio n hives Not available Not available 10/28/2023 9449 RxNorm Amanda Eden [facility] 4 10:20:03 76661 Nexium medicatio n dizziness Not available Not available 10/28/2023 54357 9 RxNorm Amanda Eden [facility] 4 10:20:27 78265 Dilaudid medicatio n anaphylax is Not available Not available 10/28/2023 64045 3 RxNorm Amanda Eden [facility] 10:20:57 Medications Name Sig Start Date Stop [...] APPLY TO THE AFFECTED AREA TWICE DAILY 06/14 completed Not Available Not Available Not Available [...] hydrocortis one acetate 25 mg rectal suppository Insert 1 supposito ry twice a day by rectal route for 14 days, for 6 weeks. 06/14 completed Not Available Not Available Not Available pravastatin 10 mg tablet active Not Available Not Available Not Available baclofen 10 mg tablet 06/14 completed Not Available Not Available Not Available clotrimazol e-betametha sone 1 %-0.05 % topical cream APPLY TO THE AFFECTED AND SURROUNDI NG AREAS OF SKIN BY TOPICAL ROUTE 2 TIMES PER DAY IN THE MORNING AND EVENING FOR 2 WEEKS 06/14 completed Not Available Not Available Not Available flecainide 100 mg tablet active Not Available Not Available Not Available nicotine 21 mg/24 hr daily transdermal patch 09/12 completed Not Available Not Available Not Available lidocaine HCl 2 % mucosal solution active Not Available Not Available Not Available clindamycin 2 % vaginal cream Insert 1 applicato rful every day by vaginal route at bedtime, for 6 weeks. 06/14 completed Not Available Not Available Not Available estradiol 0.01% (0.1 mg/gram) vaginal cream Insert 1 applicato rful every other day by vaginal route. active Not Available Not Available No t Available methylpredn isolone 4 mg tablets in a dose pack 06/14 completed Not Available Not Available Not Available albuterol sulfate HFA 90 mcg/actuati on aerosol inhaler active Not Available Not Available Not Available ondansetron 4 mg disintegrat ing tablet 06/14 completed Not Available Not Available Not Available [...] Not Available Not Available Not Available estradiol 10 mcg vaginal tablet active Not Available Not Available Not Available Probiotic [...] Updated DateTime 10/26/2024 162.56 cm 30.9 kg/m2 65862.63 g 126/76 mm[Hg] [facility]26[facility]24 09:52:49 Date Recorded Body height Body mass index (BMI) Body weight Systolic And Diastolic Provider Name and Address Organization Details Last Updated DateTime 10/28/2023 162.56 cm 26.8 kg/m2 00175.41 g 121/75 mm[Hg] Amanda Eden [facility] 10/28/2023 10:19:45 Date Recorded Body height Body mass index (BMI) Body weight Systolic And Diastolic Provider Name and Address Organization Details Last Updated DateTime 11/11/2023 162.56 cm 27.1 kg/m2 20479.59 g 112/76 mm[Hg] Lian Melgar [facility] 11/11/2023 10:01:35 Date Recorded Body height Body mass index (BMI) Body weight Systolic And Diastolic Provider Name and Address Organization Details Last Updated DateTime 06/14/2025 162.56 cm 33.3 kg/m2 56902.92 g 117/86 mm[Hg] Kiana Crook [facility] 06/14/2025 09:36:54 Date Recorded Body height Body mass index (BMI) Body weight Systolic And Diastolic Provider Name and Address Organization Details Last Updated DateTime 09/12/2024 162.56 cm 30.6 kg/m2 30626.44 g 124/68 mm[Hg] Lian Melgar [facility] 09/12/2024 09:48:24 Social History Question Answer Notes LastModified by Organizat ion Details LastModified Time Tobacco Smoking Status Current Every Day Smoker Amanda Harmon danny, [facility] 10/28/2023 10:06:25 Do You Have An Advance Directive? Yes [email or web address] Information n ot available 09/12/2024 Are You Blind Or Do You Have Difficulty Seeing? No [email or web address] Information n ot available 11/11/2023 What Is Your Level Of Caffeine Consumption? Moderate [email or web address] Information not available 11/11/2023 How Much Tobacco Do You Chew? None Information not available 06/14/2025 In The 14 Days Before Symptom Onset, Have You Had Close Contact With A Laboratory-confirm ed COVID-19 While That Case Was Ill? No [email or web address] Information n ot available 11/11/2023 In The 14 Days Before Symptom Onset, Have You Had Close Contact With A Person Who Is Under Investigation For COVID-19 While That Person Was Ill? No [email or web address] Information not available 11/11/2023 Have You Been To An Area Known To Be High Risk For COVID-19? No [email or web address] Information not available 11/11/2023 Are You Deaf Or Do You Have Serious Difficulty Hearing? No [email or web address] Information not available 11/11/2023 What Type Of Diet Are You Following? CARDIAC [email or web address] Information n ot available 11/11/2023 What Is The Highest Grade Or Level Of School You Have Completed Or The Highest Degree You Have Received? [id number] [email or web address] Information not available 09/12/2024 Are There Any Guns Present In Your Home? No [email or web address] Information not available 09/12/2024 Have You Ever Been Counseled For Unhealthy Alcohol Use? No [email or web address] Information not available 11/11/2023 Do You Use Protection During Sex? Usually [email or web address] Information not available 09/12/2024 Do You Use Your Seat Belt Or Car Seat Routinely? Yes [email or web address] Information not available 09/12/2024 Do You Have Smoke And Carbon Monoxide Detectors In Your Home? Yes [email or web address] Information not available 11/11/2023 At What Age Did You Start Smoking Tobacco? 17 [email or web address] Information not available 09/12/2024 How Much Tobacco Do You Smoke? No Information not available 06/14/2025 Do You Use Sunscreen Routinely? Yes [email or web address] Information not available 11/11/2023 Has Tobacco Cessation Counseling Been Provided? No Information not available 11/11/2023 Have You Used IV Drugs? No [email or web address] Information not available 09/12/2024 Do You Have Difficulty Walking Or Climbing Stairs? No [email or web address] Information not available 11/11/2023 Sex: Unknown Functional Status Question Answer Note LastModified by Organizat ion Details LastModified Time Do you use any illicit or recreational drugs? No [email or web address] Information not available 11/11/2023 Do you or have you ever used any other forms of tobacco or nicotine? No [email or web address] Information not available 11/11/2023 What is your level of alcohol consumption? None [email or web address] Information not available 09/12/2024 Are you able to walk independently without assistance or assistive devices? YESWOREST [email or web address] Information not available 11/11/2023 Are you able to care for yourself independently? Yes [email or web address] Information not available 11/11/2023 What is your occupation? Retired [email or web address] Information not available 09/12/2024 Do you have difficulty dressing, bathing, grooming, or toileting? No [email or web address] Information not available 11/11/2023 What is your exercise level? Occasional Information not available 11/11/2023 Mental Status Question Answer Note LastModified by Organization D etails LastModified Time Do you feel stressed (tense, restless, nervous, or anxious, or unable to sleep at night)? [id number] [email or web address] Information not available 09/12/2024 Family History Relationship Description Onset Age of this Age Resolved Age Notes LastModified by Organization Details LastModified Time Father Heart disease [email or web address] Not available 2023 10:50:39 Father Hypertensive disorder [email or web address] Not available 2023 10:51:08 Sister Diabetes mellitus [email or web address] Not available 2023 10:50:54 Sister Hypertensive disorder [email or web address] Not available 2023 10:51:08 Mother Diabetes mellitus [email or web address] Not available 2023 10:50:54 Mother Malignant neoplasm of lung [email or web address] Not available 2023 10:51:18 Mother Malignant neoplasm of liver [email or web address] Not available 2024 09:28:52 Medical History Condition Response Allergies (Food, seasonal, [...] History Statement/Question Response Date of Last Mammogram 11/21/2024 Date of LMP 09/23/1989 N STIs/STDs Y HPV Vaccine N Current Control Method Hysterectom y Age at First Child 19 Date of Last Colonoscopy 04/03/2020 Sexually Active? N Menses Monthly N Date of DEXA bone scan 03/24/2024 Age of first menstrual cycle 14 Date of Last Pap Smear Sexual Problems? N LMP Approximate 01/04/2022 N Obstetrics History GPAL:G 1 P 1 0 0 1 Type Value Full Term 1 Living 1 Total 1 Past Encounters Encounter ID Performer Location Encounter Start Date Encounter Closed Date Diagnosis/Indication Diagnosis SNOMED-CT Code Diagnosis ICD10 Code Diagnosis IMO Codes Diagnosis Note [id number] Avtar Perez MD [facility] [address] [address] 10/28/2023 09:46:57 10/28/2023 11:22:37 Atrophic vulva 883714716 N90.5 this patient is a 63-year-ol d [...] will return in 2 weeks. Vulval pain 593595869 R1 0.2 [id number] Avtar Perez MD [facility] [address] [address] 11/11/2023 09:34:50 11/11/2023 14:49:04 Atrophic vulvovaginitis 21375380 N95.2 63-year-ol d female who presents for [...] the vulva. To follow-up in 1 month. 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 /Thigh. Tinea corporis 37965867 B35.4 [id number] Avtar Perez MD [facility] [address] [address] 10/26/2024 09:39:36 10/26/2024 10:27:47 Atrophic vulva 329311706 N90.5 64-year-ol d female with a severe [...] week. She will follow up as needed. [id number] Avtar Perez MD [facility] [address] [address] 06/14/2025 09:27:53 06/14/2025 10:10:07 Atrophic vaginitis 97795950 N95.2 [id number] Well woman health examination 837655371 Z01.419 [id number] Annual gynecologi benito exam performed. Patient will come back in a year unless there are new symptoms. Suggest Calcium with Vitamin D if not eating in diet. Patient advised to get annual flu shot. Recommend yearly physicals and preform monthly breast exams. Genetic testing is available for patients with family history of cancer. Engage in safe sexual practices, use condoms. Encouraged to have daily exercise. Avoid tobacco and illicit drugs, moderation of alcohol. If BMI greater than 25 dietary consult advised. If you have any questions please call or email. mammogram- done colon cancer screening - done DEXA scan- done Pap smear- today laboratory evaluation - dobne Health Concerns Section Related Observation LastModified by Organization Detai ls LastModified Time None Recorded Concern Status LastModified by Organization Details LastModified Time None Recorded Advance Directives Directive Y: Payers Insurance Date Sequence Insurance Name Policy Number Policy Sandoval Covered Member ID Sandoval Member ID Guarantor Name 06/14/2025 1 [facility] - DOS ON OR AFTER 21 (MEDICAID REPLACEMENT - HMO) Claudine Cruz [id number] Claudine Cruz Notes Date Note Type Note Provider Name and Address Organization Details Recorded Time 10/28/19 24 text/htm l this patient is a 63-year-old female who [...] had hysterectomy at age 29 with bilateral salpingo-oophorectomy. She has taken very little estrogen replacement therapy. She has had decades of atrophy of the vagina. We spent over 40 minutes javn-da-ripq. More than 50% was counseling. We agreed to treat with vaginal estrogen and topical estrogen on the vulvar area of interest. She will return in 2 weeks. Avtar Perez MD [address], [place], [address], [facility] 10/28/2023 11:00:18 11/11/19 24 text/htm l 63-year-old female who presents for follow-up on severe vulvovaginitis [...] very quickly. We spent over 20 minutes [id number]-gk-[id number]. More than 50% was counseling. She was re-examined. The vulva appears improved. She was using some in the vagina and some over the vulva. To follow-up in 1 month. Avtar Perez MD [address], [place], [address], [facility] 11/11/2023 14:19:59 09/12/20 24 text/htm l 64-year-old female with longstanding vaginal irritation and pain. No [...] weeks. Avtar Perez MD [address], [place], [address], [facility] 09/12/2024 11:46:56 10/26/19 25 text/htm l 64-year-old female with a severe case of vulvovaginitis. She [...] needed. Avtar Perez MD [address], [place], [address], [facility] 10/26/2024 10:24:29 06/14/20 25 text/htm l Annual GYNReported by PatientHistoryFor history, patient reportsno gynecologic complaints.Genitourinary symptomsFor menstrual cycle, patient reportsnormal menses. For urinary symptoms, patient reportsno hematuria. For vulva, patient reportsno genital lesion. For vagina, patient reportsnormal vaginal discharge.Breast symptomsFor breast, patient reportsno breast painandno breast lump.Endocrine symptomsFor menopausal symptoms, patient reportsno menopausal symptomsandnormal vaginal lubrication.Psychological symptomsFor psychological symptoms, patient reportsdepressionandanxiety (declined tx).Preventative measuresFor preventive measures, patient reportsencourage self breast examinationandencourage regular exercise. Avtar Perez MD [address], [place], [address], [facility] 06/14/2025 10:07:28 OBGyn Episode Ob Episode Information Episode Created Date Number of Fetuses Patient Bloodtype Patient rh Status Prepregnancy Weight lbs Domestic Partner Domestic Partner Phone Father Name Genetic Supervisor Status 10/28/19 24 1 CLOSED Fetus Data First Name Last Name Admitted to NICU Weight (g) Sex Living Outcome Pediatric Complications Fetus ID Race Codes Race Delivery Type 3940.35 3704 M Full Term [id number] Vaginal Delivery Riaz Calculation Initial Riaz Date [...]
--- OUTSIDE RECORDS SUMMARY | 2025-06-19 11:43 | XMS_ITS | Data Portability ---
Author Organization [facility], [address] [place]rology ([place]) Address [address] [place] [address] Care Team Providers Care Copy Supervisor Name Role Phone JACQUELINE MATTSON Primary Care Provider [phone] JACQUELINE MATTSON Referring Provider CALEB MARIN Neurosurgeon Assessment Encounter Date Assessment Date Assessment LastModified by Organization Details LastModified Time 06/01/2024 06/01/2024 Ms. Claudine Cruz is here [...] her after 6 months for reassessment. [email or web address] Not available 06/04/2024 07:07:27 06/01/2024 06/01/2024 In [...] will be written on her prep sheet. [email or web address] Not available 06/01/2024 12:43:27 11/30/2024 11/30/2024 Assessment: [...] she can have the MRI at the [facility] in [place]. I did offer to prescribe medication to [...] to face counseling regarding the cervical pannus. [email or web address] Not available 12/08/2024 16:18:20 11/30/2024 11/30/2024 Ms. [...] She can follow up as needed. [email or web address] Not available 12/02/2024 06:22:29 05/10/2025 05/10/2025 Ms. Cruz is a 64 year old female who returns for follow up of her neck pain. The patient presents with dizziness, neck pain, and intermittent tingling in the right hand. Her symptoms are concerning for potential cervical spine pathology contributing to dizziness and blackouts. She has a history of vertigo, arthritis, and carpal tunnel surgery, as well as a goiter requiring biopsy. An MRI of the cervical spine will be ordered to evaluate for potential structural causes of her symptoms. Given her difficulty lying flat and history of panic attacks during imaging, she will be prescribed Valium to take prior to the scan, and she will require a commercial relief driver to accompany her to the appointment. The patient has previously undergone physical therapy and trigger point injections without relief. She has also had an unremarkable MRI of the brain in November [address] scan at [facility], which did not demonstrate abnormalities. Her carotid ultrasounds have been normal. Further management will depend on the findings of the cervical spine MRI. If structural abnormalities are identified, appropriate interventions will be discussed. The patient is advised to avoid driving due to her dizziness and blackouts until further evaluation is completed. We will call with results of her MRI and a plan of care since it is difficult for her to come to the appointments due to not being able to drive. [email or web address] Not available 05/13/2025 09:47:31 Plan of Treatment Reminders Order Date Submit Date Provider Last Modified By Organization Details Last Modified Time Details Appointments None recorded. Lab None recorded. Referral physical therapist referral - Pt. is s/p Right lateral craniotomy C1 laminectomy resection of odontoid process on 04/05/22. Please call pt to schedule. Thank you!! 2024 025 [facility] Physical Therapy, [address] [place], [address], 18:16:57 Procedures None recorded. Surgeries None recorded. Imaging MRI, cervical spine, w/o contrast [address] [place] [address] Radiology, [address] [place], [address], 10:05:11 Medication Orders None recorded. Patient TargetsNo targets recorded. Patient Instructions Encounter Date Encounter Id Patient Instructions Last Modified By Organization Details Last Modified Time 05/10/2025 [id number] - Schedule an MR I of the cervical spine. - Take Valium as prescribed prior to the MRI. - Arrange for a commercial relief driver to accompany you to the MRI appointment. - Avoid driving until further evaluation is completed. Not available 05/10/2025 12:19:20 Please note: Parts of this encounter note have been generated by AI based on audio conversation. Patient consent was required prior to utilizing this technology. Content review was required prior to finalizing the note. [email or web address] Not available 05/10/2025 12:19:20 Reason for Referral Physical Therapist Referral for [...] 5 view No observ ation record ed. [facility] [address] [place], [address], 08/19/2024 17:11:19 10/05/19 25 10/05/2024 CT, head, w/o contr ast No observ ation record ed. [facility] [address] [place], [address], 10/07/2024 11:45:19 11/11/19 25 11/07/2024 CT, head, [...] Not Available 0 03/27/2025 08:03:59 03/27/20 25 02/16/2020 imagi ng/di agnos tic resul t No observ ation record ed. [email or web address] Not Available 0 03/27/2025 08:04:01 03/27/20 25 03/11/2018 imagi ng/di agnos tic resul t No observ ation record ed. [email or web address] Not Available 0 03/27/2025 08:04:04 03/27/20 25 03/11/2018 imagi ng/di agnos tic resul t No observ ation record ed. [email or web address] Not Available 0 03/27/2025 08:04:05 03/27/20 25 04/27/2019 shalinii lena/racheal cline tic resul t No observ ation record ed. [email or web address] Not Available 0 03/27/2025 08:04:12 Result Notes None recorded. Problems Name Problem SNOMED Code Status Onset Date Resolution Date Notes Provider Name and Address Organization Details Recorded Time Hydrocephal us ex vacuo 02006746 Active 2023 Chey Napoles MD [address] [place] [address], [address], [facility] 4 10:53:13 Pain due to varicose veins of lower extremity 470314822 Active 2023 Sboeida Sherman [facility] 4 08:48:52 Edema of lower extremity 963003635 Active 2023 Tiff Nishant [facility] 4 12:13:53 Dysphagia 40126064 Active 2023 Neva Mcdowell [facility] 4 08:59:27 Chronic abdominal pain 419542439 Active 2023 Khang Shetty APRN, [employer] [address] [place] [address], [address], [facility] 4 12:43:41 Nonulcer dyspepsia 0848678 Active 2023 Khang Shetty APRN, [employer] [address] [place] [address], [address], [facility] 4 12:43:50 Peripheral vascular disease 913006915 Active 2023 Khang Shetty APRN, [employer] [address] [place] [address], [address], 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 5 09:45:25 Claustropho tracy 02857451 Active 2024 Jessenia Richardson APRN, DNP, [employer] [address] [place], [address], [facility] 5 12:23:32 Problem Notes None recorded. Procedures Surgical History Date Name Laterality Status Provider Name and Address Organization Details Recorded Time 07/23 esophagogastroduodenoscopy completed Neva Mcdowell [facility] 4 08:58:52 04/05 cervical laminectomy completed Irina Coyle [facility] 4 15:01:26 Colonoscopy with biopsy completed [...] Name and Address Organization Details Recorded Time 8016782 Dilaudid medicatio n anaphylax is Not available Not available 10/23/20232021 75169 3 RxNorm React ion: Anaph ylaxi s; Not Available [facility] 4 04:31:20 6076387 esomepraz ole magnesium medicatio n dizziness Not available Not available 10/23/20232010 27006 2 RxNorm React ion: Dizzi ness; Not Available [facility] 4 04:31:20 287294 omeprazol e magnesium medicatio n nausea Not available Not available 10/21/20232014 01055 6 RxNorm React ion: Nause a; Other ; Not Available [facility] 4 21:39:22 287724 Rocephin medicatio n rash Not available Not available 10/21/20232016 9449 RxNorm React ion: Rash; Not Available [facility] 4 21:39:23 Medications Name Sig Start Date [...] Not Available Not Available No t Available Xanax 0.25 mg tablet Take 1 tablet as needed by oral route. 2024 active Not Available Not Available Not Avai lable flecainide 100 mg tablet Take 1 tablet [...] Not Available Not Indu ilable Not Available Vitamin D active Not Available Not Indu ilable Not Available varenicline tartrate 0.5 mg (11)-1 [...] and Address Organization Details Last Updated DateTime 162.56 cm 31.5 kg/m2 08236.8 4 g 54 /min 98 % 98 % 124/82 mm[Hg] Yuliana Orr [facility] 5 15:17:19 Date Recorded Body height Body mass index (BMI) Body weight Heart rate Respiratory rate Oxygen saturation Oxygen saturation in Arterial blood by Pulse oximetry Systolic And Diastolic Provider Name and Address Organization Details Last Updated DateTime 5 162.56 cm 31.6 kg/m2 36175 g 46 /min 20 /min 99 % 99 % 140/64 mm[Hg] [facility] 5 13:58:02 Date Recorded Body height Body mass index (BMI) Body weight Heart rate Oxygen saturation Oxygen saturation in Arterial blood by Pulse oximetry Systolic And Diastolic Provider Name and Address Organization Details Last Updated DateTime 5 162.56 cm 32.6 kg/m2 38495.5 5 g 61 /min 97 % 97 % 150/84 mm[Hg] Irina Coyle [facility] 5 11:37:40 Date Recorded Body height Body mass index (BMI) Body weight Systolic And Diastolic Provider Name and Address Organization Details Last Updated DateTime 06/01/2024 162.56 cm 29.9 kg/m2 77645.07 g 105/70 mm[Hg] Khang Shetty APRN, [employer] [address], [address], [facility] 06/01/2024 12:38:55 Date Recorded Body height Respiratory rate Heart rate Oxygen saturation Oxygen saturation in Arterial blood by Pulse oximetry Systolic And Diastolic Provider Name and Address Organization Details Last Updated DateTime 4 162.56 cm 18 /min 52 /min 96 % 96 % 120/54 mm[Hg] [facility] 4 13:43:16 Social History Question Answer Notes LastModified by Organizat ion Details LastModified Time Tobacco Smoking Status Current Every Day Smoker Not Available Health Note 05/09/2025 11:13:41 Do You Have An Advance Directive? Yes [email or web address] Information not available 05/09/2025 What Is Your Level Of Caffeine Consumption? Moderate [email or web address] Information not available 05/09/2025 What Is Your Code Status? Other [email or web address] Information not available 05/09/2025 How Many Times Per Week Do You Exercise? Less Than 1 Time Per Week [email or web address] Information not available 05/09/2025 How Many Packs Per Day (PPD)? 3-5 Per Day Information not available 05/21/2024 How Long Have You Smoked? Since I Was 17 [email or web address] Information not available 04/06/2024 Do You Have A Medical Power Of Income Tax Manager? Yes [email or web address] Information not available 04/06/2024 What Was The Date Of Your Most Recent Tobacco Screening? 05/10/2025 [email or web address] Information not available 05/09/2025 What Is Your Current Pack Years? 30ormorepacky ears [email or web address] Information not available 05/09/2025 What Is Your Relationship Status? Single [email or web address] Information not available 05/09/2025 How Much Tobacco Do You Smoke? 0.25 PPD [email or web address] Information not available 05/09/2025 How Many Years Have You Smoked Tobacco? 45 [email or web address] Information not available 05/09/2025 Sex: Unknown Functional Status Question Answer Note LastModified by Organizat ion Details LastModified Time Do you use any illicit or recreational drugs? No [email or web address] Information not available 05/09/2025 Do you or have you ever used any other forms of tobacco or nicotine? No [email or web address] Information not available 05/09/2025 What is your level of alcohol consumption? None [email or web address] Information not available 05/09/2025 Are you currently employed? No [email or web address] Information not available 05/09/2025 What is your occupation? Retired [email or web address] Information not available 05/09/2025 What is your exercise level? Occasional [email or web address] Information not available 05/09/2025 Mental Status None recorded. Family History Relationship [...] Alzheimer's disease [email or web address] Not available 2023 17:46:10 Unspecified Relation Osteoporosis [email or web address] Not available 04/23 11:13:40 Paternal Grandfather Heart disease [email or web address] Not available [...] ICD10 Code Diagnosis IMO Codes Diagnosis Note [id number] Chey Napoles MD [facility] [place]rology ([place]) [address] [facility] [place] [address] 03/23/2024 10:30:59 03/25/2024 08:33:26 Hydrocephalus ex vacuo 47597298 G91.0 [id number] Karsno Bright MD 800 [facility] Vascular Surgery ([place]) [address] [place] [address], [place] [address] 04/13/2024 15:24:08 04/13/2024 16:46:06 Pain due to varicose veins of lower extremity 114594890 I83.083 [id number] Karson Bright MD 800 [facility] [place] [place] ([place]) [address] [place] [address], [place] [address] 05/21/2024 16:02:16 05/21/2024 17:03:25 Pain due to varicose veins of lower extremity 816211983 I83.162 [id number] Khang Shetty, NOHEMI, [employer] SAL[employer]SULTANT [facility] Gastroent [place]ology ([place]) [address] [address] 06/01/2024 12:06:40 06/01/2024 15:02:22 Dysphagia 96281722 R13.10 Chronic ab dominal pain 043876175 R10.9 Nonulcer dyspepsia 31144 07 K30 Peripheral vascular disease 861777456 I73.9 [id number] Karson Bright MD [address] [place] [address] Vascular Surgery ([place]) [address] [place] [address],[address] [place] [address] 06/01/2024 13:21:13 06/01/2024 14:04:42 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 040689700 I83.11 I83.12 Additional diagnosis detail: Varicose veins of lower extremity with inflammati on, bilateral [id number] Jessenia Richardson, SLAT GRADER, DNP, [employer]SULTANT [facility] Neurosurg [place] ([place]) [address] [place] [address] 11/30/2024 14:40:48 12/09/2024 06:04:12 Compression of cervical spinal cord 2538306979 G95.20 [id number] Karson Bright MD [address] [place] [address] Vascular Surgery ([place]) [address] [place] [address], [place] [address] 11/30/2024 13:29:59 11/30/2024 17:36:11 Edema of lower extremity 234883497 R60.0 Vascular insufficiency 09383052 I87.2 07038 [id number] Jessenia Richardson, SLAT GRADER, DNP, [employer] SAL[employer] CONSULTANT [facility] [address] Neuro[facility] [place] ([place]) [address] [place] [address] 05/10/2025 11:20:10 05/10/2025 13:15:16 Compression of cervical spinal cord 1548224921 G95.20 Chronic neck pain 751714 2073 107 M54.2 G89.29 [id number] Health Concerns Section Related Observation LastModified by Organization Detai ls LastModified Time None Recorded Concern Status LastModified by Organization Details LastModified Time None Recorded Advance Directives Directive Y: Payers Insurance Date Sequence Insurance Name Policy Number Policy Sandoval Covered Member ID Sandoval Member ID Guarantor Name 05/14/2025 1 [facility] ON OR AFTER 03/23/21 (MEDICAID REPLACEMENT - HMO) Claudine Cruz [id number] Claudine Cruz Notes Date Note Type Note Provider Name and Address Organization Details Recorded Time 06/01/2024 text/html 63-year-old woman here to discuss some upper GI issues.Upon [...] sounds like she has to buy this [id number] because her insurance does not cover as [...] does have a history of cholecystectomy. Khang Shetty APRN, [employer]ANT [address] [place] [address], [address], [facility] 06/01/2024 12:44:24 06/01/2024 text/html This is a [...] at this point.ronny Bright MD [address] [place] [address], [address], [place] [facility] 06/04/2024 18:05:45 11/30/2024 text/html Ms. Cruz is a 64-year-old female who returns for follow up of her C2 pannus. She is accompanied by her sister. She is status post right lateral craniotomy with C1 laminectomy, resection of odontoid process. This was done on April 05, 2022, at [facility]. At her last appointment with Dr. 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 Patient denies confusion or word difficulties. Duplicating Machine Servicer: Dr. Wilkins ([place])Blood thinner: Xarelto 02/26/19-reports fall started pain a [...] C1 laminectomy resection of odontoid process at [facility].-in cervical collar. right side of head is bothersome. doing well. XR shows no gross instability on flexion and extension. f/u in 3 mo with MRI cervical.07/23/22-re ports neck pain, right ear feels full, feels like she is going to pass out. MRI does not have any revealing dynamic instability. neck uumsoesnr88/15/23-ta kes pain meds around the clock. incision is well healed. MRI in June.08/05/23-MRI shows stable anterior C2 pannus w/o evidence of spinal cord compression. offered referral to Dr. Ordoñez. reports neck pain.07/29/24-XR cervical at [place] shows no acute osseous abnormality cervical spine.11/07/24-Pt went to [place] ED for neck pain and headache. CT cervical shows Mild cervical spondylosis. no acute osseus abnormality. Jessenia Richardson, SLAT GRADER, DNP, [employer]ANT [address] [place] [address], [phone], [facility] 12/08/2024 16:18:37 11/30/2024 text/html This is a [...] pain or discomfort.ronny Bright MD [address] [place] [address], [address], [facility] 12/17/2024 23:30:02 05/10/2025 text/html 04/19/25-Pt is by herself for the appt. Claudine Cruz is a 64-year-old female who presents for follow up of her neck pain. She reports persistent dizziness that worsens when turning her head to the left, causing blackouts, and has been unable to lie flat for approximately three months. She has been sleeping upright due to these symptoms. She went to physical therapy in 12/2024, which did not improve her neck pain, and experienced blackouts during therapy when her head was turned to the left. She also received trigger point injections from Dr. Perez at [facility], which targeted trigger points; however, these injections did not provide relief and caused headaches lasting three to four days. She has a history of vertigo treated with Antivert in the past, which resolved, but she notes that her current symptoms feel different. She has also experienced pain and pressure localized to the right side of her neck and head, described as constant and hot. Additionally, she reports intermittent tingling in her right hand, which she associates with prior carpal tunnel surgery, and arthritis affecting her right thumb. She has had an unremarkable MRI of the brain in November [address] scan at [facility], which, per her report, did not demonstrate abnormalities. She was recently diagnosed with a goiter requiring biopsy, but she has been unable to proceed with the biopsy due to her inability to lie flat. She has also undergone annual carotid ultrasounds with vascular surgery. She expresses concern about her inability to drive due to dizziness and blackout spells and is seeking further evaluation to determine the cause of her symptoms. She has recently had a cardiac work up for this as well. [facility] NoMedications: no recentSmoker: yesPain: 04/01 Duplicating Machine Servicer: Dr. Wilkins ([place])Blood thinner: Xarelto 02/26/19-reports fall started pain a [...] C1 laminectomy resection of odontoid process at [facility].-in cervical collar. right side of head is bothersome. doing well. XR shows no gross instability on flexion and extension. f/u in 3 mo with MRI cervical.07/23/22-re ports neck pain, right ear feels full, feels like she is going to pass out. MRI does not have any revealing dynamic instability. neck wbgpquhho46/15/23-ta kes pain meds around the clock. incision is well healed. MRI in June.08/05/23-MRI shows stable anterior C2 pannus w/o evidence of spinal cord compression. offered referral to Dr. Ordoñez. reports neck pain.07/29/24-XR cervical at [place] shows no acute osseous abnormality cervical spine.11/07/24-Pt went to [place] ED for neck pain and headache. CT cervical shows Mild cervical spondylosis. no acute osseus abnormality.11/30/24 -Reports headaches. no numbness/weakness, dizziness at times. Recommend PT to assist with obtaining insurance authorization for MRI.01/18/25-Physica l Therapy at [facility]. Jessenia Richardson, SLAT GRADER, DNP, [employer] SAL[employer] CONSULTANT [address] [place] [address], [address], [place] [facility] 05/13/2025 09:47:49 OBGyn Episode No OBEpisode recorded.
--- OUTSIDE RECORDS SUMMARY | 2025-06-19 11:43 | XMS_ITS | Encounter Summary ---
Author Organization 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
== END 2025-06-19 11:40 | disposition home or self-care (01) ==
LOC: CHSIMG 11:40
PROVIDERS: PCP Internal Medicine
DX: G95.20 Unspecified cord compression (principal); M43.02 Spondylolysis, cervical region
CPT/HCPCS: 72141

== ENCOUNTER 2025-06-27 11:00 | Emergency (ER) | payer OTHER, SELFPAY ==
--- NOTE | ~2025-06-27 | XR_ITS ---
Examination: XR knee LT 3V Clinical History: fall, Lt. knee pain/ swelling/ contusion Comparison: 08/08/2020 Technique: 3 views left knee Findings/impression: 1. Small suprapatellar joint effusion. 2. No acute fracture or dislocation. 3. Chondrocalcinosis. 4. Moderate medial compartment joint space narrowing. 5. Posterior joint dystrophic calcifications. Reviewed, dictated and finalized at location R.
--- NOTE | ~2025-06-27 | XR_ITS ---
Examination: XR shoulder LT min 2V, XR wrist LT min 3V, XR hand LT min 3V Clinical History: fall, Lt. shoulder pain Comparison: None Technique: 2 views left shoulder, 3 views left wrist, 3 views left hand Findings/impression: Left shoulder: 1. No fracture or dislocation. Left wrist: 1. No acute fracture or dislocation. 2. Radiocarpal joint space narrowing. 3. Calcifications within TFCC. 4. Severe degenerative changes basal joint of thumb. Left hand: 1. No fracture or dislocation. Reviewed, dictated and finalized at location R.
--- NOTE | ~2025-06-27 | CT_ITS ---
CT HEAD NON-CONTRAST CT C-SPINE Clinical History: fall, dizziness/ cervical pain Comparison: CT brain 03/31/2025 CT C-spine 11/07/2024 Technique: Unenhanced axial images skull base to vertex. Coronal, sagittal reformats. Axial images thoracic inlet to skull base. Sagittal and coronal reformats. CT images acquired with automatic exposure control for dose reduction DLP: 605 mGy-cm Findings: Head: Sulci, ventricles: Unremarkable. No intracerebral hemorrhage. No evidence acute territorial infarct. No mass effect, midline shift, intra-/extra-axial fluid collection. Bony calvarium intact. Visualized paranasal sinuses: Clear. Mastoid air cells: Clear. C-spine: No acute fracture or listhesis. Vertebral bodies normal height and alignment. Moderate degenerative changes. Prevertebral soft tissues within normal limits. Visualized lung apices: Clear. Visualized thyroid: Unremarkable. No enlarged cervical nodes. IMPRESSION: HEAD: 1. No acute intracranial findings. C-SPINE: 1. No acute fracture. Reviewed, dictated and finalized at location R. IMPRESSION: HEAD: 1. No acute intracranial findings. C-SPINE: 1. No acute fracture.
[2025-06-27 11:00] VITALS: BP 150/69; PULSE 68; RESP 18; TEMP 36.8; O2SAT 98
--- OUTSIDE RECORDS SUMMARY | 2025-06-27 11:05 | XMS_ITS | Encounter Summary ---
Author Organization [facility] Address [address] [place] [address] Care Team Providers Care Clay Caster Name Role Phone Rey Wadsworth MD Unavailable Unavailabl e Yasmany Sullivan MD Primary Care Provider [phone] Erin Mead COMPUTER TRAINING SPECIALIST Unavailable Unavailable Encounter Details Date Type Department Care Team (Late st Contact Info) Description 12/27/2015 Abstract [facility] AT [facility] [address] [place] [address] Rey Wadsworth MD Social History Tobacco Use Types Packs/Day Years Used Date Smoking Tobacco: Former Comments Unknown Sex and Gender Information Value Date Recorded Sex Assigned at Not on file Legal Sex Female 6:18 PM CDT Gender Identity Not on file Sexual Orientation Not on file 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
--- OUTSIDE RECORDS SUMMARY | 2025-06-27 11:05 | XMS_ITS | Encounter Summary ---
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
--- OUTSIDE RECORDS SUMMARY | 2025-06-27 11:05 | XMS_ITS | Clinical Summary ---
Author Organization [facility] Address [address] [place] [address] Care Team Providers Care Reclamation Worker Name Role Phone Rey Wadsworth MD Unavailable Yasmany Be MD Primary Care Provider [phone] Erin Mead NP Unavailable Unavailable Allergies Active [...] the lungs as needed. 03/13/2018 Active Pancrelipase, Tog-Ooyv-Cpki, (CREON) 14067 units CAPSULE ENTERIC COATED PARTICLES Take 36,000 [...] of right side 11/18 Atrial fibrillation, persistent ([facility]/HCC 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 on file [...] 2024-2 6 season) 2025 10/20/2021, 02/18/2021, 01/21/2021 Influenza Adult (#1) 2025 Meningococcal B Vaccine Aged Out No l onger eligible based on patient's age to complete this topic Meningococcal Vaccine Aged Out No nupur nikia eligible based on patient's age to complete this topic RSV Immunizations Under 20 Months Aged Out No longer eligible b ased on patient's age to complete this topic Insurance Advance Directives Documents on File Type Date Recorded Patient Box Lining Machine Operator Expl anation Advance Directives and Living Will 02/19/2019 12:00 AM POWER OF DANCING MASTER Advance Directives and Living Will 12/01/2018 12:00 AM POWER OF DANCING MASTER Advance Directives and Living Will 11/10/2018 12:00 AM POWER OF DANCING MASTER Advance Directives and Living Will 09/02/2018 12:00 AM POWER OF DANCING MASTER Advance Directives and Living Will 03/11/2018 12:00 AM POWER OF DANCING MASTER Advance Directives and Living Will 03/11/2018 12:00 AM POWER OF DANCING MASTER Advance Directives and Living Will 01/15/2017 12:00 AM POWER OF DANCING MASTER Care Teams Reclamation Worker Relationship Specialty Start Date End Date Yasmany Sullivan MD [address] [place] [id number] PCP - General INTERNAL MEDICINE 03/11/17 Rey Wadsworth MD [place] Hand Bootmaker CLINICAL CARDIAC ELECTROPHYSIOLOGY 03/11/17 Erin Mead NP [address] [place] [address] Nurse Practitioner Electrophysiology 03/13/18
--- NOTE | 2025-06-27 11:07 | ED.FALL ---
HPI - Fall General Chief Complaint: Fall Stated Complaint: fall; left hand and left knee pain Time Seen by Provider: 06/27/25 11:06 Source: patient Mode of arrival: ambulatory Limitations: no limitations History of Present Illness HPI Narrative: Patient is a 65-year-old female who stepped on an uneven sidewalk and tripped and fell onto her left side. She sustained a neck pain, left shoulder, left wrist and hand and left knee pain injury. Patient is on chronic pain medication of hydrocodone. She takes hydrocodone daily multiple times. She sustained multiple skin abrasions and flaps. Tetanus shot is not up-to-date. complaint: fall Onset (ago): minute(s) (Thirty) Fall from: standing Fall witnessed: no Place fall occurred: home and street Loss of consciousness: none Prolonged down time: no Symptoms prior to fall: none Context: tripped/slipped Location of injury: neck Location of injury - extremities: Left: shoulder, hand (And wrist) and knee Severity: moderate Severity scale (1-10): 5 Quality: sharp Associated symptoms (after fall): neck pain and other (All areas of contusion are painful with skin abrasions) Related Data Home Medications ?Medication ?Instructions ?Recorded ?Confirmed ?Last Taken ?Type famotidine 40 mg tablet 40 mg PO BID 09/24/19 06/16/25 03/26/23 History multivitamin (Multiple Vitamins 1 tablet PO BID 12/24/19 06/16/25 03/25/23 History tablet) ascorbate calcium (vitamin C) 500 500 mg PO DAILY 01/23/21 06/16/25 03/25/23 History mg tablet cholecalciferol (vitamin D3) 25 25 mcg PO DAILY 01/23/21 06/16/25 03/25/23 History mcg (1,000 unit) capsule vitamin B12 500 mcg-folic acid 400 1 tablet PO DAILY 01/23/21 06/16/25 03/25/23 History mcg tablet acetaminophen 325 mg capsule 650 mg PO Q8H PRN Pain (Scale 03/16/22 06/16/25 03/26/23 History (Tylenol) Score 1-3) hydrocodone 5 mg-acetaminophen 325 1 tablet PO QID PRN Pain 03/16/22 06/16/25 03/26/23 History mg tablet pravastatin 20 mg tablet 10 mg PO DAILY 03/16/22 06/16/25 03/26/23 History rivaroxaban 20 mg tablet (Xarelto) 20 mg PO DAILY 03/16/22 06/16/25 03/26/23 History diphenoxylate-atropine 2.5 1 tablet PO QID PRN Diarrhea 01/01/23 06/16/25 Unknown History mg-0.025 mg tablet Lactobacillus 1 cap PO DAILY 03/25/23 06/16/25 03/25/23 History acidophilus-Bifidobac.animalis 2.5 billion cell capsule (Daily Probiotic) estradiol 0.01% (0.1 mg/gram) vaginal 03/01/25 06/16/25 Unknown History vaginal cream meclizine 25 mg chewable tablet 25 mg PO TID PRN dizziness 05/27/25 06/16/25 Unknown History (Antivert) polyethylene glycol 3350 17 gram 17 g PO DAILY PRN constipation 05/27/25 06/27/25 Unknown History oral powder packet (Miralax) Allergies Allergy/AdvReac Type Severity Reaction Status Date / Time ceftriaxone (From Rocephin) Allergy Intermediate Hives Verified 06/27/25 12:22 esomeprazole Allergy Intermediate Hives Verified 06/27/25 12:22 omeprazole Allergy Intermediate Hives Verified 06/27/25 12:22 hydromorphone (From Dilaudid) AdvReac Intermediate Anxiety Verified 06/27/25 12:22 trazodone AdvReac Intermediate Dizziness Verified 06/27/25 12:22 Review of Systems Review of Systems: All systems reviewed & are unremarkable except as noted in HPI and below Constitutional: Constitutional: Reports no additional constitutional complaints Eyes: Eyes: Reports no additional eye complaints ENT: Reports system reviewed and no additional complaints, except as documented Cardiovascular: Cardiovascular: Reports no additional cardiovascular complaints Respiratory: Respiratory: Reports no additional respiratory complaints Gastrointestinal: Gastrointestinal: Reports no additional gastrointestinal complaints Genitourinary: Genitourinary: Reports no additional female genitourinary complaints Musculoskeletal: Musculoskeletal: Reports no additional musculoskeletal complaints Integumentary/Breasts: Skin/Breast: Reports system reviewed and no additional complaints, except as docu Neurologic: Reports system reviewed and no additional complaints, except as documented Psychiatric: Psychiatric: Reports no additional psychiatric complaints Endocrine: Endocrine: Reports no additional endocrine complaints Hematologic/Lymphatic: Hematologic/Lymphatic: Reports no additional hematologic/lymphatic complaints Allergic/Immunologic: Allergic/Immunologic: Reports no additional allergic/immunologic complaints [facility] Past Medical History Medical History Pleurisy Disc disorder of cervical region Arthritis Anxiety Hair loss IBS (irritable bowel syndrome) Atrial fib/flutter, transient COPD (chronic obstructive pulmonary disease) Wears glasses Dizziness Plantar fasciitis, bilateral Arthritis of foot, right, degenerative CVA (cerebral vascular accident) Atrial fibrillation Dyslipidemia GERD (gastroesophageal reflux disease) Hypertension Osteoarthritis Fibromyalgia Surgical History Surgical History History of carpal tunnel surgery 03/2021 per patient questionnaire History of colon surgery History of knee surgery 32 years ago per patient questionnaire H/O: hysterectomy History of cholecystectomy Family History Family History Other Arthritis Cerebrovascular accident Social History Social History Smoking packs per day: 0.5 Smoking cigarettes per day: 10.0 Years smoked: 44 Smoking pack-years: 22.00 Smoking status: Current some day smoker Tobacco type: cigarettes Second hand tobacco smoke exposure: Yes Alcohol intake: former Alcohol use details: LAST 2015 Substance use: never Substance use type: does not use Lack of Transportation: No Lack of Food: Never True Current Housing: I Have Housing Concerned About Future Housing: No Difficulty Paying Gas/Electric Bills: No Difficulty Paying for Meds: No Education: High School Diploma/GED Difficulty w/ Childcare or Family Care: No Living arrangements: with family Additional living arrangements comments: SISTER SOMETIMES Gender identity (if verbalized by the patient): Female Spiritual care concerns: No Agree to blood products: Yes Exam Const: General: healthy appearing Nutritional Appearance: well nourished Orientation/consciousness: patient oriented x3 Limitations: no limitations HENMT: Head: normal to inspection Ears: external ears normal Face/Nose/Sinus: Normal external nose present Face and sinus: normal facial exam Mouth: Yes Normal oral and palatal mucosa present Teeth and gingiva: dentition normal Throat: posterior oropharynx normal Eyes: Conjunctivae: conjunctivae normal Pupils: Equal, round and reactive pupils present EOM: EOMs intact bilaterally Neck: Neck: normal visual inspection Other: Tender paraspinal muscles of the cervical spine with normal midline Chest: Chest palpation & inspection: normal inspection of the chest Resp: Effort & Inspection: normal respiratory effort and not labored Auscultation: clear to auscultation bilaterally and no crackles Cardio: Rate: regular rate Rhythm: regular rhythm Heart sounds: no murmurs GI: Inspection: non-distended GI Palp: Yes Soft to palpation and No Tenderness to palpation present (GI) Auscultation: normal bowel sounds : General: Yes bladder normal to palpation Back/Spine/Pelvis: Back: no CVA tenderness Skin: General skin exam: normal color Rashes: no rashes Wounds: wound noted Other: Left medial palm has 3 separate skin tear/flap with minimal bleeding and slight ecchymosis; left knee has 1 large area of abrasion with minimal bleeding Neuro: General: patient oriented x3, moves all extremities and no meningeal signs Cranial nerves: Yes Nystagmus not present Speech: normal speech Gait exam (Neuro): Normal gait present Extrem: General: abnormal to inspection, no clubbing, cyanosis or edema and no pedal edema Other: Left shoulder is tender to palpation and range of motion; left wrist and hand is tender to palpation and range of motion; left knee is tender to palpation and range of motion Psych: Mental Status: mental status grossly normal Affect: normal affect Attitude: cooperative Course Vital Signs Vital signs: Vital Signs Temperature 36.8 C 06/27/25 11:00 Pulse Rate 68 06/27/25 11:00 Respiratory Rate 18 06/27/25 11:00 Blood Pressure 150/69 H 06/27/25 11:00 Pulse Oximetry 98 06/27/25 11:00 Oxygen Delivery Room Air 06/27/25 11:00 Temperature 36.9 C 06/27/25 13:01 Pulse Rate 66 06/27/25 13:01 Respiratory Rate 20 06/27/25 13:01 Blood Pressure 132/85 06/27/25 13:01 Pulse Oximetry 94 06/27/25 13:01 Oxygen Delivery Room Air 06/27/25 13:01 MDM - Fall MDM Narrative Medical decision making narrative: Patient is a 65-year-old female with a fall ground level prior to arrival and sustained multiple left-sided injuries. X-rays. Wound care. Tetanus. Antibiotic. Sling. Imaging Data Attestation: I personally reviewed and interpreted this imaging study as follows: Radiologist's impression: X-ray left shoulder/left wrist/left hand are all negative for acute process X-ray left knee has small joint effusion and otherwise negative for acute process CT head and neck were both negative for acute process Discharge Plan Discharge Clinical Impression: Contusion of multiple sites, Flap laceration of skin Fall Qualifiers: Encounter type: initial encounter Qualified Code(s): W19.XXXA - Unspecified fall, initial encounter Patient Disposition: Home Condition: Stable Instructions: Antibiotic Form, Contusion in Adults (ED), Skin Avulsion (ED) Additional Instructions: Please monitor the wounds and if there is any sign of infection please start antibiotics at the pharmacy. Use antibiotic ointment on the areas daily to twice a day. Fresh dressings daily. Patient Language: Turkmen Prescriptions: New sulfamethoxazole-trimethoprim [Bactrim DS] 800-160 mg tablet 1 tablet PO BID 7 Days Qty: 14 0RF No Action famotidine 40 mg tablet 40 mg PO BID diphenoxylate-atropine 2.5-0.025 mg tablet 1 tablet PO QID PRN (Reason: Diarrhea) ondansetron HCl 4 mg tablet 4 mg PO Q4H Qty: 10 0RF Rx Instructions: 1st dose 1-2 hr before radiation multivitamin [Multiple Vitamins] Tablet 1 tablet PO BID ondansetron 4 mg tablet,disintegrating 4 mg PO Q6H PRN (Reason: nausea and vomiting) Qty: 14 0RF ascorbate calcium (vitamin C) 500 mg tablet 500 mg PO DAILY vitamin F42-jswue acid 500-400 mcg tablet 1 tablet PO DAILY Rx Instructions: administer with a meal cholecalciferol (vitamin D3) 25 mcg (1,000 unit) capsule 25 mcg PO DAILY meclizine [Antivert] 25 mg tablet,chewable 25 mg PO TID PRN (Reason: dizziness) estradiol 0.01 % (0.1 mg/gram) cream vaginal triamcinolone acetonide 0.1 % paste 1 applic dental TID Qty: 10 2RF Rx Instructions: apply to ulcer on tip of tongue t.i.d. pravastatin 20 mg tablet 10 mg PO DAILY acetaminophen [Tylenol] 325 mg capsule 650 mg PO Q8H PRN (Reason: Pain (Scale Score 1-3)) Xarelto 20 mg tablet 20 mg PO DAILY hydrocodone-acetaminophen 5-325 mg tablet 1 tablet PO QID PRN (Reason: Pain) polyethylene glycol 3350 [Miralax] 17 gram powder in packet 17 g PO DAILY PRN (Reason: constipation) Patient Comments: TAKES PRN Daily Probiotic 2.5 billion cell Capsule 1 cap PO DAILY flecainide 100 mg tablet See Rx Instructions .ROUTE .COMPLEX Qty: 30 0RF Dose Instruction: 100 MG ORALLY NEEDED MAKE TAKE A DOSE WHEN IN ATRIAL FIB, AND MAY TAKE A 2ND DOSE 1 HOUR LATER IF STILL IN ATRIAL FIB. Rx Instructions: 100 MG ORALLY NEEDED MAKE TAKE A DOSE WHEN IN ATRIAL FIB, AND MAY TAKE A 2ND DOSE 1 HOUR LATER IF STILL IN ATRIAL FIB. Follow-up/Referrals: Yasmany Sullivan MD [Primary Care Provider, Internal Medicine] Time of Disposition: 12:53
[2025-06-27] MEDS: MORPHINE SULFATE (*CRX) 4 MG/ML INJ IM (11:22)
[2025-06-27] MEDS: NEOMYCIN/POLYMYXIN/BACITRACIN OINTMENT PACKET 5 PACKET TOPICAL (11:33)
--- OUTSIDE RECORDS SUMMARY | 2025-06-27 12:12 | XMS_ITS | Clinical Summary ---
Author Organization [facility] Address [address] [place] [address] Care Team Providers Care Agriculture Engineer Name Role Phone Rey Wadsworth MD Unavailable Yasmany Be MD Primary Care Provider [phone] Erin Mead NP Unavailable Unavailable Allergies Active [...] the lungs as needed. 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 on file [...] Documents on File Type Date Recorded Patient Custodian Expl anation Advance Directives and Living Will 02/19/2019 12:00 AM POWER OF CERTIFIED FINANCIAL PLANNER Advance Directives and Living Will 12/01/2018 12:00 AM POWER OF CERTIFIED FINANCIAL PLANNER Advance Directives and Living Will 11/10/2018 12:00 AM POWER OF CERTIFIED FINANCIAL PLANNER Advance Directives and Living Will 09/02/2018 12:00 AM POWER OF CERTIFIED FINANCIAL PLANNER Advance Directives and Living Will 03/11/2018 12:00 AM POWER OF CERTIFIED FINANCIAL PLANNER Advance Directives and Living Will 03/11/2018 12:00 AM POWER OF CERTIFIED FINANCIAL PLANNER Advance Directives and Living Will 01/15/2017 12:00 AM POWER OF CERTIFIED FINANCIAL PLANNER Care Teams Agriculture Engineer Relationship Specialty Start Date End Date Yasmany Sullivan MD [address] [place] [phone] PCP - General INTERNAL MEDICINE 03/11/17 Rey Wadsworth MD [place] Medical Transcription Editor CLINICAL CARDIAC ELECTROPHYSIOLOGY 03/11/17 Erin Mead NP [address] [place] [address] Nurse Practitioner Electrophysiology 03/13/18
--- OUTSIDE RECORDS SUMMARY | 2025-06-27 12:12 | XMS_ITS | Encounter Summary ---
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
--- OUTSIDE RECORDS SUMMARY | 2025-06-27 12:12 | XMS_ITS | Data Portability ---
Author Organization [facility] [place] Address [address] [place] [address] [place] [address] Care Team Providers Care Eyelet Operator Name Role Phone JACQUELINE MATTSON Primary Care Provider Assessment No assessment recorded. Plan of Treatment Reminders Order Date Submit Date Provider Last Modified By Organization Details Last Modified Time Details Appointments None recorded. Lab None recorded. Referral None recorded. Procedures None recorded. Surgeries None recorded. Imaging None recorded. Medication Orders estradiol 10 mcg vaginal tablet 2024 025 [email or web address] [facility], [address] [place] [address], [place], [address], 5 15:50:23 Estrace 0.01% (0.1 mg/gram) vaginal cream 2024 025 LISETTE [facility], [address] [place] [address], [facility] [place], [address], 5 10:20:41 clotrimazol e-betametha sone 1 %-0.05 % topical cream 2023 024 LISETTE [facility], [facility], [facility] [place], [address], 5 09:39:07 clindamycin 2 % vaginal cream 2023 024 [email or web address] [facility] [address] [place], [address], 5 09:38:54 hydrocortis one acetate 25 mg rectal suppository 2023 024 [email or web address] [facility], [address] [place], [address], 5 09:39:25 clobetasol 0.05 % topical cream 2023 024 LISETTE [facility], [facility], [address], [place], [address], 4 11:26:51 Estrace 0.01% (0.1 mg/gram) vaginal cream 2023 024 [email or web address] 1 [facility], [place], [address], 4 10:02:50 Patient TargetsNo targets recorded. Patient InstructionsNo instructions recorded. Reason for Referral None Reported. Results Created Date Observation Date Name Description Value Unit Range Abnormal Flag Note LastModifiedBy Organization Detail LastModifiedTime 10/28/19 24 10/28/2023 MOBIL UNCUS MULIE RIS/C URTIS ZORAIDA, RT-PC R, ONE SWAB mobiluncus mulieris and mobiluncus curtisii by RT-PCR Negati ve Swab- 1 Vag/C erv Not Available [facility] (Lab) [address], [place], [address], 11/11/2023 15:40:30 10/28/19 24 10/28/2023 BACTE RIAL VAGIN OSIS PANEL RT-PC R, ONESW AB gardnerella vaginalis PCR Negati ve Swab- 1 Vag/C erv Not Available [facility] (Lab) [address], [place], [address], 11/11/2023 15:40:30 10/28/19 24 10/28/2023 BACTE RIAL VAGIN OSIS PANEL RT-PC R, ONESW AB atopobium vaginae PCR Negati ve Swab- 1 Vag/C erv Not Available [facility] (Lab) [address] [place], [address], 11/11/2023 15:40:30 10/28/19 24 10/28/2023 BACTE RIAL VAGIN OSIS PANEL RT-PC R, ONESW AB bacterial vaginosis associated bacteria 2 (bvab2) Negati ve Swab- 1 Vag/C erv Not Available [facility] (Lab) [address] [place], [address], 11/11/2023 15:40:30 10/28/19 24 10/28/2023 BACTE RIAL VAGIN OSIS PANEL RT-PC R, ONESW AB megasphaera species (type 1 and type 2) PCR Negati ve (Type1 ,Type2 ) Swab- 1 Vag/C erv Type1 :Nega tive Type2 :Nega tive. Not Available [facility] (Lab) [address] [place], [address], 11/11/2023 15:40:30 10/28/19 24 10/28/2023 BACTE RIAL VAGIN OSIS PANEL RT-PC R, ONESW AB lactobacillu s (bvpanel) PCR See Commen t Swab- 1 Vag/C erv L.cri spatu s: Negat oliver L.lili senii : Negat oliver L.gas seri : Negat oliver L.ine rs : Negat oliver. Not Available [facility] (Lab) [address] [place], [address], 11/11/2023 15:40:30 10/28/19 24 10/28/2023 VIK DA VAGIN ITIS PANEL RT-PC R, ONESW AB radhika albicans PCR Negati ve Swab- 1 Vag/C erv Not Available [facility] (Lab) [address] [place], [address], 11/11/2023 15:40:31 10/28/19 24 10/28/2023 VIK DA VAGIN ITIS PANEL RT-PC R, ONESW AB radhika tropicalis PCR Negati ve Swab- 1 Vag/C erv Not Available [facility] (Lab) [address] [place], [address], 11/11/2023 15:40:31 10/28/19 24 10/28/2023 VIK DA VAGIN ITIS PANEL RT-PC R, ONESW AB radhika parapsilosis PCR Negati ve Swab- 1 Vag/C erv Not Available [facility] (Lab) [address] [place], [address], 11/11/2023 15:40:31 10/28/19 24 10/28/2023 VIK DA VAGIN ITIS PANEL RT-PC R, ONESW AB radhika glabrata PCR Negati ve Swab- 1 Vag/C erv Not Available [facility] (Lab) [address] [place], [address], 11/11/2023 15:40:31 10/28/19 24 10/28/2023 VIK DA VAGIN ITIS PANEL RT-PC R, ONESW AB radhika krusei by RT-PCR Negati ve Swab- 1 Vag/C erv Not Available [facility] (Lab) [address] [place], [address], 11/11/2023 15:40:31 10/28/19 24 10/28/2023 UROGE NITAL MYCOP LASMA /UREA PLASM A PANEL RT-PC R, ONESW AB mycoplasma genitalium by RT-PCR Negati ve Swab- 1 Vag/C erv Not Available [facility] (Lab) [address] [place], [address], 11/11/2023 15:40:31 10/28/19 24 10/28/2023 UROGE NITAL MYCOP LASMA /UREA PLASM A PANEL RT-PC R, ONESW AB mycoplasma hominis by RT-PCR Negati ve Swab- 1 Vag/C erv Not Available [facility] (Lab) [address] [place], [address], 11/11/2023 15:40:31 10/28/19 24 10/28/2023 UROGE NITAL MYCOP LASMA /UREA PLASM A PANEL RT-PC R, ONESW AB ureaplasma urealyticum by RT-PCR Negati ve Swab- 1 Vag/C erv Not Available [facility] (Lab) [address] [facility], [place], [address], 11/11/2023 15:40:31 10/28/19 24 10/28/2023 VIK DA SNEHAL I BY RT-PC R radhika krusei by RT-PCR CANCEL LED Kindrazoraida zahida Not Available [facility] (Lab) [address] [facility], [place], [address], 11/11/2023 15:40:32 09/14/20 24 09/14/2024 MOBIL UNCUS MULIE RIS/C URTIS ZORAIDA, RT-PC R, ONE SWAB mobiluncus mulieris and mobiluncus curtisii by RT-PCR Negati ve Swab- 1 Cerv End Not Available [facility] (Lab) [address] [facility], [place], [address], 09/29/2024 14:21:25 09/14/20 24 09/14/2024 UROGE NITAL MYCOP LASMA /UREA PLASM A PANEL RT-PC R, ONESW AB mycoplasma genitalium by RT-PCR Negati ve Swab- 1 Cerv End Not Available [facility] (Lab) [address] [facility], [place], [address], 09/29/2024 14:21:26 09/14/20 24 09/14/2024 UROGE NITAL MYCOP LASMA /UREA PLASM A PANEL RT-PC R, ONESW AB mycoplasma hominis by RT-PCR Negati ve Swab- 1 Cerv End Not Available [facility] (Lab) [address] [facility], [place], [address], 09/29/2024 14:21:26 09/14/20 24 09/14/2024 UROGE NITAL MYCOP LASMA /UREA PLASM A PANEL RT-PC R, ONESW AB ureaplasma urealyticum by RT-PCR Negati ve Swab- 1 Cerv End Not Available [facility] (Lab) [address] [place], [address], 09/29/2024 14:21:26 09/14/20 24 09/14/2024 VIK DA VAGIN ITIS PANEL RT-PC R, ONESW AB radhika albicans PCR Negati ve Swab- 1 Cerv End Not Available [facility] (Lab) [address] [place], [address], 09/29/2024 14:21:26 09/14/20 24 09/14/2024 VIK DA VAGIN ITIS PANEL RT-PC R, ONESW AB radhika glabrata PCR Negati ve Swab- 1 Cerv End Not Available [facility] (Lab) [address] [place], [address], 09/29/2024 14:21:26 09/14/20 24 09/14/2024 VIK DA VAGIN ITIS PANEL RT-PC R, ONESW AB radhika krusei by RT-PCR Negati ve Swab- 1 Cerv End Not Available [facility] (Lab) [address] [place], [address], 09/29/2024 14:21:26 09/14/20 24 09/14/2024 VIK DA VAGIN ITIS PANEL RT-PC R, ONESW AB radhika parapsilosis PCR Negati ve Swab- 1 Cerv End Not Available [facility] (Lab) [address] [place], [address], 09/29/2024 14:21:26 09/14/20 24 09/14/2024 VIK DA VAGIN ITIS PANEL RT-PC R, ONESW AB radhika tropicalis PCR Negati ve Swab- 1 Cerv End Not Available [facility] (Lab) [address] [place], [address], 09/29/2024 14:21:26 09/14/20 24 09/14/2024 BACTE RIAL VAGIN OSIS PANEL (WITH LACTO BACIL ABRAHAN PROFI LING) BY QRT LALA, EVELYNE MARTINEZ (JASWANT) atopobium vaginae PCR Negati ve Swab- 1 Cerv End Not Available [facility] (Lab) [address] [place], [address], 09/29/2024 14:21:27 09/14/20 24 09/14/2024 BACTE RIAL VAGIN OSIS PANEL (WITH LACTO BACIL ABRAHAN PROFI LING) BY QRT LALA, EVELYNE MARTINEZ (JASWANT) bacterial vaginosis associated bacterium 1 (bvab1) RT PCR Negati ve Swab- 1 Cerv End Not Available [facility] (Lab) [address] [place], [address], 09/29/2024 14:21:27 09/14/20 24 09/14/2024 BACTE RIAL VAGIN OSIS PANEL (WITH LACTO BACIL ABRAHAN PROFI LING) BY QRT PRC, EVELYNE MARTINEZ (JASWANT) bacterial vaginosis associated bacteria 2 (bvab2) Negati ve Swab- 1 Cerv End Not Available [facility] (Lab) [address] [facility], [place], [address], 09/29/2024 14:21:27 09/14/20 24 09/14/2024 BACTE RIAL VAGIN OSIS PANEL (WITH LACTO BACIL ABRAHAN PROFI LING) BY QRT LALA, EVELYNE MARTINEZ (JASWANT) bacterial vaginosis associated bacterium 3 (bvab3) RT PCR Negati ve Swab- 1 Cerv End Not Available [facility] (Lab) [address] [place], [address], 09/29/2024 14:21:27 09/14/20 24 09/14/2024 BACTE RIAL VAGIN OSIS PANEL (WITH LACTO BACIL ABRAHAN PROFI LING) BY QRT LALA, EVELYNE MARTINEZ (JASWANT) bacteroides fragilis by real - time PCR Negati ve Swab- 1 Cerv End Not Available [facility] (Lab) [address] [place], [address], 09/29/2024 14:21:27 09/14/20 24 09/14/2024 BACTE RIAL VAGIN OSIS PANEL (WITH LACTO BACIL ABRAHAN PROFI LING) BY QRT PRC, EVELYNE MARTINEZ (L) bifidobacter ium breve by real-time PCR Negati ve Swab- 1 Cerv End Not Available [facility] (Lab) [address] [facility], [place], [address], 09/29/2024 14:21:27 09/14/20 24 09/14/2024 BACTE RIAL VAGIN OSIS PANEL (WITH LACTO BACIL ABRAHAN PROFI LING) BY QRT PRC, EVELYNE MARTINEZ (MDL) gardnerella vaginalis PCR Positi ve abnormal Swab- 1 Cerv End Not Available [facility] (Lab) [address] [facility], [place], [address], 09/29/2024 14:21:27 09/14/20 24 09/14/2024 BACTE RIAL VAGIN OSIS PANEL (WITH LACTO BACIL ABRAHAN PROFI LING) BY QRT PRC, EVELYNE MARTINEZ (L) lactobacillu s (bvpanel) PCR See Commen t Swab- 1 Cerv End L.cri spatu s: Negat oliver L.lili senii : Posit oliver L.gas seri : Posit oliver L.ine rs : Negat oliver. Not Available [facility] (Lab) [address] [facility], [place], [address], 09/29/2024 14:21:27 09/14/20 24 09/14/2024 BACTE RIAL VAGIN OSIS PANEL (WITH LACTO BACIL ABRAHAN PROFI LING) BY QRT PRC, EVELYNE MARTINEZ (MDL) lactobacillu s acidophilus by real-time PCR Negati ve Swab- 1 Cerv End Not Available [facility] (Lab) [address] [place], [address], 09/29/2024 14:21:27 09/14/20 24 09/14/2024 BACTE RIAL VAGIN OSIS PANEL (WITH LACTO BACIL ABRAHAN PROFI LING) BY QRT PRC, EVELYNE MARTINEZ (JASWANT) megasphaera species (type 1 and type 2) PCR Negati ve (Type1 ,Type2 ) Swab- 1 Cerv End Type1 :Nega tive Type2 :Nega tive. Not Available [facility] (Lab) [address] [place], [address], 09/29/2024 14:21:27 09/14/20 24 09/14/2024 BACTE RIAL VAGIN OSIS PANEL (WITH LACTO BACIL ABRAHAN PROFI LING) BY QRT PRC, EVELYNE MARTINEZ (JASWANT) mobiluncus curtisii by real-time PCR Negati ve Swab- 1 Cerv End Not Available [facility] (Lab) [address] [place], [address], 09/29/2024 14:21:27 09/14/20 24 09/14/2024 BACTE RIAL VAGIN OSIS PANEL (WITH LACTO BACIL ABRAHAN PROFI LING) BY QRT PRC, EVELYNE MARTINEZ (JASWANT) mobiluncus mulieris by real-time PCR Negati ve Swab- 1 Cerv End Not Available [facility] (Lab) [address] [place], [address], 09/29/2024 14:21:27 09/14/20 24 09/14/2024 BACTE RIAL VAGIN OSIS PANEL (WITH LACTO BACIL ABRAHAN PROFI LING) BY QRT PRC, EVELYNE MARTINEZ (JASWANT) prevotella bivia by real-time PCR Negati ve Swab- 1 Cerv End Not Available [facility] (Lab) [address] [place], [address], 09/29/2024 14:21:27 09/14/20 24 09/14/2024 BACTE RIAL VAGIN OSIS PANEL (WITH LACTO BACIL ABRAHAN PROFI LING) BY QRT PRC, EVELYNE MARTINEZ (JASWANT) sneathia sanguinegens real-time PCR Negati ve Swab- 1 Cerv End Not Available [facility] (Lab) [address] [facility], [place], [address], 09/29/2024 14:21:27 09/14/20 24 09/14/2024 BACTE RIAL VAGIN OSIS PANEL (WITH LACTO BACIL ABRAHAN CHARITY MITCHELL) BY QRT LALA, EVELYNE MARTINEZ (JASWANT) streptococcu s anginosus by real-time PCR Negati ve Swab- 1 Cerv End Not Available [facility] (Lab) [address] [facility], [place], [address], 09/29/2024 14:21:27 09/14/20 24 09/14/2024 VIK DA SNEHAL I BY RT-PC R radhika krusei by RT-PCR CANCEL LED Juvenal zahida Not Available [facility] (Lab) [address] [facility], [place], [address], 09/29/2024 14:21:27 06/14/20 25 06/14/2025 IMAGE GUIDE [...] otis: 06/15 0209 First Scree n: Tressa hCavira Rescr een: Paige ling, Davide ed, CT [...] Malig keila (NIL) . Elect stacey white sailaja d by Davide Lei ed, CT on [...] as clini justin arriaga nted. Not Available [facility] (Lab) [address] [facility], [place], [address], 06/16/2025 23:08:16 11/05/19 24 07/05/2023 CT, abdom en + pelvi s, w/ contr ast No observ ation record ed. [email or web address] [facility] [address] [place], [address], 11/05/2023 20:42:59 Result Notes None recorded. Problems Name Problem SNOMED Code Status Onset Date Resolution Date Notes Provider Name and Address Organization Details Recorded Time History of cerebrovascul ar accident without residual deficits 518186366 Active 2023 Lian delgado [facility] 4 10:04:19 History of deep vein thrombosis 129613677 Active 2023 Lian delgado [facility] 4 10:04:50 Problem Notes None recorded. Procedures Surgical History Date Name Laterality Status Provider Name and Address Organization Details Recorded Time 11/22/19 25 Date of Last Mammogram completed Kiana Crook [facility] 06/14/2025 09:41:09 07/23/20 24 endoscopy completed Lian Melgar [facility] 09/12/2024 09:57:49 09/23/19 23 Carpal tunnel surgery completed Lian Melgar [facility] 11/11/2023 10:08:24 04/05/20 22 procedure on neck completed Lian Melgar [facility] 11/11/2023 10:09:22 01/05/20 22 completed Kiana Crook [facility] 10/26/2024 09:53:02 04/03/20 20 Date of Last Colonoscopy completed [facility] 09/12/2024 09:49:37 09/23/19 20 Carpal tunnel surgery completed [facility] 11/11/2023 10:08:41 09/23/19 20 Colonoscopy completed [facility] 09/12/2024 09:57:35 09/23/19 17 partial resection of colon completed [facility] 11/11/2023 10:08:55 09/23/19 17 Colonoscopy completed [facility] 11/11/2023 10:09:02 09/23/19 07 Cholecystectomy completed [facility] 11/11/2023 10:08:48 09/23/18 89 Total Hysterectomy completed [facility] 11/11/2023 10:09:08 Imaging Results None recorded. Procedure Notes None recorded. Medical Equipment None Reported. Allergies Allergen ID Allergen Name Allergen Category Reaction Reaction Severity Criticality Documentation Date Start Date Code Code System Note Provider Name and Address Organization Details Recorded Time 58011 Prilosec medicatio n dizziness Not available Not available 10/28/2023 [address] [facility] 4 10:05:06 18464 Rocephin medicatio n hives Not available Not available 10/28/[address] [facility] 4 10:20:03 46527 Nexium medicatio n dizziness Not available Not available 10/28/2023 [address] [facility] 4 10:20:27 15873 Dilaudid medicatio n anaphylax is Not available Not available 10/28/2023 [address] [facility] 10:20:57 Medications Name Sig Start Date [...] Updated DateTime 10/26/2024 162.56 cm 30.9 kg/m2 38080.63 g 126/76 mm[Hg] [facility]/26[facility]24 09:52:49 Date Recorded Body height Body mass index (BMI) Body weight Systolic And Diastolic Provider Name and Address Organization Details Last Updated DateTime 10/28/2023 162.56 cm 26.8 kg/m2 52635.41 g 121/75 mm[Hg] Amanda Eden [facility] 10/28/2023 10:19:45 Date Recorded Body height Body mass index (BMI) Body weight Systolic And Diastolic Provider Name and Address Organization Details Last Updated DateTime 11/11/2023 162.56 cm 27.1 kg/m2 52028.59 g 112/76 mm[Hg] Lian Melgar [facility] 11/11/2023 10:01:35 Date Recorded Body height Body mass index (BMI) Body weight Systolic And Diastolic Provider Name and Address Organization Details Last Updated DateTime 06/14/2025 162.56 cm 33.3 kg/m2 05429.92 g 117/86 mm[Hg] Kiana Crook [facility] 06/14/2025 09:36:54 Date Recorded Body height Body mass index (BMI) Body weight Systolic And Diastolic Provider Name and Address Organization Details Last Updated DateTime 09/12/2024 162.56 cm 30.6 kg/m2 29480.44 g 124/68 mm[Hg] Lian Melgar [facility] 09/12/2024 09:48:24 Social History Question Answer Notes LastModified by Organizat ion Details LastModified Time Tobacco Smoking Status Current Every Day Smoker Amanda Harmon danny, [facility] 10/28/2023 10:06:25 Do You Have An Advance Directive? Yes [email or web address] Information n ot available 09/12/2024 Are You Blind Or Do You Have Difficulty Seeing? No [email or web address] Information n ot available 11/11/2023 What Is Your Level Of Caffeine Consumption? Moderate [email or web address] Information not available 11/11/2023 How Much Tobacco Do You Chew? None Information not available 06/14/2025 In The 14 Days Before Symptom Onset, Have You Had Close Contact With A Laboratory-confirm ed COVID-19 While That Case Was Ill? No [email or web address] Information n ot available 11/11/2023 In The 14 Days Before Symptom Onset, Have You Had Close Contact With A Person Who Is Under Investigation For COVID-19 While That Person Was Ill? No [email or web address] Information not available 11/11/2023 Have You Been To An Area Known To Be High Risk For COVID-19? No [email or web address] Information not available 11/11/2023 Are You Deaf Or Do You Have Serious Difficulty Hearing? No [email or web address] Information not available 11/11/2023 What Type Of Diet Are You Following? CARDIAC [email or web address] Information n ot available 11/11/2023 What Is The Highest Grade Or Level Of School You Have Completed Or The Highest Degree You Have Received? [id number] [email or web address] Information not available 09/12/2024 Are There Any Guns Present In Your Home? No Information not available 09/12/2024 Have You Ever Been Counseled For Unhealthy Alcohol Use? No [email or web address] Information not available 11/11/2023 Do You Use Protection During Sex? Usually Information not available 09/12/2024 Do You Use Your Seat Belt Or Car Seat Routinely? Yes [email or web address] Information not available 09/12/2024 Do You Have Smoke And Carbon Monoxide Detectors In Your Home? Yes [email or web address] Information not available 11/11/2023 At What Age Did You Start Smoking Tobacco? 17 [email or web address] Information not available 09/12/2024 How Much Tobacco Do You Smoke? No Information not available 06/14/2025 Do You Use Sunscreen Routinely? Yes [email or web address] Information not available 11/11/2023 Has Tobacco Cessation Counseling Been Provided? No [email or web address] Information not available 11/11/2023 Have You Used IV Drugs? No [email or web address] Information not available 09/12/2024 Do You Have Difficulty Walking Or Climbing Stairs? No [email or web address] Information not available 11/11/2023 Sex: Unknown Functional Status Question Answer Note LastModified by Organizat ion Details LastModified Time Do you use any illicit or recreational drugs? No [email or web address] Information not available 11/11/2023 Do you or have you ever used any other forms of tobacco or nicotine? No [email or web address] Information not available 11/11/2023 What is your level of alcohol consumption? None [email or web address] Information not available 09/12/2024 Are you able to walk independently without assistance or assistive devices? YESWOREST [email or web address] Information not available 11/11/2023 Are you able to care for yourself independently? Yes [email or web address] Information not available 11/11/2023 What is your occupation? Retired [email or web address] Information not available 09/12/2024 Do you have difficulty dressing, bathing, grooming, or toileting? No [email or web address] Information not available 11/11/2023 What is your exercise level? Occasional [email or web address] Information not available 11/11/2023 Mental Status Question Answer Note LastModified by Organization D etails LastModified Time Do you feel stressed (tense, restless, nervous, or anxious, or unable to sleep at night)? [id number] [email or web address] Information not available 09/12/2024 Family History Relationship [...] 2023 10:51:18 Mother Malignant neoplasm of liver [email or web address] Not available 2024 09:28:52 Medical History Condition [...] ICD10 Code Diagnosis IMO Codes Diagnosis Note [id number] Avtar Perez MD [place] [address] [address] 10/28/2023 09:46:57 10/28/2023 11:22:37 Atrophic vulva 106865874 N90.5 this patient is a 63-year-ol d [...] will return in 2 weeks. Vulval pain 742863397 R1 0.2 [id number] Avtar Perez MD [place] [address] [address] 11/11/2023 09:34:50 11/11/2023 14:49:04 Atrophic vulvovaginitis 23027963 N95.2 63-year-ol d female who presents for [...] the vulva. To follow-up in 1 month. 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 /Thigh. Tinea corporis 16915412 B35.4 [id number] Avtar Perez MD [place] [address] [address] 10/26/2024 09:39:36 10/26/2024 10:27:47 Atrophic vulva 256399219 N90.5 64-year-ol d female with a severe [...] week. She will follow up as needed. [id number] Avtar Perez MD [place] [address] [address] 06/14/2025 09:27:53 06/14/2025 10:10:07 Atrophic vaginitis 99970148 N95.2 [id number] Well woman health examination 648338007 Z01.419 [id number] Annual gynecologi benito exam performed. Patient will [...] Sandoval Member ID Guarantor Name 06/14/2025 1 [facility] - DOS ON OR AFTER 21 (MEDICAID REPLACEMENT - HMO) Claudine Cruz [id number] Claudine Cruz Notes Date Note Type Note [...] the vagina. We spent over 40 minutes [id number]. More than 50% was counseling. We agreed to treat with vaginal estrogen and topical estrogen on the vulvar area of interest. She will return in 2 weeks. Avtar Perez MD [address], [place], [address], [place] [facility] 10/28/2023 11:00:18 11/11/19 24 [...] very quickly. We spent over 20 minutes [id number]. More than 50% was counseling. She was re-examined. The vulva appears improved. She was using some in the vagina and some over the vulva. To follow-up in 1 month. Avtar Perez MD [address], [place], [address], [facility] 11/11/2023 14:19:59 09/12/20 24 [...] weeks. Avtar Perez MD [address], [place], [address], [facility] 09/12/2024 11:46:56 10/26/19 25 [...] needed. Avtar Perez MD [address], [place], [address], [facility] 10/26/2024 10:24:29 06/14/20 25 [...] exercise. Avtar Perez MD [address], [place], [address], [facility] 06/14/2025 10:07:28 OBGyn Episode Ob Episode Information Episode Created Date Number of Fetuses Patient Bloodtype Patient rh Status Prepregnancy Weight lbs Domestic Partner Domestic Partner Phone Father Name Technical Support Professional Status 10/28/19 24 1 CLOSED Fetus Data First Name Last Name Admitted to NICU Weight (g) Sex Living Outcome Pediatric Complications Fetus ID Race Codes Race Delivery Type 3940.35 3704 M Full Term [id number] Vaginal Delivery Riaz Calculation Initial Riaz Date [...]
--- OUTSIDE RECORDS SUMMARY | 2025-06-27 12:12 | XMS_ITS | Encounter Summary ---
Author Organization [facility] Address [address] [place] [address] Care Team Providers Care Cage Tender Name Role Phone Rey Wadsworth MD Unavailable Unavailabl e Yasmany Sullivan MD Primary Care Provider [phone] Erin Mead INSPECTING MACHINE ADJUSTER Unavailable Unavailable Encounter Details Date Type Department Care Team (Late st Contact Info) Description 12/27/2015 Abstract [facility] [address] [place] [address] Rey Wadsworth MD Social History Tobacco Use Types Packs/Day Years Used Date Smoking Tobacco: Former Comments Unknown Sex and Gender Information Value Date Recorded Sex Assigned at Not on file Legal Sex Female 6:18 PM CDT Gender Identity Not on file Sexual Orientation Not on file 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
[2025-06-27] MEDS: TETANUS,DIPHTHERIA,AC PERTUSSIS ADULT 0.5 ML (ADACEL) IM (12:56)
[2025-06-27 13:01] VITALS: BP 132/85; PULSE 66; RESP 20; TEMP 36.9; O2SAT 94
== END 2025-06-27 13:01 | disposition home or self-care (01) ==
PROVIDERS: Emergency Provider Emergency Medicine; PCP Internal Medicine
DX: S61.412A Laceration without foreign body of left hand, initial encounter (principal); S80.212A Abrasion, left knee, initial encounter; W01.0XXA Fall on same level from slipping, tripping and stumbling without subsequent striking against object, initial encounter; Y92.480 Sidewalk as the place of occurrence of the external cause; F17.210 Nicotine dependence, cigarettes, uncomplicated; Z23 Encounter for immunization
CPT/HCPCS: 70450; 72125; 73030; 73110; 73130; 73562; 90471; 90715; 96374; 99284; J2270

== ENCOUNTER 2025-06-29 13:26 | Outpatient (CLI) | payer OTHER, SELFPAY ==
--- NOTE | ~2025-06-29 | CT_ITS ---
EXAMINATION: CT knee LT wo con COMPARISON: None HISTORY: L KNEE INJURY / FALL TECHNIQUE: Axial images were obtained without IV contrast. Sagittal, coronal reconstruction images were obtained from the axial views. CT scan performed using dose optimization techniques including the following automated exposure control; adjustment of mA and/or kV; use of iterative reconstruction technique. Automatic exposure control was used to reduce radiation dose. Permanent radiation dose record is archived to PACS. FINDINGS: There are moderate to severe tricompartmental degenerative changes with narrowing of the joint spaces and osteophytosis with subchondral sclerosis and chondrocalcinosis. Small effusion is noted with subcentimeter punctate calcified loose bodies. There is no fracture or dislocation identified. No intramuscular hemorrhage. Nonspecific stranding within the subcutaneous tissues probably posttraumatic, there is no radiopaque foreign body or subcutaneous air identified. IMPRESSION: No acute fracture. Degenerative changes detailed above. Outpatient MRI is recommended Reviewed, dictated and finalized at location P.
--- OUTSIDE RECORDS SUMMARY | 2025-06-29 14:22 | XMS_ITS | Encounter Summary ---
Author Organization [facility] Address [address] [place] [address] Care Team Providers Care Housekeeping/Laundry Supervisor Name Role Phone Rey Wadsworth MD Unavailable Unavailabl e Yasmany Sullivan MD Primary Care Provider [phone] Erin Mead MAKE READY MECHANIC Unavailable Unavailable Encounter Details Date Type Department Care Team (Late st Contact Info) Description 12/27/2015 Abstract [facility] [address] [place] [address] Rey Wadsworth MD Social History Tobacco Use Types Packs/Day Years Used Date Smoking Tobacco: Former Comments Unknown Sex and Gender Information Value Date Recorded Sex Assigned at Not on file Legal Sex Female 6:18 PM CDT Gender Identity Not on file Sexual Orientation Not on file 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
--- OUTSIDE RECORDS SUMMARY | 2025-06-29 14:22 | XMS_ITS | Encounter Summary ---
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
--- OUTSIDE RECORDS SUMMARY | 2025-06-29 14:22 | XMS_ITS | Data Portability ---
Author Organization [facility] [place] Address [address] [place] [address] [place] [address] Care Team Providers Care Advanced Manufacturing Consultant Name Role Phone JACQUELINE MATTSON Primary Care Provider Assessment No assessment recorded. Plan of Treatment Reminders Order Date Submit Date Provider Last Modified By Organization Details Last Modified Time Details Appointments None recorded. Lab None recorded. Referral None recorded. Procedures None recorded. Surgeries None recorded. Imaging None recorded. Medication Orders estradiol 10 mcg vaginal tablet 2024 025 [email or web address] [facility], [address] [place] [address], [place], [address], 5 15:50:23 Estrace 0.01% (0.1 mg/gram) vaginal cream 2024 025 LISETTE [facility], [address] [place] [address], [facility] [place], [address], 5 10:20:41 clotrimazol e-betametha sone 1 %-0.05 % topical cream 2023 024 LISETTE [facility], [facility], [facility] [place], [address], 5 09:39:07 clindamycin 2 % vaginal cream 2023 024 [email or web address] [facility] [address] [place], [address], 5 09:38:54 hydrocortis one acetate 25 mg rectal suppository 2023 024 [email or web address] [facility], [address] [place], [address], 5 09:39:25 clobetasol 0.05 % topical cream 2023 024 LISETTE [facility], [facility], [address], [place], [address], 4 11:26:51 Estrace 0.01% (0.1 mg/gram) vaginal cream 2023 024 [email or web address] 1 [facility], [facility] [place], [address], 4 10:02:50 Patient TargetsNo targets recorded. Patient InstructionsNo instructions recorded. Reason for Referral None Reported. Results Created Date Observation Date Name Description Value Unit Range Abnormal Flag Note LastModifiedBy Organization Detail LastModifiedTime 10/28/19 24 10/28/2023 MOBIL UNCUS MULIE RIS/C URTIS ZORAIDA, RT-PC R, ONE SWAB mobiluncus mulieris and mobiluncus curtisii by RT-PCR Negati ve Swab- 1 Vag/C erv Not Available [facility] (Lab) [address], [place], [address], 11/11/2023 15:40:30 10/28/19 24 10/28/2023 BACTE RIAL VAGIN OSIS PANEL RT-PC R, ONESW AB gardnerella vaginalis PCR Negati ve Swab- 1 Vag/C erv Not Available [facility] (Lab) [address], [place], [address], 11/11/2023 15:40:30 10/28/19 24 10/28/2023 BACTE RIAL VAGIN OSIS PANEL RT-PC R, ONESW AB atopobium vaginae PCR Negati ve Swab- 1 Vag/C erv Not Available [facility] (Lab) [address] [place], [address], 11/11/2023 15:40:30 10/28/19 24 10/28/2023 BACTE RIAL VAGIN OSIS PANEL RT-PC R, ONESW AB bacterial vaginosis associated bacteria 2 (bvab2) Negati ve Swab- 1 Vag/C erv Not Available [facility] (Lab) [address] [place], [address], 11/11/2023 15:40:30 10/28/19 24 10/28/2023 BACTE RIAL VAGIN OSIS PANEL RT-PC R, ONESW AB megasphaera species (type 1 and type 2) PCR Negati ve (Type1 ,Type2 ) Swab- 1 Vag/C erv Type1 :Nega tive Type2 :Nega tive. Not Available [facility] (Lab) [address] [place], [address], 11/11/2023 15:40:30 10/28/19 24 10/28/2023 BACTE RIAL VAGIN OSIS PANEL RT-PC R, ONESW AB lactobacillu s (bvpanel) PCR See Commen t Swab- 1 Vag/C erv L.cri spatu s: Negat oliver L.lili senii : Negat oliver L.gas seri : Negat oliver L.ine rs : Negat oliver. Not Available [facility] (Lab) [address] [place], [address], 11/11/2023 15:40:30 10/28/19 24 10/28/2023 VIK DA VAGIN ITIS PANEL RT-PC R, ONESW AB radhika albicans PCR Negati ve Swab- 1 Vag/C erv Not Available [facility] (Lab) [address] [place], [address], 11/11/2023 15:40:31 10/28/19 24 10/28/2023 VIK DA VAGIN ITIS PANEL RT-PC R, ONESW AB radhika tropicalis PCR Negati ve Swab- 1 Vag/C erv Not Available [facility] (Lab) [address] [place], [address], 11/11/2023 15:40:31 10/28/19 24 10/28/2023 VIK DA VAGIN ITIS PANEL RT-PC R, ONESW AB radhika parapsilosis PCR Negati ve Swab- 1 Vag/C erv Not Available [facility] (Lab) [address] [place], [address], 11/11/2023 15:40:31 10/28/19 24 10/28/2023 VIK DA VAGIN ITIS PANEL RT-PC R, ONESW AB radhika glabrata PCR Negati ve Swab- 1 Vag/C erv Not Available [facility] (Lab) [address] [place], [address], 11/11/2023 15:40:31 10/28/19 24 10/28/2023 VIK DA VAGIN ITIS PANEL RT-PC R, ONESW AB radhika krusei by RT-PCR Negati ve Swab- 1 Vag/C erv Not Available [facility] (Lab) [address] [place], [address], 11/11/2023 15:40:31 10/28/19 24 10/28/2023 UROGE NITAL MYCOP LASMA /UREA PLASM A PANEL RT-PC R, ONESW AB mycoplasma genitalium by RT-PCR Negati ve Swab- 1 Vag/C erv Not Available [facility] (Lab) [address] [place], [address], 11/11/2023 15:40:31 10/28/19 24 10/28/2023 UROGE NITAL MYCOP LASMA /UREA PLASM A PANEL RT-PC R, ONESW AB mycoplasma hominis by RT-PCR Negati ve Swab- 1 Vag/C erv Not Available [facility] (Lab) [address] [place], [address], 11/11/2023 15:40:31 10/28/19 24 10/28/2023 UROGE NITAL MYCOP LASMA /UREA PLASM A PANEL RT-PC R, ONESW AB ureaplasma urealyticum by RT-PCR Negati ve Swab- 1 Vag/C erv Not Available [facility] (Lab) [address] [facility], [place], [address], 11/11/2023 15:40:31 10/28/19 24 10/28/2023 VIK DA SNEHAL I BY RT-PC R radhika krusei by RT-PCR CANCEL LED Kindrazoraida zahida Not Available [facility] (Lab) [address] [facility], [place], [address], 11/11/2023 15:40:32 09/14/20 24 09/14/2024 MOBIL UNCUS MULIE RIS/C URTIS ZORAIDA, RT-PC R, ONE SWAB mobiluncus mulieris and mobiluncus curtisii by RT-PCR Negati ve Swab- 1 Cerv End Not Available [facility] (Lab) [address] [facility], [place], [address], 09/29/2024 14:21:25 09/14/20 24 09/14/2024 UROGE NITAL MYCOP LASMA /UREA PLASM A PANEL RT-PC R, ONESW AB mycoplasma genitalium by RT-PCR Negati ve Swab- 1 Cerv End Not Available [facility] (Lab) [address] [facility], [place], [address], 09/29/2024 14:21:26 09/14/20 24 09/14/2024 UROGE NITAL MYCOP LASMA /UREA PLASM A PANEL RT-PC R, ONESW AB mycoplasma hominis by RT-PCR Negati ve Swab- 1 Cerv End Not Available [facility] (Lab) [address] [facility], [place], [address], 09/29/2024 14:21:26 09/14/20 24 09/14/2024 UROGE NITAL MYCOP LASMA /UREA PLASM A PANEL RT-PC R, ONESW AB ureaplasma urealyticum by RT-PCR Negati ve Swab- 1 Cerv End Not Available [facility] (Lab) [address] [place], [address], 09/29/2024 14:21:26 09/14/20 24 09/14/2024 VIK DA VAGIN ITIS PANEL RT-PC R, ONESW AB radhika albicans PCR Negati ve Swab- 1 Cerv End Not Available [facility] (Lab) [address] [place], [address], 09/29/2024 14:21:26 09/14/20 24 09/14/2024 VIK DA VAGIN ITIS PANEL RT-PC R, ONESW AB radhika glabrata PCR Negati ve Swab- 1 Cerv End Not Available [facility] (Lab) [address] [place], [address], 09/29/2024 14:21:26 09/14/20 24 09/14/2024 VIK DA VAGIN ITIS PANEL RT-PC R, ONESW AB radhika krusei by RT-PCR Negati ve Swab- 1 Cerv End Not Available [facility] (Lab) [address] [place], [address], 09/29/2024 14:21:26 09/14/20 24 09/14/2024 VIK DA VAGIN ITIS PANEL RT-PC R, ONESW AB radhika parapsilosis PCR Negati ve Swab- 1 Cerv End Not Available [facility] (Lab) [address] [place], [address], 09/29/2024 14:21:26 09/14/20 24 09/14/2024 VIK DA VAGIN ITIS PANEL RT-PC R, ONESW AB radhika tropicalis PCR Negati ve Swab- 1 Cerv End Not Available [facility] (Lab) [address] [place], [address], 09/29/2024 14:21:26 09/14/20 24 09/14/2024 BACTE RIAL VAGIN OSIS PANEL (WITH LACTO BACIL ABRAHAN PROFI LING) BY QRT LALA, EVELYNE MARTINEZ (JASWANT) atopobium vaginae PCR Negati ve Swab- 1 Cerv End Not Available [facility] (Lab) [address] [place], [address], 09/29/2024 14:21:27 09/14/20 24 09/14/2024 BACTE RIAL VAGIN OSIS PANEL (WITH LACTO BACIL ABRAHAN PROFI LING) BY QRT LALA, EVELYNE MARTINEZ (JASWANT) bacterial vaginosis associated bacterium 1 (bvab1) RT PCR Negati ve Swab- 1 Cerv End Not Available [facility] (Lab) [address] [place], [address], 09/29/2024 14:21:27 09/14/20 24 09/14/2024 BACTE RIAL VAGIN OSIS PANEL (WITH LACTO BACIL ABRAHAN PROFI LING) BY QRT PRC, EVELYNE MARTINEZ (JASWANT) bacterial vaginosis associated bacteria 2 (bvab2) Negati ve Swab- 1 Cerv End Not Available [facility] (Lab) [address] [facility], [place], [address], 09/29/2024 14:21:27 09/14/20 24 09/14/2024 BACTE RIAL VAGIN OSIS PANEL (WITH LACTO BACIL ABRAHAN PROFI LING) BY QRT LALA, EVELYNE MARTINEZ (JASWANT) bacterial vaginosis associated bacterium 3 (bvab3) RT PCR Negati ve Swab- 1 Cerv End Not Available [facility] (Lab) [address] [place], [address], 09/29/2024 14:21:27 09/14/20 24 09/14/2024 BACTE RIAL VAGIN OSIS PANEL (WITH LACTO BACIL ABRAHAN PROFI LING) BY QRT LALA, EVELYNE MARTINEZ (JASWANT) bacteroides fragilis by real - time PCR Negati ve Swab- 1 Cerv End Not Available [facility] (Lab) [address] [place], [address], 09/29/2024 14:21:27 09/14/20 24 09/14/2024 BACTE RIAL VAGIN OSIS PANEL (WITH LACTO BACIL ABRAHAN PROFI LING) BY QRT PRC, EVELYNE MARTINEZ (L) bifidobacter ium breve by real-time PCR Negati ve Swab- 1 Cerv End Not Available [facility] (Lab) [address] [facility], [place], [address], 09/29/2024 14:21:27 09/14/20 24 09/14/2024 BACTE RIAL VAGIN OSIS PANEL (WITH LACTO BACIL ABRAHAN PROFI LING) BY QRT PRC, EVELYNE MARTINEZ (MDL) gardnerella vaginalis PCR Positi ve abnormal Swab- 1 Cerv End Not Available [facility] (Lab) [address] [facility], [place], [address], 09/29/2024 14:21:27 09/14/20 24 09/14/2024 BACTE RIAL VAGIN OSIS PANEL (WITH LACTO BACIL ABRAHAN PROFI LING) BY QRT PRC, EVELYNE MARTINEZ (L) lactobacillu s (bvpanel) PCR See Commen t Swab- 1 Cerv End L.cri spatu s: Negat oliver L.lili senii : Posit oliver L.gas seri : Posit oliver L.ine rs : Negat oliver. Not Available [facility] (Lab) [address] [facility], [place], [address], 09/29/2024 14:21:27 09/14/20 24 09/14/2024 BACTE RIAL VAGIN OSIS PANEL (WITH LACTO BACIL ABRAHAN PROFI LING) BY QRT PRC, EVELYNE MARTINEZ (MDL) lactobacillu s acidophilus by real-time PCR Negati ve Swab- 1 Cerv End Not Available [facility] (Lab) [address] [place], [address], 09/29/2024 14:21:27 09/14/20 24 09/14/2024 BACTE RIAL VAGIN OSIS PANEL (WITH LACTO BACIL ABRAHAN PROFI LING) BY QRT PRC, EVELYNE MARTINEZ (JASWANT) megasphaera species (type 1 and type 2) PCR Negati ve (Type1 ,Type2 ) Swab- 1 Cerv End Type1 :Nega tive Type2 :Nega tive. Not Available [facility] (Lab) [address] [place], [address], 09/29/2024 14:21:27 09/14/20 24 09/14/2024 BACTE RIAL VAGIN OSIS PANEL (WITH LACTO BACIL ABRAHAN PROFI LING) BY QRT PRC, EVELYNE MARTINEZ (JASWANT) mobiluncus curtisii by real-time PCR Negati ve Swab- 1 Cerv End Not Available [facility] (Lab) [address] [place], [address], 09/29/2024 14:21:27 09/14/20 24 09/14/2024 BACTE RIAL VAGIN OSIS PANEL (WITH LACTO BACIL ABRAHAN PROFI LING) BY QRT PRC, EVELYNE MARTINEZ (JASWANT) mobiluncus mulieris by real-time PCR Negati ve Swab- 1 Cerv End Not Available [facility] (Lab) [address] [place], [address], 09/29/2024 14:21:27 09/14/20 24 09/14/2024 BACTE RIAL VAGIN OSIS PANEL (WITH LACTO BACIL ABRAHAN PROFI LING) BY QRT PRC, EVELYNE MARTINEZ (JASWANT) prevotella bivia by real-time PCR Negati ve Swab- 1 Cerv End Not Available [facility] (Lab) [address] [place], [address], 09/29/2024 14:21:27 09/14/20 24 09/14/2024 BACTE RIAL VAGIN OSIS PANEL (WITH LACTO BACIL ABRAHAN PROFI LING) BY QRT PRC, EVELYNE MARTINEZ (JASWANT) sneathia sanguinegens real-time PCR Negati ve Swab- 1 Cerv End Not Available [facility] (Lab) [address] [facility], [place], [address], 09/29/2024 14:21:27 09/14/20 24 09/14/2024 BACTE RIAL VAGIN OSIS PANEL (WITH LACTO BACIL ABRAHAN CHARITY MITCHELL) BY QRT LALA, EVELYNE MARTINEZ (JASWANT) streptococcu s anginosus by real-time PCR Negati ve Swab- 1 Cerv End Not Available [facility] (Lab) [address] [facility], [place], [address], 09/29/2024 14:21:27 09/14/20 24 09/14/2024 VIK DA SNEHAL I BY RT-PC R radhika krusei by RT-PCR CANCEL LED Juvenal zahida Not Available [facility] (Lab) [address] [facility], [place], [address], 09/29/2024 14:21:27 06/14/20 25 06/14/2025 IMAGE GUIDE [...] as clini justin arriaga nted. Not Available [facility] (Lab) [address] [facility], [place], [address], 06/16/2025 23:08:16 11/05/19 24 07/05/2023 CT, abdom en + pelvi s, w/ contr ast No observ ation record ed. [email or web address] [facility] [address] [place], [address], 11/05/2023 20:42:59 Result Notes None recorded. Problems Name Problem SNOMED Code Status Onset Date Resolution Date Notes Provider Name and Address Organization Details Recorded Time History of cerebrovascul ar accident without residual deficits 162829283 Active 2023 Lian delgado [facility] 4 10:04:19 History of deep vein thrombosis 852193616 Active 2023 Lian delgado [facility] 4 10:04:50 Problem Notes None recorded. Procedures Surgical History Date Name Laterality Status Provider Name and Address Organization Details Recorded Time 11/22/19 25 Date of Last Mammogram completed Kiana Crook [facility] 06/14/2025 09:41:09 07/23/20 24 endoscopy completed Lian Melgar [facility] 09/12/2024 09:57:49 09/23/19 23 Carpal tunnel surgery completed Lian Melgar [facility] 11/11/2023 10:08:24 04/05/20 22 procedure on neck completed Lian Melgar [facility] 11/11/2023 10:09:22 01/05/20 22 completed Kiana Crook [facility] 10/26/2024 09:53:02 04/03/20 20 Date of Last Colonoscopy completed [facility] 09/12/2024 09:49:37 09/23/19 20 Carpal tunnel surgery completed [facility] 11/11/2023 10:08:41 09/23/19 20 Colonoscopy completed [facility] 09/12/2024 09:57:35 09/23/19 17 partial resection of colon completed [facility] 11/11/2023 10:08:55 09/23/19 17 Colonoscopy completed [facility] 11/11/2023 10:09:02 09/23/19 07 Cholecystectomy completed [facility] 11/11/2023 10:08:48 09/23/18 89 Total Hysterectomy completed [facility] 11/11/2023 10:09:08 Imaging Results None recorded. Procedure Notes None recorded. Medical Equipment None Reported. Allergies Allergen ID Allergen Name Allergen Category Reaction Reaction Severity Criticality Documentation Date Start Date Code Code System Note Provider Name and Address Organization Details Recorded Time 79103 Prilosec medicatio n dizziness Not available Not available 10/28/2023 11600 5 RxNorm Amanda Eden [facility] 4 10:05:06 03127 Rocephin medicatio n hives Not available Not available 10/28/2023 9449 RxNorm Amanda Eden [facility] 4 10:20:03 77957 Nexium medicatio n dizziness Not available Not available 10/28/2023 92510 9 RxNorm Amanda Eden [facility] 4 10:20:27 22399 Dilaudid medicatio n anaphylax is Not available Not available 10/28/2023 30449 3 RxNorm Amanda Eden [facility] 10:20:57 Medications Name Sig Start [...] Updated DateTime 10/26/2024 162.56 cm 30.9 kg/m2 90292.63 g 126/76 mm[Hg] [facility]/26[facility] 09:52:49 Date Recorded Body height Body mass index (BMI) Body weight Systolic And Diastolic Provider Name and Address Organization Details Last Updated DateTime 10/28/2023 162.56 cm 26.8 kg/m2 30683.41 g 121/75 mm[Hg] Amanda Eden [facility] 10/28/2023 10:19:45 Date Recorded Body height Body mass index (BMI) Body weight Systolic And Diastolic Provider Name and Address Organization Details Last Updated DateTime 11/11/2023 162.56 cm 27.1 kg/m2 75866.59 g 112/76 mm[Hg] Lian Melgar [facility] 11/11/2023 10:01:35 Date Recorded Body height Body mass index (BMI) Body weight Systolic And Diastolic Provider Name and Address Organization Details Last Updated DateTime 06/14/2025 162.56 cm 33.3 kg/m2 59226.92 g 117/86 mm[Hg] Kiana Crook [facility] 06/14/2025 09:36:54 Date Recorded Body height Body mass index (BMI) Body weight Systolic And Diastolic Provider Name and Address Organization Details Last Updated DateTime 09/12/2024 162.56 cm 30.6 kg/m2 34553.44 g 124/68 mm[Hg] Lian Melgar [facility] 09/12/2024 09:48:24 Social History Question Answer Notes LastModified by Organizat ion Details LastModified Time Tobacco Smoking Status Current Every Day Smoker Amanda Harmon danny, [facility] 10/28/2023 10:06:25 Do You Have An Advance Directive? Yes Information n ot available 09/12/2024 Are You Blind Or Do You Have Difficulty Seeing? No [email or web address] Information n ot available 11/11/2023 What Is Your Level Of Caffeine Consumption? Moderate [email or web address] Information not available 11/11/2023 How Much Tobacco Do You Chew? None Information not available 06/14/2025 In The 14 Days Before Symptom Onset, Have You Had Close Contact With A Laboratory-confirm ed COVID-19 While That Case Was Ill? No [email or web address] Information n ot available 11/11/2023 In The 14 Days Before Symptom Onset, Have You Had Close Contact With A Person Who Is Under Investigation For COVID-19 While That Person Was Ill? No [email or web address] Information not available 11/11/2023 Have You Been To An Area Known To Be High Risk For COVID-19? No [email or web address] Information not available 11/11/2023 Are You Deaf Or Do You Have Serious Difficulty Hearing? No [email or web address] Information not available 11/11/2023 What Type Of Diet Are You Following? CARDIAC [email or web address] Information n ot available 11/11/2023 What Is The Highest Grade Or Level Of School You Have Completed Or The Highest Degree You Have Received? NV61076-1 [email or web address] Information not available 09/12/2024 Are There Any Guns Present In Your Home? No [email or web address] Information not available 09/12/2024 Have You Ever Been Counseled For Unhealthy Alcohol Use? No [email or web address] Information not available 11/11/2023 Do You Use Protection During Sex? Usually Information not available 09/12/2024 Do You Use Your Seat Belt Or Car Seat Routinely? Yes [email or web address] Information not available 09/12/2024 Do You Have Smoke And Carbon Monoxide Detectors In Your Home? Yes Information not available 11/11/2023 At What Age Did You Start Smoking Tobacco? 17 [email or web address] Information not available 09/12/2024 How Much Tobacco Do You Smoke? No Information not available 06/14/2025 Do You Use Sunscreen Routinely? Yes Information not available 11/11/2023 Has Tobacco Cessation Counseling Been Provided? No [email or web address] Information not available 11/11/2023 Have You Used IV Drugs? No [email or web address] Information not available 09/12/2024 Do You Have Difficulty Walking Or Climbing Stairs? No [email or web address] Information not available 11/11/2023 Sex: Unknown Functional Status Question Answer Note LastModified by Organizat ion Details LastModified Time Do you use any illicit or recreational drugs? No [email or web address] Information not available 11/11/2023 Do you or have you ever used any other forms of tobacco or nicotine? No [email or web address] Information not available 11/11/2023 What is your level of alcohol consumption? None [email or web address] Information not available 09/12/2024 Are you able to walk independently without assistance or assistive devices? YESWOREST [email or web address] Information not available 11/11/2023 Are you able to care for yourself independently? Yes [email or web address] Information not available 11/11/2023 What is your occupation? Retired [email or web address] Information not available 09/12/2024 Do you have difficulty dressing, bathing, grooming, or toileting? No [email or web address] Information not available 11/11/2023 What is your exercise level? Occasional [email or web address] Information not available 11/11/2023 Mental Status Question Answer Note LastModified by Organization D etails LastModified Time Do you feel stressed (tense, restless, nervous, or anxious, or unable to sleep at night)? [id number] [email or web address] Information not available 09/12/2024 Family History Relationship [...] 2023 10:51:18 Mother Malignant neoplasm of liver [email or web address] Not available 2024 09:28:52 Medical History Condition [...] ICD10 Code Diagnosis IMO Codes Diagnosis Note [id number] Avtar Perez MD [facility] [address] [address] 10/28/2023 09:46:57 10/28/2023 11:22:37 Atrophic vulva 922032783 N90.5 this patient is a 63-year-ol d [...] will return in 2 weeks. Vulval pain 644608256 R1 0.2 [id number] Avtar Perez MD [facility] [address] [address] 11/11/2023 09:34:50 11/11/2023 14:49:04 Atrophic vulvovaginitis 25922150 N95.2 63-year-ol d female who presents for [...] the vulva. To follow-up in 1 month. 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 /Thigh. Tinea corporis 92724525 B35.4 [id number] Avtar Perez MD [facility] [address] [address] 10/26/2024 09:39:36 10/26/2024 10:27:47 Atrophic vulva 513395551 N90.5 64-year-ol d female with a severe [...] week. She will follow up as needed. [id number] Avtar Perez MD [facility] [address] [address] 06/14/2025 09:27:53 06/14/2025 10:10:07 Atrophic vaginitis 08179151 N95.2 62003 [facility] woman [facility] examination 152110019 Z01.419 [id number] Annual gynecologi benito exam performed. Patient will [...] Sandoval Member ID Guarantor Name 06/14/2025 1 [facility] - DOS ON OR AFTER 21 (MEDICAID REPLACEMENT - HMO) Claudine Cruz [id number] Claudine Cruz Notes Date Note Type Note [...] the vagina. We spent over 40 minutes [id number]. More than 50% was counseling. We agreed to treat with vaginal estrogen and topical estrogen on the vulvar area of interest. She will return in 2 weeks. Avtar Perez MD [address], [place], [address], [facility] 10/28/2023 11:00:18 11/11/19 24 text/htm l [...] very quickly. We spent over 20 minutes [id number]. More than 50% was counseling. She was re-examined. The vulva appears improved. She was using some in the vagina and some over the vulva. To follow-up in 1 month. Avtar Perez MD [address], [place], [address], [facility] 11/11/2023 14:19:59 09/12/20 24 text/htm l [...] weeks. Avtar Perez MD [address], [place], [address], [facility] 09/12/2024 11:46:56 10/26/19 25 text/htm l [...] needed. Avtar Perez MD [address], [place], [address], [facility] 10/26/2024 10:24:29 06/14/20 25 text/htm l [...] exercise. Avtar Perez MD [address], [place], [address], [facility] 06/14/2025 10:07:28 OBGyn Episode Ob Episode Information Episode Created Date Number of Fetuses Patient Bloodtype Patient rh Status Prepregnancy Weight lbs Domestic Partner Domestic Partner Phone Father Name Jewelry Designer Status 10/28/19 24 1 CLOSED Fetus Data First Name Last Name Admitted to NICU Weight (g) Sex Living Outcome Pediatric Complications Fetus ID Race Codes Race Delivery Type 3940.35 3704 M Full Term [id number] Vaginal Delivery Riaz Calculation Initial Riaz Date [...]
--- OUTSIDE RECORDS SUMMARY | 2025-06-29 14:22 | XMS_ITS | Clinical Summary ---
Author Organization [facility] Address [address] [place] [address] Care Team Providers Care Bass Mechanism Maker Name Role Phone Rey Wadsworth MD Unavailable Yasmany Be MD Primary Care Provider [phone] Erin Mead NP Unavailable Unavailable Allergies Active [...] the lungs as needed. 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 Not on file Not [...] Documents on File Type Date Recorded Patient Infusion Pharmacist Expl anation Advance Directives and Living Will 02/19/2019 12:00 AM POWER OF CHAIR MAKER Advance Directives and Living Will 12/01/2018 12:00 AM POWER OF CHAIR MAKER Advance Directives and Living Will 11/10/2018 12:00 AM POWER OF CHAIR MAKER Advance Directives and Living Will 09/02/2018 12:00 AM POWER OF CHAIR MAKER Advance Directives and Living Will 03/11/2018 12:00 AM POWER OF CHAIR MAKER Advance Directives and Living Will 03/11/2018 12:00 AM POWER OF CHAIR MAKER Advance Directives and Living Will 01/15/2017 12:00 AM POWER OF CHAIR MAKER Care Teams Bass Mechanism Maker Relationship Specialty Start Date End Date Yasmany Sullivan MD [address] [place] [phone] PCP - General INTERNAL MEDICINE 03/11/17 Rey Wadsworth MD [employer] Managing Supervisor CLINICAL CARDIAC ELECTROPHYSIOLOGY 03/11/17 Erin Mead NP [address] [place] [address] Nurse Practitioner Electrophysiology 03/13/18
--- OUTSIDE RECORDS SUMMARY | 2025-06-29 14:22 | XMS_ITS | Data Portability ---
Author Organization [facility], [address] Neurology ([place]) Address [address] [place] [address] Care Team Providers Care Shanker Out Name Role Phone JACQUELINE MATTSON Primary Care Provider JACQUELINE MATTSON Referring Provider [phone] CALEB BENSON Neurosurgeon Assessment Encounter Date Assessment Date Assessment [...] her after 6 months for reassessment. [email or web address] Not available 06/04/2024 07:07:27 06/01/2024 06/01/2024 In [...] will be written on her prep sheet. [email or web address] Not available 06/01/2024 12:43:27 11/30/2024 11/30/2024 Assessment: [...] she can have the MRI at the [facility] in [place]. I did offer to prescribe medication to [...] to face counseling regarding the cervical pannus. [email or web address] Not available 12/08/2024 16:18:20 11/30/2024 11/30/2024 Ms. [...] She can follow up as needed. [email or web address] Not available 12/02/2024 06:22:29 05/10/2025 05/10/2025 Ms. [...] the scan, and she will require a lease purchase truck driver to accompany her to the appointment. The patient has previously undergone physical therapy and trigger point injections without relief. She has also had an unremarkable MRI of the brain in November [address] scan at [facility], which did not demonstrate abnormalities. Her carotid [...] due to not being able to drive. [email or web address] Not available 05/13/2025 09:47:31 Plan of Treatment Reminders Order Date Submit Date Provider Last Modified By Organization Details Last Modified Time Details Appointments None recorded. Lab None recorded. Referral physical therapist referral - Pt. is s/p Right lateral craniotomy C1 laminectomy resection of odontoid process on 04/05/22. Please call pt to schedule. Thank you!! 2024 025 [facility], [address] [place], [address], 18:16:57 Procedures None recorded. Surgeries None recorded. Imaging MRI, cervical spine, w/o contrast 2024 025 [facility], [address] [place], [address], 16:13:31 Medication Orders None recorded. Patient TargetsNo targets recorded. Patient Instructions Encounter Date Encounter Id Patient Instructions Last Modified By Organization Details Last Modified Time 05/10/2025 [id number] - Schedule an MR I of the cervical spine. - Take Valium as prescribed prior to the MRI. - Arrange for a lease purchase truck driver to accompany you to the MRI appointment. - Avoid driving until further evaluation is completed. [email or web address] Not available 05/10/2025 12:19:20 Please note: Parts of this encounter note have been generated by AI based on audio conversation. Patient consent was required prior to utilizing this technology. Content review was required prior to finalizing the note. [email or web address] Not available 05/10/2025 12:19:20 Reason for Referral [...] 5 view No observ ation record ed. [facility] [address] [place], [address], 08/19/2024 17:11:19 10/05/19 25 10/05/2024 CT, head, w/o contr ast No observ ation record ed. [facility] [address] [place], [address], 10/07/2024 11:45:19 11/11/19 25 11/07/2024 CT, head, [...] Available 0 03/27/2025 08:04:05 03/27/20 25 04/27/2019 imagi ng/di uzielos tic resul t No observ ation record ed. [email or web address] Not Available 0 03/27/2025 08:04:12 06/21/20 25 06/19/2025 MRI, cervi benito spine , w/o contr ast No observ ation record ed. [facility] [address] [place], [address], 06/21/2025 16:13:53 Result Notes None recorded. Problems Name Problem SNOMED Code Status Onset Date Resolution Date Notes Provider Name and Address Organization Details Recorded Time Hydrocephal us ex vacuo 95783605 Active 2023 Chey Napoles MD [address] [place] [address], [phone], [facility] 4 10:53:13 Pain due to varicose veins of lower extremity 904464369 Active [address] [facility] 4 08:48:52 Edema of lower extremity 092938752 Active 2023 Tiff Dillard [facility], [facility] 4 12:13:53 Dysphagia 79064159 Active 2023 Neva Mcdowell [facility] 4 08:59:27 Chronic abdominal pain 181987240 Active 2023 Khang Shetty APRN, STRUCTURAL IRONWORKER [address] [place] [address], [phone], [facility] 4 12:43:41 Nonulcer dyspepsia 7905603 Active 2023 Khang Shetty APRN, STRUCTURAL IRONWORKER [address] [place] [address], [address], [facility] 4 12:43:50 Peripheral vascular disease 653788316 Active 2023 Khang Shetty APRN, STRUCTURAL IRONWORKER [address] [place] [address], [address], [facility] 4 12:44:08 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 235863293 Active 2023 Lorelei Boudreaux [facility] 4 07:07:41 Compression of cervical spinal cord 3123310979 Active 2023 Irina Coyle [facility] 4 15:04:56 Spinal cord compression 54950144 Active 2023 Irina Coyle [facility] 4 15:05:09 Rheumatoid arthritis of cervical spine 548222602 Active 2023 Monselalo Lut [facility] 4 14:02:00 Chronic neck pain 3083360558196 Active 2024 Jessenia Richardson APRN, DNP, STRUCTURAL IRONWORKER [address] [place] [address], [address], [facility] 5 09:45:25 Claustropho tracy 19763913 Active 2024 Jessenia Richardson APRN, DNP, STRUCTURAL IRONWORKER [address] [place] [address], [address], [facility] 5 12:23:32 Problem Notes None recorded. Procedures Surgical History Date Name Laterality Status Provider Name and Address Organization Details Recorded Time 07/23 esophagogastroduodenoscopy completed Neva Mcdowell [facility] 4 08:58:52 04/05 cervical laminectomy completed Irina Coyle [facility] 4 15:01:26 Colonoscopy with biopsy completed [...] Name and Address Organization Details Recorded Time 9574607 Dilaudid medicatio n anaphylax is Not available Not available 10/23/20232021 07143 3 RxNorm React ion: Anaph ylaxi s; Not Available [facility] 4 04:31:20 1596663 esomepraz ole magnesium medicatio n dizziness Not available Not available 10/23/20232010 86423 2 RxNorm React ion: Dizzi ness; Not Available [facility] 4 04:31:20 189965 omeprazol e magnesium medicatio n nausea Not available Not available 10/21/20232014 76933 6 RxNorm React ion: Nause a; Other ; Not Available [facility] 4 21:39:22 869566 Rocephin medicatio n rash Not available Not available 10/21/20232016 9449 RxNorm React ion: Rash; Not Available [facility] 4 21:39:23 Medications Name Sig Start Date [...] Updated DateTime 5 162.56 cm 31.5 kg/m2 01777.8 4 g 54 /min 98 % 98 % 124/82 mm[Hg] Yuliana Dominga [facility] 5 15:17:19 Date Recorded Body height Body mass index (BMI) Body weight Heart rate Respiratory rate Oxygen saturation Oxygen saturation in Arterial blood by Pulse oximetry Systolic And Diastolic Provider Name and Address Organization Details Last Updated DateTime 5 162.56 cm 31.6 kg/m2 68834 g 46 /min 20 /min 99 % 99 % 140/64 mm[Hg] [facility] 5 13:58:02 Date Recorded Body height Body mass index (BMI) Body weight Heart rate Oxygen saturation Oxygen saturation in Arterial blood by Pulse oximetry Systolic And Diastolic Provider Name and Address Organization Details Last Updated DateTime 5 162.56 cm 32.6 kg/m2 54890.5 5 g 61 /min 97 % 97 % 150/84 mm[Hg] [facility] 5 11:37:40 Date Recorded Body height Body mass index (BMI) Body weight Systolic And Diastolic Provider Name and Address Organization Details Last Updated DateTime 06/01/2024 162.56 cm 29.9 kg/m2 12326.07 g 105/70 mm[Hg] Khang Shetty APRN, STRUCTURAL IRONWORKER [address], [address], [facility] 06/01/2024 12:38:55 Date Recorded Body height Respiratory rate Heart rate Oxygen saturation Oxygen saturation in Arterial blood by Pulse oximetry Systolic And Diastolic Provider Name and Address Organization Details Last Updated DateTime 4 162.56 cm 18 /min 52 /min 96 % 96 % 120/54 mm[Hg] [facility] 4 13:43:16 Social History Question Answer [...] Packs Per Day (PPD)? 3-5 Per Day [email or web address] Information not available 05/21/2024 How Long Have You Smoked? Since I Was 17 [email or web address] Information not available 04/06/2024 Do You Have A Medical Power Of Senior Maintenance Mechanic? Yes [email or web address] Information not available 04/06/2024 What [...] ICD10 Code Diagnosis IMO Codes Diagnosis Note [id number] Chey Napoles MD [facility] Neurology ([place]) [address] [place] [address] 03/23/2024 10:30:59 03/25/2024 08:33:26 Hydrocephalus ex vacuo 37257401 G91.0 [id number] Karson Bright MD [address] [place] [address] Vascular Surgery ([place]) [address] [place] [address],[address] [place] [phone] 04/13/2024 15:24:08 04/13/2024 16:46:06 Pain due to varicose veins of lower extremity 709227411 I83.502 [id number] Karson Bright MD [address] [place] [address] Vascular Surgery ([place]) [address] [place] [address] 05/21/2024 16:02:16 05/21/2024 17:03:25 Pain due to varicose veins of lower extremity 464083936 I83.614 [id number] Khang Shetty, NOHEMI, STRUCTURAL IRONWORKER [address] Gastroent erology ([place]) [address] [place] [address] 06/01/2024 12:06:40 06/01/2024 15:02:22 Dysphagia 90153186 R13.10 Chronic ab dominal pain 476718179 R10.9 Nonulcer dyspepsia 56124 07 K30 Peripheral vascular disease 100190124 I73.9 [id number] Karson Bright MD [address] [facility] Vascular Surgery ([place]) [address] [place] [address],[address] [place] [phone] 06/01/2024 13:21:13 06/01/2024 14:04:42 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 683702075 I83.11 I83.12 Additional diagnosis detail: Varicose veins of lower extremity with inflammati on, bilateral [id number] Jessenia Richardson, ASSOCIATE DRAFTER, DNP, STRUCTURAL IRONWORKER [facility] Neurosurg christine ([place]) [address] [place] [phone] 11/30/2024 14:40:48 12/09/2024 06:04:12 Compression of cervical spinal cord 6565304718 G95.20 [id number] Karson Bright MD [address] Vascular Surgery ([place]) [address] [facility] [place] [address] 11/30/2024 13:29:59 11/30/2024 17:36:11 Edema of lower extremity 096792706 R60.0 Vascular insufficiency 55629652 I87.2 73649 [id number] Jessenia Richardson, ASSOCIATE DRAFTER, DNP, STRUCTURAL IRONWORKER [facility]ine ([place]) [address] [place] [address] 05/10/2025 11:20:10 05/10/2025 13:15:16 Compression of cervical spinal cord 5496792863 G95.20 Chronic neck pain 182328 3655 107 M54.2 G89.29 [id number] Health Concerns Section Related Observation LastModified by Organization Detai ls LastModified Time None Recorded Concern Status LastModified by Organization Details LastModified Time None Recorded Advance Directives Directive Y: Payers Insurance Date Sequence Insurance Name Policy Number Policy Sandoval Covered Member ID Sandoval Member ID Guarantor Name 05/14/2025 1 [facility] ON OR AFTER 03/23/21 (MEDICAID REPLACEMENT - HMO) Claudine Cruz [id number] Claudine Cruz Notes Date Note Type Note [...] sounds like she has to buy this [id number] because her insurance does not cover as [...] have a history of cholecystectomy. Khang Shetty, ASSOCIATE DRAFTER, STRUCTURAL IRONWORKER [address] [place] [address], [phone], [facility] 06/01/2024 12:44:24 06/01/2024 text/html This is a [...] at this point.ronny Bright MD [address] [place] [address], [phone], [facility] 06/04/2024 18:05:45 11/30/2024 text/html Ms. Cruz is a 64-year-old female who returns for follow up of her C2 pannus. She is accompanied by her sister. She is status post right lateral craniotomy with C1 laminectomy, resection of odontoid process. This was done on April 05, 2022, at [facility]. At her last appointment with Dr. Benson on August 05, 2023, he suggested that she be evaluated by Dr. Jerome Ordoñez for consideration of a C1-2 fusion. He also recommended follow up in one year with an MRI of the cervical spine without contrast. However, the patient declined the MRI and the appointment with Dr. Ordoñez. She states that, I told Dr. Benson that I would contact Dr. 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 She states that she is doing her home exercises, but is not interested in doing formal physical therapy. At her last appointment, Dr. Benson prescribed a soft cervical collar for her, but she states that she never got that. She denies any numbness, tingling or weakness of her upper or lower extremities.tmo 11/30/24-Patient is here today with her sister, Tonia. She reports she went to the ER in [place] a couple weeks ago for a constant [...] symptoms. Patient denies confusion or word difficulties. Lead Sales Consultant: Dr. Wilkins ([place])Blood thinner: Xarelto 02/26/19-reports fall started pain a [...] cervical.12/25/21-re ports arthritis and neck pain, pain /. dizziness. left leg getting weaker. recommend surgery and pt wants March.04/05/22- Right lateral craniotomy C1 laminectomy resection of odontoid process at [facility].-in cervical collar. right side of head is bothersome. doing well. XR shows no gross instability on flexion and extension. f/u in 3 mo with MRI cervical.07/23/22-re ports neck pain, right ear feels full, feels like she is going to pass out. MRI does not have any revealing dynamic instability. neck [id number]/15/23-ta kes pain meds around the clock. incision is well healed. MRI in June.08/05/23-MRI shows stable anterior C2 pannus w/o evidence of spinal cord compression. offered referral to Dr. Ordoñez. reports neck pain.07/29/24-XR cervical at [place] shows no acute osseous abnormality cervical spine.11/07/24-Pt went to [place] ED for neck pain and headache. CT cervical shows Mild cervical spondylosis. no acute osseus abnormality. Jessenia Richardson, ASSOCIATE DRAFTER, DNP, STRUCTURAL IRONWORKER [address] [place] [address], [phone], [facility] 12/08/2024 16:18:37 11/30/2024 text/html This is a [...] pain or discomfort.ronny Bright MD [address] [place] [address], [phone], [facility] 12/17/2024 23:30:02 05/10/2025 text/html 04/19/25-Pt is by [...] trigger point injections from Dr. Perez at [facility], which targeted trigger points; however, these injections [...] [address] scan at [facility], which, per her report, did not demonstrate [...] this as well. [facility] NoMedications: no recentSmoker: yesPain: 04/01 Lead Sales Consultant: Dr. Wilkins ([place])Blood thinner: Xarelto 02/26/19-reports fall started pain a [...] C1 laminectomy resection of odontoid process at [facility].-in cervical collar. right side of head is bothersome. doing well. XR shows no gross instability on flexion and extension. f/u in 3 mo with MRI cervical.07/23/22-re ports neck pain, right ear feels full, feels like she is going to pass out. MRI does not have any revealing dynamic instability. neck /15/23-ta kes pain meds around the clock. incision is well healed. MRI in June.08/05/23-MRI shows stable anterior C2 pannus w/o evidence of spinal cord compression. offered referral to Dr. Ordoñez. reports neck pain.07/29/24-XR cervical at [place] shows no acute osseous abnormality cervical spine.11/07/24-Pt went to [place] ED for neck pain and headache. CT cervical shows Mild cervical spondylosis. no acute osseus abnormality.11/30/24 -Reports headaches. no numbness/weakness, dizziness at times. Recommend PT to assist with obtaining insurance authorization for MRI.01/18/25-Physica l Therapy at [facility]. Jessenia Richardson, ASSOCIATE DRAFTER, DNP, STRUCTURAL IRONWORKER [address] [place] [address], [phone], [place] [facility] 05/13/2025 09:47:49 OBGyn Episode No OBEpisode recorded.
== END 2025-06-29 13:27 | disposition home or self-care (01) ==
LOC: CHSIMG 13:28
PROVIDERS: PCP Internal Medicine; Visit Provider Nurse Practitioner Family
DX: S89.92XA Unspecified injury of left lower leg, initial encounter (principal)
CPT/HCPCS: 73700

== ENCOUNTER 2025-07-22 11:08 | Outpatient (RCR) | payer OTHER, SELFPAY ==
--- NOTE | 2025-07-22 12:12 | OPREHPOC ---
Outpatient Therapy Plan of Care This is a Multidisciplinary Plan of Care that may contain components documented by all disciplines (PT, OT, and ST.) PT Problem 1 PT Problem #1 Knowledge Deficit PT Goal 1 Goal / Goal Update The patient will be independent in a home exercise program. Target Visit 4 PT Problem 2 PT Problem #2 Impaired Gait PT Goal 1 Goal / Goal Update The patient will ambulate 600 feet with the least restrictive assistive device with equal weight bearing and stance time noted. Target Visit 10 PT Problem 3 PT Problem #3 Impaired Strength PT Goal 1 Goal / Goal Update The patient will demonstrate at least 4/5 right hip strength to improve ability to get out of chairs. Target Visit 24 PT Problem 4 PT Problem #4 Impaired Functional Mobility PT Goal 1 Goal / Goal Update The patient will demonstrate 30% or less self perceived disability per the LEFS questionnaire. The patient will ambulate at least 600 feet during the 6 MWT to improve community ambulation. The patient will ascend/descend stairs independently to get in/out of her home. Target Visit 24
--- NOTE | 2025-07-22 12:12 | PTOPEVAL1 ---
Assessment and note entered by Yulisa Triana, PT Evaluation Information Assessment Status Evaluation ICD-10 Condition Codes (PT) Pain in right hip M25.551,Aftercare following joint replacement surgery Z47.1 Onset 07/20/25 Subjective Information Claudine Cruz reports she had her right hip replaced on 07/20/25 due to osteoarthritis. She had the procedure done in an outpatient setting. She is using a walker to ambulate and is very slow with walking. She notes difficulty bending her right knee and moving her right hip making walking difficult. She needs assistance to get in and out of bed and chairs. She also has help with meal preparation and household tasks. She had a fall to her left side on 06/27/25 and she still has bruising and difficulty moving the left side as well. Reported Pain Level Pain Score 10: Self Report Assessment PT Clinical Summary Claudine Cruz presents 2 days s/p right total hip arthroplasty. She has difficulty with moving her right leg, getting in/out of bed and chairs, walking, and bathing/grooming independently. She objectively demonstrates decreased right hip and knee active and passive ROM, decreased right hip and knee strength, decreased transfer ability, decreased balance, and impaired gait. She will benefit from skilled PT to address these limitations. Plan of Care Interventions Electrical Stimulation,Gait Training,Hot Pack/Cold Pack,Manual Therapy,Neuro Re-education,Patient/ Caregiver Education,Therapeutic Activities, Therapeutic Exercise,Self-Care/Home Management PT Services Indicated Yes Treatment Frequency and 3 times per week for 24 visits Duration These treatments will address the objective and functional deficits as defined above. The patient will be advanced safely and appropriately in order for the patient to progress towards his/her prior level of function. Additional exercises will be introduced and as well as a comprehensive home exercise program upon discharge, if needed, ?to ensure carryover of functional gains achieved in the clinic. This treatment plan has been reviewed and agreement upon by the patient.
== END 2025-08-11 20:00 | disposition home or self-care (01) ==
LOC: CHSPT 11:08
DX: M16.11 Unilateral primary osteoarthritis, right hip (principal); Z47.1 Aftercare following joint replacement surgery
CPT/HCPCS: 97110; 97140; 97161

== ENCOUNTER 2025-07-26 11:47 | Emergency (ER) | payer OTHER, SELFPAY ==
[2025-07-26 11:47] VITALS: BP 125/97; RESP 17; O2SAT 97
--- NOTE | 2025-07-26 11:59 | ED.GENADULT ---
HPI - General Adult General Chief complaint: Extremity Problem,Nontraumatic Stated complaint: possible right hip infection. Time Seen by Provider: 07/26/25 11:58 Source: patient and family History of Present Illness HPI narrative: PATIENT IS STATUS POST RIGHT HIP SURGERY JULY 20, 2025 AT [facility], DR. THAO. EVALUATED FOR PHYSICAL THERAPY ON June, WENT TO PHYSICAL THERAPY TODAY AND WAS TOLD THAT PROBABLY HAVING INFECTION AT THE SURGICAL WOUND. PATIENT MAIN COMPLAINT SEVERE PAIN WHICH HAS BEEN GOING FOR THE LAST FEW DAYS. TODAY IS NOT WORSE THAN YESTERDAY. PATIENT CURRENTLY ON NORCO AND XARELTO. PATIENT DENIES ANY FEVER, CHILLS, NAUSEA, VOMITING. Related Data Home Medications ?Medication ?Instructions ?Recorded ?Confirmed ?Last Taken ?Type famotidine 40 mg tablet 40 mg PO BID 09/24/19 07/07/25 03/26/23 History multivitamin (Multiple Vitamins 1 tablet PO BID 12/24/19 07/07/25 03/25/23 History tablet) ascorbate calcium (vitamin C) 500 500 mg PO DAILY 01/23/21 07/07/25 03/25/23 History mg tablet cholecalciferol (vitamin D3) 25 25 mcg PO DAILY 01/23/21 07/07/25 03/25/23 History mcg (1,000 unit) capsule vitamin B12 500 mcg-folic acid 400 1 tablet PO DAILY 01/23/21 07/07/25 03/25/23 History mcg tablet acetaminophen 325 mg capsule 650 mg PO Q8H PRN Pain (Scale 03/16/22 07/07/25 03/26/23 History (Tylenol) Score 1-3) hydrocodone 5 mg-acetaminophen 325 1 tablet PO QID PRN Pain 03/16/22 07/07/25 03/26/23 History mg tablet pravastatin 20 mg tablet 10 mg PO DAILY 03/16/22 07/07/25 03/26/23 History rivaroxaban 20 mg tablet (Xarelto) 20 mg PO DAILY 03/16/22 07/07/25 03/26/23 History diphenoxylate-atropine 2.5 1 tablet PO QID PRN Diarrhea 01/01/23 07/07/25 Unknown History mg-0.025 mg tablet Lactobacillus 1 cap PO DAILY 03/25/23 07/07/25 03/25/23 History acidophilus-Bifidobac.animalis 2.5 billion cell capsule (Daily Probiotic) estradiol 0.01% (0.1 mg/gram) vaginal 03/01/25 07/07/25 Unknown History vaginal cream meclizine 25 mg chewable tablet 25 mg PO TID PRN dizziness 05/27/25 07/07/25 Unknown History (Antivert) polyethylene glycol 3350 17 gram 17 g PO DAILY PRN constipation 05/27/25 07/07/25 Unknown History oral powder packet (Miralax) Allergies Allergy/AdvReac Type Severity Reaction Status Date / Time ceftriaxone (From Rocephin) Allergy Intermediate Hives Verified 07/26/25 11:49 esomeprazole Allergy Intermediate Hives Verified 07/26/25 11:49 omeprazole Allergy Intermediate Hives Verified 07/26/25 11:49 hydromorphone (From Dilaudid) AdvReac Intermediate Anxiety Verified 07/26/25 11:49 trazodone AdvReac Intermediate Dizziness Verified 07/26/25 11:49 Review of Systems Review of Systems: All systems reviewed & are unremarkable except as noted in HPI and below PMFSH Past Medical History Medical History Pleurisy Disc disorder of cervical region Arthritis Anxiety Hair loss IBS (irritable bowel syndrome) Atrial fib/flutter, transient COPD (chronic obstructive pulmonary disease) Wears glasses Dizziness Plantar fasciitis, bilateral Arthritis of foot, right, degenerative CVA (cerebral vascular accident) Atrial fibrillation Dyslipidemia GERD (gastroesophageal reflux disease) Hypertension Osteoarthritis Fibromyalgia Surgical History Surgical History History of carpal tunnel surgery 03/2021 per patient questionnaire History of colon surgery History of knee surgery 32 years ago per patient questionnaire H/O: hysterectomy History of cholecystectomy Family History Family History Other Arthritis Cerebrovascular accident Social History Social History Smoking packs per day: 0.5 Smoking cigarettes per day: 10.0 Years smoked: 44 Smoking pack-years: 22.00 Smoking status: Current some day smoker Tobacco type: cigarettes Second hand tobacco smoke exposure: Yes Alcohol intake: former Alcohol use details: LAST 2015 Substance use: never Substance use type: does not use Lack of Transportation: No Lack of Food: Never True Current Housing: I Have Housing Concerned About Future Housing: No Difficulty Paying Gas/Electric Bills: No Difficulty Paying for Meds: No Education: High School Diploma/GED Difficulty w/ Childcare or Family Care: No Living arrangements: with family Additional living arrangements comments: SISTER SOMETIMES Gender identity (if verbalized by the patient): Female Spiritual care concerns: No Agree to blood products: Yes Exam Narrative: GENERAL APPEARANCE: WELL-DEVELOPED, WELL-NOURISHED SKIN: NORMAL COLOR HEAD: NORMOCEPHALIC, NONTRAUMATIC EYES: CLEAR CONJUNCTIVA CHEST AND RESPIRATORY: AIRWAY PATENT, NO RESPIRATORY DISTRESS, NO ACCESSORY MUSCLE USE HEART: REGULAR RATE/RHYTHM ABDOMEN: SOFT, NONTENDER, NO ORGANOMEGALY, QUIET BOWEL SOUNDS VASCULAR: NORMAL PERIPHERAL PULSES, NORMAL CAPILLARY REFILL. MUSCULOSKELETAL: NORMAL RANGE OF MOTION, NONTENDER BACK. RIGHT HIP EXAM SHOWED A LIMITED IN A LOW SURGICAL WOUND LATERALLY CLEAN AND DRY, LITTLE SPOT OF YELLOWISH DRAINAGE WHICH IS DRY ON THE DRESSING COMING FROM THE PROXIMAL SUTURE. THE REST OF THE SUTURES ARE CLEAN AND DRY, SQUEEZING THE SURGICAL WOUND PROXIMALLY AND DISTALLY PRODUCED NO DISCHARGE, NO FLUCTUATION. THE AREA IS SURROUNDED BY ERYTHEMA AND WARMTH. SEVERE LIMITED RANGE OF MOTION OF THE RIGHT HIP NEUROLOGIC: ALERT AND ORIENTED ?3, SWATCH CUTTER IS NORMAL TESTED, NO GROSS MOTOR DEFICIT Course Consultations Consultation #1: DR. THAO, ORTHOPEDIC AT [facility], RECOMMENDS DISCHARGE PATIENT ON KEFLEX 500 4 TIMES A DAY FOR 2 WEEKS Date: 07/26/25 Time: 13:11 Vital Signs Vital signs: Vital Signs Respiratory Rate 17 07/26/25 11:47 Blood Pressure 125/97 H 07/26/25 11:47 Pulse Oximetry 97 07/26/25 11:47 Oxygen Delivery Room Air 07/26/25 11:47 Temperature 36.9 C 07/26/25 12:06 Respiratory Rate 17 07/26/25 11:47 Blood Pressure 125/97 H 07/26/25 11:47 Pulse Oximetry 97 07/26/25 11:47 Oxygen Delivery Room Air 07/26/25 11:47 Medical Decision Making MDM Narrative Medical decision making narrative: STATUS POST RIGHT HIP SURGERY 6 DAYS AGO, PHYSICAL THERAPY TODAY NOTICED REDNESS AND WARMTH AROUND THE SCAR TISSUE PHYSICAL EXAMINATION SHOWING SURGICAL WOUND DRY AND CLEAN, AR WHICH SPOT ON THE DRESSING AT THE PROXIMAL SUTURE OTHERWISE INSIGNIFICANT. BLOOD WORKUP TODAY INCLUDES CBC, CMP SHOWED HEMOGLOBIN 9.4 OTHERWISE INSIGNIFICANT ABNORMALITY DIAGNOSIS POSTOP WOUND INFECTION DISCHARGED ON CLINDAMYCIN 300 Q.I.D. FOR [address] THAO IN THE ED PATIENT RECEIVED 100 MCG OF FENTANYL IM WITH REMARKABLE IMPROVED THE PT WAS DISCHARGED TO HOME.THE PT,S CONDITION UPON DISCHARGE WAS FAIR,EDUCATION WAS PROVIDED TO THE PT IN REFERENCE TO THE FINAL IMPRESSION,DISCHARGE STUDY RESULTS,TREATMENT,PROGNOSIS AND NEED FOR FOLLOW UP . Differential Diagnosis Differential Diagnosis: ABOVE Vital Signs Vital Signs: Vital Signs Respiratory Rate 17 07/26/25 11:47 Blood Pressure 125/97 H 07/26/25 11:47 Pulse Oximetry 97 07/26/25 11:47 Oxygen Delivery Room Air 07/26/25 11:47 Temperature 36.9 C 07/26/25 12:06 Respiratory Rate 17 07/26/25 11:47 Blood Pressure 125/97 H 07/26/25 11:47 Pulse Oximetry 97 07/26/25 11:47 Oxygen Delivery Room Air 07/26/25 11:47 Lab Data 07/26/25 12:44 07/26/25 12:43 Labs: Lab Results 07/26/25 07/26/25 Range/Units 12:43 12:44 WBC 8.7 (4.8-10.8) K/mm3 RBC 3.13 L (4.20-5.40) M/mm3 Hgb 9.4 L (12.0-15.0) g/dL Hct 29.5 L (35.0-49.0) % MCV 94.2 (78.0-102.0) fL MCH 30.0 (27.0-31.0) pg MCHC 31.9 L (32-36) g/dL RDW 12.9 (11.6-14.4) % Plt Count 287 (150-420) K/mm3 MPV 8.5 L (9.2-11.8) fl Immature Gran % (Auto) 0.7 H (0.0-0.0) % Neut % (Auto) 63.0 (50.0-70.0) % Lymph % (Auto) 20.9 (18.0-42.0) % [place] % (Auto) 7.9 (2.0-11.0) % Eos % (Auto) 6.8 H (1.0-6.0) % Baso % (Auto) 0.7 (0.0-1.0) % Lymph # (Auto) 1.82 (1.10-4.50) K/mm3 [place] # (Auto) 0.69 (0.10-0.90) K/mm3 Eos # (Auto) 0.59 H (0.02-0.50) K/mm3 Baso # (Auto) 0.06 (0.00-0.10) K/mm3 Abs Immat Gran (auto) 0.06 H (0.00-0.00) K/mm3 Absolute Neuts (auto) 5.49 (1.70-7.20) K/mm3 Absolute Nucleated RBC 0.00 (0.00-0.00) K/mm3 Nucleated RBC % 0.0 (0-0.0) % Sodium 140 (137-145) mmol/L Potassium 4.0 (3.4-5.0) mmol/L Chloride 107 (98-107) mmol/L Carbon Dioxide 27 (22-30) mmol/L Anion Gap 6 (4-12) mmol/L BUN 7 (7-17) mg/dL Creatinine 0.66 L (0.7-1.0) mg/dL Estim Creat Clear Calc 80 ml/min Estimated GFR > 60 (59 - ) Glucose 114 H (65-110) mg/dL Calculated Osmolality 289 (285-295) mOsm/kg Calcium 9.1 (8.4-10.2) mg/dL Total Bilirubin 1.6 H (0.2-1.3) mg/dL AST 54 H (14-36) U/L ALT 50 H (6-35) U/L Alkaline Phosphatase 57 (38-126) U/L Total Protein 6.4 (6.3-8.2) g/dL Albumin 3.6 (3.5-5.1) g/dL Discharge Plan Discharge Clinical Impression: Postoperative wound infection Patient Disposition: Home Condition: Stable Instructions: Antibiotic Form, Surgical Site Infections (ED) Additional Instructions: RETURN IF SYMPTOMS ARE WORSENING , CALL YOUR FAMILY PHYSICIAN FOR APPOINTMENT, TAKE TYLENOL, IBUPROFEN NEEDED FOR ACHES AND PAIN, CONTINUE HOME MEDICATIONS. Patient Language: Urdu Prescriptions: New clindamycin HCl [Cleocin HCl] 300 mg capsule 300 mg PO Q6H Qty: 56 0RF No Action famotidine 40 mg tablet 40 mg PO BID diphenoxylate-atropine 2.5-0.025 mg tablet 1 tablet PO QID PRN (Reason: Diarrhea) ondansetron HCl 4 mg tablet 4 mg PO Q4H Qty: 10 0RF Rx Instructions: 1st dose 1-2 hr before radiation multivitamin [Multiple Vitamins] Tablet 1 tablet PO BID ondansetron 4 mg tablet,disintegrating 4 mg PO Q6H PRN (Reason: nausea and vomiting) Qty: 14 0RF sulfamethoxazole-trimethoprim [Bactrim DS] 800-160 mg tablet 1 tablet PO BID 7 Days Qty: 14 0RF ascorbate calcium (vitamin C) 500 mg tablet 500 mg PO DAILY vitamin D74-[id number] acid 500-400 mcg tablet 1 tablet PO DAILY Rx Instructions: administer with a meal cholecalciferol (vitamin D3) 25 mcg (1,000 unit) capsule 25 mcg PO DAILY meclizine [Antivert] 25 mg tablet,chewable 25 mg PO TID PRN (Reason: dizziness) estradiol 0.01 % (0.1 mg/gram) cream vaginal triamcinolone acetonide 0.1 % paste 1 applic dental TID Qty: 10 2RF Rx Instructions: apply to ulcer on tip of tongue t.i.d. pravastatin 20 mg tablet 10 mg PO DAILY acetaminophen [Tylenol] 325 mg capsule 650 mg PO Q8H PRN (Reason: Pain (Scale Score 1-3)) Xarelto 20 mg tablet 20 mg PO DAILY hydrocodone-acetaminophen 5-325 mg tablet 1 tablet PO QID PRN (Reason: Pain) polyethylene glycol 3350 [Miralax] 17 gram powder in packet 17 g PO DAILY PRN (Reason: constipation) Patient Comments: TAKES PRN Daily Probiotic 2.5 billion cell Capsule 1 cap PO DAILY flecainide 100 mg tablet See Rx Instructions .ROUTE .COMPLEX Qty: 30 0RF Dose Instruction: 100 MG ORALLY NEEDED MAKE TAKE A DOSE WHEN IN ATRIAL FIB, AND MAY TAKE A 2ND DOSE 1 HOUR LATER IF STILL IN ATRIAL FIB. Rx Instructions: 100 MG ORALLY NEEDED MAKE TAKE A DOSE WHEN IN ATRIAL FIB, AND MAY TAKE A 2ND DOSE 1 HOUR LATER IF STILL IN ATRIAL FIB. Follow-up/Referrals: Yasmany Sullivan MD [Primary Care Provider, Internal Medicine]
[2025-07-26 12:00] VITALS: BP 107/52; PULSE 74; RESP 18; O2SAT 98
[2025-07-26 12:06] VITALS: TEMP 36.9
[2025-07-26] MEDS: ONDANSETRON HCL ODT 4 MG TABLET PO (12:21)
[2025-07-26] MEDS: fentaNYL CITRATE INJ (*CRX) 100 MCG/2 ML VIAL IM (12:22)
[2025-07-26 12:30] VITALS: BP 100/58; PULSE 72; RESP 18; O2SAT 98
[2025-07-26 12:47] LABS: Hematocrit 29.5 % (35.0-49.0); Hemoglobin 9.4 g/dL (12.0-15.0); Immature Granulocyte Percent A 0.7 % (0.0-0.0); Lymphocytes Absolute Auto 1.82 K/mm3 (1.10-4.50); Mean Corpuscular HGB Conc 31.9 g/dL (32-36); Mean Corpuscular Hemoglobin 30.0 pg (27.0-31.0); Mean Corpuscular Volume 94.2 fL (78.0-102.0); Nucleated Red Blood Cells Absolute Auto 0.00 K/mm3 (0.00-0.00); Nucleated Red Blood Cells Perc 0.0 % (0-0.0); Platelet Count Result 287 K/mm3 (150-420); Red Blood Count 3.13 M/mm3 (4.20-5.40); White Blood Count 8.7 K/mm3 (4.8-10.8)
[2025-07-26 12:58] LABS: Alanine Aminotransferase 50 U/L (6-35); Albumin Level 3.6 g/dL (3.5-5.1); Alkaline Phosphatase 57 U/L (38-126); Anion Gap 6 mmol/L (4-12); Aspartate Amino Transferase 54 U/L (14-36); Bilirubin,Total 1.6 mg/dL (0.2-1.3); Blood Urea Nitrogen 7 mg/dL (7-17); Calcium 9.1 mg/dL (8.4-10.2); Carbon Dioxide 27 mmol/L (22-30); Chloride 107 mmol/L (98-107); Estimated CRCL calculation 80 ml/min; Estimated Glomerular Filt Rate > 60; Glucose 114 mg/dL (65-110); Osmolality Calculated 289 mOsm/kg (285-295); Potassium 4.0 mmol/L (3.4-5.0); Sodium 140 mmol/L (137-145); Total Protein 6.4 g/dL (6.3-8.2)
[2025-07-26 13:00] VITALS: BP 110/58; PULSE 67; RESP 18; O2SAT 97
--- OUTSIDE RECORDS SUMMARY | 2025-07-26 13:19 | XMS_ITS | Clinical Summary ---
Author Organization [facility] Address [address] [place] [address] Care Team Providers Care Avionics Electronics Technician Name Role Phone Rey Wadsworth MD Unavailable Yasmany Be MD Primary Care Provider [phone] Erin Mead NP Unavailable Unavailable Allergies Active [...] the lungs as needed. 03/13/2018 Active Pancrelipase, Zsv-Iohc-Vvbd, (CREON) 94952 units CAPSULE ENTERIC COATED PARTICLES Take 36,000 [...] of right side 11/18 Atrial fibrillation, persistent 03/14/2017 Facial paresthesia 10/08/2016 Overview (03/25/2019): Impression [...] Industry Job Start Date Job End Date [employer] Not on file Not on file Not [...] 2001 Zoster Vaccines (1 of 2) 2011 COVID-19 Vaccine (4 - 2024-2 6 season) 2025 10/20/2021, 02/18/2021, 01/21/2021 Influenza Adult (#1) 2025 RSV Immunization or 60+ Years (1 - 1-dose 75+ series) 2036 Hepatitis A Vaccines Aged Out No long er eligible based on patient's age to complete this topic Meningococcal B Vaccine Aged Out No l onger eligible based on patient's age to complete this topic Meningococcal Vaccine Aged Out No nupur nikia eligible based on patient's age to complete this topic RSV Immunizations Under 20 Months Aged Out No longer eligible b ased on patient's age to complete this topic Insurance Advance Directives Documents on File Type Date Recorded Patient Care Aide Expl anation Advance Directives and Living Will 02/19/2019 12:00 AM POWER OF HOSPICE RN Advance Directives and Living Will 12/01/2018 12:00 AM POWER OF HOSPICE RN Advance Directives and Living Will 11/10/2018 12:00 AM POWER OF HOSPICE RN Advance Directives and Living Will 09/02/2018 12:00 AM POWER OF HOSPICE RN Advance Directives and Living Will 03/11/2018 12:00 AM POWER OF HOSPICE RN Advance Directives and Living Will 03/11/2018 12:00 AM POWER OF HOSPICE RN Advance Directives and Living Will 01/15/2017 12:00 AM POWER OF HOSPICE RN Care Teams Avionics Electronics Technician Relationship Specialty Start Date End Date Yasmany Sullivan MD [address] [place] [id number] PCP - General INTERNAL MEDICINE 03/11/17 Rey Wadsworth MD [place] [employer]per CLINICAL CARDIAC ELECTROPHYSIOLOGY 03/11/17 Erin Mead NP [address] [place] [address] Nurse Practitioner Electrophysiology 03/13/18
--- OUTSIDE RECORDS SUMMARY | 2025-07-26 13:19 | XMS_ITS | Encounter Summary ---
Author Organization [facility] Address [address] [place] [address] Care Team Providers Care Automation Machine Builder Name Role Phone Rey Wadsworth MD Unavailable Unavailabl e Yasmany Sullivan MD Primary Care Provider [phone] Erin Mead DEVICE PROCESSING ENGINEER Unavailable Unavailable Encounter Details Date Type Department Care Team (Late st Contact Info) Description 12/27/2015 Abstract [facility] AT [facility] [address] [place] [address] Rey Wadsworth MD Social History Tobacco Use Types Packs/Day Years Used Date Smoking Tobacco: Former Comments Unknown Sex and Gender Information Value Date Recorded Sex Assigned at Not on file Legal Sex Female 6:18 PM CDT Gender Identity Not on file Sexual Orientation Not on file 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
--- OUTSIDE RECORDS SUMMARY | 2025-07-26 13:19 | XMS_ITS | Data Portability ---
Author Organization [facility] [place] Address [address] [place] [address] [place] [address] Care Team Providers Care Traffic Survey Technician Name Role Phone JACQUELINE MATTSON Primary Care Provider Assessment No assessment recorded. Plan of Treatment Reminders Order Date Submit Date Provider Last Modified By Organization Details Last Modified Time Details Appointments None recorded. Lab None recorded. Referral None recorded. Procedures None recorded. Surgeries None recorded. Imaging None recorded. Medication Orders estradiol 10 mcg vaginal tablet 2024 025 [email or web address] [facility], [address] [place] [address], [place], [address], 5 15:50:23 Estrace 0.01% (0.1 mg/gram) vaginal cream 2024 025 LISETTE [facility], [address] [place] [address], [facility] [place], [address], 5 10:20:41 clotrimazol e-betametha sone 1 %-0.05 % topical cream 2023 024 LISETTE [facility], [facility], [facility] [place], [address], 5 09:39:07 clindamycin 2 % vaginal cream 2023 [email or web address] [facility] [address] [place], [address], 5 09:38:54 hydrocortis one acetate 25 mg rectal suppository 2023 024 [email or web address] [facility], [address] [place], [address], 5 09:39:25 clobetasol 0.05 % topical cream 2023 024 LISETTE [facility], [facility], [address], [place], [address], 4 11:26:51 Estrace 0.01% (0.1 mg/gram) vaginal cream 2023 024 [email or web address] 1 [facility], [facility] [place], [address], 4 10:02:50 Patient TargetsNo targets recorded. Patient InstructionsNo instructions recorded. Reason for Referral None Reported. Results Created Date Observation Date Name Description Value Unit Range Abnormal Flag Note LastModifiedBy Organization Detail LastModifiedTime 10/28/19 24 10/28/2023 MOBIL UNCUS MULIE RIS/C URTIS ZORAIDA, RT-PC R, ONE SWAB mobiluncus mulieris and mobiluncus curtisii by RT-PCR Negati ve Swab- 1 Vag/C erv Not Available [facility] (Lab) [address], [place], [address], 11/11/2023 15:40:30 10/28/19 24 10/28/2023 BACTE RIAL VAGIN OSIS PANEL RT-PC R, ONESW AB gardnerella vaginalis PCR Negati ve Swab- 1 Vag/C erv Not Available [facility] (Lab) [address], [place], [address], 11/11/2023 15:40:30 10/28/19 24 10/28/2023 BACTE RIAL VAGIN OSIS PANEL RT-PC R, ONESW AB atopobium vaginae PCR Negati ve Swab- 1 Vag/C erv Not Available [facility] (Lab) [address] [place], [address], 11/11/2023 15:40:30 10/28/19 24 10/28/2023 BACTE RIAL VAGIN OSIS PANEL RT-PC R, ONESW AB bacterial vaginosis associated bacteria 2 (bvab2) Negati ve Swab- 1 Vag/C erv Not Available [facility] (Lab) [address] [place], [address], 11/11/2023 15:40:30 10/28/19 24 10/28/2023 BACTE RIAL VAGIN OSIS PANEL RT-PC R, ONESW AB megasphaera species (type 1 and type 2) PCR Negati ve (Type1 ,Type2 ) Swab- 1 Vag/C erv Type1 :Nega tive Type2 :Nega tive. Not Available [facility] (Lab) [address] [place], [address], 11/11/2023 15:40:30 10/28/19 24 10/28/2023 BACTE RIAL VAGIN OSIS PANEL RT-PC R, ONESW AB lactobacillu s (bvpanel) PCR See Commen t Swab- 1 Vag/C erv L.cri spatu s: Negat oliver L.lili senii : Negat oliver L.gas seri : Negat oliver L.ine rs : Negat oliver. Not Available [facility] (Lab) [address] [place], [address], 11/11/2023 15:40:30 10/28/19 24 10/28/2023 VIK DA VAGIN ITIS PANEL RT-PC R, ONESW AB radhika albicans PCR Negati ve Swab- 1 Vag/C erv Not Available [facility] (Lab) [address] [place], [address], 11/11/2023 15:40:31 10/28/19 24 10/28/2023 VIK DA VAGIN ITIS PANEL RT-PC R, ONESW AB radhika tropicalis PCR Negati ve Swab- 1 Vag/C erv Not Available [facility] (Lab) [address] [place], [address], 11/11/2023 15:40:31 10/28/19 24 10/28/2023 VIK DA VAGIN ITIS PANEL RT-PC R, ONESW AB radhika parapsilosis PCR Negati ve Swab- 1 Vag/C erv Not Available [facility] (Lab) [address] [place], [address], 11/11/2023 15:40:31 10/28/19 24 10/28/2023 VIK DA VAGIN ITIS PANEL RT-PC R, ONESW AB radhika glabrata PCR Negati ve Swab- 1 Vag/C erv Not Available [facility] (Lab) [address] [place], [address], 11/11/2023 15:40:31 10/28/19 24 10/28/2023 VIK DA VAGIN ITIS PANEL RT-PC R, ONESW AB radhika krusei by RT-PCR Negati ve Swab- 1 Vag/C erv Not Available [facility] (Lab) [address] [place], [address], 11/11/2023 15:40:31 10/28/19 24 10/28/2023 UROGE NITAL MYCOP LASMA /UREA PLASM A PANEL RT-PC R, ONESW AB mycoplasma genitalium by RT-PCR Negati ve Swab- 1 Vag/C erv Not Available [facility] (Lab) [address] [place], [address], 11/11/2023 15:40:31 10/28/19 24 10/28/2023 UROGE NITAL MYCOP LASMA /UREA PLASM A PANEL RT-PC R, ONESW AB mycoplasma hominis by RT-PCR Negati ve Swab- 1 Vag/C erv Not Available [facility] (Lab) [address] [place], [address], 11/11/2023 15:40:31 10/28/19 24 10/28/2023 UROGE NITAL MYCOP LASMA /UREA PLASM A PANEL RT-PC R, ONESW AB ureaplasma urealyticum by RT-PCR Negati ve Swab- 1 Vag/C erv Not Available [facility] (Lab) [address] [facility], [place], [address], 11/11/2023 15:40:31 10/28/19 24 10/28/2023 VIK DA SNEHAL I BY RT-PC R radhika krusei by RT-PCR CANCEL LED Kindrazoraida zahida Not Available [facility] (Lab) [address] [facility], [place], [address], 11/11/2023 15:40:32 09/14/20 24 09/14/2024 MOBIL UNCUS MULIE RIS/C URTIS ZORAIDA, RT-PC R, ONE SWAB mobiluncus mulieris and mobiluncus curtisii by RT-PCR Negati ve Swab- 1 Cerv End Not Available [facility] (Lab) [address] [facility], [place], [address], 09/29/2024 14:21:25 09/14/20 24 09/14/2024 UROGE NITAL MYCOP LASMA /UREA PLASM A PANEL RT-PC R, ONESW AB mycoplasma genitalium by RT-PCR Negati ve Swab- 1 Cerv End Not Available [facility] (Lab) [address] [facility], [place], [address], 09/29/2024 14:21:26 09/14/20 24 09/14/2024 UROGE NITAL MYCOP LASMA /UREA PLASM A PANEL RT-PC R, ONESW AB mycoplasma hominis by RT-PCR Negati ve Swab- 1 Cerv End Not Available [facility] (Lab) [address] [facility], [place], [address], 09/29/2024 14:21:26 09/14/20 24 09/14/2024 UROGE NITAL MYCOP LASMA /UREA PLASM A PANEL RT-PC R, ONESW AB ureaplasma urealyticum by RT-PCR Negati ve Swab- 1 Cerv End Not Available [facility] (Lab) [address] [place], [address], 09/29/2024 14:21:26 09/14/20 24 09/14/2024 VIK DA VAGIN ITIS PANEL RT-PC R, ONESW AB radhika albicans PCR Negati ve Swab- 1 Cerv End Not Available [facility] (Lab) [address] [place], [address], 09/29/2024 14:21:26 09/14/20 24 09/14/2024 VIK DA VAGIN ITIS PANEL RT-PC R, ONESW AB radhika glabrata PCR Negati ve Swab- 1 Cerv End Not Available [facility] (Lab) [address] [place], [address], 09/29/2024 14:21:26 09/14/20 24 09/14/2024 VIK DA VAGIN ITIS PANEL RT-PC R, ONESW AB radhika krusei by RT-PCR Negati ve Swab- 1 Cerv End Not Available [facility] (Lab) [address] [place], [address], 09/29/2024 14:21:26 09/14/20 24 09/14/2024 VIK DA VAGIN ITIS PANEL RT-PC R, ONESW AB radhika parapsilosis PCR Negati ve Swab- 1 Cerv End Not Available [facility] (Lab) [address] [place], [address], 09/29/2024 14:21:26 09/14/20 24 09/14/2024 VIK DA VAGIN ITIS PANEL RT-PC R, ONESW AB radhika tropicalis PCR Negati ve Swab- 1 Cerv End Not Available [facility] (Lab) [address] [place], [address], 09/29/2024 14:21:26 09/14/20 24 09/14/2024 BACTE RIAL VAGIN OSIS PANEL (WITH LACTO BACIL ABRAHAN PROFI LING) BY QRT LALA, EVELYNE MARTINEZ (JASWANT) atopobium vaginae PCR Negati ve Swab- 1 Cerv End Not Available [facility] (Lab) [address] [place], [address], 09/29/2024 14:21:27 09/14/20 24 09/14/2024 BACTE RIAL VAGIN OSIS PANEL (WITH LACTO BACIL ABRAHAN PROFI LING) BY QRT LALA, EVELYNE MARTINEZ (JASWANT) bacterial vaginosis associated bacterium 1 (bvab1) RT PCR Negati ve Swab- 1 Cerv End Not Available [facility] (Lab) [address] [place], [address], 09/29/2024 14:21:27 09/14/20 24 09/14/2024 BACTE RIAL VAGIN OSIS PANEL (WITH LACTO BACIL ABRAHAN PROFI LING) BY QRT PRC, EVELYNE MARTINEZ (JASWANT) bacterial vaginosis associated bacteria 2 (bvab2) Negati ve Swab- 1 Cerv End Not Available [facility] (Lab) [address] [facility], [place], [address], 09/29/2024 14:21:27 09/14/20 24 09/14/2024 BACTE RIAL VAGIN OSIS PANEL (WITH LACTO BACIL ABRAHAN PROFI LING) BY QRT LALA, EVELYNE MARTINEZ (JASWANT) bacterial vaginosis associated bacterium 3 (bvab3) RT PCR Negati ve Swab- 1 Cerv End Not Available [facility] (Lab) [address] [place], [address], 09/29/2024 14:21:27 09/14/20 24 09/14/2024 BACTE RIAL VAGIN OSIS PANEL (WITH LACTO BACIL ABRAHAN PROFI LING) BY QRT LALA, EVELYNE MARTINEZ (JASWANT) bacteroides fragilis by real - time PCR Negati ve Swab- 1 Cerv End Not Available [facility] (Lab) [address] [place], [address], 09/29/2024 14:21:27 09/14/20 24 09/14/2024 BACTE RIAL VAGIN OSIS PANEL (WITH LACTO BACIL ABRAHAN PROFI LING) BY QRT PRC, EVELYNE MARTINEZ (L) bifidobacter ium breve by real-time PCR Negati ve Swab- 1 Cerv End Not Available [facility] (Lab) [address] [facility], [place], [address], 09/29/2024 14:21:27 09/14/20 24 09/14/2024 BACTE RIAL VAGIN OSIS PANEL (WITH LACTO BACIL ABRAHAN PROFI LING) BY QRT PRC, EVELYNE MARTINEZ (MDL) gardnerella vaginalis PCR Positi ve abnormal Swab- 1 Cerv End Not Available [facility] (Lab) [address] [facility], [place], [address], 09/29/2024 14:21:27 09/14/20 24 09/14/2024 BACTE RIAL VAGIN OSIS PANEL (WITH LACTO BACIL ABRAHAN PROFI LING) BY QRT PRC, EVELYNE MARTINEZ (L) lactobacillu s (bvpanel) PCR See Commen t Swab- 1 Cerv End L.cri spatu s: Negat olivre L.lili senii : Posit oliver L.gas seri : Posit oliver L.ine rs : Negat oliver. Not Available [facility] (Lab) [address] [facility], [place], [address], 09/29/2024 14:21:27 09/14/20 24 09/14/2024 BACTE RIAL VAGIN OSIS PANEL (WITH LACTO BACIL ABRAHAN PROFI LING) BY QRT PRC, EVELYNE MARTINEZ (MDL) lactobacillu s acidophilus by real-time PCR Negati ve Swab- 1 Cerv End Not Available [facility] (Lab) [address] [place], [address], 09/29/2024 14:21:27 09/14/20 24 09/14/2024 BACTE RIAL VAGIN OSIS PANEL (WITH LACTO BACIL ABRAHAN PROFI LING) BY QRT PRC, EVELYNE MARTINEZ (JASWANT) megasphaera species (type 1 and type 2) PCR Negati ve (Type1 ,Type2 ) Swab- 1 Cerv End Type1 :Nega tive Type2 :Nega tive. Not Available [facility] (Lab) [address] [place], [address], 09/29/2024 14:21:27 09/14/20 24 09/14/2024 BACTE RIAL VAGIN OSIS PANEL (WITH LACTO BACIL ABRAHAN PROFI LING) BY QRT PRC, EVELYNE MARTINEZ (JASWANT) mobiluncus curtisii by real-time PCR Negati ve Swab- 1 Cerv End Not Available [facility] (Lab) [address] [place], [address], 09/29/2024 14:21:27 09/14/20 24 09/14/2024 BACTE RIAL VAGIN OSIS PANEL (WITH LACTO BACIL ABRAHAN PROFI LING) BY QRT PRC, EVELYNE MARTINEZ (JASWANT) mobiluncus mulieris by real-time PCR Negati ve Swab- 1 Cerv End Not Available [facility] (Lab) [address] [place], [address], 09/29/2024 14:21:27 09/14/20 24 09/14/2024 BACTE RIAL VAGIN OSIS PANEL (WITH LACTO BACIL ABRAHAN PROFI LING) BY QRT PRC, EVELYNE MARTINEZ (JASWANT) prevotella bivia by real-time PCR Negati ve Swab- 1 Cerv End Not Available [facility] (Lab) [address] [place], [address], 09/29/2024 14:21:27 09/14/20 24 09/14/2024 BACTE RIAL VAGIN OSIS PANEL (WITH LACTO BACIL ABRAHAN PROFI LING) BY QRT PRC, EVELYNE MARTINEZ (JASWANT) sneathia sanguinegens real-time PCR Negati ve Swab- 1 Cerv End Not Available [facility] (Lab) [address] [facility], [place], [address], 09/29/2024 14:21:27 09/14/20 24 09/14/2024 BACTE RIAL VAGIN OSIS PANEL (WITH LACTO BACIL ABRAHAN CHARITY MITCHELL) BY QRT LALA, EVELYNE MARTINEZ (JASWANT) streptococcu s anginosus by real-time PCR Negati ve Swab- 1 Cerv End Not Available [facility] (Lab) [address] [facility], [place], [address], 09/29/2024 14:21:27 09/14/20 24 09/14/2024 VIK DA SNEHAL I BY RT-PC R radhika krusei by RT-PCR CANCEL LED Juvenal zahida Not Available [facility] (Lab) [address] [facility], [place], [address], 09/29/2024 14:21:27 06/14/20 25 06/14/2025 IMAGE GUIDE [...] as clini justin arriaga nted. Not Available [facility] (Lab) [address] [facility], [place], [address], 06/16/2025 23:08:16 11/05/19 24 07/05/2023 CT, abdom en + pelvi s, w/ contr ast No observ ation record ed. [email or web address] [facility] [address] [place], [address], 11/05/2023 20:42:59 Result Notes None recorded. Problems Name Problem SNOMED Code Status Onset Date Resolution Date Notes Provider Name and Address Organization Details Recorded Time History of cerebrovascul ar accident without residual deficits 622823729 Active 2023 Lian delgado [facility] 4 10:04:19 History of deep vein thrombosis 970597550 Active 2023 Lian delgado [facility] 4 10:04:50 Problem Notes None recorded. Procedures Surgical History Date Name Laterality Status Provider Name and Address Organization Details Recorded Time 11/22/19 25 Date of Last Mammogram completed Kiana Crook [facility] 06/14/2025 09:41:09 07/23/20 24 endoscopy completed Lian Melgar [facility] 09/12/2024 09:57:49 09/23/19 23 Carpal tunnel surgery completed Lian Melgar [facility] 11/11/2023 10:08:24 04/05/20 22 procedure on neck completed Lian Melgar [facility] 11/11/2023 10:09:22 01/05/20 22 completed Kiana Crook [facility] 10/26/2024 09:53:02 04/03/20 20 Date of Last Colonoscopy completed [facility] 09/12/2024 09:49:37 09/23/19 20 Carpal tunnel surgery completed [facility] 11/11/2023 10:08:41 09/23/19 20 Colonoscopy completed [facility] 09/12/2024 09:57:35 09/23/19 17 partial resection of colon completed [facility] 11/11/2023 10:08:55 09/23/19 17 Colonoscopy completed [facility] 11/11/2023 10:09:02 09/23/19 07 Cholecystectomy completed [facility] 11/11/2023 10:08:48 09/23/18 89 Total Hysterectomy completed [facility] 11/11/2023 10:09:08 Imaging Results None recorded. Procedure Notes None recorded. Medical Equipment None Reported. Allergies Allergen ID Allergen Name Allergen Category Reaction Reaction Severity Criticality Documentation Date Start Date Code Code System Note Provider Name and Address Organization Details Recorded Time 23855 Prilosec medicatio n dizziness Not available Not available 10/28/2023 47815 5 RxNorm [address] [facility] 4 10:05:06 65719 Rocephin medicatio n hives Not available Not available 10/28/2023 9449 RxNorm [address] [facility] 4 10:20:03 21549 Nexium medicatio n dizziness Not available Not available 10/28/2023 77608 9 RxNorm [address] [facility] 4 10:20:27 03923 Dilaudid medicatio n anaphylax is Not available Not available 10/28/2023 93067 3 RxNorm [address] Eden [facility] 10:20:57 Medications Name Sig Start [...] completed Not Available Not Available Not Available methylpredn [...] vaginal cream Insert 1 applicato rful every week by vaginal route at bedtime. 2024 active Not Available Not Available Not Avai lable cyclobenzap rine 5 mg tablet active Not [...] Updated DateTime 10/26/2024 162.56 cm 30.9 kg/m2 28388.63 g 126/76 mm[Hg] [facility] 10/26/2024 09:52:49 Date Recorded Body height Body mass index (BMI) Body weight Systolic And Diastolic Provider Name and Address Organization Details Last Updated DateTime 10/28/2023 162.56 cm 26.8 kg/m2 01359.41 g 121/75 mm[Hg] Amanda Harmon [facility] 10/28/2023 10:19:45 Date Recorded Body height Body mass index (BMI) Body weight Systolic And Diastolic Provider Name and Address Organization Details Last Updated DateTime 11/11/2023 162.56 cm 27.1 kg/m2 32426.59 g 112/76 mm[Hg] Lian Melgar [facility] 11/11/2023 10:01:35 Date Recorded Body height Body mass index (BMI) Body weight Systolic And Diastolic Provider Name and Address Organization Details Last Updated DateTime 06/14/2025 162.56 cm 33.3 kg/m2 31394.92 g 117/86 mm[Hg] Kiana Crook [facility] 06/14/2025 09:36:54 Date Recorded Body height Body mass index (BMI) Body weight Systolic And Diastolic Provider Name and Address Organization Details Last Updated DateTime 09/12/2024 162.56 cm 30.6 kg/m2 53615.44 g 124/68 mm[Hg] Lian Melgar [facility] 09/12/2024 09:48:24 Social History Question Answer Notes LastModified by Organizat ion Details LastModified Time Tobacco Smoking Status Current Every Day Smoker Amanda Harmon danny, [facility] 10/28/2023 10:06:25 Do You Have An Advance Directive? Yes [email or web address] Information n ot available 09/12/2024 Are You Blind Or Do You Have Difficulty Seeing? No [email or web address] Information n ot available 11/11/2023 What Is Your Level Of Caffeine Consumption? Moderate [email or web address] Information not available 11/11/2023 How Much Tobacco Do You Chew? None Information not available 06/14/2025 In The 14 Days Before Symptom Onset, Have You Had Close Contact With A Laboratory-confirm ed COVID-19 While That Case Was Ill? No [email or web address] Information n ot available 11/11/2023 In The 14 Days Before Symptom Onset, Have You Had Close Contact With A Person Who Is Under Investigation For COVID-19 While That Person Was Ill? No [email or web address] Information not available 11/11/2023 Have You Been To An Area Known To Be High Risk For COVID-19? No [email or web address] Information not available 11/11/2023 Are You Deaf Or Do You Have Serious Difficulty Hearing? No Information not available 11/11/2023 What Type Of Diet Are You Following? CARDIAC [email or web address] Information n ot available 11/11/2023 What Is The Highest Grade Or Level Of School You Have Completed Or The Highest Degree You Have Received? BS70070-6 [email or web address] Information not available 09/12/2024 Are There Any Guns Present In Your Home? No [email or web address] Information not available 09/12/2024 Have You Ever Been Counseled For Unhealthy Alcohol Use? No [email or web address] Information not available 11/11/2023 Do You Use Protection During Sex? Usually [email or web address] Information not available 09/12/2024 Do You Use Your Seat Belt Or Car Seat Routinely? Yes [email or web address] Information not available 09/12/2024 Do You Have Smoke And Carbon Monoxide Detectors In Your Home? Yes [email or web address] Information not available 11/11/2023 At What Age Did You Start Smoking Tobacco? 17 [email or web address] Information not available 09/12/2024 How Much Tobacco Do You Smoke? No Information not available 06/14/2025 Do You Use Sunscreen Routinely? Yes [email or web address] Information not available 11/11/2023 Has Tobacco Cessation Counseling Been Provided? No [email or web address] Information not available 11/11/2023 Have You Used IV Drugs? No [email or web address] Information not available 09/12/2024 Do You Have Difficulty Walking Or Climbing Stairs? No [email or web address] Information not available 11/11/2023 Sex: Unknown Functional Status Question Answer Note LastModified by Organizat ion Details LastModified Time Do you use any illicit or recreational drugs? No [email or web address] Information not available 11/11/2023 Do you or have you ever used any other forms of tobacco or nicotine? No [email or web address] Information not available 11/11/2023 What is your level of alcohol consumption? None Information not available 09/12/2024 Are you able to walk independently without assistance or assistive devices? YESWOREST [email or web address] Information not available 11/11/2023 Are you able to care for yourself independently? Yes Information not available 11/11/2023 What is your occupation? Retired [email or web address] Information not available 09/12/2024 Do you have difficulty dressing, bathing, grooming, or toileting? No [email or web address] Information not available 11/11/2023 What is your exercise level? Occasional [email or web address] Information not available 11/11/2023 Mental Status Question Answer Note LastModified by Organization D etails LastModified Time Do you feel stressed (tense, restless, nervous, or anxious, or unable to sleep at night)? [id number] [email or web address] Information not available 09/12/2024 Family History Relationship [...] 2023 10:51:18 Mother Malignant neoplasm of liver [email or web address] Not available 2024 09:28:52 Medical History Condition [...] ICD10 Code Diagnosis IMO Codes Diagnosis Note [id number] Avtar Perez MD [facility] [address] [address] 10/28/2023 09:46:57 10/28/2023 11:22:37 Atrophic vulva 825567288 N90.5 this patient is a 63-year-ol d [...] will return in 2 weeks. Vulval pain 616115391 R1 0.2 [id number] Avtar Perez MD [facility] [address] [address] 11/11/2023 09:34:50 11/11/2023 14:49:04 Atrophic vulvovaginitis 19595479 N95.2 63-year-ol d female who presents for [...] the vulva. To follow-up in 1 month. 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 /Thigh. Tinea corporis 95221288 B35.4 [id number] Avtar Perez MD [facility] [address] [address] 10/26/2024 09:39:36 10/26/2024 10:27:47 Atrophic vulva 070391094 N90.5 64-year-ol d female with a severe [...] week. She will follow up as needed. [id number] Avtar Perez MD [facility] [address] [address] 06/14/2025 09:27:53 06/14/2025 10:10:07 Atrophic vaginitis 04009548 N95.2 82619 Well woman health examination 061769246 Z01.419 536116 Annual gynecologi benito exam performed. Patient will [...] Sandoval Member ID Guarantor Name 06/14/2025 1 [facility] - DOS ON OR AFTER 21 (MEDICAID REPLACEMENT - HMO) Claudine Cruz [id number] Claudine Cruz Notes Date Note Type Note [...] the vagina. We spent over 40 minutes [id number]. More than 50% was counseling. We agreed to treat with vaginal estrogen and topical estrogen on the vulvar area of interest. She will return in 2 weeks. Avtar Perez MD [address], [place], [address], [facility] 10/28/2023 11:00:18 11/11/19 24 text/htm l [...] very quickly. We spent over 20 minutes [id number]. More than 50% was counseling. She was re-examined. The vulva appears improved. She was using some in the vagina and some over the vulva. To follow-up in 1 month. Avtar Perez MD [address], [place], [address], [facility] 11/11/2023 14:19:59 09/12/20 24 text/htm l [...] weeks. Avtar Perez MD [address], [place], [address], [facility] 09/12/2024 11:46:56 10/26/19 25 text/htm l [...] needed. Avtar Perez MD [address], [place], [address], [facility] 10/26/2024 10:24:29 06/14/20 25 text/htm l [...] exercise. Avtar Perez MD [address], [place], [address], [facility] 06/14/2025 10:07:28 OBGyn Episode Ob Episode Information Episode Created Date Number of Fetuses Patient Bloodtype Patient rh Status Prepregnancy Weight lbs Domestic Partner Domestic Partner Phone Father Name Controller Instructor Status 10/28/19 24 1 CLOSED Fetus Data First Name Last Name Admitted to NICU Weight (g) Sex Living Outcome Pediatric Complications Fetus ID Race Codes Race Delivery Type 3940.35 [id number] M Full Term [id number] Vaginal Delivery Riaz Calculation Initial Riaz Date [...]
--- OUTSIDE RECORDS SUMMARY | 2025-07-26 13:19 | XMS_ITS | Encounter Summary ---
Author Organization [facility] Address [address] [place] [address] Care Team Providers Care Percussion Instrument Tuner Name Role Phone Rey Wadsworth MD Unavailable Yasmany Be MD Primary Care Provider [phone] Erin Mead NP Unavailable Unavailable Encounter Details Date Type Department Care Team (Late st Contact Info) Description 02/28/2019 Abstract SFL CONVERSION [address] [place] [address] , Generic Conversion, Social History [...] Industry Job Start Date Job End Date [employer] Not on file Not on file Not [...] documented as of this encounter Care Teams Percussion Instrument Tuner Relationship Specialty Start Date End Date Yasmany Sullivan MD [address] [place] [address] PCP - General INTERNAL MEDICINE 03/11/17 Rey Wadsworth MD [place] Paper Bag Machine Operator CLINICAL CARDIAC ELECTROPHYSIOLOGY 03/11/17 Erin Mead NP [address] [place] [address] Nurse Practitioner Electrophysiology 03/13/18 documented as of this encounter
[2025-07-26 13:30] VITALS: BP 119/56; PULSE 68; RESP 18; TEMP 36.9; O2SAT 99
== END 2025-07-26 13:30 | disposition home or self-care (01) ==
PROVIDERS: Emergency Provider Emergency Medicine; PCP Internal Medicine
DX: T81.49XA Infection following a procedure, other surgical site, initial encounter (principal); I48.91 Unspecified atrial fibrillation; I10 Essential (primary) hypertension; J44.9 Chronic obstructive pulmonary disease, unspecified; F17.210 Nicotine dependence, cigarettes, uncomplicated; Z79.891 Long term (current) use of opiate analgesic; Z79.01 Long term (current) use of anticoagulants; Z86.73 Personal history of transient ischemic attack (TIA), and cerebral infarction without residual deficits
CPT/HCPCS: 36415; 80053; 85025; 96372; 99283; A9270; J3010